=== PATIENT | female | born 2000 | race Caucasian/White ===

== ENCOUNTER 2022-05-08 22:11 | Emergency (ER) | payer BC, SELFPAY ==
[2022-05-08 22:18] VITALS: BP 104/72; PULSE 78; RESP 16; TEMP 36.5; O2SAT 98; BMI 18.6
[2022-05-08] MEDS: ONDANSETRON 2 MG/ML inj 4 MG IVP (23:00)
--- NOTE | 2022-05-08 23:03 | ED.GENADULT ---
HPI - General Adult General Date Seen: 05/08/22 Chief complaint: Nausea/Vomiting Stated complaint: Vomiting blood Time Seen by Provider: 05/08/22 22:31 Source: patient History of Present Illness HPI narrative: Patient is a 21-year-old here with Mom for evaluation of vomiting which started yesterday. She had diarrhea yesterday as well though that is improved. She has moderate crampy diffuse abdominal pain, worse in the lower abdomen. No fevers, no urinary symptoms. She says today she had some streaks of blood mixed with her vomiting several times. No coffee-ground emesis. No black or bloody stools. No upper respiratory symptoms such as sore throat or cough. She is sexually active, denies new partners or concerns about exposure to sexually transmitted illnesses. She has had irregular periods since having her Nexplanon removed recently, but says she had a normal period last month. She is not on another form of control at this time. Related Data Home Medications Medication Instructions Recorded Confirmed Cold Medicine 05/08/22 Zofran 05/08/22 ibuprofen 05/08/22 Allergies Allergy/AdvReac Type Severity Reaction Status Date / Time Penicillins Allergy hives Verified 05/08/22 22:22 Review of Systems Status of ROS: Reports: 10 or more systems reviewed and unremarkable except as noted in History and below [facility] Social History Smoking Status: Never smoker How often do you have a drink containing alcohol: never AUDIT-C Alcohol total score: 0 Non-prescribed substance use: denies use Exam Narrative: Exam Narrative: Vital signs as noted above. In general, an alert, nontoxic young woman. Head: Normocephalic, atraumatic. Eyes: Pupils are equal reactive. Extraocular movements are full. Conjunctivae are normal. ENT: Mucous membranes are moist. Throat is normal. Neck: Supple without lymphadenopathy. Heart: Regular rate and rhythm. No murmur or rub. Lungs: Clear bilaterally. No increased work of breathing, crackles or wheezes. Abdomen: Soft and nontender. No organomegaly. No CVA tenderness. Extremities: Well perfused. No edema. No calf tenderness. Pulses intact. Neurologic: Patient is alert and oriented to person and place. Speech is fluent. Face is symmetric. Moves all extremities equally. Affect: Normal. Skin: Warm and dry. Well perfused. Const: Vital Signs, click to edit/add: Vital Signs - 24 hr 05/08/22 22:18 Temperature 97.7 F Pulse Rate [Left P ulse Oximeter] 78 Respiratory Rate 16 Blood Pressure [Ri ght Upper Arm] 104/72 Pulse Oximetry 98 Oxygen Delivery Me thod Room Air Documenting provider has reviewed patient's vital signs: yes Course Course Hospital Course: At this point I would recommend IV fluids, checking some labs. Her abdominal exam is benign. My suspicion for a surgical process such as appendicitis or cholecystitis is low given lack of focal pain or tenderness. Doubt obstruction, diverticulitis, colitis, pancreatitis, pyelonephritis, but will await lab in urine results. Rule out . Blood work is reassuring, white blood cell count is normal, hemoglobin is 12.7. Blood in emesis is likely secondary to Qian-Hart tears, no significant hematemesis and no chest pain or toxicity to suggest esophageal rupture. Metabolic panel is normal, carbon dioxide level is 23, BUN and creatinine are normal. Blood sugars 132. Lactate is 1.1. CRP mildly elevated at 4. Lipase is normal at 100. LFTs are unremarkable. UA is negative aside from ketones. test is negative. She is feeling better after IV fluids. Abdominal exam remains benign. I think it is reasonable to discharge home. A prescribe Zofran as needed. Clear liquids for the next 12 hours, advance as able. Return for severe pain, fevers, bloody stools or other worsening. Follow up with primary care if not improving over the next 1-2 days. Vital Signs Vital signs: Initial Vital Signs Temperature 97.7 F 05/08/22 22:18 Temperature Source Oral 05/08/22 22:18 Pulse Rate 78 05/08/22 22:18 Respiratory Rate 16 05/08/22 22:18 Blood Pressure 104/72 05/08/22 22:18 Blood Pressure Mean 82 05/08/22 22:18 Blood Pressure Position Sitting 05/08/22 22:18 Pulse Oximetry 98 05/08/22 22:18 Oxygen Delivery Method 05/08/22 22:18 Vital Signs Temperature 97.7 F 05/08/22 22:18 Pulse Rate 78 05/08/22 22:18 Respiratory Rate 16 05/08/22 22:18 Blood Pressure 104/72 05/08/22 22:18 Pulse Oximetry 98 05/08/22 22:18 Oxygen Delivery Method 05/08/22 22:18 Temperature 97.7 F 05/08/22 22:18 Pulse Rate 78 05/08/22 22:18 Respiratory Rate 16 05/08/22 22:18 Blood Pressure 104/72 05/08/22 22:18 Pulse Oximetry 98 05/08/22 22:18 Oxygen Delivery Method 05/08/22 22:18 Medical Decision Making Lab Data Labs: Lab Results 05/08/22 05/08/22 05/08/22 Range/Units 23:00 23:00 23:00 WBC 10.26 (4.50-11.00) K/uL RBC 4.05 (4.00-5.20) m/uL Hgb 12.7 (12.0-16.0) gm/dL Hct 37.2 (33.0-51.0) % MCV 92 (80-100) fL MCH 31 (26-34) pg MCHC 34 (32-36) gm/dL RDW Coeff of Milind 11.8 (11.5-15.5) % Plt Count 266 (140-440) K/uL Neut % (Auto) 71.5 (42.0-72.0) % Lymph % (Auto) 14.9 L (20-44) % [place] % (Auto) 11.9 H (0.0-11.0) % Eos % (Auto) 1.2 (0.0-7.0) % Baso % (Auto) 0.3 (0.0-3.0) % Neut # (Auto) 7.34 H (1.7-7.0) K/uL Lymph # (Auto) 1.50 (0.90-2.90) K/uL [place] # (Auto) 1.20 H (0.00-0.90) K/UL Eos # (Auto) 0.12 (0.00-0.50) K/uL Baso # (Auto) 0.03 (0.00-0.30) K/uL Abs Immat Gran (auto) 0.02 (0.00-0.30) K/uL Sodium 135 (135-149) mmol/L Potassium 3.7 (3.6-5.1) mmol/L Chloride 103 (96-114) mmol/L Carbon Dioxide 23 (20-32) mmol/L BUN 21 (5-24) mg/dL Creatinine 0.5 (0.5-1.5) mg/dL Estimated Creat Clear 143.94 Estimated GFR 138 ml/min Glucose 132 H (60-115) mg/dL Lactate 1.1 (0.5-1.9) mmol/L Calcium 9.0 (8.4-10.6) mg/dL Total Bilirubin (0.1-1.5) mg/dL Direct Bilirubin (0.0-0.5) mg/dL AST (12-35) U/L ALT (4-35) U/L Alkaline Phosphatase (40-150) U/L C-Reactive Protein 4.0 H (0.5-1.0) mg/dL Total Protein (6.0-8.3) g/dL Albumin (3.3-5.0) g/dL Lipase 100 (23-300) U/L Urine Color (Yellow) Urine Appearance (Clear) Urine pH (5.0-8.5) Ur Specific [place] (1.000-1.030) Urine Protein (Negative) Urine Glucose (UA) (Negative) Urine Ketones (Negative) Urine Blood (Negative) Urine Nitrite (Negative) Urine Bilirubin (Negative) Urine Urobilinogen (0.2-1.0) Ur Leukocyte Esterase (Negative) Urine RBC (0-2) Urine WBC (0-5) Ur Squamous Epith Cells (None-Few) Urine Bacteria (None) Urine HCG, Qual (Negative) 05/08/22 05/08/22 Range/Units 23:00 23:55 WBC (4.50-11.00) K/uL RBC (4.00-5.20) m/uL Hgb (12.0-16.0) gm/dL Hct (33.0-51.0) % MCV (80-100) fL MCH (26-34) pg MCHC (32-36) gm/dL RDW Coeff of Milind (11.5-15.5) % Plt Count (140-440) K/uL Neut % (Auto) (42.0-72.0) % Lymph % (Auto) (20-44) % [place] % (Auto) (0.0-11.0) % Eos % (Auto) (0.0-7.0) % Baso % (Auto) (0.0-3.0) % Neut # (Auto) (1.7-7.0) K/uL Lymph # (Auto) (0.90-2.90) K/uL [place] # (Auto) (0.00-0.90) K/UL Eos # (Auto) (0.00-0.50) K/uL Baso # (Auto) (0.00-0.30) K/uL Abs Immat Gran (auto) (0.00-0.30) K/uL Sodium (135-149) mmol/L Potassium (3.6-5.1) mmol/L Chloride (96-114) mmol/L Carbon Dioxide (20-32) mmol/L BUN (5-24) mg/dL Creatinine (0.5-1.5) mg/dL Estimated Creat Clear Estimated GFR ml/min Glucose (60-115) mg/dL Lactate (0.5-1.9) mmol/L Calcium (8.4-10.6) mg/dL Total Bilirubin 0.2 (0.1-1.5) mg/dL Direct Bilirubin 0.0 (0.0-0.5) mg/dL AST 23 (12-35) U/L ALT 10 (4-35) U/L Alkaline Phosphatase 67 (40-150) U/L C-Reactive Protein (0.5-1.0) mg/dL Total Protein 7.1 (6.0-8.3) g/dL Albumin 4.2 (3.3-5.0) g/dL Lipase (23-300) U/L Urine Color Yellow (Yellow) Urine Appearance Clear (Clear) Urine pH 6.0 (5.0-8.5) Ur Specific [place] 1.025 (1.000-1.030) Urine Protein 1+ A (Negative) Urine Glucose (UA) Negative (Negative) Urine Ketones 3+ A (Negative) Urine Blood Negative (Negative) Urine Nitrite Negative (Negative) Urine Bilirubin 1+ A (Negative) Urine Urobilinogen 4.0 (0.2-1.0) Ur Leukocyte Esterase Negative (Negative) Urine RBC 0-2 (0-2) Urine WBC 2-5 (0-5) Ur Squamous Epith Cells Many A (None-Few) Urine Bacteria None (None) Urine HCG, Qual Negative (Negative) Discharge Plan Discharge Clinical Impression: Vomiting Patient Disposition: Home, Self-Care Condition: Improved Instructions: Acute Nausea and Vomiting (ED) Additional Instructions: Clear liquids for the next 12 hours. Advance diet as able. Zofran if needed. Return for severe pain, fevers, bloody stools or other worsening. Follow up with primary doctor if not improving over the next 1-2 days. Prescriptions: No Action ibuprofen Zofran Cold Medicine Stand Alone Forms: [employer]appy Info Instructions
[2022-05-08] MEDS: KETOROLAC 15 MG/ML inj IVP (23:05)
[2022-05-08] MEDS: 0.9 % SODIUM CHLORIDE 1000 ml 1,000 ML IV (23:05)
[2022-05-08 23:28] LABS: Lactate* 1.1 mmol/L (0.5-1.9)
--- OUTSIDE RECORDS SUMMARY | 2022-05-08 23:28 | XMS_ITS | Encounter Summary ---
:2000 [facility] Address [address] [place] [id number] Care Team Providers Name Role Phone Felicity Salomon MD Primary Care Provider Reason for Visit Reason Comments Nexplanon Removal Encounter Details Date Type Department Care Team Description 01/08/2022 Office Visit [facility] Margarita Mckenna Nexplanon removal (Primary Dx); Services-TRAINS SERVICE CONDUCTOR MD Mook Nexplanon in place [id number] [facility], [address] [place] [address] [address] [place] [id number] [phone] (Wo rk) Social History Tobacco Use Types Packs/Day Years Used Date Smoking Tobacco: Passive Smoke Exposure - Never Smoker Smokeless Tobacco: Never Alcohol Use Standard Drinks/Week Comments No 0 (1 standard drink = 0.6 oz pure alcoho l) Sex Assigned at Date Recorded Not on file documented as of this encounter Progress Notes Margarita Mckenna MD - 01/08/2022 3:45 PM CDT Brayan Marcano PROPERTY MANAGEMENT COORDINATOR Procedure Note Patient presents today for Nexplanon removal. She had the device placed on 12/2018 Procedure: Written consent was obtained for removal of contraceptive implant. Risks discussed included bleeding infection damage to surrounding structures, inability to remove necessitating surgical removal. Patient agrees. Implant was palpated in the right upper inner arm. Area was cleansed with betadine. Less than 3 mL of lidocaine 1% plain was infiltrated in to the subcutaneous area and 1 cm alongthe implant. A 2-3 mm puncture wound was created with an 11 blade scalpel over the distal end of theimplant. The implant was identified and grasp with hemostat. It was removed in full and noted to be intact. It was discarded. The puncture wound was covered with steri strip and wraped with compression dressing. Patient tolerated the procedure well. EBL was 10 mL. No complications. Reviewed returning to clinic for fevers, redness or pain at incision, any concerns. Reviewed need for backup contraception. Plans for contraception: condoms. Dr. 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
--- OUTSIDE RECORDS SUMMARY | 2022-05-08 23:28 | XMS_ITS | Encounter Summary ---
:2000 Author Organization [facility] Address [address], [place] [address] Care Team Providers Name Role Phone Felicity Salomon MD Primary Care Provider Reason for Visit Reason Comments WELL CHILD EXAM wants to start contraception Encounter Details Date Type Department Care Team Description 02/20/2019 Office Visit [facility] Carrie Maxwell for routine child health examination without abnormal findings (Primary Dx); Marcus Ly MD Dysmenorrhea in adolescent; [address] [address] [place] D R Encounter for screening for infections w ith a predominantly sexual mode of transmission; Drive [place], [place] Screening for HIV (human imm unodeficiency virus); [place] [address] Need for HPV vaccination [id number] [phone] Social History Tobacco Use Types Packs/Day Years Used Date Smoking Tobacco: Passive Smoke Exposure - Never Smoker Smokeless Tobacco: Never Alcohol Use Standard Drinks/Week Comments No 0 (1 standard drink = 0.6 oz pure alcoho l) Sex Assigned at Date Recorded Not on file documented as of this encounter Last Filed Vital Signs Vital Sign Reading Time Taken Comments Blood Pressure 90/70 02/20/2019 2:52 PM CDT Pulse 100 02/20/2019 2:52 PM CDT Temperature - - Respiratory Rate - - Oxygen Saturation - - Inhaled Oxygen Concentration - - Weight 47 kg (103 lb 11.2 oz) 02/20/2019 2:52 PM CDT Height 165.1 cm (5' 5) 02/20/2019 2:52 PM CDT Body Mass Index 17.26 02/20/2019 2:52 PM CDT Body Mass Index Percentile 3.82 % 02/20/2019 2:52 PM CD T Growth Chart: [facility] (Girls, 2-20 Years) documented in this encounter Patient Instructions Patient InstructionsCarrie Maxwell MD - 02/20/2019 3:00 PM CDT 1. Gardasil #2 in 1-2 months with nurse visit. [phone]. 2. Make appointment with Nathalie Schreiber. Consider therapy. 3. Nexplanon dileep insertion with Puja Candelaria. [phone]. 15 to 17 Years: Well Exam for Teens Guidelines for healthy growth and development For help after hours: ??? [facility] patients should contact their clinic and ask for pediatric urgent care or anurse ??? [facility] and [facility] patients should contact the Careline at [phone] or [phone] Agto-aze-udcvkbt medicine Aspirin: DO NOT USE Acetaminophen (Tylenol or Tempra) dose: Please see approved dosing tables or confirm dose with your clinic. Ibuprofen (Advil or Motrin) dose: Please see approved dosing tables or confirm dose with your clinic. Measurements Weight: 103 lb 11.2 oz (47 kg) (10 %, Source: [facility] (Girls, 2-20 Years)) Height: 5' 5 (1.651 m) (62 %, Source: [facility] (Girls, 2-20 Years)) Blood Pressure: 90/70 Blood pressure percentiles are <1 % systolic and 66 % diastolic based on the February 2017 AAP Clinical Practice Guideline. Body Mass Index: Estimated body mass index is 17.26 kg/m?? as calculated from the following: Height as of this encounter: 5' 5 (1.651 m). Weight as of this encounter: 103 lb 11.2 oz (47 kg). Nutrition ??? Eat 3 nutritious meals a day, including breakfast. ??? Eat healthy snacks between meals. Snacks should include at least 2 food groups. Enjoy low-fat milk, yogurt, fruits, vegetables, whole grains, lean meats and beans. ??? Join your family for meals together as often as possible. ??? Choose water instead of soda, sports drinks or coffee. ??? Limit foods high in fat or sugar, such as candy, chips and soda. Physical activity ??? Get at least 60 minutes of physical activity a day. You do not have to do the 60 minutes of activity all at once. Break activity up into several shorter times throughout the day. ??? Drink plenty of water during physical activity to help prevent cramps, exhaustion and heat stroke. ??? Limit screen time to no more than 2 hours a day, including TV, DVDs, video games, texting and computer time other than for school or work. Social and emotional health ??? Stay connected with your mom or dad. You might not always agree on everything, but your mom or dad can help you solve problems and support you during difficult situations. ??? If you feel depressed or alone, or are having difficulty solving a problem, reach out for help and support. Talking about your troubles with a trusted adult can help you feel better and find the support and appropriate resources you may need to deal with a problem. ??? Support friends who choose not to use tobacco, alcohol, drugs, steroids or diet pills. Avoid situations where drugs or alcohol are available. ??? Feeling good about yourself comes with self-respect, self-care and self- acceptance. Developing strong self-esteem comes from within, not by meeting others??? expectations about how you should look. ??? Stay involved in activities that allow you to express yourself and to learn--to be you and enjoylife. Do not let friends or classmates pressure you into giving up activities you love or into spending time and money on items that are not important to you. ??? Experiencing alternating periods of good and bad times, or feeling up and down in daily life, isnormal as you get older and take on more responsibility. Identify positive coping skills to deal with stress. ??? Find nonviolent ways to handle your anger or fear. Walk away if necessary. Fighting and carryingweapons can be dangerous. School performance ??? Get 9 hours of sleep every night. Not getting enough sleep can affect your ability to learn, listen, concentrate and solve problems, make you irritable, cause acne or lead to weight gain. Follow bedtime guidelines: ?? Go to bed and get up at the same time each day, even on weekends ?? Turn off cell phones and other electronic devices at least an hour before bed ?? Use the bedroom only for sleep and keep your room quiet and dark ??? Set a regular time and place to do homework. The room should be quiet and free from distractions, such as TV, cell phones, music or videos. ??? Take responsibility for getting to school and getting your homework done on time. Regular attendance at school is important. ??? Start sharing and discussing your future plans and goals for college and work with your family, teachers and school guidance counselor. Sexuality ??? Abstaining from vaginal, anal and oral sex is the safest way to prevent and sexually transmitted diseases (STD). ?? If sexually active, reduce the risk of infection with an STD by using a condom with vaginal, analand oral sex every time. ?? Using a condom and another type of prescription control with sexual intercourse is important to prevent . Talk to your clinician. ??? Healthy dating relationships are built on respect, concern and enjoying activities together. ??? When dating, or in any sexual situations, ???No?? means NO. Listen to and respect what another person is telling you. Saying ???No?? is OK. ??? Plan how you can avoid risky places and relationships. For example, using drugs or alcohol can raise the risk of unwanted sex or other risky behaviors. Safety ??? Make healthy decision about sex, tobacco, alcohol and other drugs. ??? Take a self-defense class to learn how to protect yourself. ??? Follow family rules and city and state laws, such as for curfews and riding in a car. Do not getin a car with someone you do not know or who has been drinking alcohol or using drugs. ??? Have a plan for how to get help if you are feeling unsafe. Call for help if a situation gets dangerous. ??? If you drink alcohol, do not drink when driving, swimming, boating, riding a bike or motorcycle or when responsible for younger children. ??? Do not text or talk on a cell phone while driving. ?? Silence your phone and put it where you cannot reach or see it to avoid using while driving. ?? If you need to use your phone, drive to a safe place and come to a complete stop first. ??? Always wear your seat belt. ??? Wear protective gear and use safety equipment when playing sports, including a mouth guard. ??? Always wear a helmet when rollerblading, skateboarding, snowboarding, skiing and riding a bike, motorcycle or ATV. ??? Wear earplugs or other ear protection when exposed to loud noises, such as music concerts, lawn equipment or other loud working conditions. ??? Put on sunscreen with SPF 30 or higher 30 minutes before you go outside. Reapply sunscreen every2 to 4 hours or after you have been in the water or sweating. Dental health ??? [place] your teeth 2 times a day and floss at least 1 time a day. ??? Visit the dentist every 6 months. Healthcare decisions ??? Now is a good time to think about and learn the skills you need to manage your own medical care for when you turn 18 years old. ?? Schedule your own appointments. ?? Talk honestly and openly with your clinician about your symptoms, medical history and lifestyle. ?? Understand your medical condition, if you have one. ?? Know what medications you need to take and how to get your prescriptions refilled. ?? Understand your healthcare insurance benefits. Websites ??? [employer]: www.Bokee ??? [employer]: www.Tinselvision ??? [facility]: www.[facility].org ??? [place] [employer]: www.healthychildren.org [facility] Participates in the [place] Vaccines for [place] Program ([place]) Children 18 years of age and younger are eligible for free vaccines through the [place]VFC program at [facility]3] if they: 1. Are enrolled in a [place] [facility] Program ([facility], [facility], or a prepaid Medical Assistance program) 2. Do not have health insurance 3. Are of or [place] heritage The [place]VFC program covers the cost of routine vaccines. There is a fee of $21.22 to cover the cost ofgiving the vaccine. If you have insurance through a [place] [facility] Program, you are not billedfor this fee. Other patients are billed for it. If you receive a bill for the cost of the vaccine orif you are unable to pay the administration fee, please contact Customer Service at: ??? Liset Marcano: [phone] ??? [facility]: [phone] ??? [facility]: [phone] Children who have health insurance but the insurance does not pay for immunizations can get low costimmunizations at [facility]. For more information, see Can My Child Get Free or Low Cost Shots? On the [facility]'s web site. documented in this encounter Progress Notes Carrie Maxwell MD - 02/20/2019 3:00 PM CDT Subjective: Mya Hood is a 18 y.o. female presenting for a Well Child Visit. Accompanied by: Mother Concerns: She sees Nathalie Schreiber in psychiatry for depression, anxiety. She is treated with prozac - she missed her last appt and has not rescheduled. She feels it is helping her. She denies that she is suicidal. She is no longer cutting. PHQ-9 is 13 and SCARLETT-7 is 14. She has not seen a therapist since middle school. She did not find it helpful. She has good support at school. She has ADHD treated with metadate CD 10mg during the school year. Nutrition: She doesn't like what her mother buys. She likes fruits and vegetables. She just doesn't always have a great appetite - maybe due to Sleep: She sleeps well most of time but she struggles to fall asleep sometimes. Activity: Appropriate physical activity, Physical activity less than 1 hour per day and Screen time more than 2 hours per day. She enjoys hiking but doesn't do it much. School/Employment: Grade and School - 12th grade at [employer]. She is doing well at [employer]. She would be interested in being a teacher. Menstruation: Regular. She gets nausea and cramping. She has had to leave school. Menarche at 14 or 15. She is not currently sexually active but has been in the past. Objective: Vitals: BP 90/70 (BP Location: Right Arm, BP Cuff Size: Regular) Pulse 100 Ht 5' 5 (1.651 m) Wt 103 lb 11.2 oz (47 kg) LMP 02/11/2019 (Exact Date) BMI 17.26 kg/m?? General: Active, alert, no distress Head: Normal Eyes: Appear normal ENT: Ears: No deformity, Normal TM's, Nose: Normal, no obstruction and Mouth: Normal, palate intact Neck: Normal, full range of motion, no mass, no thyromegaly Chest: Normal respiratory effort, lungs clear to auscultation, normal shape, normal breathing pattern Heart: Regular rate and rhythm, normal heart sounds, no murmurs Abdomen: Normal appearance, soft, non-tender, without organ enlargements, no masses Genitourinary: Patient declined Musculoskeletal: Extremities normal Skin: No rashes or lesions Neurologic: Non focal, normal gait Assessment: Mya was seen today for well child exam. Diagnoses and all orders for this visit: Encounter for routine child health examination without abnormal findings - PSC-17 or PHQ-9: Brief Emotional/Behav Assmt - Visual Acuity - Scr Test Visual Acuity Ac George - Hearing - Pure Tone Hearing Test, Air Dysmenorrhea in adolescent - reviewed treatment options. She will schedule for Nexplanon implant. Encounter for screening for infections with a predominantly sexual mode of transmission - Chlamydia and GC, Urine STD Screening for HIV (human immunodeficiency virus) - declined Need for HPV vaccination - 9Vhpv (Gardasil) - repeat in 1-2 months Reviewed Minor Consent laws in [place], confidentiality, peer pressure, school performance, abstinence/safer sex/contraception/STIs, substance use, 5-2-1-0, seatbelts, helmets, and bullying at visit today. Social and environmental risks assessed and concerns addressed. Social Emotional Screening: Abnormal, Child already seen by specialist. Recommend they make appointment. Immunizations: Discussed risks and benefits of immunizations given today Sports Physical Clearance: Not addressed at visit declined Dental: Dental hygiene discussed and verbal referral for dental visit provided. Teen Questionnaire reviewed and discussed as appropriate. Routine anticipatory guidance discussed with caregiver and concerns addressed. documented in this encounter Plan of Treatment Not on filedocumented as of this encounter Procedures Procedure Name Priority Date/Time Associated Diagnosis Comme nts CHLAMYDIA & GC, Routine 02/20/2019 4:05 PM Encounter for Resul ts for this URINE (15 YEARS CDT screening for procedure a re in AND OLDER) infections with a the result s predominantly sexual section . mode of transmission documented in this encounter Results Chlamydia and GC, Urine STD (02/20/2019 4:05 PM CDT) [facility] Method Time Signature Chlamydia Not Not 02/21/2019 [facility] Trachomatis Detected Detected 12:44 PM CENTRAL LAB STD CDT N. gonorrhoeae Not Not 02/21/2019 [facility] STD Detected Detected 12:44 PM CENTRAL LAB CDT Specimen Anatomical Collection Method Collection Time Receive d Time (Source) Location / / Volume Laterality Urine Non-blood 02/20/2019 4:05 PM 9 4:17 Collection / CDT PM CDT Unknown Narrative [facility] - 02/21/2019 12:44 PM CDT Test performed by Molecular Detection Carrie Maxwell MD LAB_1 Performing Organization Address City/State/ZIP Code Phon e Number [facility] [address] [address] documented in this encounter Visit Diagnoses Diagnosis Encounter for routine child health exami nation without abnormal findings - Primary Routine infant or child health check Dysmenorrhea in adolescent Encounter for screening for infections w ith a predominantly sexual mode of transmission Screening for HIV (human immunodeficienc y virus) Special screening examination for other specified viral diseases Need for HPV vaccination Need for prophylactic vaccination and in oculation against other viral diseases documented in this encounter Care Teams Forestry Instructor Relationship Specialty Start Date End Date Felicity Salomon MD PCP - General 10/27/10 documented as of this encounter
--- OUTSIDE RECORDS SUMMARY | 2022-05-08 23:28 | XMS_ITS | Encounter Summary ---
:2000 [facility] Address [address] [place] [address] Care Team Providers Name Role Phone Felicity Salomon MD Primary Care Provider Reason for Visit Reason Comments LAB APPOINTMENT Encounter Details Date Type Department Care Team Description 03/13/2019 Notes/Orders [facility] Puja Cand[facility] C, FRAME BENDER, CORNICE UPHOLSTERER contraceptive [address] management, unspecified [place], [place] [id number] [place] [address] type (Primary Dx) [phone] [id number] Social History Tobacco Use Types Packs/Day Years Used Date Smoking Tobacco: Passive Smoke Exposure - Never Smoker Smokeless Tobacco: Never Alcohol Use Standard Drinks/Week Comments No 0 (1 standard drink = 0.6 oz pure alcoho l) Sex Assigned at Date Recorded Not on file documented as of this encounter Plan of Treatment Not on filedocumented as of this encounter Results Test (Urine) (03/16/2019 2:17 PM CDT) athologist Signature HCG, Urine Negative Negative 03/16/2019 [place] 2:24 PM CDT LABORATORY Specimen Anatomical Collection Method Collection Time Receive d Time (Source) Location / / Volume Laterality Urine URINE SPECIMEN Non-blood 03/16/2019 2:17 PM 019 2:17 COLLECTION, CLEAN Collection / CDT PM CDT CATCH / Unknown Unknown Puja Candelaria APRN, CORNICE UPHOLSTERER LAB_1 Performing Organization Address City/State/ZIP Code Phon e Number [facility] [address] [place] [address] documented in this encounter Visit Diagnoses Diagnosis Encounter for contraceptive management, unspecified type - Primary documented in this encounter Care Teams Shackler Relationship Specialty Start Date End Date Felicity Salomon MD PCP - General 10/27/10 documented as of this encounter
--- OUTSIDE RECORDS SUMMARY | 2022-05-08 23:28 | XMS_ITS | Encounter Summary ---
:2000 Author [facility] Address [address], [place] [address] Care Team Providers Name Role Phone Felicity Salomon MD Primary Care Provider Reason for Visit Reason Comments IMMUNIZATIONS Encounter Details Date Type Department Care Team Description 04/24/2019 [facility] Need f or HPV Medicine vaccination (Primary [id number] Dx) [place] [address] Social History Tobacco Use Types Packs/Day Years Used Date Smoking Tobacco: Passive Smoke Exposure - Never Smoker Smokeless Tobacco: Never Alcohol Use Standard Drinks/Week Comments No 0 (1 standard drink = 0.6 oz pure alcoho l) Sex Assigned at Date Recorded Not on file documented as of this encounter Plan of Treatment Not on filedocumented as of this encounter Visit Diagnoses Diagnosis Need for HPV vaccination - Primary Need for prophylactic vaccination and in oculation against other viral diseases documented in this encounter Care Teams Patient Registration Supervisor Relationship Specialty Start Date End Date Felicity Salomon MD PCP - General 10/27/10 documented as of this encounter
--- OUTSIDE RECORDS SUMMARY | 2022-05-08 23:28 | XMS_ITS | Clinical Summary ---
:2001 Author [facility] Address [address] [place] [address] Care Team Providers Name Role Phone Felicity Salomon MD Primary Care Provider Source Comments You are receiving this document as you are listed as the primary care provider,follow-up provider, or the patient has been referred to you for consultation.This is in compliance with the Medicare and Medicaid EHR Incentive Program,which states Providers who transition their patient to another setting of careor provider of care or refers their patient to another provider of care shouldprovide summarycare record for each transition of care or referral. [employer] Allergies Active Allergy Reactions Severity Noted Date Comments Penicillins Rash High 03/03/2017 Medications Medication Sig Dispensed Refills Start Date End Date Status FLUoxetine (PROZAC) Take 1 Capsule by 30 Capsule 2 09/28/2018 Active 20 MG capsule mouth daily. Will call when needs filled. methylphenidate Take 1 Capsule by 30 Capsule 0 11/10/2018 Active (METADATE CD) 10 MG mouth daily. controlled release capsule etonogestrel Inject 68 mg 1 Each 0 03/16/2019 Act marck (NEXPLANON) 68 MG subcutaneously . implantIndications: Insertion of implantable subdermal contraceptive Active Problems Problem Noted Date Nexplanon in place 03/16/2019 Overview: Inserted right arm 03/16/19 right arm. Ne eds removal 03/16/2022. 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 Immunizations Name Administration Dates Next Due 9vHPV (Gardasil 9) 04/24/2019, 02/20/2019 DTaP 07/15/2006, 2001, 2001, 06/25 DTaP/Hib 08/25/2002 HepA Ped/Adol (1-18 yrs) 09/10/2014, 01/22/2014 HepB, Unspecified Formulation 02/08/2002, 2001, 2000 Hib (ActHIB) 2001, 2001, 2001 IPV (Polio) 07/15/2006, 02/08/2002, 2001, 06/25 MCV4 (Menactra) 01/22/2014 MCV4 (Menveo) 12/07/2017 MMR 07/15/2006, 06/08/2002 Pneumococcal 7, PED 05/25/2003, 2001, 2001, 06/25 TDAP (BOOSTRIX) 01/22/2014 Varicella 07/29/2012, 06/08/2002 Family History Medical History Relation Name Comments ADHD Father Anxiety Father Depression Father Anxiety Mother Depression Mother Diabetes, Type II Maternal Grandmother Depression Other MGGM Relation Name Status Comments Father Alive Mother Alive Maternal Grandmother Other MGGM Social History Tobacco Use Types Packs/Day Years Used Date Smoking Tobacco: Passive Smoke Exposure - Never Smoker Smokeless Tobacco: Never Alcohol Use Standard Drinks/Week Comments No 0 (1 standard drink = 0.6 oz pure alcoho l) Sex Assigned at Date Recorded Not on file Last Filed Vital Signs Vital Sign Reading Time Taken Comments Blood Pressure 120/74 03/16/2019 2:37 PM CDT Pulse 88 03/16/2019 2:37 PM CDT Temperature 36.8 ??C (98.2 ??F) 03/03/2017 1:17 PM CDT Respiratory Rate 20 03/03/2017 1:17 PM CDT Oxygen Saturation - - Inhaled Oxygen Concentration - - Weight 48.5 kg (107 lb) 03/16/2019 2:37 PM CDT Height 165.1 cm (5' 5) 02/20/2019 2:52 PM CDT Body Mass Index - - Plan of Treatment Health Maintenance Due Date Last Done Comments Hep C Screening (Preventive 2001 Services) COVID-19 Vaccine (#1) 2001 HIV Screening (Preventive 2017 Services) Adult Preventive Visit 2019 02/20/2019, 12/07/2017 HPV Vaccine (3 - 3-dose 08/24/2019 04/24/2019, 02/20/2019 series) Chlamydia 02/21/2020 02/20/2019 Influenza (#1) 2022 DTaP/Tdap/Td (7 - Tdap) 01/23/2024 01/22/2014, 07/15/2006, 08/25/2002, Additional history exists Zoster/Shingles (1 of 2) 2051 HepB Completed 02/08/2002, 2001, 2001 Hib Completed 08/25/2002, 2001, 2001, Additional history exists Pneumococcal Aged Out 05/25/2003, 2001, No longe r eligible 2001, Additional based on patient's age history exists to complete this topic IPV (Polio) Completed 07/15/2006, 02/08/2002, 2001, Additional history exists Varicella Completed 07/29/2012, 06/08/2002 HepA Completed 09/10/2014, 01/22/2014 MCV4 Completed 12/07/2017, 01/22/2014 Insurance Payer Benefit Plan / Subscriber ID Effective Dates Phone Addre ss Type Group BCBS BCBS OUT OF [id number] 2018-Present [id number] [place] [address] ErwinChet matta Personal/Family Father 1965 [phone] [phone] JORDEN PALACIOS (Work) [phone] Care Teams Transportation Inspector Relationship Specialty Start Date End Date Felicity Salomon MD PCP - General 10/27/10
--- OUTSIDE RECORDS SUMMARY | 2022-05-08 23:28 | XMS_ITS | Encounter Summary ---
:2000 [facility] Address [address], [place] [address] Care Team Providers Name Role Phone Felicity Salomon MD Primary Care Provider Encounter Details Date Type Department Care Team Description 03/16/2019 Lab Visit [facility] Encounter for contraceptive [address] [place] [employer] management, [place] [address] Social History Tobacco Use Types Packs/Day Years [...] Name Priority Date/Time Associated Diagnosis Comme nts TEST STAT 03/16/2019 2:17 PM Encounter for Result s for this (URINE) CDT contraceptive procedure are in management, the results unspecified type section. documented in this encounter Results Test (Urine) (03/16/2019 2:17 PM CDT) P athologist Signature HCG, Urine Negative Negative 03/16/2019 [facility] 2:24 PM CDT LABORATORY Specimen Anatomical Collection Method Collection Time Receive d Time (Source) Location / / Volume Laterality Urine URINE SPECIMEN Non-blood 03/16/2019 2:17 PM 019 2:17 COLLECTION, CLEAN Collection / CDT PM CDT CATCH / Unknown Unknown Puja Candelaria APRN, RESP THERAPIST LAB_1 Performing Organization Address City/State/ZIP Code Phon e Number [facility] [address] [place] [address] documented in this encounter Visit Diagnoses Diagnosis Encounter for contraceptive management, unspecified type documented in this encounter Care Teams Sheeter Waxer Operator Relationship Specialty Start Date End Date Felicity Salomon MD PCP - General 10/27/10 documented as of this encounter
--- OUTSIDE RECORDS SUMMARY | 2022-05-08 23:28 | XMS_ITS | Encounter Summary ---
:2001 Author Organization [facility] Address [address] [address] Care Team Providers Name Role Phone Bart Lowe MD Primary Care Provider Reason for Visit Reason Comments SKIN PROBLEM mole to left shoulder Consult/Transfer Care (Routine) - Closed Specialty Diagnoses / Procedures Referred By Contact Refer red To Contact [place] [address] [place] [address] Referral ID Status Reason Start Date Expiration Date Visits Requ ested Visits Authorized [id number] Closed 12/08/2017 03/09/2019 1 1 Encounter Details Date Type Department Care Team Description 03/07/2018 Initial Consult [place] Chaim Day ole of skin (Primary Dx); Dermatology AMD Tinea corporis [address] [place] [address] [facility] [phone] [place], [place] [phone] Social History Tobacco Use Types Packs/Day Years Used Date Smoking Tobacco: Passive Smoke Exposure - Never Smoker Smokeless Tobacco: Never Sex Assigned at Date Recorded Not on file documented as of this encounter Progress Notes Anabel Scott LPN - 03/07/2018 1:15 PM CDT Images from the original note were not included. Chaim Day MD - 03/07/2018 12:00 PM CDT NAME: QUE ZAMORA MR#: [id number] CSN: [id number] AUTHENTICATING CLINICIAN: Chaim Day MD CONFIRM #: [id number] LOC: 527 CLINIC PROGRESS NOTE DATE OF VISIT: 03/07/2018 : 2001 DERMATOLOGY CLINIC NEW PATIENT VISIT NOTE CHIEF COMPLAINT: Mole on the left shoulder. HISTORY OF PRESENT ILLNESS: Que is a 17-year-old female who is here today for evaluation of a mole on the left shoulder. She is referred by Dr. Lowe. She is accompanied by her mother. Patient thinks that the mole has alwaysbeen there. She is uncertain if it has changed. It is asymptomatic. Does have a slightly darker color centrally. She also has a problem with red, round, scaly spots. These first started about a month ago. She had a kitten who had ringworm. She treated these areas on her body with Lamisil cream, and they went awayinitially. They have since recurred. She is otherwise well without further skin complaints. OBJECTIVE: GENERAL: Pleasant and cooperative, no acute distress. SKIN: Examination of the head, neck, left shoulder, upper extremities, and abdomen reveals the following. On the left posterior shoulder, there is a 7 x 5 mm fleshy red brown papule with a darker brown component centrally, benign features on dermoscopy over the upper extremities and abdomen. She has multiple roughly 5 mm pink, scaly papules with an annular leading edge of scale. 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 Photo documentation performed today. Warning signs of melanoma reviewed. She will return to clinic in 3 months for recheck. 2.Tinea corporis: Recommend she restart the Lamisil cream twice daily until clear. She will call if she is not improving. CC: [place] [address] [place] [address] JASMINE:LADONNAQ C: CONFIRM #: [id number] documented in this encounter Plan of Treatment Scheduled Referrals Name Type Priority Associated Diagnoses Order S chedule Dermatology Referral Routine Nevus Ordered: 2017 Consult-Adult/Peds documented as of this encounter Visit Diagnoses Diagnosis Normal mole of skin - Primary Benign neoplasm of skin, site unspecifie d Tinea corporis Dermatophytosis of the body documented in this encounter Care Teams Padding Machine Operator Relationship Specialty Start Date End Date Bart Lowe MD PCP - General 10/27/10 documented as of this encounter
--- OUTSIDE RECORDS SUMMARY | 2022-05-08 23:28 | XMS_ITS | Encounter Summary ---
:2000 [facility] Address [address] [place] [address] Care Team Providers Name Role Phone Felicity Salomon MD Primary Care Provider Reason for Visit Reason Comments SKIN PROBLEM Encounter Details Date Type Department Care Team Description 06/09/2018 Office Visit Chaim Shirley, Compound nevus Dermatology MD (Primary Dx) [address] [phone] [place], [place] [phone] (Wo rk) Social History Tobacco Use Types Packs/Day Years Used Date Smoking Tobacco: Passive Smoke Exposure - Never Smoker Smokeless Tobacco: Never Alcohol Use Standard Drinks/Week Comments No 0 (1 standard drink = 0.6 oz pure alcoho l) Sex Assigned at Date Recorded Not on file documented as of this encounter Progress Notes Chaim Day MD - 06/09/2018 2:33 PM CST NAME: QUE ZAMORA MR#: [id number] CSN: [id number] AUTHENTICATING CLINICIAN: Chaim Day MD CONFIRM #: [id number] LOC: 527 CLINIC PROGRESS NOTE DATE OF VISIT: 06/09/2018 : 2001 HPI: Que is a 18-year-old female who is here today for a followup of mole on the left posterior shoulder. I last saw her 3 months ago. Photo documentation was performed at that time, she believes the mole has been stable. OBJECTIVE: SKIN: Examination of the left posterior shoulder reveals a 7 x 5 mm fleshy, red/brown papule with a darker brown macular component centrally. Benign features on dermoscopy. Stable from photo documentation. 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 Recommend she continue to monitor for change. Warning signs of melanoma reviewed. She will return to clinic as needed. JASMINE:ANTOINE C: CONFIRM #: [id number] ET CLEANER documented in this encounter Plan of Treatment Not on filedocumented as of this encounter Visit Diagnoses Diagnosis Compound nevus - Primary documented in this encounter Care Teams Shot Grinder Operator Relationship Specialty Start Date End Date Felicity Salomon MD PCP - General 10/27/10 documented as of this encounter
--- OUTSIDE RECORDS SUMMARY | 2022-05-08 23:28 | XMS_ITS | Encounter Summary ---
:2001 Author Organization [facility] Address [address] [place] [address] Care Team Providers Name Role Phone Felicity Salomon MD Primary Care Provider Reason for Visit Reason Comments Nexplanon Insertion Encounter Details Date Type Department Care Team Description 03/16/2019 Office Visit [facility] Puja Candelaria Insert [facility] C, NAKUL CIFUENTES implantable subdermal [address] [place] ([place] [address] [place], [place] Dx) [phone] Social History Tobacco Use Types Packs/Day Years [...] Pulse 88 03/16/2019 2:37 PM CDT Temperature - - Respiratory Rate - - Oxygen Saturation - - Inhaled Oxygen Concentration - - Weight 48.5 kg (107 lb) 03/16/2019 2:37 PM CDT Height - - Body Mass Index - - documented in this encounter Progress Notes Puja Candelaria APRN, CNP - 03/16/2019 2:40 PM CDT Clinic procedure note Preprocedure diagnosis: Contraception Post procedure diagnosis: Contraception Indications: Mya Hood is a 18 y.o. female who presents to the clinic today for Nexplanon insertion. Patient's last menstrual period was 02/25/2019 (approximate). . She reports abstinence for the prior 10 days. HCG today negative. Full Nexplanon consult completed on 03/13/[address] Maxwell. I reviewed Nexplanon information with patient and her mother again today. See note for pertinent history. Procedure: Nexplanon insertion Complications: None Description of procedure: After reviewing and signing the informed consent, the patient was placed in the supine position with the right arm elevated. She is left arm dominant. The area of the placement was localized. It was cleansed with Betadine after marking the insertion site. The arm was then injected with 1% lidocaine without epinephrine. Under sterile conditions, the nexplanon dileep was insertedwithout complication. The patient and I both palpated the dileep at the completion of the procedure. A Steri-Strip was placed across the insertion site. Kerlex bandage and sterile 4x4's were applied. There were no complications with the procedure. The patient tolerated the procedure well. Lot number [id number]. Warning signs for infection and irregular menstrual bleeding patterns were reviewed. She was advised to use back-up method of contraception for 14 days. She will follow-up with me as needed. AVS info on Nexplanon aftercare was given. Puja Candelaria APRN, CNP documented in this encounter Plan of Treatment Not on filedocumented as of this encounter Visit Diagnoses Diagnosis Insertion of implantable subdermal contr aceptive - Primary documented in this encounter Care Teams Sephora Operations Consultant Relationship Specialty Start Date End Date Felicity Salomon MD PCP - General 10/27/10 documented as of this encounter
--- OUTSIDE RECORDS SUMMARY | 2022-05-08 23:29 | XMS_ITS | Encounter Summary ---
:2001 Author Organization [facility] Address [address], [place] [address] Care Team Providers Name Role Phone Felicity Salomon MD Primary Care Provider Reason for Visit Reason Comments Other Encounter Details Date Type Department Care Team Description 10/04/2009 Telephone [facility], Message Other [address] [place] [address] Social History Tobacco Use Types Packs/Day Years Used Date Smoking Tobacco: Never Assessed Sex Assigned at Date Recorded Not on file documented as of this encounter Progress Notes Center, Message - 10/04/2009 1:55 PM CST Phone Note filed by Picodeon at 11/15/10137 Author: Picodeon Service: (none) Author Type: (none) Filed: 11/15/10137 Note Time: 10/04/09 1355 Status: Signed Potato Chip Cooker Machine: Picodeon (Resource) Non -Symptom Message from Front Line Caller Name/Relationship:Hernan Primary Mixed Livestock Farmer:Aime Message:Pt mom calling to check on the status of her daughter's MRI appointment that was to be scheduled. (I am unable to locate a previous note) Road Gang Supervisor:Hernan Best call back number:[phone] Is it OK to leave a confidential message on this voicemail?y *[id number] Created on 04Oct2009 1:55pm by LASHAWN WARD R On 04Oct2009 2:22pm FRANCISCO SWEET wrote: Called and talked to mom and let her know that we are waiting on the RQI number from [facility]. I will call mom back when we have this and have the test scheduled UNCHER documented in this encounter Plan of Treatment Not on filedocumented as of this encounter Visit Diagnoses Not on filedocumented in this encounter Care Teams Match Up Person Relationship Specialty Start Date End Date Felicity Salomon MD PCP - General 10/27/10 documented as of this encounter
--- OUTSIDE RECORDS SUMMARY | 2022-05-08 23:29 | XMS_ITS | Encounter Summary ---
:2001 Author Organization [facility] Address [address] [place] [address] Care Team Providers Name Role Phone Felicity Salomon MD Primary Care Provider Encounter Details Date Type Department Care Team Description 09/20/2006 PN Conversion Only [place] [address] [place] [address] Social History Tobacco Use Types Packs/Day Years Used Date Smoking Tobacco: Never Assessed Sex Assigned at Date Recorded Not on file documented as of this encounter Plan of Treatment Not on filedocumented as of this encounter Procedures Procedure Name Priority Date/Time Associated Comments Diagnosis URINALYSIS Routine 09/20/2006 4:31 PM Results f or this ROUTINE(MICRO IF POS) SUPERVISOR PASTRY proced ure are in the results section. URINALYSIS Routine 09/20/2006 4:31 PM Results f or this MICROSCOPIC SUPERVISOR PASTRY procedure are i n the results section. URINE CULTURE Routine 09/20/2006 4:31 PM Results for this SUPERVISOR PASTRY procedure are i n the results section. documented in this encounter Results Urine Culture (09/20/2006 4:31 PM SUPERVISOR PASTRY) Analysis Performed At Patho logist Time Signature Urine Culture SEE TEXT HP CONVERSION Comment: Patient: QUE ZAMORA Culture, Urine @ ?Collected: ??[id number] ??[id number] Source: Clean Ca ?Processed: ??[id number] ??1631 Final Report ------ ?[id number] ??1124 <10,000 CFU/mL gram negative dileep No further workup @ = URINE CULTURE Performed at ??[address] [place], [place] ?[address] Specimen (Source) Anatomical Collection Method Collection Time Re ceived Time Location / / Volume Laterality 09/20/2006 4:31 PM SUPERVISOR PASTRY Josephine Huggins MD LAB_1 Performing Organization Address City/State/[facility] Code Phon e Number HP CONVERSION (ABNORMAL) Urinalysis Routine(Micro If Pos) (09/20/2006 4:31 PM SUPERVISOR PASTRY) [facility] gist Method Time Signature Turbidity Clear No normal HP CONVERSION range pH Urine 7.0 4.5 - 7.5 HP CONVERSION Protein Urine Trace Neg-Trac HP CONVERSION Glucose, Negative Neg-Trac HP CONVERSION Qualitative U Ketones Negative Negative HP CONVERSION U BILI Negative Negative HP CONVERSION Blood Urine Negative Negative HP CONVERSION Nitrite Urine Negative Negative HP CONVERSION Leukocyte Trace (A) Negative HP CONVERSION Esterase Urine Urobilinogen Negative 0.2 - 1.0 HP CONVERSION Urine U Specific 1.020 1.005 - 25 HP CONVERSION [place] Specimen (Source) Anatomical Collection Method Collection Time Re ceived Time Location / / Volume Laterality 09/20/2006 4:31 PM SUPERVISOR PASTRY Josephine Huggins MD LAB_1 Performing Organization Address City/State/ZIP Code Phon e Number HP CONVERSION (ABNORMAL) Urinalysis Microscopic (09/20/2006 4:31 PM SUPERVISOR PASTRY) [facility] gist Method Time Signature White Blood 10-24/HP 0 - 3 HP CONVERSION Cells Urine (A) Red Blood Cells 3-4/HPF 0 - 2 HP CONVERSION Urine (A) Bacteria Urine Few (A) None HP CONVERSION Epithelial Few Few /HPF HP CONVERSION Cells Crystals Amorph None HP CONVERSION Specimen (Source) Anatomical Collection Method Collection Time Re ceived Time Location / / Volume Laterality 09/20/2006 4:31 PM SUPERVISOR PASTRY Josephine Huggins MD LAB_1 Performing Organization Address City/State/ZIP Code Phon e Number HP CONVERSION documented in this encounter Visit Diagnoses Not on filedocumented in this encounter Care Teams Basin Operator Relationship Specialty Start Date End Date Felicity Salomon MD PCP - General 10/27/10 documented as of this encounter
--- OUTSIDE RECORDS SUMMARY | 2022-05-08 23:29 | XMS_ITS | Encounter Summary ---
:2001 Author Organization [facility] Address [address], [place] [address] Care Team Providers Name Role Phone Bart Lowe MD Primary Care Provider Encounter Details Date Type Department Care Team Description 08/11/2006 Office Visit [facility] [place] [address] [place] [address] [place], [place] [phone] (Wo rk) Social History Tobacco Use Types Packs/Day Years Used Date Smoking Tobacco: Never Assessed Sex Assigned at Date Recorded Not on file documented as of this encounter Last Filed Vital Signs Vital Sign Reading Time Taken Comments Blood Pressure - - Pulse 120 08/11/2006 8:59 AM SENIOR EMBEDDED SOFTWARE ENGINEER Temperature 35.9 ??C (96.6 ??F) 08/11/2006 8:59 AM AXILLARY C: 35.9 C SENIOR EMBEDDED SOFTWARE ENGINEER Respiratory Rate 24 08/11/2006 8:59 AM SENIOR EMBEDDED SOFTWARE ENGINEER Oxygen Saturation - - Inhaled Oxygen - - Concentration Weight 16.8 kg (36 lb 15.9 08/11/2006 8:59 AM C: 16.8kg oz) SENIOR EMBEDDED SOFTWARE ENGINEER Height - - Body Mass Index - - documented in this encounter Progress Notes Bart Lowe MD - 08/11/2006 12:01 AM CST Progress Notes signed by Bart Lowe MD at 08/18/06 1589 Author: Bart Lowe MD Service: (none) Author Type: Physician Filed: 11/14/10 1650 Note Time: 08/11/06 0001 Status: Signed Health Care Consultant: Bart Lowe MD (Physician) NAME: QUE ZAMORA MR#: [id number] ACCT: [id number] VISIT: [id number] DICTATING CLINICIAN: BART LOWE MD JOB: [id number] LOC: 503 CLINIC PROGRESS NOTE DATE OF VISIT: 08/11/2006 SUBJECTIVE: A 6-year-old here; she complains of a sore throat today. There is strep going on at day care. She first became sick last week; however, had fever of 102, vomiting. Developed a runny nose and cough. The fever went away. She still has a cough that is lingering. Still having some runny nose and has had some nosebleeds, which have stopped on their own. Mom started humidifier in her room which seems to be helping. Currently denies ear pain. No abdominal pain. No rash. MEDICATIONS: Reviewed in LastWord today. ADR/ALLERGIES: REVIEWED IN LASTWORD TODAY. OBJECTIVE: VS: T: 96.6. P: 120. R: 24. Wt: 37 lb. PERRLA and conjunctivae are clear. TMs are normal. Nose has crusted rhinorrhea and some old, dried blood. Oropharynx is moist. No erythema, exudate, or lesions. NECK: Supple, without adenopathy or masses. LUNGS: Clear to auscultation. Rapid strep was negative. ASSESSMENT: URI with cough. PLAN: Symptomatic treatment. Await 24 hour strep. Treat if positive. SJJ:[id number] C: 08/12/06 14:51 DOCUMENT: [id number] OR EMBEDDED SOFTWARE ENGINEER documented in this encounter Plan of Treatment Not on filedocumented as of this encounter Visit Diagnoses Not on filedocumented in this encounter Care Teams Retirement Actuary Relationship Specialty Start Date End Date Bart oLwe MD PCP - General 10/27/10 documented as of this encounter
--- OUTSIDE RECORDS SUMMARY | 2022-05-08 23:29 | XMS_ITS | Encounter Summary ---
:2001 Author Organization [facility] Address [address], [place] [address] Care Team Providers Name Role Phone Bart Lowe MD Primary Care Provider Reason for Visit Reason Comments Other Encounter Details Date Type Department Care Team Description 10/09/2009 Telephone [facility] Bart Lowe MD Other [address] [place] [address] [place] [phone] (Wo rk) Social History Tobacco Use Types Packs/Day Years Used Date Smoking Tobacco: Never Assessed Sex Assigned at Date Recorded Not on file documented as of this encounter Progress Notes Dianne Méndez - 10/09/2009 4:58 PM CDT Phone Note filed by Dianne Méndez RN at 11/15/10203 Author: Dianne Méndez RN Service: (none) Author Type: Registered Nurse Filed: 11/15/10203 Note Time: 10/09/091657 Status: Signed Logistics Assistant: Joey Montero (Physician) [facility]. It has not been dictated yet, but did want provider here to know results. Exam was done by his partner. States that there is no evidence of an abnormal adnexal mass. They were able to see the right ovary, but the left ovary was hard to see. Call [phone] for questions. Created on 09Oct2009 4:58pm by DIANNE MÉNDEZ On 10Oct2009 12:32pm BART LOWE wrote: I left message on mom's phone. about basically normal pelvic MRI. just couldn't see the left ovary fully. anyway, I asked mom to call me back and we will just plan on repeating the plain films to see if spots are gone. Did parents give pepto-bismal? we'll see at the time of follow up if any further work up need to be done Acknowledged by BART LOWE on 12:32pm OW GAUGE BRAKEMAN documented in this encounter Plan of Treatment Not on filedocumented as of this encounter Visit Diagnoses Not on filedocumented in this encounter Care Teams Packing Line Worker Relationship Specialty Start Date End Date Bart Lowe MD PCP - General 10/27/10 documented as of this encounter
--- OUTSIDE RECORDS SUMMARY | 2022-05-08 23:29 | XMS_ITS | Encounter Summary ---
:2000 [facility] Address [address], [place] [address] Care Team Providers Name Role Phone Bart Lowe MD Primary Care Provider Reason for Referral Consult/Transfer Care (Routine) - Closed Specialty Diagnoses / Procedures Referred By Contact Refer red [place] [address] [place] [place] [phone] Referral ID Status Reason Start Date Expiration Date Visits Requ ested Visits Authorized [id number] Closed 12/08/2017 03/09/2019 1 1 Scheduling Instructions Your provider has recommended an appoint ment with Liset Rivera. You may call [phone] to schedule your appoi ntment. If you do not schedule an appointment within the next 1 to 3 business days, we will call you to help arrange your appointment. We suggest you call your [employer] insurance company about your coverage and benefits for this appointment. Consult/Transfer Care (Routine) - Incomplete Specialty Diagnoses / Procedures Referred By Contact Refer red To Contact Diagnoses Anxiety (HRC) [place] [address] [place] [phone] Referral ID Status Reason Start Date Expiration Date Visits V isits Requested Authorized [id number] Incomplete 12/07/2017 03/08/2019 1 1 Scheduling Instructions Your provider has recommended an appoint ment with [facility]. You may call [phone] to schedule your appointmen t. This recommended service/s may not be covered by your health plan (health insu teresa). To find out your specific benefit coverage, please call the number on your insurance card.?? Please note that in order to maintain access for all patients, [facility] does have a late cancellation policy. In order to avoid being restrict ed from scheduling future appointments in Behavioral Health you will need to cance l at least 24 hours in advance. We request you that you arrive 30 minutes before yo ur first appointment to complete paperwork. ental (Routine) - Incomplete Specialty Diagnoses / Procedures Referred By Contact Refer red To Contact Diagnoses [place] [address] [place] [place] [phone] Referral ID Status Reason Start Date Expiration Date Visits V isits Requested Authorized [id number] Incomplete 12/07/2017 06/05/2018 1 1 Scheduling Instructions If scheduling assistance is needed, eufemia helton inquire with the medical office staff upon exiting your appointment or contact the ordering clinic for recommended locations. This recommended service/s may not be co db by your insurance coverage. To find out your specific benefit coverage, please c all the number on your insurance card. Reason for Visit Reason Comments WELL CHILD EXAM 17yr exam Encounter Details Date Type Department Care Team Description 12/07/2017 Office Visit Bart aMi, Encounter for routine child health examination without abnormal findings (Primary Dx); Pediatrics Screening for iron deficiency anemia; [address] Screening for lipoid disorders; [address] Screening for mental disorde r and developmental handicaps; [phone] Examination of eyes and vision; [phone] Examination of ears and hearing; (Work) Visit for dental examination; Fatigue, unspecified type; Anxiety; Depressed mood (HRC); Nevus Social History Tobacco Use Types Packs/Day Years Used Date Smoking Tobacco: Passive Smoke Exposure - Never Smoker Smokeless Tobacco: Never Sex Assigned at Date Recorded Not on file documented as of this encounter Last Filed Vital Signs Vital Sign Reading Time Taken Comments Blood Pressure 98/56 12/07/2017 8:39 AM CDT Pulse 68 12/07/2017 8:39 AM CDT Temperature - - Respiratory Rate - - Oxygen Saturation - - Inhaled Oxygen Concentration - - Weight 50.3 kg (111 lb) 12/07/2017 8:39 AM CDT Height 165.7 cm (5' 5.25) 12/07/2017 8:39 AM CDT Body Mass Index 18.33 12/07/2017 8:39 AM CDT Body Mass Index Percentile 17.46 % 12/07/2017 8:39 AM CD T Growth Chart: CDC (Girls, 2-20 Years) documented in this encounter Patient Instructions Patient InstructionsNubia Roman LPN - 12/07/2017 8:45 AM CDT 15 to 17 Years: Well Exam for Teens Guidelines for healthy growth and development For help after clinic hours, call your clinic and ask for pediatric urgent care or a nurse. Vaam-iph-oajysqn medicine Aspirin: DO NOT USE Acetaminophen (Tylenol or Tempra) dose: Please see approved dosing tables or confirm dose with your clinic. Ibuprofen (Advil or Motrin) dose: Please see approved dosing tables or confirm dose with your clinic. Measurements Weight: 111 lb (28205 g) (30 %, Source: CDC 2-20 Years) Height: 5' 5.25 (165.7 cm) (68 %, Source: CDC 2-20 Years) Blood Pressure: 98/56 Blood pressure percentiles are 8.1 % systolic and 16.1 % diastolic based on NHBPEP's 4th Report. Body Mass Index: Estimated body mass index is 18.33 kg/(m^2) as calculated from the following: Height as of this encounter: 5' 5.25 (165.7 cm). Weight as of this encounter: 111 lb (14480 g). Nutrition ??? Eat 3 nutritious meals a [...] the water or sweating. Dental health ??? [place] your teeth 2 times a day and [...] Understand your healthcare insurance benefits. Websites ??? [facility]: www.SocialGlimpz/pediatrics ??? [place] [employer]: www.healthychildren.org [facility] Participate in the [place] Vaccines for [place] Program ([place]) Children 18 years of age and younger are eligible for free vaccines through the [place] program at [facility] if they: 1. Are enrolled in a [place] Healthcare Program ([employer] Medical Assistance, [employer]ariant [facility], or a prepaid Medical Assistance program) 2. Do not have health insurance 3. Are of or [place] heritage The [place]VFC program covers the cost of routine vaccines. There is a fee of $21.22 to cover the cost ofgiving the vaccine. If you have insurance through a [place] Healthcare Program, you are not billedfor this fee. Other patients are billed for it. If you receive a bill for the cost of the vaccine orif you are unable to pay the administration fee, please contact Customer Service at [phone]. Children who have health insurance but the insurance does not pay for immunizations can get low costimmunizations at [facility]. For more information, see Can My Child Get Free or Low Cost Shots? On the [facility] of [facility]'s web site. documented in this encounter Progress Notes Bart Lowe MD - 12/08/2017 9:58 AM CDT Addended by: BART LOWE on: 12/08/2017 09:58 AM Modules accepted: Orders Bart Lowe MD - 12/07/2017 8:45 AM CDT Subjective: Mya Hood is a 17 y.o. female presenting for a Well Child Visit. Accompanied By: mother, and then alone Concerns: Current concerns include: anxiety and depression. linotype worker advised her to be seen given spells that she is having. Also scored positive for anxiety and depression screening with her. See noted in scanned documents. To summarize has had 3-4 spells where she seems out of it. Never happened with parents so they haven't witnessed on. Will last for hours where she feels slow, out of it, doesn't remembers what she was during that time, friends says she will ask the same questions repeatedly. Sometimes eye look funny. No Seizure- like activity that anyone has mentioned. Its is hard for her to describe. Denies drug or alcohol use. Has tried vaping a couple times. Feels worried all the time about everything. Tried counseling in middle school but didn't like it.Wouldn't talk to therapist. Stopped going Family hx of anxiety and depression in dad. Depression in mom. Doesn't get along with parents. Fights all of the time Had to switch schools this year. 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 Doing a little better. Nutrition: Intake/Concerns: dairy inadequate, few vegetables, will drink almond milk sometimes Sleep: Pattern/Concerns: difficulty falling asleep, waking at night Social: School: tenth grade Activities: dirt bike racing Social: only has quique friends. Has difficulty making and maintaining friendships with girls Has a boyfriend. Sexually active (mom does NOT know). Using condoms. Teen screen distributed & reviewed with patient. Menstrual: Concerns: regular Dental: Dental care: no concerns, brushing daily, dental visit within 12 months Developmental and Psychosocial Surveillance: PSC-17 (Score): 8 (3-4-1) Y PSC-17 (Score): 15 (6-8-1) Concerns include: social-emotional. Question inattention or if depression/anxiety just manifesting as inattention Also gave her SCARED screen and was positive. See in scanned documents PHQ-9 also positive for depression. Denies suicidal thoughts Allergies Allergen Reactions ??? Penicillins Rash No outpatient prescriptions prior to visit. No facility-administered medications prior to visit. There is no problem list on file for this patient. No past medical history on file. No past surgical history on file. No family history on file. Social History Social History ??? Marital status: Single Spouse name: N/A ??? Number of children: N/A ??? Years of education: N/A Occupational History ??? Not on file. Social History Main Topics ??? Smoking status: Passive Smoke Exposure - Never Smoker ??? Smokeless tobacco: Never Used ??? Alcohol use Not on file ??? Drug use: Not on file ??? Sexual activity: Not on file Other Topics Concern ??? Bike Helmet Yes ??? [place] Yes well ??? Exercise No ??? Guns In Home No ??? Seat Belt No Social History Narrative Objective: BP 98/56 (BP Location: Right Arm, BP Cuff Size: Adult Regular) Pulse 68 Ht 5' 5.25 (165.7 cm) Wt 111 lb (60812 g) BMI 18.33 kg/m2 General: active, alert, no distress Head: normal Eyes: appear normal, sclerae white, pupils equal and reactive ENT: Ears: no deformity, normal TM's, Nose: normal, no obstruction, Mouth: normal, palate intact Neck: normal, full range of motion, no mass, no thyromegaly Chest: normal respiratory effort, lungs clear to auscultation, normal shape, normal breathing pattern Heart: regular rate and rhythm, normal heart sounds, no murmurs, femoral pulse normal Abdomen: normal appearance, soft, non-tender, without organ enlargements, no masses Genitourinary: deferred Musculoskeletal: normal, gait normal and spine normal without scoliosis Skin: no rash or lesions, multicolored nevi upper back Neurologic: non focal, normal strength, normal reflexes, normal gait Assessment: 17 y.o. 6 m.o. Well Child Visit. Anxiety and depressed mood. R/o inattention. Wants to try medications. Referred to psychiatry. Did order hgb, vit D, TSH given fatigue but likely just do to depressed mood. spells of forgetting, trouble remembering, off in space. Did tell Mya and her mom that this is also likely related to mood but would want neurology eval to be thorough. So referred her to [facility]. They will set up appointment Plan: ICD-10-CM 1. Encounter for routine child health examination without abnormal findings Z00.129 2. Screening for iron deficiency anemia Z13.0 HEMOGLOBIN, BLOOD 3. Screening for lipoid disorders Z13.220 CHOLESTEROL (TOTAL) 4. Screening for mental disorder and developmental handicaps Z13.89 BRIEF EMOTIONAL/BEHAV ASSMT (PSC-17 or PHQ-9) 5. Examination of eyes and vision Z01.00 SCR TEST VISUAL ACUITY JESSICA YIMI 6. Examination of ears and hearing Z01.10 Pure Tone Hearing Test, Air 7. Visit for dental examination Z01.20 DENTAL CONSULTADULT-PEDS 8. Fatigue, unspecified type R53.83 Vitamin D (In house) TSH with Free T4 (if TSH Abnormal) CMP - Comprehensive Metabolic Panel 9. Anxiety (HRC) F41.9 Behavioral Health Adult/Peds 10. Depressed mood (HRC) F32.9 Behavioral Health Adult/Peds Discussed healthy lifestyle choices. Discussed options for obtaining control if she doesn't want to tell parents but did encourage her to talk with her mom. Questions and concerns discussed, anticipatory guidance reviewed. Follow up at next well visit or sooner as needed. Sports Clearance: ok if neurology eval is normal Immunization counseling: completed for all immunization components received by the patient today, info given on HPV. They are still undecided Developmental screening: referral made Dental counseling: discussed dental care Ref to derm to check nevus documented in this encounter Plan of Treatment Scheduled Referrals Name Type Priority Associated Diagnoses Order S chedule DENTAL CONSULTADULT-PEDS Referral Routine Visit for dental Ordered: 12/07/2017 examination Behavioral Health Referral Routine Anxiety Ordered: 12/07/2017 Adult/Peds Depressed mood (HRC) Dermatology Referral Routine Nevus Ordered: 2017 Consult-Adult/Peds documented as of this encounter Results CMP - Comprehensive Metabolic Panel (12/07/2017 10:05 AM CDT) [facility] Method Time Signature Aspartate 17 10 - 40 PN SOFT Aminotransferase U/L Lab Glucose 85 70 - 100 PN SOFT mg/dL Comment: The stated glucose range is for the fast ing state. Non-fasting glucose range is 70-180 mg/d L Bilirubin Total 0.5 0.2 - 1.2 mg/dL PN SOFT Calcium 9.7 8.4 - 10.4 mg/dL PN SOFT Sodium 141 136 - 145 mmol/L PN SOFT Potassium 4.4 3.5 - 5.2 mmol/L PN SOFT Blood Urea Nitrogen 12 9 - 26 mg/dL PN SOFT Albumin 4.2 3.4 - 5.0 g/dL PN SOFT Chloride 107 98 - 109 mmol/L PN SOFT Alk Phos 77 40 - 150 U/L PN SOFT Protein Total, Serum 7.4 6.4 - 8.3 g/dL PN S OFT Creatinine Serum 0.60 0.55 - 1.02 mg/dL PN SO FT Est GFR Am see below >60 mL/min/1.73m2 PN SOFT Comment: The CKD-EPI GFR formula is richard d only for adults over 18. Est GFR Non-Afr Am see below >60 mL/min/1.73m2 PN SOFT Comment: The CKD-EPI GFR formula is valid only fo r adults over 18. Normal>60, moderate decrease 30 - 59, se kolby decrease 15 - 29, renal failure <15 mL/min/1.73 m2 NOTE: ??Choose the eGFR result above ashly ropriate for the race of the patient. Alanine Aminotransferase <10 9 - 55 U/L PN S OFT CO2 24 22 - 31 mmol/L PN SOFT Specimen Anatomical Collection Method Collection Time Receive d Time (Source) Location / / Volume Laterality 12/07/2017 10:05 12/07/2017 AM CDT 10:05 AM CDT Narrative PN SOFT - 12/07/2017 11:09 AM CDT Performed at [facility], [address] [place] [address] CLIA number [id number] Bart Lowe MD LAB_1 Performing Organization Address [facility] Phon e Number PN SOFT [address] [place] [address] TSH with Free T4 (if TSH Abnormal) (12/07/2017 10:05 AM CDT) athologist Signature Thyroid 1.09 0.30 - PN SOFT Stimulating 4.50 Hormone uIU/mL Specimen Anatomical Collection Method Collection Time Receive d Time (Source) Location / / Volume Laterality 12/07/2017 10:05 12/07/2017 AM CDT 12:48 PM CDT Narrative PN SOFT - 12/07/2017 2:02 PM CDT Performed at [address] [address] CLIA number [id number] Bart Lowe MD LAB_1 Performing Organization Address [facility] Phon e Number PN SOFT [address] [place] [address] Vitamin D (In house) (12/07/2017 10:05 AM CDT) athologist Signature Vitamin D 25 Oh 22 20 - 80 PN SOFT ng/mL Comment: Deficiency = <20 Adequate ??= 20-29 Preferred = 30-50 Uncertain safety = 51-80 High = >80 Specimen Anatomical Collection Method Collection Time Receive d Time (Source) Location / / Volume Laterality 12/07/2017 10:05 12/07/2017 AM CDT 12:44 PM CDT Narrative PN SOFT - 12/07/2017 2:29 PM CDT Performed at [place] [address] [place] [address] CLIA number [id number] Bart Lowe MD LAB_1 Performing Organization Address [facility] Phon e Number PN SOFT [address] [place] [address] CHOLESTEROL (TOTAL) (12/07/2017 10:05 AM CDT) athologist Signature Cholesterol 141 0 - 199 PN SOFT mg/dL Specimen Anatomical Collection Method Collection Time Receive d Time (Source) Location / / Volume Laterality 12/07/2017 10:05 12/07/2017 AM CDT 10:05 AM CDT Narrative PN SOFT - 12/07/2017 11:09 AM CDT Performed at [facility], [address] [place] [address] CLIA number [id number] Bart Lowe MD LAB_1 Performing Organization Address [facility] Phon e Number PN SOFT [address] [place] [address] HEMOGLOBIN, BLOOD (12/07/2017 10:05 AM CDT) athologist Signature Hemoglobin 13.7 12.0 - 16.0 PN SOFT g/dL Specimen Anatomical Collection Method Collection Time Receive d Time (Source) Location / / Volume Laterality 12/07/2017 10:05 12/07/2017 AM CDT 10:05 AM CDT Narrative PN SOFT - 12/07/2017 10:13 AM CDT Performed at [facility], [facility] [address] [place] [address] CLIA number [id number] Bart Lowe MD LAB_1 Performing Organization Address [facility] Phon e Number PN SOFT [address] [place] [address] documented in this encounter Visit Diagnoses Diagnosis Encounter for routine child health exami nation without abnormal findings - Primary Routine or child health check Screening for iron deficiency anemia Screening for lipoid disorders Screening for mental disorder and develo pmental handicaps Screening for unspecified mental disorde r and developmental handicap Examination of eyes and vision Examination of ears and hearing Other examination of ears and hearing Visit for dental examination Dental examination Fatigue, unspecified type Anxiety (HRC) Anxiety state, unspecified Depressed mood Nevus Benign neoplasm of skin, site unspecifie d Screening for iron deficiency anemia Screening for lipoid disorders Fatigue, unspecified type documented in this encounter Care Teams Driver'S License Examiner Relationship Specialty Start Date End Date Bart Lowe MD PCP - General 10/27/10 documented as of this encounter
--- OUTSIDE RECORDS SUMMARY | 2022-05-08 23:29 | XMS_ITS | Encounter Summary ---
:2000 [facility] Address [address] [place] [address] Care Team Providers Name Role Phone Felicity Salomon MD Primary Care Provider Reason for Visit Reason Comments Information Encounter Details Date Type Department Care Team Description 07/29/2012 Telephone [facility] Felicity Salomon MD Information [address] [address] [place] [phone] (Wo rk) Social History Tobacco Use Types Packs/Day Years Used Date Smoking Tobacco: Never Assessed Sex Assigned at Date Recorded Not on file documented as of this encounter Nursing Notes Christina Yee - 07/29/2012 3:35 PM CST Immunization record faxed. GER PROTEIN Judy Hernandez - 07/29/2012 2:24 PM CST Non -Symptom Message from Front Line Primary Care Provider: Felicity Salomon MD Message: Mom calling to give fax number of [phone] Attn nurse for immunizations - for dr salomon nurse. GER PROTEIN documented in this encounter Plan of Treatment Not on filedocumented as of this encounter Visit Diagnoses Not on filedocumented in this encounter Care Teams Bus Person Relationship Specialty Start Date End Date Felicity Salomon MD PCP - General 10/27/10 documented as of this encounter
--- OUTSIDE RECORDS SUMMARY | 2022-05-08 23:29 | XMS_ITS | Encounter Summary ---
:2000 Author [facility] Address [address] [place] [address] Care Team Providers Name Role Phone Felicity Salomon MD Primary Care Provider Reason for Visit Reason Comments Abdominal Pain Encounter Details Date Type Department Care Team Description 11/29/2014 Office Visit [facility] Felicity Salomon, Abdominal pain, [address] [facility] epigastric ([place] [address] [address]) [phone] [place] [phone] (Wo rk) Social History Tobacco Use Types Packs/Day Years Used Date Smoking Tobacco: Never Assessed Sex Assigned at Date Recorded Not on file documented as of this encounter Last Filed Vital Signs Vital Sign Reading Time Taken Comments Blood Pressure - - Pulse - - Temperature - - Respiratory Rate - - Oxygen Saturation - - Inhaled Oxygen Concentration - - Weight 41.8 kg (92 lb 3.2 oz) 11/29/2014 8:40 AM CDT Height - - Body Mass Index - - documented in this encounter Progress Notes Felicity Salomon MD - 11/29/2014 9:51 AM CDT Progress Notes signed by Felicity Salomon MD at 12/14/14916 Author: Felicity Salomon MD Service: (none) Author Type: Physician Filed: 12/14/14916 Note Time: 11/29/14 9309 Status: Signed Qa Internship: Felicity Salomon MD (Physician) NAME: QUE ZAMORA MR#: [id number] CSN: [id number] AUTHENTICATING CLINICIAN: Felicity Salomon MD CONFIRM #: [id number] LOC: 503 CLINIC PROGRESS NOTE DATE OF VISIT: 11/29/2014 : 2000 14-year-old here for stomachaches on and off for the past 2 months. They 1st thought maybe it was a stomach bug, but now when it kept happening then they got more concerned. It is usually in the morning when she wakes up will feel nauseous, sometimes she will vomit, sometimes she will not. She describes it kind of as a discomfort in the upper quadrant of her stomach. She feels so nauseous that she does not want to eat food in the morning, so unsure if food really helps, but sometimes when she has eaten breakfast then she will vomit. Then as the day goes on she starts to feel normal and there are noproblems in the afternoon or evening. There has been no fever, no weight loss, no joint pain, rashes. She is currently on amoxicillin, that was started November 16 for a left otitis, but that feels better. She has no pain with urination, no urinary frequency. She has not yet started menstruating. Therewere some possible problems at school, met with a counselor on Wednesday. Dad thought maybe things wereresolved, but Que says they are not totally resolved yet. I guess she was having some problems with a teacher. Denies any bullying. She is worrier. There is no family history of inflammatory boweldisease, ulcers. MEDICATIONS: Include amoxicillin. ALLERGIES: Reviewed in EMR. EXAM: Weight 92.2 pounds. Again, there has been no weight loss. She has actually gained weight since her last visit in clinic. Conjunctivae are clear. TMs are normal. Nose without discharge. Oropharynx is moist, no erythema, exudate or lesion. NECK: Supple without adenopathy or masses. LUNGS: Clear to auscultation. HEART: Regular rate and rhythm without murmur. ABDOMEN: Soft, nondistended with normoactive bowel sounds, no organomegaly or masses. There is tenderness to palpation in the epigastric area. IMPRESSION: Morning stomach discomfort, nausea coupled with epigastric tenderness makes gastritis the most likely etiology or gastroesophageal reflux disease. This could be exacerbated by stress. PLAN: Will do a trial of either Prilosec 20 mg or Prevacid 30 mg at night depending on what Dad can find in the pharmacy, should show some improvement in the next 10 days. If there is no improvement or worsening, she will come back. If there is improvement, I suggest that she keep on it for 1 month and thentry off. Also, keep working on school issues and worries as this may be exacerbating, and specifically she should not stay home from school unless there is a fever. SJJ:MEDQ C: CONFIRM #: [id number] documented in this encounter Plan of Treatment Not on filedocumented as of this encounter Visit Diagnoses Diagnosis Abdominal pain, epigastric - Primary documented in this encounter Care Teams Face And Fill Packer Relationship Specialty Start Date End Date Felicity Salomon MD PCP - General 10/27/10 documented as of this encounter
--- OUTSIDE RECORDS SUMMARY | 2022-05-08 23:29 | XMS_ITS | Encounter Summary ---
:2000 Author Organization [facility] Address [address] [address] Care Team Providers Name Role Phone Felicity Salomon MD Primary Care Provider Reason for Visit Reason Comments Abdominal Pain Encounter Details Date Type Department Care Team Description 12/05/2014 Nurse Triage [facility] Felicity Salomon MD Abdominal Pain [address] [address] [place] [address] [address] [place], [place] [phone] (Wo rk) Social History Tobacco Use Types Packs/Day Years Used Date Smoking Tobacco: Never Assessed Sex Assigned at Date Recorded Not on file documented as of this encounter Nursing Notes Aamir Gibbs RN - 12/05/2014 8:26 AM CDT Protocol: ABDOMINAL PAIN (FEMALE)-PEDIATRIC-OH Affirmative: Lying down and unable to walk Disposition of Go To ED Now (Or To Office With PCP Approval) suggested. Spoke with mom. Pt has had severe stomach pain this morning about 1 hour. Had vomiting x1. Pain locates all over the stomach. Pt is unable to move due to pain. Denies fever or other sickness. Pt recently completed antibiotics then started a new medication of Lansoprazole for gastritis last week. Has not has this severe pain in the past. Advised to go to ER due to severe pain. Mom agreed. documented in this encounter Plan of Treatment Not on filedocumented as of this encounter Visit Diagnoses Not on filedocumented in this encounter Care Teams Commutator Repairer Relationship Specialty Start Date End Date Fleicity Salomon MD PCP - General 10/27/10 documented as of this encounter
--- OUTSIDE RECORDS SUMMARY | 2022-05-08 23:29 | XMS_ITS | Encounter Summary ---
:2000 Author Organization [email or web address] Address [address] [place] [address] Care Team Providers Name Role Phone Felicity Salomon MD Primary Care Provider Reason for Visit Reason Comments Recheck Encounter Details Date Type Department Care Team Description 05/27/2013 Office Visit [facility] Felicity Salomon, Scoliosis (and [address] [facility] kyphoscoliosis), [place] [address] [place] idiopathic (Primary [phone] [place], [place] Dx) [phone] (Wo rk) Social History Tobacco Use Types Packs/Day Years Used Date Smoking Tobacco: Never Assessed Sex Assigned at Date Recorded Not on file documented as of this encounter Last Filed Vital Signs Vital Sign Reading Time Taken Comments Blood Pressure - - Pulse - - Temperature - - Respiratory Rate - - Oxygen Saturation - - Inhaled Oxygen Concentration - - Weight 33.1 kg (73 lb) 05/27/2013 11:30 AM CDT Height 142.9 cm (4' 8.25) 05/27/2013 11:30 AM CDT Body Mass Index 16.22 05/27/2013 11:30 AM CDT Body Mass Index Percentile 20.57 % 05/27/2013 11:30 AM C DT Growth Chart: [facility][NOTE 3] (Girls, 2-20 Years) documented in this encounter Progress Notes Felicity Salomon MD - 05/27/2013 12:42 PM CDT Progress Notes signed by Felicity Salomon MD at 05/31/13 0939 Author: Felicity Salomon MD Service: (none) Author Type: Physician Filed: 05/31/13 0939 Note Time: 05/27/13 154 Status: Signed [facility] Winder: Felicity Salomon MD (Physician) NAME: QUE ZAMORA MR#: [id number] CSN: [id number] AUTHENTICATING CLINICIAN: Felicity Salomon MD CONFIRM #: [id number] LOC: 503 CLINIC PROGRESS NOTE DATE OF VISIT: 05/27/2013 : 2000 A 13-year-old here for followup of scoliosis. It was noted initially October 19 with scoliosis film revealing a 10.35 degree curve. See note for detail. I did note that she was Nasim 1, and had not started her pubertal growth spurt, so I asked them to come back in 9 months. She has gotten an inch taller since I saw her. Mom thinks there may be breast budding, but Que would not let me examine her today. So on exam, height 56-1/4 inches, weight 73 pounds. She is well-appearing. She does still have prominence of her right rib cage with forward bend, but still seems relatively mild. Normal shoulder height, scapular height and hips. IMPRESSION: Mild scoliosis, but just now entering puberty and pubertal growth spurt. PLAN: Will obtain scoliosis film today to see how rapid the scoliosis is progressing. If the scoliosis remains unchanged, will likely just repeat film in 1 year. SJJ:MEDQ C: CONFIRM #: [id number] SHABLE FRUIT INSPECTOR documented in this encounter Plan of Treatment Not on filedocumented as of this encounter Visit Diagnoses Diagnosis Scoliosis (and kyphoscoliosis), idiopath ic - Primary documented in this encounter Care Teams Steel Post Installer Relationship Specialty Start Date End Date Felicity Salomon MD PCP - General 10/27/10 documented as of this encounter
--- OUTSIDE RECORDS SUMMARY | 2022-05-08 23:29 | XMS_ITS | Encounter Summary ---
:2000 Author Organization [facility] Address [address] [place] [address] Care Team Providers Name Role Phone Felicity Salomon MD Primary Care Provider Encounter Details Date Type Department Care Team Description 09/24/2009 Office Visit [facility] [place] [address] [address] [place], [place] [phone] (Wo rk) Social History Tobacco Use Types Packs/Day Years Used Date Smoking Tobacco: Never Assessed Sex Assigned at Date Recorded Not on file documented as of this encounter Last Filed Vital Signs Vital Sign Reading Time Taken Comments Blood Pressure - - Pulse 80 09/24/2009 7:04 PM CONSTRUCTION JOB COST ESTIMATOR Temperature 36.7 ??C (98.1 ??F) 09/24/2009 7:04 PM ORAL C: 3 6.7 C CONSTRUCTION JOB COST ESTIMATOR Respiratory Rate 20 09/24/2009 7:04 PM CONSTRUCTION JOB COST ESTIMATOR Oxygen Saturation - - Inhaled Oxygen Concentration - - Weight 25 kg (55 lb 2.9 oz) 09/24/2009 7:04 PM C: 25.0k g CONSTRUCTION JOB COST ESTIMATOR Height - - Body Mass Index - - documented in this encounter Progress Notes Jacqueline Espinal MD - 09/24/2009 12:01 AM CST Progress Notes signed by Jacqueline Espinal MD at 10/03/09 2483 Author: Jacqueline Espinal MD Service: (none) Author Type: Physician Filed: 11/15/102028 Note Time: 09/24/09 0001 Status: Signed Animal Sticker: Jacqueline Espinal MD (Physician) NAME: QUE ZAMORA MR#: [id number] ACCT: [id number] VISIT: [id number] DICTATING CLINICIAN: JACQUELINE ESPINAL MD CONFIRM #: [id number] LOC: 520 CLINIC PROGRESS NOTE DATE OF VISIT: 09/24/2009 SUBJECTIVE: CHIEF COMPLAINT: Abdominal pain, constipation. HPI: This pleasant 9-year-old comes in with her parents complaining of abdominal pain that has been going on for the past week. She has also had some lower back pain. Denies burning upon urination, frequency of urination. Denies any fever. Denies any vomiting or nauseousness. Seems to be after she eats that she will get some abdominal cramping. She has not had any fevers or chills. Mom says she does have bowel movements, but she wait until after school and she does not always have a lot of bowel movements. She has had a history of constipation. PAST MEDICAL HISTORY: None. PAST SURGICAL HISTORY: None. MEDICATIONS: None. ADR/ALLERGIES: NO KNOWN DRUG ALLERGIES. SOCIAL HISTORY: There is tobacco exposure in the house. OBJECTIVE: VS: T: 98.1. P: 80. R: 20. GENERAL: Alert and oriented. LUNGS: Clear to auscultation bilaterally. HEART: Regular without murmurs, rubs, or gallops. ABDOMEN: I can feel quite a bit of stool, mildly tender, no guarding or rebound. No hepatosplenomegaly. Positive bowel sounds. DIAGNOSTIC STUDIES: We did want to leave a urine, but the patient was unable to. White blood cell count 9.4, hemoglobin 13.7, hematocrit 40.1, platelets 282. Abdominal film does show significant amount of stool. ASSESSMENT: Constipation. PLAN: Did discuss using MiraLAX for the next 2 weeks. Mineral oil for the next 2 days until the MiraLAX kicks in. Did recommend changes in diet and pear juice and prune juice to help with bowel movements. They are to follow up with their primary care doctor for long-term treatment plan and follow up here if symptoms persist or worsen. JOSIAS:[id number] C: 09/25/09 08:00 CONFIRM #: [id number] TRUCTION JOB COST ESTIMATOR documented in this encounter Plan of Treatment Not on filedocumented as of this encounter Procedures Procedure Name Priority Date/Time Associated Diagnosis Comme nts XR ABD FLAT Routine 09/24/2009 8:12 PM Results f or this (STANDARD) CONSTRUCTION JOB COST ESTIMATOR procedure are i n the results section. documented in this encounter Results XR Abd Flat (Standard) (09/24/2009 8:12 PM CONSTRUCTION JOB COST ESTIMATOR) Anatomical Region Laterality Modality Abdomen Other Specimen (Source) Anatomical Location Collection Method / Collectio n Time Received Time / Laterality Volume Narrative 09/24/2009 8:12 PM CONSTRUCTION JOB COST ESTIMATOR Moderately large amount of stool is scattered throughout the colon down to the rectum without any changes o f bowel obstruction. ??There are probably 3 small opaque densities in the lateral left pelvis, possibly calcifications. ??Otherwise it may represent some artifact but I would recommend a repeat AP pelvis to determine if these are indeed soft tissue calcifications as cou ld be seen in the ovary versus artifact. ??Urgent care notified of these findings on 09/25/2009 at approximately 0800 hours. Dictating ROMMEL LAZAR RADIOLOGIST Procedure Note Rommle Asencio - 01/09/2016Formatting o f this note might be different from the original. Moderately large amount of stool is scat tered throughout the colon down to the rectum without any changes o f bowel obstruction. There are probably 3 small opaque densities in the lateral left pelvis, possibly calcifications. Otherwise it ma y represent some artifact but I would recommend a repeat AP pelvis to determine if these are indeed soft tissue calcifications as cou ld be seen in the ovary versus artifact. Urgent care notified of these findings on 09/25/2009 at approximately 0800 hours. Dictating ROMMEL LAZAR RADIOLOGIST Jacqueline Espinal MD RAD GD documented in this encounter Visit Diagnoses Not on filedocumented in this encounter Care Teams Cost And Risk Analysis Manager Relationship Specialty Start Date End Date Felicity Salomon MD PCP - General 10/27/10 documented as of this encounter
--- OUTSIDE RECORDS SUMMARY | 2022-05-08 23:29 | XMS_ITS | Encounter Summary ---
:2000 Author Organization [facility] Address [address] [place] [address] Care Team Providers Name Role Phone Felicity Salomon MD Primary Care Provider Reason for Visit Reason Comments FACIAL PAIN Encounter Details Date Type Department Care Team Description 03/03/2017 [facility] Urgent Ivan Jamil Acute re current sinusitis, unspecified location (Primary Dx); Encounter Care YSABEL [facility] [address] [address] [address] [facility] [place] [address] [phone] Social History Tobacco Use Types Packs/Day Years Used Date Smoking Tobacco: Passive Smoke Exposure - Never Smoker Sex Assigned at Date Recorded Not on file documented as of this encounter Last Filed Vital Signs Vital Sign Reading Time Taken Comments Blood Pressure 114/84 03/03/2017 1:17 PM CDT Pulse 95 03/03/2017 1:17 PM CDT Temperature 36.8 ??C (98.2 ??F) 03/03/2017 1:17 PM CDT Respiratory Rate 20 03/03/2017 1:17 PM CDT Oxygen Saturation - - Inhaled Oxygen Concentration - - Weight - - Height - - Body Mass Index - - documented in this encounter Discharge Instructions Discharge InstructionsIvan Jamil PA-C - 03/03/2017 3:45 PM CDT Images from the original note were not included. Sinusitis in Teens: Care Instructions Your Care Instructions Sinusitis is an infection of the lining of the sinus cavities in your head. Sinusitis often follows a cold. It causes pain and pressure in your head and face. In most cases, sinusitis gets better on its own in 1 to 2 weeks. But some mild symptoms may last forseveral weeks. Sometimes antibiotics are needed. Follow-up care is a bender part of your treatment and safety. Be sure to make and go to all appointments, and call your doctor if you are having problems. It's also a good idea to know your test results and keep a list of the medicines you take. How can you care for yourself at home? ?? Take an jqwp-jbl-vtasusr pain medicine, such as acetaminophen (Tylenol), ibuprofen (Advil, Motrin), or naproxen (Aleve). Be safe with medicines. Read and follow all instructions on the label. No oneyounger than 20 should take aspirin. It has been linked to Yuri syndrome, a serious illness. ?? If the doctor prescribed antibiotics, take them as directed. Do not stop taking them just becauseyou feel better. You need to take the full course of antibiotics. ?? Be careful when taking pysn-oea-tsbzxru cold or flu medicines and Tylenol at the same time. Many of these medicines have acetaminophen, which is Tylenol. Read the labels to make sure that you are not taking more than the recommended dose. Too much acetaminophen (Tylenol) can be harmful. ?? Use a nasal spray medicine that relieves a stuffy nose. Do not use the medicine longer than the label says. ?? Breathe warm, moist air from a steamy shower, a hot bath, or a sink filled with hot water. Avoid cold, dry air. Using a humidifier in your home may help. Follow the directions for cleaning the machine. ?? Use saline (saltwater) nasal washes to help keep your nasal passages open and wash out mucus and bacteria. You can buy saline nose drops at a grocery store or drugstore. Or you can make your own at home by adding 1 teaspoon of salt and 1 teaspoon of baking soda to 2 cups of distilled water. If you make your own, fill a bulb syringe with the solution, insert the tip into your nostril, and squeeze gently. Blow your nose. ?? Put a hot, wet towel or a warm gel pack on your face 3 or 4 times a day for 5 to 10 minutes each time. When should you call for help? Call your doctor now or seek immediate medical care if: ?? You have new or worse symptoms of infection, such as: ?? Increased pain, swelling, warmth, or redness. ?? Red streaks leading from the area. ?? Pus draining from the area. ?? A fever. Watch closely for changes in your health, and be sure to contact your doctor if: ?? You are not getting better as expected. Where can you learn more? 1. Go to [employer]/Baiyaxuan or Anybots/[employer]. 2. Enter M284 in the search box. Current as of: February 21, 2016 Content Version: 11.3 ?? [id number] [employer]. documented in this encounter Medications at Time of Discharge Medication Sig Dispensed Refills Start Date End Date cefdinir (OMNICEF) 300 MG Take 1 Cap by mouth 20 Cap 0 0 03/03/2017 03/13/2017 capsule two times a day for 10 days. predniSONE (DELTASONE) 20 Take 2 Tabs by mouth 10 Tab 0 03/03/2017 03/08/2017 MG tablet daily for 5 days. documented as of this encounter ED Notes Ivan Jamil PA-C - 03/03/2017 2:58 PM CDT SUBJECTIVE: Mya Hood is a 16 y.o.female who presents to the clinic with persistent facial pain with recent onset of sore throat, left ear pain, fatigue, mild cough, and nighttime dyspnea. Facial pain started approx 1 month ago while on vacation in [place]. [place], diagnosed with sinusitis, and prescribed 10 day course of antibiotics (unknown, though they believe amoxicillin), Zyrtec, and Flonase. Patient completed abx 10 days ago and is still taking Flonase with mild symptomatic relief. Facial pain is located primarily near front, ethmoid, and maxillary sinuses. Persistent throat pain and lympthadenopathy, exacerbated while swallowing. Denies dental pain. Denies current dyspnea in clinic. Denies recorded fever, took ibuprofen at 9:00am today. No history of seasonal allergies or new known allergen exposure. Social history: Social History Substance Use Topics ??? Smoking status: Passive Smoke Exposure - Never Smoker ??? Smokeless tobacco: None ??? Alcohol use None Past Medical History: History reviewed. No pertinent past medical history. Adverse Drug Reactions: Penicillins Medications: cefdinir and predniSONE OBJECTIVE: Vital Signs: BP (!) 114/84 Pulse 95 Temp 36.8 ??C (98.2 ??F) (Oral) Resp 20 General: Appears well and in NAD. Skin: MMM Eyes: Sclera white, conjunctiva pink, cornea and lenses are clear. PERRL, EOMI bilaterally fundi arebenign bilaterally. Nose: Mild congestion. No significant nasal discharge in clinic. Sinuses: Frontal, ethmoid, and maxillary sinuses are tender to percussion. No obvious swelling. Ears: Canals normal without lesions. Significant cerumen. TMs: non-bulging. No erythema. Pharynx: Bright erythema in posterior pharynx with evidence of postnasal drip. Moist mucous membranes. Tonsils without exudate.e. Neck: Bilateral submandibular and anterior cervical lymphadenopathy. Respiratory: Normal respiratory effort. Lungs are clear with good breath sounds. No wheezing. Heart: RRR without murmurs, rubs, or gallops. Labs: Labs Reviewed MONO TEST Narrative: Performed at [facility], [address] [place] [address] CLIA number [id number] RAPID STREP GROUP A WAIVED Orders Placed This Encounter ??? Mononucleosis Screen (MONOS) ??? Rapid Strep Group A Waived (RSAW) ??? cefdinir (OMNICEF) 300 MG capsule ??? predniSONE (DELTASONE) 20 MG tablet ASSESSMENT: 1. Acute recurrent sinusitis, unspecified location 2. Lymphadenopathy PLAN: Medications - No data to display Medications Prescribed this Visit Disp Refills Start End cefdinir (OMNICEF) 300 MG capsule 20 Cap 0 03/03/2017 03/13/2017 Take 1 Cap by mouth two times a day for 10 days. Oral predniSONE (DELTASONE) 20 MG tablet 10 Tab 0 03/03/2017 03/08/2017 Take 2 Tabs by mouth daily for 5 days. Oral Discharge Instructions Sinusitis in Teens: Care Instructions Your Care Instructions Sinusitis is an infection of the lining of the sinus cavities in your head. Sinusitis often follows a cold. It causes pain and pressure in your head and face. In most cases, sinusitis gets better on its own in 1 to 2 weeks. But some mild symptoms may last for several weeks. Sometimes antibiotics are needed. Follow-up care is a bender part of your treatment and safety. Be sure to make and go to all appointments, and call your doctor if you are having problems. It's also a good idea to know your test results and keep a list of the medicines you take. How can you care for yourself at home? ?? Take an ngbv-val-gnyuerv pain medicine, such as acetaminophen (Tylenol), ibuprofen (Advil, Motrin), or naproxen (Aleve). Be safe with medicines. Read and follow all instructions on the label. No one younger than 20 should take aspirin. It has been linked to Yuri syndrome, a serious illness. ?? If the doctor prescribed antibiotics, take them as directed. Do not stop taking them just because you feel better. You need to take the full course of antibiotics. ?? Be careful when taking mihd-kca-vpvoydd cold or flu medicines and Tylenol at the same time. Many of these medicines have acetaminophen, which is Tylenol. Read the labels to make sure that you are not taking more than the recommended dose. Too much acetaminophen (Tylenol) can be harmful. ?? Use a nasal spray medicine that relieves a stuffy nose. Do not use the medicine longer than the label says. ?? Breathe warm, moist air from a steamy shower, a hot bath, or a sink filled with hot water. Avoid cold, dry air. Using a humidifier in your home may help. Follow the directions for cleaning the machine. ?? Use saline (saltwater) nasal washes to help keep your nasal passages open and wash out mucus and bacteria. You can buy saline nose drops at a grocery store or drugstore. Or you can make your own at home by adding 1 teaspoon of salt and 1 teaspoon of baking soda to 2 cups of distilled water. If you make your own, fill a bulb syringe with the solution, insert the tip into your nostril, and squeeze gently. Blow your nose. ?? Put a hot, wet towel or a warm gel pack on your face 3 or 4 times a day for 5 to 10 minutes each time. When should you call for help? Call your doctor now or seek immediate medical care if: ?? You have new or worse symptoms of infection, such as: ?? Increased pain, swelling, warmth, or redness. ?? Red streaks leading from the area. ?? Pus draining from the area. ?? A fever. Watch closely for changes in your health, and be sure to contact your doctor if: ?? You are not getting better as expected. Where can you learn more? 1. Go to Vitriflex/Baiyaxuan or Anybots/Runrun.it. 2. Enter M284 in the search box. Current as of: February 21, 2016 Content Version: 11.3 ?? [id number] [employer], [employer]. Sinus irrigation was discussed. Use OTC analgesics, oral decongestants, and decongestant nasal spray(maximum 4 days, side effects discussed). Decrease dairy products while congested. Hot shower prior to bed time. RTC PRN if not gradually improving. The patient was discharged ambulatory and in stable condition. I examined the patient independently, reviewed the note with the student, and discussed all aspects of the visit with the student prior to signing the note. Ivan Jamil PA-C documented in this encounter Plan of Treatment Not on filedocumented as of this encounter Procedures Procedure Name Priority Date/Time Associated Diagnosis Comme nts BETA STREP FOLLOWUP Routine 03/03/2017 6:35 PM Re sults for this CDT procedure are i n the results section. MONO TEST STAT 03/03/2017 2:59 PM Lymphadenopathy Result s for this CDT procedure are i n the results section. GROUP A STREP STAT 03/03/2017 2:49 PM Lymphadenopathy Resul ts for this ANTIGEN SCREEN CDT procedure are in the results section. documented in this encounter Results Beta Strep Followup (03/03/2017 6:35 PM CDT) [facility] Method Time Signature Source Throat PN SOFT Site PN SOFT Strep Screen No Group A 03/05/2017 PN SOFT Streptococcus 6:53 AM CDT Isolated Specimen (Source) Anatomical Collection Method Collection Time Re ceived Time Location / / Volume Laterality Throat: 03/03/2017 6:35 PM CDT Narrative PN SOFT - 03/05/2017 6:53 AM CDT Performed at [facility] [address], [address] [place] [address], [place] [address], CLIA Number [id number] Ivan Jamil PA-C LAB_1 Performing Organization Address [facility] Code Phon e Number PN SOFT [address] [place] [address] Mononucleosis Screen (MONOS) (03/03/2017 2:59 PM CDT) [facility] gist Method Time Signature Mononucleosis Negative Negative PN SOFT Screen Specimen Anatomical Collection Method Collection Time Receive d Time (Source) Location / / Volume Laterality 03/03/2017 2:59 PM 7 2:59 CDT PM CDT Narrative PN SOFT - 03/03/2017 3:17 PM CDT Performed at [facility], [facility] [address] [place] [address] CLIA number [id number] Ivan Jamil PA-C LAB_1 Performing Organization Address [facility] Phon e Number PN SOFT [address] [place] [address] Rapid Strep Group A Waived (RSAW) (03/03/2017 2:49 PM CDT) P athologist Signature Strep A Negative Negative PN SOFT Antigen Strep A Source THROA: PN SOFT Specimen Anatomical Collection Method Collection Time Receive d Time (Source) Location / / Volume Laterality 03/03/2017 2:49 PM 7 6:32 CDT PM CDT Narrative PN SOFT - 03/03/2017 6:32 PM CDT Performed at [facility], [address] [place] [address] CLIA number [id number] Ivan Jamil PA-C LAB_1 Performing Organization Address [facility] Code Phon e Number PN SOFT [address] [place] [address] documented in this encounter Visit Diagnoses Diagnosis Acute recurrent sinusitis, unspecified l ocation - Primary Lymphadenopathy Enlargement of lymph nodes Triage Assessment Note - Gevoanna Teran RN - 03/03/2017 1:14 PM CDT Finished abx for sinus inf and pink eye about 10d ago, Still having symptoms. documented in this encounter Care Teams Property Coordinator Relationship Specialty Start Date End Date Felicity Salomon MD PCP - General 10/27/10 documented as of this encounter
--- OUTSIDE RECORDS SUMMARY | 2022-05-08 23:29 | XMS_ITS | Encounter Summary ---
:2000 Author Organization [employer] Address [address] [address] Care Team Providers Name Role Phone Felicity Salomon MD Primary Care Provider Reason for Visit Reason Comments BREATHING PROBLEM Encounter Details Date Type Department Care Team Description 07/04/2014 Nurse Triage [facility] s Felicity Salomon, BREATHING PROBLEM [address] [facility] [place] [address] [place] [phone] [place] [address] (Wo rk) Social History Tobacco Use Types Packs/Day Years Used Date Smoking Tobacco: Never Assessed Sex Assigned at Date Recorded Not on file documented as of this encounter Nursing Notes Aamir Gibbs RN - 07/04/2014 8:35 AM CST Protocol: BREATHING DIFFICULTY [id number] Affirmative: All other patients with difficulty breathing Disposition of Schedule appt within 2 hrs, Triage to contact Primary office stat, or Go to suggested. Spoke with mom. Pt has had sore throat for 3 days then complains congestion and SOB. Denies fever orchest pain. Coughing is mild. No hx of wheezing or asthma. Dad has bronchitis and mom wonders if pt's getting bronchitis. Pt is talking and walking ok but very tired. Appt scheduled for today. Advised mom to call back if symptoms getting worse. MO agreed. ETING COMMUNICATIONS SPECIALIST documented in this encounter Plan of Treatment Not on filedocumented as of this encounter Visit Diagnoses Not on filedocumented in this encounter Care Teams Flume Ride Operator Relationship Specialty Start Date End Date Felicity Salomon MD PCP - General 10/27/10 documented as of this encounter
--- OUTSIDE RECORDS SUMMARY | 2022-05-08 23:29 | XMS_ITS | Encounter Summary ---
:2001 Author Organization [facility] Address [address] [address] Care Team Providers Name Role Phone Bart Lowe MD Primary Care Provider Reason for Visit Reason Comments Other Encounter Details Date Type Department Care Team Description 08/11/[address] [facility] Rahul Yee Other [address] [place] [address] Social History Tobacco Use Types Packs/Day Years Used Date Smoking Tobacco: Never Assessed Sex Assigned at Date Recorded Not on file documented as of this encounter Progress Notes Mahnaz Sommers RN - 08/11/2006 7:57 AM CST Phone Note filed by Mahnaz Sommers RN at 11/11/10 6852 Author: Mahnaz Sommers RN Service: (none) Author Type: Registered Nurse Filed: 11/11/10 7416 Note Time: 08/11/06 4022 Status: Signed Rn Outpatient Surgery: Mahnaz Sommers RN (Registered Nurse) Care Without Wait Appt. Request: Primary Sample Hand:Dr Lowe Caller name/relationship:Mom-Celia Appt. reason/specific request:Mom calling to request appt to do strep test. Pt is 5 yr exposed to strep at [facility]. Has sore throat, cold and cough with bloody noses. Had low grade fever yesterday and today has tummy ache. How long have you had these Symptoms?:sore throat today rest of sx since How would you rate your Symptoms? Mild / Mod / Severe:mod Phone # pt./caller over next hr.:[phone] h OK to leave detailed messsage on voicemail? yes Use e-code (/pncwowr) to respond to this request. Created on 11Aug2006 7:57am by MAHNAZ SOMMERS On 11Aug2006 8:09am BART LOWE wrote: they could come over now and I will work them in. Acknowledged by BART LOWE on 8:09am On 11Aug2006 8:15am RAHUL YEE wrote: Spoke to mom and appt. booked. Lives in [place]. Will be here approx. 40 minutes. Acknowledged by RAHUL YEE on 8:15am ROOM SUPERVISOR documented in this encounter Plan of Treatment Not on filedocumented as of this encounter Visit Diagnoses Not on filedocumented in this encounter Care Teams Cement Contractor Relationship Specialty Start Date End Date Bart Lowe MD PCP - General 10/27/10 documented as of this encounter
--- OUTSIDE RECORDS SUMMARY | 2022-05-08 23:29 | XMS_ITS | Encounter Summary ---
:2001 Author [facility] Address [address] [address] Care Team Providers Name Role Phone Felicity Salomon MD Primary Care Provider Reason for Visit Reason Comments Abdominal Pain Vomiting Encounter Details Date Type Department Care Team Description 11/01/2014 Nurse Triage [facility] s Felicity Salomon, Abdominal Pain; [address] [facility] [place] [address] [place] [phone] [place] [address] (Wo rk) Social History Tobacco Use Types Packs/Day Years Used Date Smoking Tobacco: Never Assessed Sex Assigned at Date Recorded Not on file documented as of this encounter Nursing Notes Ana Rodriguez RN - 11/01/2014 2:22 PM CDT Protocol: ABDOMINAL PAIN (FEMALE)-PEDIATRIC-OH Affirmative: Mild abdominal pain present for < 24 hours Disposition of Home Care suggested. Patient's father calling with concerns of patient's abdominal pain which started around 3am today. Woke with stomach pain and 1 episode of vomiting. Intermittent moderate abdominal pain ongoing since vomiting episode. No vomiting since 3 am. Patient reports pain in generalized over entire abdomin and comes and goes. Father unsure of fever, can't find thermometer to check temperature, states patient feels warm to touch. Patient states eating makes stomach pain worse, has had minimal intake but has used the restroom a few times and is hydrated at this time. Stressed importance of staying hydrated. Discussed home care advice per protocol. Patient's father verbalized understanding and agreement with plan. Patient's father was instructed to call the clinic with any questions, concerns, or worsening symptoms. documented in this encounter Plan of Treatment Not on filedocumented as of this encounter Visit Diagnoses Not on filedocumented in this encounter Care Teams Console Assembler Relationship Specialty Start Date End Date Felicity Salomon MD PCP - General 10/27/10 documented as of this encounter
--- OUTSIDE RECORDS SUMMARY | 2022-05-08 23:29 | XMS_ITS | Encounter Summary ---
:2001 Author Organization [facility] Address [address], [place] [address] Care Team Providers Name Role Phone Felicity Salomon MD Primary Care Provider Reason for Visit Reason Comments Other Encounter Details Date Type Department Care Team Description 07/07/2010 Telephone [facility], Message Other [address] [place] [address] Social History Tobacco Use Types Packs/Day Years Used Date Smoking Tobacco: Never Assessed Sex Assigned at Date Recorded Not on file documented as of this encounter Progress Notes Center, Message - 07/07/2010 12:45 PM CST Phone Note filed by Conferensum at 11/16/1032 Author: Conferensum Service: (none) Author Type: (none) Filed: 11/16/1032 Note Time: 07/07/105 Status: Signed Medical Office Secretary: Conferensum (Resource) Front Line Sx Call Caller Name/Relationship:MomJassi Primary State Patrol Officer:Aime Symptom or request?Growing pain-sleep issues Is appointment scheduled & when?n Director Social Service:Celia Bergeron call back number:[phone] Pharmacy Name:[facility] Is it OK to leave a confidential message on this voicemail?y *ECODE~PNSX2 Created on [id number] 12:45pm by ZACK BLACKBURN R On [id number] 1:10pm KENNA GRIMES wrote: CLINICIAN FOLLOW-UP: none IMPRESSION: Leg Pain. SYMPTOMS: mom calling for last week patient developed growing pains in upper thighs. These pain wake pt up at night and patient is given pain reliever and then able to go back to sleep. Mom is wondering if pt needs to be seen. Denies emergent symptoms Problem List: reviewed in electronic medical record. Allergies: Reviewed/updated in electronic medical record. Medications: Reviewed/updated in electronic medical record. care advise: Lifestyle and home remedies By [facility] staff You can help ease your child's discomfort with these home remedies: Rub your child's legs. Some children respond to gentle massage. Others feel better when they're held or cuddled. Use a heating pad. Heat can help soothe sore muscles. Use a heating pad on a low setting before bedtime or when your child complains of leg pain. Remove the heating pad once your child falls asleep. A warm bath before bedtime may help, too. Try a pain reliever. Offer your child ibuprofen (Advil, Motrin, others) or acetaminophen (Tylenol, others). Avoid aspirin, due to the risk of Yuri's syndrome a rare but serious condition linked to giving aspirin to children. Advised to call back if any of the following occur: symptoms worsen or persist, any other questions or concerns. PLAN: HOME CARE Patient/Caller agrees with plan and denies additional questions. References Used: Pediatric Telephone Protocols--Leg Pain. Call Complete. *AMOS~BS~LEGMERLEIN ~ ANTLER documented in this encounter Plan of Treatment Not on filedocumented as of this encounter Visit Diagnoses Not on filedocumented in this encounter Care Teams Dinkey Operator Slag Relationship Specialty Start Date End Date Felicity Salomon MD PCP - General 10/27/10 documented as of this encounter
--- OUTSIDE RECORDS SUMMARY | 2022-05-08 23:29 | XMS_ITS | Encounter Summary ---
:2001 Author Organization [facility] Address [address], [place] [address] Care Team Providers Name Role Phone Felicity Salomon MD Primary Care Provider Reason for Visit Reason Comments Questions Encounter Details Date Type Department Care Team Description 10/19/2012 Office Visit [facility] Felicity Salomon, Scoliosis (and [address] [facility] kyphoscoliosis), [place] [address] idiopathic (Primary [phone] [place], [place] Dx) [address] (Wo rk) Social History [...] - Inhaled Oxygen Concentration - - Weight 32.7 kg (72 lb) 10/19/2012 8:55 AM CDT Height 140.3 cm (4' 7.25) 10/19/2012 8:55 AM CDT Body Mass Index 16.58 10/19/2012 8:55 AM CDT Body Mass Index Percentile 31.47 % 10/19/2012 8:55 AM CD T Growth Chart: [facility] (Girls, 2-20 Years) documented in this encounter Progress Notes Felicity Salomon MD - 10/19/2012 1:11 PM CDT Progress Notes signed by Felicity Salomon MD at 11/02/121317 Author: Felicity Salomon MD Service: (none) Author Type: Physician Filed: 11/02/121317 Note Time: 10/19/121310 Status: Signed Furnace Setter: Felicity Salomon MD (Physician) NAME: QUE ZAMORA MR#: [id number] CSN: [id number] AUTHENTICATING CLINICIAN: Felicity Salomon MD CONFIRM #: [id number] LOC: 503 CLINIC PROGRESS NOTE DATE OF VISIT: 10/19/2012 : 2000 Rrixwa-zgnw-bsu here for concerns about scoliosis. Screened at her school in [place], and they thought there was an abnormality of her spine or hips, and they sent her for evaluation here. Parents have not noticed any curve. There is a family history of scoliosis in a maternal aunt who required a brace during her teenage years. The only other thing that parents want to talk about today is that school has noticed some inattention. Apparently a teacher has recommended guarana supplements to help. I did look it up, and it seems as if it is an herb that is equivalent to caffeine. I told parents that it is not a regulated FDA drug, and so I could not give any formal recommendations about it, but if they choose to try it, should monitor for side effects of caffeine. Also, if it does not work to help with her attention issues, she should have a formal ADHD evaluation and discuss other medication options should parents choose. EXAM: Height 55-1/4 inches, weight 72 pounds. She is well appearing, in no acute distress. Examination of her back shows symmetric shoulders and hips. On forward bend she does have a mild prominence of her right thoracic rib cage. I do lie her on the table, and she has symmetric leg lengths and normal hip range of motion. She is currently Nasim I and has not started puberty yet. Scoliosis films were obtained which showed a 10.35 degree curve. IMPRESSION: Mild scoliosis but has not yet started her pubertal growth spurt so has the potential of worsening. PLAN: Will recheck in 6-9 months, sooner if problems arise or parents noticed a more pronounced curve. Also see above for recommendations regarding evaluation for inattention. JOHN:ANTOINE C: CONFIRM #: [id number] Felicity Salomon MD - 10/19/2012 12:43 PM CDT Quick Note: scoliosis curve is 10.35 degrees on xray (there is a typo in the prelim report). mom informed and will do follow up exam in 6-9 months documented in this encounter Miscellaneous Notes Miscellaneous - 09/04/2016 8:52 AM CSTNotes Recorded by Felicity Salomon MD on 10/19/2012 at 12:43 PMscoliosis curve is 10.35 degrees on xray (there is a typo in the prelim report). mom informed and will do follow up exam in 6-9 months RAFT INSPECTION RECORD CLERK documented in this encounter Plan of Treatment Not on filedocumented as of this encounter Procedures Procedure Name Priority Date/Time Associated Diagnosis Comme nts XR SPINE AP OR PA Routine 10/19/2012 9:39 AM Scoliosis (and Re sults for this SCOLIOSIS CDT kyphoscoliosis), procedure a re in idiopathic the results section. documented in this encounter Results XR Spine AP Or PA Scoliosis (10/19/2012 9:39 AM CDT) Anatomical Region Laterality Modality Spine Other Specimen (Source) Anatomical Location Collection Method / Collectio n Time Received Time / Laterality Volume Narrative 10/19/2012 10:18 AM CDT No comparison. 12 thoracic and 5 lumbar vertebrae. ??No definite anomalies seen. ?? There is a levoscoliosis of 105 length m easured between T7-L3. ?? Garcia image created. Procedure Note Rommel Asencio MD - 01/10/2016Formatti ng of this note might be different from the original. No comparison. 12 thoracic and 5 lumbar vertebrae. No d efinite anomalies seen. There is a levoscoliosis of 105 length m easured between T7-L3. Garcia image created. Transcriptions Rommel Asencio MD - 09/04/2016 8:52 AM CSTNotes Recorded by Felicity Salomon MD on 10/19/2012 at 12:43 PMscoliosis curve is 10.35 degrees on xray (there is a typo in the prelim report). mom informed and will do follow up exam in 6-9 months Felicity Salomon MD RAD GD documented in this encounter Visit Diagnoses Diagnosis Scoliosis (and kyphoscoliosis), idiopath ic - Primary documented in this encounter Care Teams Nub Card Tender Relationship Specialty Start Date End Date Felicity Salomon MD PCP - General 10/27/10 documented as of this encounter
--- OUTSIDE RECORDS SUMMARY | 2022-05-08 23:29 | XMS_ITS | Encounter Summary ---
:2001 [facility] Address [address] [place] [address] Care Team Providers Name Role Phone Felicity Salomon MD Primary Care Provider Encounter Details Date Type Department Care Team Description 09/24/2009 PN Conversion Only [place] [address] [address] [place], [place] [address] (Wo rk) Social History Tobacco Use Types Packs/Day Years Used Date Smoking Tobacco: Never Assessed Sex Assigned at Date Recorded Not on file documented as of this encounter Plan of Treatment Not on filedocumented as of this encounter Procedures Procedure Name Priority Date/Time Associated Diagnosis Comme nts COMPLETE BLOOD Routine 09/24/2009 7:37 PM Results for this COUNT-W/DIFF PROFESSOR OF EXERCISE SCIENCE procedure are i n the results section. documented in this encounter Results Hemogram/Plts/Diff (09/24/2009 7:37 PM PROFESSOR OF EXERCISE SCIENCE) P athologist Signature White Blood Cell 9.4 5.0 - 14.5 [facility] N Count k/cmm Red Blood Cell 4.52 3.80 - HP CONVERSION Count 5.20 m/cmm Hemoglobin 13.7 11.5 - HP CONVERSION 15.0 g/dL Hematocrit 40.1 33.0 - HP CONVERSION 43.0 % Mean Corpuscular 88.7 77.0 - HP CONVERSION Volume 95.0 fL RDW 11.5 11.0 - HP CONVERSION 15.0 % Platelet Count 282 150 - 450 [facility] CONVERSION k/cmm Absolute 4.6 1.5 - 8.5 HP CONVERSION Neutrophils k/cmm Absolute 3.7 1.0 - 4.0 HP CONVERSION Lymphocytes k/cmm Absolute 0.9 0.2 - 1.0 HP CONVERSION Monocytes k/cmm Absolute 0.1 0.0 - 0.5 HP CONVERSION Eosinophils k/cmm Absolute 0.1 0.0 - 0.2 HP CONVERSION Basophils k/cmm Specimen (Source) Anatomical Collection Method Collection Time Re ceived Time Location / / Volume Laterality 09/24/2009 7:37 PM PROFESSOR OF EXERCISE SCIENCE Pippa Jameson MD LAB_1 Performing Organization Address City/State/ZIP Code Phon e Number [facility] CONVERSION documented in this encounter Visit Diagnoses Not on filedocumented in this encounter Care Teams Seed Analyst Relationship Specialty Start Date End Date Felicity Salomon MD PCP - General 10/27/10 documented as of this encounter
--- OUTSIDE RECORDS SUMMARY | 2022-05-08 23:29 | XMS_ITS | Encounter Summary ---
:2001 Author Organization [facility] Address [address] [address] Care Team Providers Name Role Phone Felicity Salomon MD Primary Care Provider Encounter Details Date Type Department Care Team Description 05/27/2013 Imaging [facility] Scoliosis (and [address] [employer] kyphoscoliosis), [place] [address] Social History Tobacco Use Types Packs/Day Years Used Date Smoking Tobacco: Never Assessed Sex Assigned at Date Recorded Not on file documented as of this encounter Progress Notes Felicity Salomon MD - 05/29/2013 8:59 AM HOSPITAL ADMISSIONS CLERK Quick Note: gave results of scoliosis film to mom. no rapid progression. actually looks better. will follow up in 1 year when she is here for her [facility] documented in this encounter Miscellaneous Notes Miscellaneous - 09/04/2016 1:58 AM CSTNotes Recorded by Felicity Salomon MD on 05/29/2013 at 8:59 AMgave results of scoliosis film to mom. no rapid progression. actually looks better. will follow up in 1 year when she is here for her [facility] ITAL ADMISSIONS CLERK documented in this encounter Plan of Treatment Not on filedocumented as of this encounter Procedures Procedure Name Priority Date/Time Associated Diagnosis Comme nts XR SPINE AP OR PA Routine 05/27/2013 12:08 PM Scoliosis (and R esults for this SCOLIOSIS CDT kyphoscoliosis), procedure a re in idiopathic the results section. documented in this encounter Results XR Spine AP Or PA Scoliosis (05/27/2013 12:08 PM CDT) Anatomical Region Laterality Modality Spine Other Specimen (Source) Anatomical Location Collection Method / Collectio n Time Received Time / Laterality Volume Narrative 05/28/2013 12:18 PM HOSPITAL ADMISSIONS CLERK Comparison study 10/19/2012 at which time there was a single levocurvature 10-11 degrees between T7-L3. ?? 12 thoracic and 5 lumbar type vertebra. No anomalies noted. Curvatures have changed compared with pr ior study in which there are 2 mild curvatures detected at a as follows Levoscoliosis of 6-7 degrees between T1- 12. Secondary short segment dextroscoliosis 5-6 degrees between T12-L3. ?? Garcia image created. ?? Procedure Note Rommel Asencio MD - 01/10/2016Formatti ng of this note might be different from the original. Comparison study 10/19/2012 at which zhao e there was a single levocurvature 10-11 degrees between T7-L3. 12 thoracic and 5 lumbar type vertebra. No anomalies noted. Curvatures have changed compared with pr ior study in which there are 2 mild curvatures detected at a as follows Levoscoliosis of 6-7 degrees between T1- 12. Secondary short segment dextroscoliosis 5-6 degrees between T12-L3. Garcia image created. Transcriptions Rommel Asencio MD - 09/04/2016 1:58 AM CSTNotes Recorded by Felicity Salomon MD on 05/29/2013 at 8:59 AMgave results of scoliosis film to mom. no rapid progression. actually looks better. will follow up in 1 year when she is here for her [facility] Felicity Salomon MD RAD GD documented in this encounter Visit Diagnoses Diagnosis Scoliosis (and kyphoscoliosis), idiopath ic documented in this encounter Care Teams Plywood Matcher Relationship Specialty Start Date End Date Felicity Salomon MD PCP - General 10/27/10 documented as of this encounter
--- OUTSIDE RECORDS SUMMARY | 2022-05-08 23:29 | XMS_ITS | Encounter Summary ---
:2000 Author [facility] Address [address] [address] Care Team Providers Name Role Phone Felicity Salomon MD Primary Care Provider Encounter Details Date Type Department Care Team Description 09/24/2009 PN Conversion Only [facility] [address] [address] [place] [address] Social History Tobacco Use Types Packs/Day Years Used Date Smoking Tobacco: Never Assessed Sex Assigned at Date Recorded Not on file documented as of this encounter Plan of Treatment Not on filedocumented as of this encounter Visit Diagnoses Not on filedocumented in this encounter Care Teams Outplacement Consultant Relationship Specialty Start Date End Date Felicity Salomon MD PCP - General 10/27/10 documented as of this encounter
--- OUTSIDE RECORDS SUMMARY | 2022-05-08 23:29 | XMS_ITS | Encounter Summary ---
:2000 Author Organization [facility] Address [address] [address] Care Team Providers Name Role Phone Bart Lowe MD Primary Care Provider Reason for Visit Reason Comments Other Encounter Details Date Type Department Care Team Description 02/11/2007 Telephone [facility] Bart Lowe MD Other [address] [address] [place] [address] [place] [phone] (Wo rk) Social History Tobacco Use Types Packs/Day Years Used Date Smoking Tobacco: Never Assessed Sex Assigned at Date Recorded Not on file documented as of this encounter Progress Notes Center, Message - 02/11/2007 1:19 PM CDT Phone Note filed by [employer] at 11/12/10 002 Author: [employer] Service: (none) Author Type: (none) Filed: 11/12/1023 Note Time: 02/11/07 1319 Status: Signed Machinery Erector: [employer] Non -Symptom Message from Front Line Caller Name/Relationship:Celia-mom Primary Medical Research Tech: Message:called to make appt at the [facility] and they are booked.wondering there is something else they can do Tank Refinisher:Celia Best call back number:[phone] Best time to call back:anytime Is it OK to leave a confidential message on this voicemail?y *ECODE~PNMSG2 Created on 11Feb2007 1:19pm by RUSTY MEDRANO On 11Feb2007 1:23pm RAHUL CHANCE wrote: Left message for mom that Dr. Lowe is gone this afternoon and will get the message on Wed. and to call the clinic back if she has any immediate concerns. On 14Feb2007 9:36am BART LOWE wrote: left message on machine again. [place] make appt with mental health, child psychiatry and or child psychologist ( I spoke with [facility] and they thought that mental health would be a better fit for her problems). told mom to call [phone] and talk with the mental health intake and get set up with an appt. Acknowledged by BART LOWE on 9:36am MOTIVE EXHAUST EMISSIONS TECHNICIAN documented in this encounter Plan of Treatment Not on filedocumented as of this encounter Visit Diagnoses Not on filedocumented in this encounter Care Teams Engine Tester Relationship Specialty Start Date End Date Bart Lowe MD PCP - General 10/27/10 documented as of this encounter
--- OUTSIDE RECORDS SUMMARY | 2022-05-08 23:29 | XMS_ITS | Encounter Summary ---
:2000 Author Organization [facility] Address [address] [address] Care Team Providers Name Role Phone Felicity Salomon MD Primary Care Provider Reason for Visit Reason Comments Other Encounter Details Date Type Department Care Team Description 10/08/2009 Telephone [facility], Message Other [address] [place] [address] Social History Tobacco Use Types Packs/Day Years Used Date Smoking Tobacco: Never Assessed Sex Assigned at Date Recorded Not on file documented as of this encounter Progress Notes Sarah Jacobson RN - 10/08/2009 3:12 PM CDT Phone Note filed by Sarah Jacobson RN at 11/15/10155 Author: Sarah Jacobson RN Service: (none) Author Type: Registered Nurse Filed: 11/15/10155 Note Time: 10/08/091511 Status: Signed Nurse Substance Abuse: Sarah Jacobson RN (Registered Nurse) [facility] called to request US report faxed from 10/03/09 and XR from 09/30/09. Please fax to [phone]. Created on 08Oct2009 3:12pm by SARAH JACOBSON On 08Oct2009 3:18pm RAHUL CHANCE wrote: x-ray reports faxed. Mom was to parts picker a copy of the CD with the images to bring [facility]. ILITY CLAIMS ADJUSTER documented in this encounter Plan of Treatment Not on filedocumented as of this encounter Visit Diagnoses Not on filedocumented in this encounter Care Teams Communications Coordinator Relationship Specialty Start Date End Date Felicity Salomon MD PCP - General 10/27/10 documented as of this encounter
--- OUTSIDE RECORDS SUMMARY | 2022-05-08 23:29 | XMS_ITS | Encounter Summary ---
:2000 Author Organization [facility] Address [address] [address] Care Team Providers Name Role Phone Felicity Salomon MD Primary Care Provider Reason for Visit Reason Comments Rash Encounter Details Date Type Department Care Team Description 04/11/2012 Nurse Triage [facility] Felicity Salomon MD [place] [address] [address] [place] [address] [place], [place] [phone] (Wo rk) Social History Tobacco Use Types Packs/Day Years Used Date Smoking Tobacco: Never Assessed Sex Assigned at Date Recorded Not on file documented as of this encounter Nursing Notes Svetlana Beasley RN - 04/11/2012 11:41 AM CDT Protocol: RASH - WIDESPREAD AND CAUSE [id number] Affirmative: Child attends child care team lead or school and cause of rash unknown Disposition of See Within 12 - 24 Hours (Office or Urgent Care) suggested. Pt went swimming in a [place] yesterday and developed a fine, red rash on her face almost immediately. School nurse called mom today and it has spread to her trunk, arms, and legs. It is very itchy and they are using topical Benadryl. No one else who swam in the [place] developed sx. No new sunscreen, lotions, etc. Mom declined appt, said pt has had this before and wants to see if it will go away in the next day or so. She may bring her in to [facility] if worse or bothered by her sx. Moira Javier - 04/11/2012 11:23 AM CDT Pt has a rash and mother needs to discuss documented in this encounter Plan of Treatment Not on filedocumented as of this encounter Visit Diagnoses Not on filedocumented in this encounter Care Teams Culinary Manager Relationship Specialty Start Date End Date Felicity Salomon MD PCP - General 10/27/10 documented as of this encounter
--- OUTSIDE RECORDS SUMMARY | 2022-05-08 23:29 | XMS_ITS | Encounter Summary ---
:2000 Author Organization [facility] Address [address] [address] Care Team Providers Name Role Phone Felicity Salomon MD Primary Care Provider Reason for Visit Reason Comments IMMUNIZATIONS Encounter Details Date Type Department Care Team Description 09/10/2014 Nursing Visit [facility] Need for hepatitis A Medicine Fp immunization (Primary [address] [place]x) [place] [address] Social History Tobacco Use Types Packs/Day Years Used Date Smoking Tobacco: Never Assessed Sex Assigned at Date Recorded Not on file documented as of this encounter Plan of Treatment Not on filedocumented as of this encounter Visit Diagnoses Diagnosis Need for hepatitis A immunization - Prim elisabet Need for prophylactic vaccination and in oculation against viral hepatitis documented in this encounter Care Teams Business Continuity Planning Director Relationship Specialty Start Date End Date Felicity Salomon MD PCP - General 10/27/10 documented as of this encounter
--- OUTSIDE RECORDS SUMMARY | 2022-05-08 23:29 | XMS_ITS | Encounter Summary ---
:2000 Author Organization [facility] Address [address] [address] Care Team Providers Name Role Phone Felicity Salomon MD Primary Care Provider Reason for Visit Reason Comments Rash Encounter Details Date Type Department Care Team Description 07/29/2012 Telephone [facility] Felicity Salomon [place] [address] [facility] [address] [place] [address] [place] [phone] (Wo rk) Social History Tobacco Use Types Packs/Day Years Used Date Smoking Tobacco: Never Assessed Sex Assigned at Date Recorded Not on file documented as of this encounter Nursing Notes Ellen Coto RN - 07/29/2012 11:42 AM CST Mom calling notes that pt has been exposed to Shingles in her classroom in the last couple of days. Wanting to know if pt is UTD with Varicella vaccine. Reviewed vaccine with mom, noting that pt is missing 2nd dose Varicella. Per Dr Hurtado--if pt was recently exposed may benefit from vaccine if received soon due to length of incubation period. Relayed this to Mom. Inject appt scheduled today. No further questions at this time. UREMENT INSPECTOR Elham Soto - 07/29/2012 11:28 AM CST Front Line Sx Call Primary Heat And Vent Aircraft Mechanic: Felicity Salomon MD Reason for call/symptom: Mom states school called and pt has a rash. She adds the school told her there was another child in the class that was diagnosed with shingles. Mom says the school told her that only one chickenpox immunization is on the school record. UREMENT INSPECTOR documented in this encounter Plan of Treatment Not on filedocumented as of this encounter Visit Diagnoses Not on filedocumented in this encounter Care Teams Willow Analyst Relationship Specialty Start Date End Date Felicity Salomon MD PCP - General 10/27/10 documented as of this encounter
--- OUTSIDE RECORDS SUMMARY | 2022-05-08 23:29 | XMS_ITS | Encounter Summary ---
:2000 Author Organization [facility] Address [address] [address] Care Team Providers Name Role Phone Felicity Salomon MD Primary Care Provider Encounter Details Date Type Department Care Team Description 11/24/2010 PN Conversion Only [facility] Felicity Salomon, [address] [facility] [place] [address] [phone] [place] [phone] (Wo rk) Social History Tobacco Use Types Packs/Day Years Used Date Smoking Tobacco: Never Assessed Sex Assigned at Date Recorded Not on file documented as of this encounter Plan of Treatment Not on filedocumented as of this encounter Visit Diagnoses Not on filedocumented in this encounter Care Teams Clean Up Person Relationship Specialty Start Date End Date Felicity Salomon MD PCP - General 10/27/10 documented as of this encounter
--- OUTSIDE RECORDS SUMMARY | 2022-05-08 23:29 | XMS_ITS | Encounter Summary ---
:2000 Author Organization [facility] Address [address] [address] Care Team Providers Name Role Phone Felicity Salomon MD Primary Care Provider Reason for Visit Reason Comments Other Encounter Details Date Type Department Care Team Description 10/24/2008 Telephone [facility], Message Other [address] [place] [address] Social History Tobacco Use Types Packs/Day Years Used Date Smoking Tobacco: Never Assessed Sex Assigned at Date Recorded Not on file documented as of this encounter [facility], Message - 10/24/2008 2:50 PM CDT Phone Note filed by Savor at 11/13/102221 Author: Savor Service: (none) Author Type: (none) Filed: 11/13/102221 Note Time: 10/24/08 1450 Status: Signed Market Intelligence Consultant: Savor (Resource) Front Line Sx Call Caller Name/Relationship:Celia Primary Farm Laborer:Dr Salomon Symptom or request?Mother states that pt may have lice. Is appointment scheduled & when?No Special Delivery Carrier:Celia Bergeron call back number:[phone] Is it OK to leave a confidential message on this voicemail?Yes *ECODE~PNSX2 Created on [id number] 2:50pm by RIC WHYTE On [id number] 3:02pm CHRYSTAL LOPEZ wrote: CLINICIAN FOLLOW-UP: none IMPRESSION: Lice (Pediculosis). SYMPTOMS: Patient's mom calling. Mom was informed this morning that friend of patient's who was at their house yesterday has lice. Mom is wondering what she should do. Patient does not appear to have any symptoms at this point. Denies emergent symptoms Problem List: reviewed in electronic medical record. CARE ADVICE: Do not treat patient unless actual lice or nits are seen. Lice that are off the body rarely cause reinfection, only live for 24 hours off the human body. Vacuum all carpet. Soak any shared nagel or brushes for 1 hour in anti lice shampoo solution. Wash sheets, blankets, pillows in hot water. If items can't be washed seal in plastic bags for 2 weeks. Advised to call back if any of the following occur: symptoms worsen or persist, any other questions or concerns. PLAN: HOME CARE Patient/Caller agrees with plan and denies additional questions. References Used: Pediatric Telephone Protocols--Lice (Pediculosis). Call Complete. *SH~BS~LICE ~ RVISOR INSTRUMENT MAINTENANCE documented in this encounter Plan of Treatment Not on filedocumented as of this encounter Visit Diagnoses Not on filedocumented in this encounter Care Teams Motion Picture Set Up Worker Relationship Specialty Start Date End Date Felicity Salomon MD PCP - General 10/27/10 documented as of this encounter
--- OUTSIDE RECORDS SUMMARY | 2022-05-08 23:29 | XMS_ITS | Encounter Summary ---
:2000 Author Organization [facility] Address [address] [address] Care Team Providers Name Role Phone Bart Lowe MD Primary Care Provider Encounter Details Date Type Department Care Team Description 09/30/2009 Office Visit [facility] [place] [address] [address] [place] [address] [place], [place] [phone] (Wo rk) Social History Tobacco Use Types Packs/Day Years Used Date Smoking Tobacco: Never Assessed Sex Assigned at Date Recorded Not on file documented as of this encounter Last Filed Vital Signs Vital Sign Reading Time Taken Comments Blood Pressure - - Pulse - - Temperature - - Respiratory Rate - - Oxygen Saturation - - Inhaled Oxygen Concentration - - Weight 24.5 kg (53 lb 15.9 oz) 09/30/2009 11:00 AM C: 2 4.5kg YARDING AND FOLDING MACHINE OPERATOR Height - - Body Mass Index - - documented in this encounter Progress Notes Bart Lowe MD - 09/30/2009 12:01 AM CST Progress Notes signed by Bart Lowe MD at 11/12/09 1131 Author: Bart Lowe MD Service: (none) Author Type: Physician Filed: 11/15/108 Note Time: 09/30/09 0001 Status: Signed Nuclear Weapons Specialist: Bart Lowe MD (Physician) NAME: QUE ZAMORA MR#: [id number] ACCT: [id number] VISIT: [id number] DICTATING CLINICIAN: BART LOWE MD CONFIRM #: [id number] LOC: 503 CLINIC PROGRESS NOTE DATE OF VISIT: 09/30/2009 SUBJECTIVE: 9-year-old here for followup of constipation. Also, an abnormality seen on the abdominal flat plate. She was seen in urgent care 09/24. This note was reviewed. Mom and Dad started her on MiraLAX and also had to use a suppository to finally get the stools to come out. Over last 3 days she has had 2 to 3 soft, loose stools out of each day. She has no further complaints of abdominal pain. MEDICATIONS: Parents have differed in the amount of MiraLAX they have given her, so she has had anywhere from a half a cup to a full capful of MiraLAX each day. On the original abdominal flat plate obtained in urgent care, Dr. Deep Asencio, the radiologist, saw 3 opaque soft tissue calcifications and was concerned that they may be seen in the ovary; so he recommended an AP pelvis to be done, which was reevaluated again today; and again, he did see calcifications in the left and right pelvis area; and he is concerned that these may represent calcifications in the ovary that could be seen with a teratoma or dermoid-type lesion; and he recommends a followup pelvic ultrasound. The rest of the pelvic film showed evacuation of the stool from the rectum. OBJECTIVE: I did do a brief exam today. ABDOMEN: Soft, nontender, nondistended, with normoactive bowel sounds. No organomegaly or masses appreciated. ASSESSMENT: 1. Constipation improving on MiraLAX. 2. Small bilateral pelvic calcifications that need further clarification. PLAN: 1. Continue MiraLAX daily for at least 2 weeks. Then will do followup abdominal flat plate at that time to ensure continued improvement with constipation, and they can try off MiraLAX at that time. 2. Pelvic ultrasound to further evaluate these calcifications. [id number]:[id number] C: 09/30/09 23:31 CONFIRM #: [id number] documented in this encounter Plan of Treatment Not on filedocumented as of this encounter Procedures Procedure Name Priority Date/Time Associated Diagnosis Comme nts XR PELVIS 1-2 VIEWS Routine 09/30/2009 10:51 AM R esults for this YARDING AND FOLDING MACHINE OPERATOR procedure are i n the results section. documented in this encounter Results XR Pelvis 1-2 Views (09/30/2009 10:51 AM YARDING AND FOLDING MACHINE OPERATOR) Anatomical Region Laterality Modality Pelvis Other Specimen (Source) Anatomical Location Collection Method / Collectio n Time Received Time / Laterality Volume Impressions 09/30/2009 10:51 AM YARDING AND FOLDING MACHINE OPERATOR : Small bilateral pelvic calcifications. ??Ovarian etiology is consideration and pelvic ultrasound i s recommended. Dictating ROMMEL LAZAR RADIOLOGIST Narrative 09/30/2009 10:51 AM YARDING AND FOLDING MACHINE OPERATOR Is a question calcifications in the left hemipelvis are real and present and there is also some calcifica tions appearing in the central upper right pelvis which were no t appreciated on the prior study. ??I would suggest a pelvic ultras ound in further evaluation to evaluate for possible ovarian etiology o f these calcifications as could be seen with teratoma or dermoid t ype lesion. Procedure Note Rommel Asencio - 01/09/2016Formatting o f this note might be different from the original. Is a question calcifications in the left hemipelvis are real and present and there is also some calcifica tions appearing in the central upper right pelvis which were no t appreciated on the prior study. I would suggest a pelvic ultrasou nd in further evaluation to evaluate for possible ovarian etiology o f these calcifications as could be seen with teratoma or dermoid t ype lesion. IMPRESSION : Small bilateral pelvic calcifications. Ovarian etiology is consideration and pelvic ultrasound i s recommended. Dictating ROMMEL LAZAR RADIOLOGIST Bart Lowe MD RAD GD documented in this encounter Visit Diagnoses Not on filedocumented in this encounter Care Teams Energy Systems Engineer Relationship Specialty Start Date End Date Bart Lowe MD PCP - General 10/27/10 documented as of this encounter
--- OUTSIDE RECORDS SUMMARY | 2022-05-08 23:29 | XMS_ITS | Encounter Summary ---
:2001 [facility] Address [address] [place] [address] Care Team Providers Name Role Phone Felicity Salomon MD Primary Care Provider Encounter Details Date Type Department Care Team Description 09/20/2006 Office Visit [facility] [place] [address] [place], [place] [phone] Social History Tobacco Use Types Packs/Day Years Used Date Smoking Tobacco: Never Assessed Sex Assigned at Date Recorded Not on file documented as of this encounter Last Filed Vital Signs Vital Sign Reading Time Taken Comments Blood Pressure - - Pulse 108 09/20/2006 4:12 PM DOORKEEPER Temperature 35.9 ??C (96.6 ??F) 09/20/2006 4:12 PM AXILLARY C: 35.9 C DOORKEEPER Respiratory Rate 18 09/20/2006 4:12 PM DOORKEEPER Oxygen Saturation - - Inhaled Oxygen - - Concentration Weight 2.04 kg (4 lb 8 oz) 09/20/2006 4:12 PM C: 2.0kg DOORKEEPER Height - - Body Mass Index - - documented in this encounter Progress Notes Julio C Hwang MD - 09/20/2006 12:01 AM CST Progress Notes signed by Julio C Hwang MD at 10/24/06 1202 Author: Julio C Hwang MD Service: (none) Author Type: Physician Filed: 11/14/10 3573 Note Time: 09/20/06 0001 Status: Signed Vegetable Farmworker: Julio C Hwang MD (Physician) NAME: QUE ZAMORA MR#: [id number] ACCT: [id number] VISIT: [id number] DICTATING CLINICIAN: JULIO C HWANG MD JOB: [id number] LOC: 520 CLINIC PROGRESS NOTE DATE OF VISIT: 09/20/2006 SUBJECTIVE: : 2000. Patient is brought in by mom with complaint of urinary frequency and a couple episodes of incontinence. This started yesterday. She has had UTIs in the past. Was hospitalized at age 2 for urinary tract infection. Is now complaining of discomfort. Has not been running a fever. ADR/ALLERGIES: NONE. MEDICATIONS: Fluoride drop. OBJECTIVE: VS: T: 96.7 axillary. P: 108. R: 18. Wt: 40-1/2 lb. Urinalysis is consistent with a UTI. ASSESSMENT: UTI. PLAN: Augmentin ES 1-1/2 teaspoons b.i.d. times 10 days. Urine culture is ordered and pending. We will call only if we need to change antibiotics. Continue with plenty of fluids and recheck as needed. [id number] C: 09/21/06 15:19 DOCUMENT: [id number] documented in this encounter Plan of Treatment Not on filedocumented as of this encounter Visit Diagnoses Not on filedocumented in this encounter Care Teams Linotype Worker Relationship Specialty Start Date End Date Felicity Salomon MD PCP - General 10/27/10 documented as of this encounter
--- OUTSIDE RECORDS SUMMARY | 2022-05-08 23:29 | XMS_ITS | Encounter Summary ---
:2000 Author Organization [facility] Address [address], [place] [address] Care Team Providers Name Role Phone Felicity Salomon MD Primary Care Provider Reason for Visit Reason Comments Pharyngitis CONGESTION, NASAL Headache Encounter Details Date Type Department Care Team Description 07/04/2014 Office Visit [facility] Arminda Rodriguez, Acute pharyngitis (Primary D x); [address] Edwin Stein MD Nasal congestion; [place] [address] [facility] Headache([phone] [place], [place] [phone] [id number] Social History Tobacco Use Types Packs/Day Years Used Date Smoking Tobacco: Never Assessed Sex Assigned at Date Recorded Not on file documented as of this encounter Last Filed Vital Signs Vital Sign Reading Time Taken Comments Blood Pressure - - Pulse - - Temperature 36.4 ??C (97.5 ??F) 07/04/2014 10:56 AM LIGHTING DESIGNER Respiratory Rate - - Oxygen Saturation - - Inhaled Oxygen Concentration - - Weight 37.3 kg (82 lb 5 oz) 07/04/2014 10:56 AM LIGHTING DESIGNER Height - - Body Mass Index - - documented in this encounter Progress Notes Arminda Rodriguez MD - 07/04/2014 3:05 PM CST Chief Complaint Patient presents with ??? Pharyngitis (SORE THROAT) x 2 days ??? Nasal Congestion x 2 days ??? Headache x 2 days SUBJECTIVE: Mya Hood is a 14 y.o. female who presents with headache, nasal congestion, headache and pharyngitis. Symptoms started yesterday morning. Mother reports she has been coughing on and off throughout the day but cough is worse at night. No audible wheezing or stridor. [place] short of breath on several occasions but mother states that this usually only occurs when she is very congested and she cannot breathe through her nose. Without nasal congestion she does not complain of shortness of breath. Nodizziness. Had a headache yesterday which has since resolved. Afebrile. No abdominal pain, nausea, vomiting or diarrhea. No otalgia. Mild pharyngitis. Concerned that she might have strep. No rash. Decreased appetite but drinking well. Normal voids and stools. No fatigue. Review of Systems: Pertinent items are noted in HPI. OBJECTIVE: Temp(Src) 97.6 ??F (36.4 ??C) (Oral) Wt 82 lb 5 oz (37.337 kg) General appearance: alert, cooperative, no distress, appears stated age Head: Normocephalic, without obvious abnormality, atraumatic Eyes: conjunctivae/corneas clear. PERRL, EOM's intact. Ears: normal TM's and external ear canals AU Nose: Nares normal. Septum midline. Mucosa normal. No drainage. Throat: 1+ tonsils. No petechia or exudate. Uvula midline. lips, mucosa, and tongue normal Neck: supple, symmetrical, trachea midline and no adenopathy Lungs: clear to auscultation bilaterally Heart: regular rate and rhythm, S1, S2 normal, no murmur, click, rub or gallop Abdomen: soft, non-tender; bowel sounds normal; no masses, no organomegaly Skin: Skin color, texture, turgor normal. No rashes or lesions ASSESSMENT: Sore throat, congestion and headache. PLAN: If throat culture is positive will treat per protocol. If negative discussed that her symptoms are most likely secondary to a viral infection or postnasal drip. If sore throat persists for more than 5 days despite a negative strep culture discussed that she should be re\re seen in the office to be tested for mono. Symptomatic care discussed for nasal congestion and headache. Discussed that if headache worsens, she has vision changes or ataxia they should notify our office. Signs of respiratory distress reviewed. Mother agrees with plan. This note has been partially dictated or transcribed and may have minor errors in wording and typographical errors. TING DESIGNER documented in this encounter Plan of Treatment Not on filedocumented as of this encounter Procedures Procedure Name Priority Date/Time Associated Diagnosis Comme nts GROUP A STREP Routine 07/04/2014 11:11 AM Acute pharyngitis Re sults for this ANTIGEN SCREEN LIGHTING DESIGNER procedure are in the results section. BETA STREP FOLLOWUP Routine 07/04/2014 10:50 AM R esults for this LIGHTING DESIGNER procedure are i n the results section. documented in this encounter Results RAPID STREP GROUP A WAIVED (07/04/2014 11:11 AM LIGHTING DESIGNER) Analysis Performed At Patho logist Time Signature Strep A Negative Negative HP CONVERSION Antigen Strep A Source Throat: HP CONVERSION Specimen Anatomical Collection Method Collection Time Receive d Time (Source) Location / / Volume Laterality 07/04/2014 11:11 07/04/2014 AM LIGHTING DESIGNER 11:16 AM LIGHTING DESIGNER Narrative HP CONVERSION - 07/04/2014 11:18 AM LIGHTING DESIGNER Performed at [facility], [address] [place] [address] Arminda Rodriguez MD LAB_1 Performing Organization Address City/State/ZIP Code Phon e Number HP CONVERSION BETA STREP FOLLOWUP (07/04/2014 10:50 AM LIGHTING DESIGNER) [facility] gist Method Time Signature Source Throat HP CONVERSION Site HP CONVERSION Strep Screen No beta HP CONVERSION hemolytic Strep Group A isolated. Specimen (Source) Anatomical Collection Method Collection Time Re ceived Time Location / / Volume Laterality Throat: 07/04/2014 10:50 AM LIGHTING DESIGNER Arminda Rodriguez MD LAB_1 Performing Organization Address City/State/ZIP Code Phon e Number HP CONVERSION documented in this encounter Visit Diagnoses Diagnosis Acute pharyngitis - Primary Nasal congestion Other diseases of nasal cavity and sinus es Headache(784.0) Headache documented in this encounter Care Teams Ballast Inspector Relationship Specialty Start Date End Date Felicity Salomon MD PCP - General 10/27/10 documented as of this encounter
--- OUTSIDE RECORDS SUMMARY | 2022-05-08 23:29 | XMS_ITS | Encounter Summary ---
:2001 [facility] Address [address], [place] [address] Care Team Providers Name Role Phone Felicity Salomon MD Primary Care Provider Encounter Details Date Type Department Care Team Description 12/07/2017 Lab Visit [facility] Screening for iron deficienc y anemia; [address] [address] Screening for lipoid disorde rs; [place] [address] Fatigue, unspecified type [phone] Social History Tobacco Use Types Packs/Day Years Used Date Smoking Tobacco: Passive Smoke Exposure - Never Smoker Smokeless Tobacco: Never Sex Assigned at Date Recorded Not on file documented as of this encounter Progress Notes Nubia Roman LPN - 12/08/2017 11:21 AM CDT Left message for mom stating normal labs and to schedule the appts discussed. Nubia Roman LPN 11:21 AM 12/08/2017 Felicity Salomon MD - 12/08/2017 10:03 AM CDT Please let mom know that all labs normal. [facility] like we discussed in clinic documented in this encounter Plan of Treatment Not on filedocumented as of this encounter Procedures Procedure Name Priority Date/Time Associated Diagnosis Comme nts VITAMIN D Routine 12/07/2017 10:05 Fatigue, unspecified Res ults for this 25-HYDROXY, TOTAL AM CDT type procedure are in the results section. COMP METABOLIC PANEL Routine 12/07/2017 10:05 Fatigue, unspeci fied Results for this AM CDT type procedure are i n the results section. HEMOGLOBIN, BLOOD Routine 12/07/2017 10:05 Screening for iron Results for this AM CDT deficiency anemia procedure are in the results section. TSH, SENSITIVE (WITH Routine 12/07/2017 10:05 Fatigue, unspeci fied Results for this REFLEX) AM CDT type procedure are i n the results section. CHOLESTEROL (TOTAL) Routine 12/07/2017 10:05 Screening for lip oid Results for this AM CDT disorders procedure are i n the results section. documented in this encounter Results CMP - Comprehensive Metabolic Panel (12/07/2017 10:05 AM CDT) [facility] gist Method Time Signature Aspartate 17 10 - [...] - 12/07/2017 11:09 AM CDT Performed at [facility], [address] [place] [address] CLIA number [id number] Felicity Salomon MD LAB_1 Performing Organization Address City/[facility] Phon e Number PN SOFT [address] [place] [address] TSH with Free T4 (if TSH Abnormal) (12/07/2017 10:05 AM CDT) athologist Signature Thyroid 1.09 0.30 - PN SOFT Stimulating 4.50 Hormone uIU/mL Specimen Anatomical Collection Method Collection Time Receive d Time (Source) Location / / Volume Laterality 12/07/2017 10:05 12/07/2017 AM CDT 12:48 PM CDT Narrative PN SOFT - 12/07/2017 2:02 PM CDT Performed at [facility] [address] [place] [address] CLIA number [id number] Felicity Salomon MD LAB_1 Performing Organization Address City/[facility] Phon e Number PN SOFT [address] [place] [address] Vitamin D (In house) (12/07/2017 10:05 AM CDT) P athologist Signature Vitamin D 25 Oh 22 20 - 80 PN SOFT ng/mL Comment: Deficiency = <20 Adequate ??= 20-29 Preferred = 30-50 Uncertain safety = 51-80 High = >80 Specimen Anatomical Collection Method Collection Time Receive d Time (Source) Location / / Volume Laterality 12/07/2017 10:05 12/07/2017 AM CDT 12:44 PM CDT Narrative PN SOFT - 12/07/2017 2:29 PM CDT Performed at [place] [address] [place] [address] CLIA number [id number] Felicity Salomon MD LAB_1 Performing Organization Address [facility]/ZIP Code Phon e Number PN SOFT [address] [place] [address] CHOLESTEROL (TOTAL) (12/07/2017 10:05 AM CDT) athologist Signature Cholesterol 141 0 - 199 PN SOFT mg/dL Specimen Anatomical Collection Method Collection Time Receive d Time (Source) Location / / Volume Laterality 12/07/2017 10:05 12/07/2017 AM CDT 10:05 AM CDT Narrative PN SOFT - 12/07/2017 11:09 AM CDT Performed at [facility], [facility] [address] [place] [address] CLIA number [id number] Felicity Salomon MD LAB_1 Performing Organization Address [facility] Phon e Number PN SOFT [address] [place] [address] HEMOGLOBIN, BLOOD (12/07/2017 10:05 AM CDT) athologist Signature Hemoglobin 13.7 12.0 - 16.0 PN SOFT g/dL Specimen Anatomical Collection Method Collection Time Receive d Time (Source) Location / / Volume Laterality 12/07/2017 10:05 12/07/2017 AM CDT 10:05 AM CDT Narrative PN SOFT - 12/07/2017 10:13 AM CDT Performed at [facility], [address] [place] [address] CLIA number [id number] Felicity Salomon MD LAB_1 Performing Organization Address [facility] Code Phon e Number PN SOFT [address] [place] [address] documented in this encounter Visit Diagnoses Diagnosis Screening for iron deficiency anemia Screening for lipoid disorders Fatigue, unspecified type documented in this encounter Care Teams Canceling Machine Operator Relationship Specialty Start Date End Date Felicity Salomon MD PCP - General 10/27/10 documented as of this encounter
--- OUTSIDE RECORDS SUMMARY | 2022-05-08 23:29 | XMS_ITS | Encounter Summary ---
:2001 Author Organization [facility] Address [address], [place] [address] Care Team Providers Name Role Phone Bart Lowe MD Primary Care Provider Reason for Visit Reason Comments Other Encounter Details Date Type Department Care Team Description 02/07/2007 Telephone [facility] Bart Lowe MD Other [address] [place] [address] [place] [address] (Wo rk) Social History Tobacco Use Types Packs/Day Years Used Date Smoking Tobacco: Never Assessed Sex Assigned at Date Recorded Not on file documented as of this encounter [facility], Message - 02/07/2007 11:17 AM CDT Phone Note filed by Quolaw at 11/12/10 0003 Author: [place] Service: (none) Author Type: (none) Filed: 11/12/10 0003 Note Time: 02/07/07 1117 Status: Signed Air Conditioning Manager: [place] Front Line Sx Call Caller Name/Relationship: Mom Primary Exterior Work Helper:Aime Symptom or request? behavior concerns.. mom want's to discuss this with Nurse Is appointment scheduled & when? Gardening Manager: Celia Bergeron call back number: [phone] Best time to call back: anytime 7-3:30 Is it OK to leave a confidential message on this voicemail? yes *ECODE~PNSX2 Created on 07Feb2007 11:17am by ARASH MCCURDY On 07Feb2007 11:37am CHAPARRITA ASHTON wrote: Spoke with mother this morning and she describes pt as having uncontrollable temper tantrums which seem to be escalating.Parents and DayCare Providers have worked at modifying the outbursts, and not succeeding.Mom asks pt why she doesn't stop the tantrums, and pt repliesit won't let me.Parents have questions on types of evaluationavailable if necessary.Appt scheduled. Acknowledged by BART LOWE on 12:28pm OGY SURGEON documented in this encounter Plan of Treatment Not on filedocumented as of this encounter Visit Diagnoses Not on filedocumented in this encounter Care Teams Vice President Regulatory Relationship Specialty Start Date End Date Bart Lowe MD PCP - General 10/27/10 documented as of this encounter
--- OUTSIDE RECORDS SUMMARY | 2022-05-08 23:29 | XMS_ITS | Encounter Summary ---
:2000 [facility] Address [address], [place] [address] Care Team Providers Name Role Phone Felicity Salomon MD Primary Care Provider Reason for Visit Reason Comments Symptoms Encounter Details Date Type Department Care Team Description 07/22/2012 Nurse Triage [facility] Felicity Salomon MD Symptoms [address] [place] [address] [place], [place] [phone] (Wo rk) Social History Tobacco Use Types Packs/Day Years Used Date Smoking Tobacco: Never Assessed Sex Assigned at Date Recorded Not on file documented as of this encounter Nursing Notes Humaira Ross RN - 07/22/2012 12:55 PM CST Protocol: [id number] Affirmative: Cold (upper respiratory infection) with no complications Disposition of Home Care suggested. Spoke with mom. Since yesterday mireille pt. has had cough and nasal congestion. Mom states pt. said she was cold, but was not able to take temperature. Pt. had nausea today, vomited once and stated she felt better. Denies difficulty breathing, sinus pain. Advised home care per protocol, mom will call backif symptoms continue for 10 days or worsen, or pt. is febrile when mom gets access to thermometer. ERING MACHINE FEEDER Pierce, Svetlana L - 07/22/2012 12:37 PM CST Mom calling in [phone] states pt is having a bad cough and congestion concerns. Transferred to triage. ERING MACHINE FEEDER documented in this encounter Plan of Treatment Not on filedocumented as of this encounter Visit Diagnoses Not on filedocumented in this encounter Care Teams Portrait Painter Relationship Specialty Start Date End Date Felicity Salomon MD PCP - General 10/27/10 documented as of this encounter
--- OUTSIDE RECORDS SUMMARY | 2022-05-08 23:29 | XMS_ITS | Encounter Summary ---
:2001 Author Organization [facility] Address [address] [place] [address] Care Team Providers Name Role Phone Felicity Salomon MD Primary Care Provider Encounter Details Date Type Department Care Team Description 08/11/2006 PN Conversion Only [place] [facility] Felicity Salomon, [address] [facility] [place] [address] [address] [facility] [phone] (Wo rk) Social History Tobacco Use Types Packs/Day Years Used Date Smoking Tobacco: Never Assessed Sex Assigned at Date Recorded Not on file documented as of this encounter Plan of Treatment Not on filedocumented as of this encounter Procedures Procedure Name Priority Date/Time Associated Diagnosis Comme nts STREP GROUP A Routine 08/11/2006 10:11 AM Results for this ANTIGEN TEST SENIOR MECHANICAL DEVELOPMENT ENGINEER procedure are i n the results section. BETA STREP FOLLOWUP Routine 08/11/2006 10:11 AM R esults for this SENIOR MECHANICAL DEVELOPMENT ENGINEER procedure are i n the results section. documented in this encounter Results Strep Group A Antigen Test (08/11/2006 10:11 AM SENIOR MECHANICAL DEVELOPMENT ENGINEER) [facility] Signature Strep Group A Negative Negative HP CONVERSION Antigen Test Comment: Culture to follow. Specimen (Source) Anatomical Collection Method Collection Time Re ceived Time Location / / Volume Laterality 08/11/2006 10:11 AM SENIOR MECHANICAL DEVELOPMENT ENGINEER Felicity Salomon MD LAB_1 Performing Organization Address City/State/ZIP Code Phon e Number HP CONVERSION Beta Strep Followup (08/11/2006 10:11 AM SENIOR MECHANICAL DEVELOPMENT ENGINEER) P athologist Signature Strep Screen SEE TEXT HP CONVERSION Comment: Patient: QUE ZAMORA Rapid Strep Follow up Culture @ ? Collected: ??[id number] ??[id number] Source: Throat ?Processed: ??[id number] ??[id number] ? 1V Final Report ------ ?[id number] ??[id number] No beta hemolytic Strep group A isolated . @ = Rapid F/U Cult Performed at ??[address] [place], [place] ?[address] Specimen (Source) Anatomical Collection Method Collection Time Re ceived Time Location / / Volume Laterality 08/11/2006 10:11 AM SENIOR MECHANICAL DEVELOPMENT ENGINEER Felicity Salomon MD LAB_1 Performing Organization Address City/State/ZIP Code Phon e Number HP CONVERSION documented in this encounter Visit Diagnoses Not on filedocumented in this encounter Care Teams Diathermy Equipment Repairer Relationship Specialty Start Date End Date Felicity Salomon MD PCP - General 10/27/10 documented as of this encounter
--- OUTSIDE RECORDS SUMMARY | 2022-05-08 23:29 | XMS_ITS | Encounter Summary ---
:2001 Author Organization [facility] Address [address], [place] [address] Care Team Providers Name Role Phone Bart Lowe MD Primary Care Provider Reason for Visit Reason Comments Other Encounter Details Date Type Department Care Team Description 09/25/2009 Telephone [facility], Message Other [address] [place] [address] Social History Tobacco Use Types Packs/Day Years Used Date Smoking Tobacco: Never Assessed Sex Assigned at Date Recorded Not on file documented as of this encounter [facility], Message - 09/25/2009 4:46 PM CST Phone Note filed by Picreel at 11/15/1052 Author: Picreel Service: (none) Author Type: (none) Filed: 11/15/1052 Note Time: 09/25/096 Status: Signed Online Project Manager: Picreel (Resource) Front Line Sx Call Caller Name/Relationship:Mom-Celia Primary Project Scientist:Aime Symptom or request?Mom requesting workin appt for 3-5. [facility] on 3-2-stomach pain-found constipated and told mom to have her fu with pt for xrays. Is appointment scheduled & when?n Form Layer:Celia Bergeron call back number:[phone] Is it OK to leave a confidential message on this voicemail?y *ECODE~PNSX2 Created on 25Sep2009 4:46pm by ZACK BLACKBURN R On 25Sep2009 4:55pm SRINI MÉNDEZ wrote: Care Without Wait Appt. Request: Primary Project Scientist:Aime Caller name/relationship:Celia/mother Appt. reason/specific request:Patient was seen in [facility] on 09/24 for stomach pain. Determined to be constipated. Advised to followup with primary MD for xrays. Would like to be worked in 09/30. How long have you had these Symptoms?:3 days How would you rate your Symptoms? Mod Phone # pt./caller over next hr.:[phone] OK to leave confidential messsage on this voicemail?y Use e-code (/pncwowr) to respond to this request. On 25Sep2009 5:11pm BART LOWE wrote: ok to use my acute time Acknowledged by BART LOWE on 5:11pm On 26Sep2009 8:12am RAHUL CHANCE wrote: Spoke to mom and appt. booked for Mon. Acknowledged by RAHUL CHANCE on 8:12am On 01Oct2009 8:38am VICTOR HUGO CORONADO wrote: Mom c/b xferred to mi On 01Oct2009 8:44am ANU CEE wrote: Mom calling. Needs help scheduling an US, was seen yesterday by Dr. Lowe. Would prefer early in the day so she can get back to school, if possible. Please call back on her cell#[phone]. On 01Oct2009 9:20am RAHUL CHANCE wrote: Pelvic U/S scheduled for 10/03/09 at 10AM in [facility]. Spoke to mom and gave her the appt. information. J2EE ENGINEER documented in this encounter Plan of Treatment Not on filedocumented as of this encounter Visit Diagnoses Not on filedocumented in this encounter Care Teams Produce Associate Relationship Specialty Start Date End Date Bart Lowe MD PCP - General 10/27/10 documented as of this encounter
--- OUTSIDE RECORDS SUMMARY | 2022-05-08 23:29 | XMS_ITS | Encounter Summary ---
:2001 Author Organization [facility] Address [address] [address] Care Team Providers Name Role Phone Felicity Salomon MD Primary Care Provider Encounter Details Date Type Department Care Team Description 07/15/2006 PN Conversion Only [place] Felicity Salomon, [address] [place] [address] [facility] [address] [place] [phone] (Wo rk) Social History Tobacco Use Types Packs/Day Years Used Date Smoking Tobacco: Never Assessed Sex Assigned at Date Recorded Not on file documented as of this encounter Plan of Treatment Not on filedocumented as of this encounter Visit Diagnoses Not on filedocumented in this encounter Care Teams Guest Specialist Relationship Specialty Start Date End Date Felicity Salomon MD PCP - General 10/27/10 documented as of this encounter
--- OUTSIDE RECORDS SUMMARY | 2022-05-08 23:29 | XMS_ITS | Encounter Summary ---
:2001 Author Organization [facility] Address [address] [address] Care Team Providers Name Role Phone Felicity Salomon MD Primary Care Provider Reason for Visit Reason Comments Other Encounter Details Date Type Department Care Team Description 11/07/2007 Telephone [facility], Message Other [address] [place], [place] [address] Social History Tobacco Use Types Packs/Day Years Used Date Smoking Tobacco: Never Assessed Sex Assigned at Date Recorded Not on file documented as of this encounter Progress Notes Domi De La Fuente - 11/07/2007 9:10 AM CDT Phone Note filed by Domi De La Fuente at 11/12/101813 Author: Domi De La Fuente Service: (none) Author Type: (none) Filed: 11/12/101813 Note Time: 11/07/07909 Status: Signed Senior Software Analyst: Joey Montero Front Line Sx Call Caller Name/Relationship:Chet curry Primary Bar Helper:Aime Symptom or request? vomiting, diarrhea Is appointment scheduled & when? Process Safety Management Engineer:Chet Best call back number:[phone] Is it OK to leave a confidential message on this voicemail? yes *ECODE~PNSX2 Created on 07Nov2007 9:10am by DOMI DE LA FUENTE On 07Nov2007 9:19am BRYAN VIRAMONTES wrote: CLINICIAN FOLLOW-UP: None IMPRESSION: Diarrhea. Vomiting. SYMPTOMS: Spoke with Dad. Pt.started vomiting last night, having diarrhea this morning. Temp is 100. Slept OK last night but vomited water this morning. Denies emergent symptoms PATIENT INFORMATION: Problem List: reviewed in LastWord CARE ADVICE: HOME CARE ADVICE FOR VOMITING (e.g., from viral gastritis or staph food poisoning): REASSURE the CALLER: It sounds like vomiting from a stomach virus.It usually stops in 12 to 24 hours. Help your child go to sleep for a few hours (Reason: sleep often empties the stomach and relieves the need to vomit.) FOR OLDER CHILDREN (>1 YEAR OLD) SMALL AMOUNTS of CLEAR FLUIDS FOR 8 HOURS: Water or ice chips are best for vomiting without diarrhea.(Reason: water is directly absorbed across the stomach wall). (Exception: vomiting with watery diarrhea needs ORS. If refuses ORS, use Gatorade.) Give small amounts (1 Tbsp, 15 ml) q 5 minutes. Other options: 1/2 strength flat lemon-ute mountain soda, Popsicles or ORS frozen pops. After 4 hours without vomiting, double the amount. After 8 hours without vomiting, add solids: Limit solids to bland foods (any complex carbohydrates) for 24 hours.Start with saltine crackers,white bread, rice, dried cereals, etc. Normal diet OK in 24-48 hours. AVOID MEDICINE: Discontinue all nonessential medicines for 8 hours.(Reason: usually make vomiting worse. Avoid NSAIDs.) Consider acetaminophen suppositories if the fever really needs Rx (> 104F, 40.0C). FOR SEVERE or CONTINUOUS VOMITING, but WELL-HYDRATED: Sometimes children vomit almost everything for 3 or 4 hours even if given small amounts. However, some fluid is being absorbed and this will helpprevent dehydration. From what you've told me, your child is well hydrated at this time. So continue offering clear fluids (Avoid: NPO). Sleeping for a few hours may also help your child stop vomiting, but awaken if more than 3 hours pass without fluids. EXPECTED COURSE: Vomiting from viral gastritis usually stops in 12 to 24 hours. If diarrhea is present, it usually continues for several days. CALL BACK IF: Vomiting everything > 8 hours (> 12 hours for > 6 yo); isolated vomiting persists > 24 hours (> 48 hours if age > 2 years); mild vomiting associated with diarrhea persists > 1 week; signs of dehydration; your child becomes worse. Advised to call back if any of the following occur: symptoms worsen or persist, any other questions or concerns. PLAN: HOME CARE Patient/Caller agrees with plan and denies additional questions. Reference(s) Used: Pediatric Telephone Protocols-- Diarrhea. Vomiting. Call Complete. *SH~PNNL~PEDSCHOLAR~ ERY CHECKER documented in this encounter Plan of Treatment Not on filedocumented as of this encounter Visit Diagnoses Not on filedocumented in this encounter Care Teams Customer Service Security Officer Relationship Specialty Start Date End Date Felicity Salomon MD PCP - General 10/27/10 documented as of this encounter
--- OUTSIDE RECORDS SUMMARY | 2022-05-08 23:29 | XMS_ITS | Encounter Summary ---
:2001 [facility] Address [address], [place] [address] Care Team Providers Name Role Phone Bart Lowe MD Primary Care Provider Encounter Details Date Type Department Care Team Description 02/10/2007 Office Visit [facility] [place] [address] [address] [place] [address] [place], [place] [phone] (Wo rk) Social History Tobacco Use Types Packs/Day Years Used Date Smoking Tobacco: Never Assessed Sex Assigned at Date Recorded Not on file documented as of this encounter Last Filed Vital Signs Vital Sign Reading Time Taken Comments Blood Pressure - - Pulse - - Temperature - - Respiratory Rate - - Oxygen Saturation - - Inhaled Oxygen Concentration - - Weight 18.6 kg (40 lb 15.7 oz) 02/10/2007 9:23 AM CDT C : 18.6kg Height - - Body Mass Index - - documented in this encounter Progress Notes Bart Lowe MD - 02/10/2007 12:01 AM CDT Progress Notes signed by Bart Lowe MD at 02/28/07 0916 Author: Bart Lowe MD Service: (none) Author Type: Physician Filed: 11/14/10 2030 Note Time: 02/10/07 0001 Status: Signed Pulp Mill Supervisor: Bart Lowe MD (Physician) NAME: QUE ZAMORA MR#: [id number] ACCT: [id number] VISIT: [id number] DICTATING CLINICIAN: BART LOWE MD JOB: [id number] LOC: 503 CLINIC PROGRESS NOTE DATE OF VISIT: 02/10/2007 SUBJECTIVE: A 6-year-old here for worsening behaviors which parents and day care providers are having difficult controlling. She has always had some shyness and separation issues and it continues to escalate. Dropping her off at day care ever day is a huge ordeal. She also is having more tantrums. She has been having them for years, but they have been getting more and more severe. They will last for an hour if not more. She will do more hitting and scratching and starting to attack her day care providers. Parents admit that they have had difficulty limit setting in the past. Dad is more strict. Mom often gives in because she does not want to deal with the tantrums. So far her behavior has not isolated her from peers. Still gets along with her friends and plays once she is settled into a day care routine. Bedtime has always been an issue. Does not want to go to sleep. Does not want to separate from her parents at bedtime. Often wakes up in the middle of the night saying she has nightmares and will not go back to sleep and stays up with her mom. When asked about other issues parents say that she is very rigid. Her tooth brushes all have to be in the same alignment. Her toys always have to be in a row. If she is doing an art project or some activity and it does not go quite right that will send her into a tantrum. She is planning on starting kindergarten in the fall and also she is at risk for being removed from the day care setting because they just cannot control these behaviors despite attempts at positive reinforcement, sticker charts, etc. Que herself says it will not let me stop when she talks about the tantrum. The things that seem to incite it is when she does not get her way or when there needs to be an acute separation from her parents. OBJECTIVE: VS: Wt: 41 lb. No other exam was done today. She is here today with both her mother and father. ASSESSMENT: Behavioral issues including escalating tantrums, separation anxiety and other anxiety issues. PLAN: Will consult child psychiatry. May also need to enlist help with a child psychologist as well to help further manage behaviors. Total visit 15 minutes, counseling time 15 minutes. SJJ:[id number] C: 02/10/07 13:11 DOCUMENT: [id number] documented in this encounter Plan of Treatment Not on filedocumented as of this encounter Visit Diagnoses Not on filedocumented in this encounter Care Teams Certified Fraud Examiner Relationship Specialty Start Date End Date Bart Lowe MD PCP - General 10/27/10 documented as of this encounter
--- OUTSIDE RECORDS SUMMARY | 2022-05-08 23:29 | XMS_ITS | Encounter Summary ---
:2000 Author Organization [employer] Address [address] [place] [address] Care Team Providers Name Role Phone Felicity Salomon MD Primary Care Provider Reason for Visit Reason Comments WELL CHILD EXAM Encounter Details Date Type Department Care Team Description 01/22/2014 Office Visit Felicity Mai, Gregorio [facility] exam (Primary Dx); Pediatrics Need for meningococcus vaccine; [address] [address] [facility] Need for Tdap vaccination; [place] [address] [place] Need for vaccination for vir al hepatitis; [phone] Screening for developmental handicaps in herbicide service sales representative; [phone] Examination of eyes and vision; (Work) Other examination of ears and hearing Social History Tobacco Use Types Packs/Day Years Used Date Smoking Tobacco: Never Assessed Sex Assigned at Date Recorded Not on file documented as of this encounter Last Filed Vital Signs Vital Sign Reading Time Taken Comments Blood Pressure 104/54 01/22/2014 11:24 AM CDT Pulse - - Temperature - - Respiratory Rate - - Oxygen Saturation - - Inhaled Oxygen Concentration - - Weight 36.3 kg (80 lb) 01/22/2014 11:24 AM CDT Height 146.7 cm (4' 9.75) 01/22/2014 11:24 AM CDT Body Mass Index 16.87 01/22/2014 11:24 AM CDT Body Mass Index Percentile 24.91 % 01/22/2014 11:24 AM C DT Growth Chart: CDC (Girls, 2-20 Years) documented in this encounter Patient Instructions Patient InstructionsFany Mahajan - 01/22/2014 11:30 AM CDT 11 to 14 Years: Well-Child Exam Guidelines for healthy growth and development For help after clinic hours, call your clinic and ask for pediatric urgent care or a nurse. Giyb-ldp-chmgrov medicine Aspirin: DO NOT USE Acetaminophen (Tylenol or Tempra) dose: Please see approved dosing tables or confirm dose with your clinic. Ibuprofen (Advil or Motrin) dose: Please see approved dosing tables or confirm dose with your clinic. Measurements Weight: 80 lb (51387 g) (13.04 %) Height: 4' 9.75 (146.7 cm) (10.75 %) Blood Pressure: 104/54 47.6% systolic and 22.9% diastolic of BP percentile by age, sex, and height. Body Mass Index: Body mass index is 16.86 kg/(m^2). Nutrition ??? Join your family for meals together as often as possible. ??? Eat healthy snacks between meals. Snacks should include at least 2 food groups. Enjoy low-fat milk, yogurt, fruits, vegetables, whole grains, lean meats and beans. ??? Limit foods high in fat or sugar, such as candy, chips and soda. ??? Eat breakfast every day. Physical activity ??? Get at least 60 [...] to no more than 2 hours a day. Screen time includes watching TV or DVDs, playing video games, talking on the phone, texting and using the computer for activities other than homework. Social and emotional health ??? Be proud of yourself when you do something well. ??? Stay connected with your mom or dad. You might not always agree on everything, but your mom or dad can help you solve problems and support you during difficult situations. ??? If you feel depressed or alone, or are having difficulty solving a problem, reach out for help and support. Ideally, turn to a parent or an adult you trust. Talking about your troubles with a trusted adult can help you feel better and find the support and appropriate resources you may need to dealwith a problem. ??? Support friends who choose not to use tobacco, alcohol, drugs, steroids or diet pills. Avoid situations where drugs or alcohol are available. ??? Explore different activities that interest you, such as art, drama, volunteering, gardening and individual and team sports. ??? Consider learning skills to help friends, family and community, such as first aid, lifesaving, CPR (cardiopulmonary resuscitation) or peer mentoring. ??? Be sensitive to others. Do not accept behavior that is hurtful or harmful to others. Trustworthyfriends will respect you and your choices. ??? If you are being bullied, harassed or teased in a hurtful way--or know someone who is--tell a trusted adult. Reporting a bully can be scary or feel embarrassing. But bullying is not acceptable. ??? Feeling good about yourself comes with self-respect, self-care and self- acceptance. Developing strong self-esteem comes from within, not by meeting others??? expectations about how you should look. ??? Identify positive coping skills to deal with stress. For example, if you need help on something,ask a trusted adult. ?? Get a good night???s sleep. ?? Learn to relax. ?? Be positive. ?? Be realistic. Start with small goals and then go from there. ??? Find nonviolent ways to handle your [...] the same time each day, even on weekends. ?? Turn off cell phones and other electronic devices at least an hour before bed. ?? Use the bedroom only for sleep. Keep your room quiet and dark. ??? Set a regular time and place to do homework. The room should be quiet and free from distractions, such as TV, music, videos or cell phones. ??? Take responsibility for getting to school and getting your homework done on time. Regular attendance at school is important. Sexuality ??? Changes in how your body looks and works are a normal part of growing up. Everyone develops differently and at different times. Stop comparing. Comparing yourself can create competition, not connection, with others, especially friends. ??? You may feel embarrassed, uncomfortable or anxious when talking about sex, menstruation, wet dreams and sexual feelings and responses. However, having all the right information is important. Talk to your mom, dad or another trusted adult and get all your questions answered. ??? Abstaining from vaginal, anal and oral [...] is telling you. Saying ???No?? is OK. Safety ??? Follow family rules and city and state laws, such as for curfews and riding in a car. Do not getin a car with someone you do not know or who has been drinking alcohol or using drugs. ??? Give your mom or dad a chance to meet your friends and their families. ??? Have a plan for how to get help if you are feeling unsafe. Call for help if a situation gets dangerous. ??? Wear protective gear and use safety equipment when playing sports, including a mouth guard. ??? Always wear a helmet when riding a bike, rollerblading, skateboarding, snowboarding, skiing and riding a scooter. ??? Always wear your seatbelt. If you are 4 feet 9 inches tall, you can use the vehicle seat belt alone. All children under 5 feet and 100 pounds should sit in the rear seats of vehicles. ??? Avoid playing outdoors during dusk. If you do go outside at dusk, wear light-colored clothing toprevent mosquito bites. Use insect repellents with 30 percent or less DEET. Avoid using on your faceand hands. ??? Put sunscreen with SPF 30 or higher on 30 minutes before you go outside. Reapply sunscreen every2 to 4 hours or after you have been in the water or sweating. Dental health ??? [place] your teeth 2 times a day and floss at least 1 time a day. ??? Visit the dentist every 6 months. Websites ??? [facility]: [email or web address] ??? [employer] [employer]: [email or web address].org documented in this encounter Progress Notes Felicity Salomon MD - 01/22/2014 1:50 PM CDT Subjective: Mya Hood is a 13 y.o. female presenting for a Well Child Visit. Accompanied By: mother Concerns: Current concerns include: wart on toe. few itchy bumps on back of head for a couple weeks had been following scoliosis. last xray improved in May 2013. Nutrition: Intake/Concerns: diet normal for age, eating varied diet Sleep: Pattern/Concerns: no concerns Social: School: no concerns, sixth grade, gets Bs, gets Cs Activities: active Social: no concerns about social interactions, emotionally stable, good peer interactions Menstrual: Concerns: not yet menarchal Dental: Dental care: no concerns, brushing daily, dental visit within 12 months Developmental and Psychosocial Surveillance: PSC-17: 01/22/14 Y PSC-17: 01/22/14 Concerns include: none No Known Allergies No outpatient prescriptions prior to visit. No facility-administered medications prior to visit. There is no problem list on file for this patient. No past medical history on file. No past surgical history on file. No family history on file. History Social History ??? Marital Status: Single Spouse Name: N/A Number of Children: N/A ??? Years of Education: N/A Occupational History ??? Not on file. Social History Main Topics ??? Smoking status: Passive Smoke Exposure - Never Smoker ??? Smokeless tobacco: Not on file ??? Alcohol Use: Not on file ??? Drug Use: Not on file ??? Sexually Active: Not on file Other Topics Concern ??? Bike Helmet Yes ??? [place] Yes ??? Exercise No ??? Guns In Home No ??? Seat Belt No Social History Narrative Objective: BP 104/54 Ht 4' 9.75 (146.7 cm) Wt 80 lb (13398 g) BMI 16.86 kg/m2 General: active, alert, no distress Head: [...] rhythm, normal heart sounds, no murmurs Abdomen: normal appearance, soft, non-tender, without organ enlargements, no masses Genitourinary: would not let me examine Musculoskeletal: normal, gait normal and spine normal without scoliosis Skin: wart on left big toe. few small excoriated papules on back head at hairline. no others found Neurologic: non focal, normal strength, normal reflexes, normal gait Assessment: 13 y.o. 8 m.o. Well Child Visit. Plan: Diagnosis (ICD9) and Associated Orders ICD-9-CM 1. Routine child health exam V20.2 AR DEVELOPMENTAL TEST, SIMPSON 2. Need for meningococcus vaccine V03.89 IMMUNIZATION COUNSELING PERFORMED BY CLINICIAN MCV4 (Menactra) 3. Need for Tdap vaccination V06.1 IMMUNIZATION COUNSELING PERFORMED BY CLINICIAN Tdap (BOOSTRIX) 4. Need for vaccination for viral hepatitis V05.3 IMMUNIZATION COUNSELING PERFORMED BY CLINICIAN Hep A Ped/Adol (1-18 YRS) 5. Screening for developmental handicaps in herbicide service sales representative V79.3 AR DEVELOPMENTAL TEST, SIMPSON 6. Examination of eyes and vision V72.0 AR VISUAL SCREENING TEST, BILAT 7. Other examination of ears and hearing V72.19 AR PURE TONE HEARING TEST, AIR OTC treatment for wart on toe hydrocortisone cream to papules on back of head? irritated hair follicles vs bites vs dermatitis. follow up if no improvement Questions and concerns discussed, anticipatory guidance reviewed. Follow up at next well visit or sooner as needed. Sports Clearance: cleared for all activities Immunization counseling: completed for all immunization components received by the patient today, info given on HPV Developmental screening: normal results Dental counseling: discussed dental care no evidence of scoliosis on exam today. will monitor yearly during pubertal growth spurt documented in this encounter Plan of Treatment Not on filedocumented as of this encounter Visit Diagnoses Diagnosis Screening for developmental handicaps in herbicide service sales representative Need for meningococcus vaccine Need for other specified prophylactic va ccination against single bacterial disease Need for Tdap vaccination Need for prophylactic vaccination with c ombined jdothsnwes-hchzuvq-thohognry (DTP) vaccine Need for vaccination for viral hepatitis Need for prophylactic vaccination and in oculation against viral hepatitis Examination of eyes and vision Other examination of ears and hearing documented in this encounter Care Teams Commodities Clerk Relationship Specialty Start Date End Date Felicity Salomon MD PCP - General 10/27/10 documented as of this encounter
--- OUTSIDE RECORDS SUMMARY | 2022-05-08 23:29 | XMS_ITS | Encounter Summary ---
:2000 Author Organization [employer] Address [address] [place] [address] Care Team Providers Name Role Phone Felictiy Salomon MD Primary Care Provider Encounter Details Date Type Department Care Team Description 10/03/2009 PN Conversion Only Maricarmen Roche [facility] [address] [place], [place] [address] Social History Tobacco Use Types Packs/Day Years Used Date Smoking Tobacco: Never Assessed Sex Assigned at Date Recorded Not on file documented as of this encounter Plan of Treatment Not on filedocumented as of this encounter Procedures Procedure Name Priority Date/Time Associated Diagnosis Comme [facility] PELVIC PEDIATRIC Routine 10/03/2009 10:05 AM R esults for this (NO EV) FORESTRY EXTENSION SPECIALIST procedure are i n the results section. documented in this encounter Results US Pelvic Pediatric (No EV) (10/03/2009 10:05 AM FORESTRY EXTENSION SPECIALIST) Anatomical Region Laterality Modality Pelvis Other Specimen (Source) Anatomical Location Collection Method / Collectio n Time Received Time / Laterality Volume Narrative 10/03/2009 10:05 AM FORESTRY EXTENSION SPECIALIST Transabdominal scans were obtained. ??The uterus appears to be within normal limits in size for patient's age. ??The ovaries could not be visualized due to bowel gas obscuring de tail. ??There is no free fluid noted within the pelvis. ??No other abno rmality is seen. CONCLUSION: Nonvisualization of the ovar ies. ??Pelvic MRI could be of further use in evaluating for abnormal c alcification of the ovaries. Dictating ANN MARIE ROMAN RADIOLOGIST Procedure Note OttoRavi terry - 01/09/2016 Transabdominal scans were obtained. The uterus appears to be within normal limits in size for patient's age. The ovaries could not be visualized due to bowel gas obscuring de tail. There is no free fluid noted within the pelvis. No other abnorm ality is seen. CONCLUSION: Nonvisualization of the ovar ies. Pelvic MRI could be of further use in evaluating for abnormal c alcification of the ovaries. Dictating ANN MARIE ROMAN RADIOLOGIST Felicity Salomon MD [facility] documented in this encounter Visit Diagnoses Not on filedocumented in this encounter Care Teams Signals Intelligence Analyst Relationship Specialty Start Date End Date Felicity Salomon MD PCP - General 10/27/10 documented as of this encounter
--- OUTSIDE RECORDS SUMMARY | 2022-05-08 23:29 | XMS_ITS | Encounter Summary ---
:2000 Author Organization [facility] Address [address], [place] [address] Care Team Providers Name Role Phone Felicity Salomon MD Primary Care Provider Reason for Visit Reason Comments Foot Pain or Injury Encounter Details Date Type Department Care Team Description 09/08/2011 Office Visit [facility] Felicity Salomon, Plantar wart (Primary [address] [facility] Dx) [place] [address] [place] [phone] [place] [phone] (Wo rk) Social History Tobacco Use Types Packs/Day Years Used Date Smoking Tobacco: Never Assessed Sex Assigned at Date Recorded Not on file documented as of this encounter Last Filed Vital Signs Vital Sign Reading Time Taken Comments Blood Pressure - - Pulse - - Temperature - - Respiratory Rate - - Oxygen Saturation - - Inhaled Oxygen Concentration - - Weight 29.9 kg (66 lb) 09/08/2011 10:17 AM CUSTOMER CONSULTANT Height - - Body Mass Index - - documented in this encounter Progress Notes Felicity Salomon MD - 09/08/2011 10:36 AM CST Progress Notes signed by Felicity Salomon MD at 09/22/11 0903 Author: Felicity Salomon MD Service: (none) Author Type: Physician Filed: 09/22/11902 Note Time: 09/08/11 1036 Status: Signed Scada Technician: Felicity Salomon MD (Physician) NAME: QUE ZAMORA MR#: [id number] CSN: [id number] AUTHENTICATING CLINICIAN: Felicity Salomon MD CONFIRM #: [id number] LOC: 503 CLINIC PROGRESS NOTE DATE OF VISIT: 09/08/2011 : 2000 A 11-year-old here for a bump and some redness and soreness on the bottom of her right foot anterior part of the heel. Noticed it a couple weeks ago. She also remembers stepping on like a toothpick back in July. She says the toothpick did not stay embedded and that area healed up fine and within a day or 2 was feeling normal, but then she noticed this bump appear. She does have a history of plantar warts that they have treated prior with kemm-yll-hvbmxdy remedies. There have been no fevers. It is an area where it gets stepped on and she says it does hurt when she walks and runs on it. MEDICATIONS: Reviewed in EMR. ALLERGIES: Reviewed in EMR. EXAM: Weight 66 pounds. Well-appearing. There is a distinct plantar's wart about 4 mm in diameter on the bottom of her right heel. There is a little surrounding erythema, but it is nontender, not warm. I did clean the presumed wart with alcohol and pared it down with a scalpel blade and definitely is a wart with a discrete root at the bottom. There is no evidence of foreign body. IMPRESSION: Plantar's wart. PLAN: Will use the izho-slf-josgtqc remedies that they have used in the past, should had actually even work better now that it has been cared down and follow up if said they need or desire any clinic treatment of warts. Did tell parents to check with insurance prior to coming to that visit. SJJ:MEDQ C: CONFIRM #: [id number] OMER CONSULTANT documented in this encounter Plan of Treatment Not on filedocumented as of this encounter Visit Diagnoses Diagnosis Plantar wart - Primary documented in this encounter Care Teams Lime Burner Relationship Specialty Start Date End Date Felicity Salomon MD PCP - General 10/27/10 documented as of this encounter
--- OUTSIDE RECORDS SUMMARY | 2022-05-08 23:29 | XMS_ITS | Encounter Summary ---
:2000 Author Organization [facility] Address [address], [place] [address] Care Team Providers Name Role Phone Felicity Salomon MD Primary Care Provider Reason for Referral Consult/Transfer Care (Routine) - Closed Specialty Diagnoses / Procedures Referred By Contact Refer red To Contact Diagnoses Closed fracture of distal end of right fibula with delayed healing, unspecified fracture morphology, subsequent encounter Camilla Coto PA-C [address] [place] [address] Referral ID Status Reason Start Date Expiration Date Visits Requ ested Visits Authorized [id number] Closed 06/02/2017 09/01/2018 1 1 Scheduling Instructions Your provider has recommended an appoint ment with [facility]. You may call [phone] to schedule your appoi ntment. If you do not schedule an appointment within the next 1 to 3 business days, we will call you to help arrange your appointment. We suggest you call your [employer] company about your coverage and benefits for this appointment. TY SPECIALIST Procedure/Equipment (Routine) - Incomplete Specialty Diagnoses / Procedures Referred By Contact Refer red To Contact Diagnoses Right foot pain Camilla Coto PA-C Procedures XR Ankle Rt 2 [address] [place] [address] Referral ID Status Reason Start Date Expiration Date Visits V isits Requested Authorized [id number] Incomplete 05/31/2017 08/30/2018 1 1 TY SPECIALIST Reason for Visit Reason Comments Follow-up UC Encounter Details Date Type Department Care Team Description 05/31/2017 Office Visit [facility] Camilla Emerson, Right foot pain (Primary Dx) ; [address] Wolf PA-C Closed fracture of distal end of right f ibula with delayed healing, unspecified fracture morphology, subsequent encounter JORDEN [place] [id number] [address] [phone] [place] [address] (Wo rk) Social History Tobacco Use Types Packs/Day Years Used Date Smoking Tobacco: Passive Smoke Exposure - Never Smoker Smokeless Tobacco: Never Sex Assigned at Date Recorded Not on file documented as of this encounter Last Filed Vital Signs Vital Sign Reading Time Taken Comments Blood Pressure 104/70 05/31/2017 1:02 PM SAFETY SPECIALIST Pulse 76 05/31/2017 1:02 PM SAFETY SPECIALIST Temperature - - Respiratory Rate - - Oxygen Saturation - - Inhaled Oxygen Concentration - - Weight 51.3 kg (113 lb) 05/31/2017 1:02 PM SAFETY SPECIALIST Height - - Body Mass Index - - documented in this encounter Progress Notes Camilla Garcia PA-C - 05/31/2017 1:00 PM CST This note has been dictated TY SPECIALIST Camilla Garcia PA-C - 05/31/2017 12:00 PM CST NAME: QUE ZAMORA MR#: [id number] CSN: [id number] AUTHENTICATING CLINICIAN: MERLE Mendieta CONFIRM #: [id number] LOC: 1706 CLINIC PROGRESS NOTE DATE OF VISIT: 05/31/2017 : 2000 This is a pleasant 17-year-old female who presents today for followup for a right ankle fracture. She was seen at [facility] on April 27 with a right fibular fracture. She was supposed to have followup 3 weeks after with an fire protection specialist; however, she states she actually got followup scheduled with the continuing education director. However, the day of, the continuing education director called to cancel and she never got followup scheduled. She has now been out of her boot for 2 weeks and is having pain daily with every step. She states she does not think it has healed correctly and made an appointment to come in today. She is with her dad. She is not in any outside treatment, but will sometimes do ice or ibupro fen, but has not done this consistently. She states the injury was while playing football initially at gym. She has never had any ankle injuries before. MEDICATIONS: Reviewed in Epic. ALLERGIES: Reviewed in Epic. PHYSICAL EXAMINATION: VITALS: Reviewed in Epic. GENERAL IMPRESSION: This is a pleasant female, resting quietly in no acute distress. She is wearing high-top lace-up shoes today. ANKLE: Shows very minimal swelling. She is point tender over the actual mid top of her foot and mildly tender over the lateral fibula. There is no bruising or redness or swelling over the lateral ankle. She has mild pain with flexion, extension as well as inversion and eversion. She walks normally without a limp. ASSESSMENT: Right fibular fracture, not healing. PLAN: We did an x-ray today in clinic. I think I can see where the fracture was that is mainly healed. We are awaiting the final read by Radiology. I would like her to follow up with Orthopedics. Referral isplaced for [place]. She was given the phone number to call and schedule. I would like her to go back in her boot. She does not have it here today in clinic, but has it at home. Encouraged her to notdo any extra activity or exercise until seen in Orthopedics. She will likely need to be in this a couple of weeks longer. She can take ibuprofen as needed and take her boot off and elevate a couple times a day and ice. This was both explained to her and her dad. Her questions have been answered. She will follow up with Orthopedics. GENET:ANTOINE C: CONFIRM #: [id number] TY SPECIALIST documented in this encounter Plan of Treatment Scheduled Referrals Name Type Priority Associated Diagnoses Order S chedule Orthopaedic Consult Referral Routine Closed fracture of Or dered: 06/02/2017 Adult/Peds distal end of right fibula with delayed healing, unspecified fracture morphology, subsequent encounter documented as of this encounter Results XR Ankle Rt 2 Views (05/31/2017 1:26 PM SAFETY SPECIALIST) Anatomical Region Laterality Modality Lower Extremity, Ankle, Foot & Ankle Com puted Radiography Specimen (Source) Anatomical Collection Method Collection Time Re ceived Time Location / / Volume Laterality 05/31/2017 1:21 PM SAFETY SPECIALIST Narrative 05/31/2017 1:42 PM SAFETY SPECIALIST COMPARISON: ??None. FINDINGS: ??Two views were obtained. ??N o definite fracture or dislocation is identified. ??Ankle mortise and talar dome appear intact. Procedure Note Rommel Asencio MD - 05/31/2017Format ting of this note might be different from the original. COMPARISON: None. FINDINGS: Two views were obtained. No de finite fracture or dislocation is identified. Ankle mortise and talar dome appear intact. Camilla GARDINER GD documented in this encounter Visit Diagnoses Diagnosis Right foot pain - Primary Pain in limb Closed fracture of distal end of right f ibula with delayed healing, unspecified fracture morphology, subsequent encounte r Right foot pain Pain in limb documented in this encounter Care Teams Pattern Perforating Machine Operator Relationship Specialty Start Date End Date Felicity Salomon MD PCP - General 10/27/10 documented as of this encounter
--- OUTSIDE RECORDS SUMMARY | 2022-05-08 23:29 | XMS_ITS | Encounter Summary ---
:2001 Author Organization [facility] Address [address], [place] [address] Care Team Providers Name Role Phone Felicity Salomon MD Primary Care Provider Reason for Visit Procedure/Equipment (Routine) - Incomplete Specialty Diagnoses / Procedures Referred By Contact Refer red To Contact Diagnoses Right foot pain Camilla Coto PA-C Procedures XR Ankle Rt 2 Views [address] [place] [address] Referral ID Status Reason Start Date Expiration Date Visits V isits Requested Authorized [id number] Incomplete 05/31/2017 08/30/2018 1 1 Encounter Details Date Type Department Care Team Description 05/31/2017 Imaging [facility] Camilla Coto PA-C Right foot pain [address] [place] [address] [place] [address] [phone] (Wo rk) Social History Tobacco Use Types Packs/Day Years Used Date Smoking Tobacco: Passive Smoke Exposure - Never Smoker Smokeless Tobacco: Never Sex Assigned at Date Recorded Not on file documented as of this encounter Progress Notes Mirian Mosquera LPN - 06/02/2017 4:57 PM CST I called and spoke with Mya's mother. I informed her of results per Camilla Garcia. She stated shedoes have an appt. With Ortho. TING SUPERVISOR Camilla Garcia PA-C - 06/02/2017 3:24 PM CST Please call pt and let her know that her x-ray was read as normal by the radiologist but since she is still having pain, I would like her to still see orthopedics. (I believe she has an appt already). Thank you, Camilla TING SUPERVISOR documented in this encounter Plan of Treatment Not on filedocumented as of this encounter Procedures Procedure Name Priority Date/Time Associated Diagnosis Comme nts XR ANKLE RT 2 VIEWS Routine 05/31/2017 1:26 PM Right foot pain Results for this DRAFTING SUPERVISOR procedure are i n the results section. documented in this encounter Results XR Ankle Rt 2 Views (05/31/2017 1:26 PM DRAFTING SUPERVISOR) Anatomical Region Laterality Modality Lower Extremity, Ankle, Foot & Ankle Com puted Radiography Specimen (Source) Anatomical Collection Method Collection Time Re ceived Time Location / / Volume Laterality 05/31/2017 1:21 PM DRAFTING SUPERVISOR Narrative 05/31/2017 1:42 PM DRAFTING SUPERVISOR COMPARISON: ??None. FINDINGS: ??Two views were obtained. ??N o definite fracture or dislocation is identified. ??Ankle mortise and talar dome appear intact. Procedure Note Rommel Asencio MD - 05/31/2017Format ting of this note might be different from the original. COMPARISON: None. FINDINGS: Two views were obtained. No de finite fracture or dislocation is identified. Ankle mortise and talar dome appear intact. Camilla Coto PA-C RAD [facility] documented in this encounter Visit Diagnoses Diagnosis Right foot pain Pain in limb documented in this encounter Care Teams Tube Bending Machine Operator Relationship Specialty Start Date End Date Felicity Salomon MD PCP - General 10/27/10 documented as of this encounter
--- OUTSIDE RECORDS SUMMARY | 2022-05-08 23:29 | XMS_ITS | Encounter Summary ---
:2001 [facility] Address [address] [address] Care Team Providers Name Role Phone Felicity Salomon MD Primary Care Provider Encounter Details Date Type Department Care Team Description 09/25/2009 Power Operator Only CONVERSION CONVERSION Yareli Roland PA-C [address] [place] [address] (Wo rk) Social History Tobacco Use Types Packs/Day Years Used Date Smoking Tobacco: Never Assessed Sex Assigned at Date Recorded Not on file documented as of this encounter Progress Notes Yareli Roland PA-C - 09/25/2009 12:01 AM CST Progress Notes signed by Yareli Roland PA-C at 09/25/09 1603 Author: Yareli Roland PA-C Service: (none) Author Type: Physician Machine Tracer Filed: 11/15/102030 Note Time: 09/25/09 0001 Status: Signed Supervisor Quilting: Yareli Roland PA-C (Resource) Mom returned my call in regards to XR findings. Mom alerted of 3 opaque densities in pelvis, calcifications vs artifact. Radiology recommends repeating AP pelvis for more clarification. Mom wishes to allow Miralax to kick in and have her less constipated and then will f/u with her PCP, Dr. Salomon for repeat XR. Mom is agreeable. Discussed importance of f/u given radiology recommendations. RVISOR ASPHALT PAVING documented in this encounter Plan of Treatment Not on filedocumented as of this encounter Visit Diagnoses Not on filedocumented in this encounter Care Teams Company Marker Relationship Specialty Start Date End Date Felicity Salomon MD PCP - General 10/27/10 documented as of this encounter
--- OUTSIDE RECORDS SUMMARY | 2022-05-08 23:29 | XMS_ITS | Encounter Summary ---
:2001 Author Organization [facility] Address [address], [place] [address] Care Team Providers Name Role Phone Felicity Salomon MD Primary Care Provider Reason for Visit Reason Comments IMMUNIZATIONS Encounter Details Date Type Department Care Team Description 07/29/2012 Nursing Visit [facility] NurseTucker Need for varicella [address] [facility] vaccine (Primary Dx) [place] [address] Social History Tobacco Use Types Packs/Day Years Used Date Smoking Tobacco: Never Assessed Sex Assigned at Date Recorded Not on file documented as of this encounter Plan of Treatment Not on filedocumented as of this encounter Visit Diagnoses Diagnosis Need for varicella vaccine - Primary Need for prophylactic vaccination and in oculation against varicella documented in this encounter Care Teams Fell Cutter Relationship Specialty Start Date End Date Felicity Salomon MD PCP - General 10/27/10 documented as of this encounter
[2022-05-08 23:30] LABS: Basophils Absolute Auto 0.03 K/uL (0.00-0.30); Basophils Percent Auto 0.3 % (0.0-3.0); Eosinophils Absolute Auto 0.12 K/uL (0.00-0.50); Eosinophils Percent Auto 1.2 % (0.0-7.0); Hematocrit 37.2 % (33.0-51.0); Hemoglobin* 12.7 gm/dL (12.0-16.0); Immature Granulocytes Abs Auto 0.02 K/uL (0.00-0.30); Lymphocytes Percent Auto 14.9 % (20-44); Mean Corpuscular HGB Conc 34 gm/dL (32-36); Mean Corpuscular Hemoglobin 31 pg (26-34); Mean Corpuscular Volume 92 fL (80-100); Monocytes Percent Auto 11.9 % (0.0-11.0); Neutrophils Absolute Auto 7.34 K/uL (1.7-7.0); Neutrophils Percent Auto 71.5 % (42.0-72.0); Platelet Count* 266 K/uL (140-440); RDW Coefficient of Variation % 11.8 % (11.5-15.5); Red Blood Count 4.05 m/uL (4.00-5.20); White Blood Count* 10.26 K/uL (4.50-11.00)
--- OUTSIDE RECORDS SUMMARY | 2022-05-08 23:30 | XMS_ITS | Encounter Summary ---
:2001 [facility] Address [address] [place] [address] Care Team Providers Name Role Phone Felicity Salomon MD Primary Care Provider Encounter Details Date Type Department Care Team Description 07/02/2006 PN Conversion Only [facility] Felicity Salomon, [address] [place] [address] [address] [facility] [place] [address] (Wo rk) Social History Tobacco Use Types Packs/Day Years Used Date Smoking Tobacco: Never Assessed Sex Assigned at Date Recorded Not on file documented as of this encounter Plan of Treatment Not on filedocumented as of this encounter Procedures Procedure Name Priority Date/Time Associated Comments Diagnosis URINALYSIS Routine 07/02/2006 8:22 AM Results f or this ROUTINE(MICRO IF POS) PIPE JEEPER proced ure are in the results section. URINALYSIS Routine 07/02/2006 8:22 AM Results f or this MICROSCOPIC PIPE JEEPER procedure are i n the results section. URINE CULTURE Routine 07/02/2006 8:22 AM Results for this PIPE JEEPER procedure are i n the results section. documented in this encounter Results (ABNORMAL) Urine Culture (07/02/2006 8:22 AM PIPE JEEPER) [facility] Method Time Signature Urine Culture SEE TEXT HP CONVERSION (A) Comment: Patient: QUE ZAMORA Culture, Urine @ ?Collected: ??[id number] ??[id number] Source: Clean Ca ?Processed: ??[id number] ??[id number] ? SENS, 1V Final Report ------ ?[id number] ??[id number] 10-50,000 CFU/mL Proteus mirabilis Susceptibility Testing P AVIVA ??ARTIE INTERP: ?S ??AMPICILLIN , AMOX/CLAV ACID, CEFACLOR, AMP/SULBACTAM, ?LEVO FLOXACIN, CIPROFLOXACIN, CEFTRIAXONE, CEFTAZIDIME, ?CEPH ALOTHIN, GENTAMICIN, TRIMETH-SULFA, TICAR/CLAVULAN ?TOBR AMYCIN ? R ??NITRO FURANTOIN @ = URINE CULTURE Performed at ??[address] [place], [place] ?[address] Specimen (Source) Anatomical Collection Method Collection Time Re ceived Time Location / / Volume Laterality 07/02/2006 8:22 AM PIPE JEEPER Felicity Salomon MD LAB_1 Performing Organization Address [facility] Phon e Number HP CONVERSION (ABNORMAL) Urinalysis Routine(Micro If Pos) (07/02/2006 8:22 AM PIPE JEEPER) Patholo gist Method Time Signature Turbidity Clear No normal HP CONVERSION range pH Urine 5.0 4.5 - 7.5 HP CONVERSION Protein Urine Negative Neg-Trac HP CONVERSION Glucose, Negative Neg-Trac HP CONVERSION Qualitative U Ketones Negative Negative HP CONVERSION U BILI Negative Negative HP CONVERSION Blood Urine Moderate Negative HP CONVERSION (A) Nitrite Urine Negative Negative HP CONVERSION Leukocyte Trace (A) Negative HP CONVERSION Esterase Urine Urobilinogen Negative 0.2 - 1.0 HP CONVERSION Urine U Specific 1.025 1.005 - 25 HP CONVERSION Thrall Specimen (Source) Anatomical Collection Method Collection Time Re ceived Time Location / / Volume Laterality 07/02/2006 8:22 AM PIPE JEEPER Felicity Salomon MD LAB_1 Performing Organization Address [facility] Phon e Number HP CONVERSION (ABNORMAL) Urinalysis Microscopic (07/02/2006 8:22 AM PIPE JEEPER) P athologist Signature White Blood 0-2/HPF 0 - 3 HP CONVERSION Cells Urine Comment: Urine microscopic performed on unspun sp ecimen due to low volume. Results may not be accurate. Red Blood Cells Urine 3-4/HPF (A) 0 - 2 HP CON VERSION Comment: Urine microscopic performed on unspun sp ecimen due to low volume. Results may not be accurate. Specimen (Source) Anatomical Collection Method Collection Time Re ceived Time Location / / Volume Laterality 07/02/2006 8:22 AM PIPE JEEPER Felicity Salomon MD LAB_1 Performing Organization Address [facility] Phon e Number HP CONVERSION documented in this encounter Visit Diagnoses Not on filedocumented in this encounter Care Teams Credit Advisor Relationship Specialty Start Date End Date Felicity Salomon MD PCP - General 10/27/10 documented as of this encounter
--- OUTSIDE RECORDS SUMMARY | 2022-05-08 23:30 | XMS_ITS | Encounter Summary ---
:2001 Author Organization [facility] Address [address], [place] [address] Care Team Providers Name Role Phone Felicity Salomon MD Primary Care Provider Reason for Visit Reason Comments Other Encounter Details Date Type Department Care Team Description 12/25/2005 Telephone [facility] s [place], Other [address] [place], [place] [address] Social History Tobacco Use Types Packs/Day Years Used Date Smoking Tobacco: Never Assessed Sex Assigned at Date Recorded Not on file documented as of this encounter Progress Notes Conversion, [facility] - 12/25/2005 3:04 PM CDT Phone Note filed by [facility] Conversion at 11/11/10 7798 Author: [facility] Conversion Service: (none) Author Type: (none) Filed: 11/11/10 3679 Note Time: 12/25/05 1504 Status: Signed Manager Social: [facility] Conversion Care Without Wait Appt. Request: Primary Juice Tester: Caller name/relationship:ALICIA/ MOTHER Appt. reason/specific request:QUE HAS HAD UTI'S IN PAST AND SINCE YESTERDAY SHE HAS BEEN URINATING FREQUENTLY AND HAS BEEN WETTING HER SELF LAST NIGHT AND AGAIN TODAY. MOTHER WOULD LIKE TO HAVE HER SEEN TODAY, IF POSSIBLE. PLEASE ADVISE. How long have you had these Symptoms?:2 DAYS How would you rate your Symptoms? Mild / Mod / Severe:MOD Phone # pt./caller over next hr.:CELL [phone] OK to leave detailed messsage on voicemail? YES, PLEASE. Use e-code (/pncwowr) to respond to this request. Created on 25Dec2005 3:04pm by OSVALDO ERIC On 25Dec2005 3:25pm JOE HENDERSON wrote: Will see her if she gets here before 4 pm. Acknowledged by JOE HENDERSON on 3:25pm On 25Dec2005 3:36pm RAHUL CHANCE wrote: Spoke to mom and she would not be able to make it by 4PM. She is in [place]. Child is in [place]. Recommend [facility] or peds tomorrow. Mom will bring her to [facility]. Acknowledged by RAHUL CHANCE on 3:36pm Acknowledged by JOE HENDERSON on 4:50pm TURNER documented in this encounter Plan of Treatment Not on filedocumented as of this encounter Visit Diagnoses Not on filedocumented in this encounter Care Teams First Officer And Flight Instructor Relationship Specialty Start Date End Date Felicity Salomon MD PCP - General 10/27/10 documented as of this encounter
--- OUTSIDE RECORDS SUMMARY | 2022-05-08 23:30 | XMS_ITS | Encounter Summary ---
:2001 Author [facility] Address [address], [place] [address] Care Team Providers Name Role Phone Bart Salomon MD Primary Care Provider Reason for Visit Reason Comments Other Encounter Details Date Type Department Care Team Description 10/20/2005 Telephone [facility] Bart Salomon MD Other [address] [address] [place] [address] [place] [phone] (Wo rk) Social History Tobacco Use Types Packs/Day Years Used Date Smoking Tobacco: Never Assessed Sex Assigned at Date Recorded Not on file documented as of this encounter Progress Notes Bryan Blankenship - 10/20/2005 10:40 AM CST Phone Note filed by Bryan Blankenship RN at 11/11/10215 Author: rByan Blankenship RN Service: (none) Author Type: Registered Nurse Filed: 11/11/10215 Note Time: 10/20/05 1040 Status: Signed Certified Nurse Midwife: Bryan Blankenship RN (Registered Nurse) Care Without Wait Appt. Request: Primary Sales Supervisor:Aime Caller name/relationship:shwetha-Mom Phone # pt./caller over next hr.:[phone] OK to leave detailed messsage on voicemail? Appt. reason/specific request:Mya has been incontinent of urine 2 times today. Did say that it hurt the 2nd time. Mom denies fever or abd. pain. Concerned about a UTI. Use e-code (/pncwowr) to respond to this request. Created on 20Oct2005 10:40am by BRYAN BLANKENSHIP On 20Oct2005 11:05am BART SALOMON wrote: spoke with mom. will bring her in to see Dr. Hurtado at 2:45 Acknowledged by BART SALOMON on 11:05am ERABILITY RESEARCHER documented in this encounter Plan of Treatment Not on filedocumented as of this encounter Visit Diagnoses Not on filedocumented in this encounter Care Teams Physical Education Professor Relationship Specialty Start Date End Date Bart Salomon MD PCP - General 10/27/10 documented as of this encounter
--- OUTSIDE RECORDS SUMMARY | 2022-05-08 23:30 | XMS_ITS | Encounter Summary ---
:2001 [facility] Address [address], [place] [address] Care Team Providers Name Role Phone Bart Lowe MD Primary Care Provider Reason for Visit Reason Comments Other Encounter Details Date Type Department Care Team Description 06/06/2004 Telephone [facility] Bart Lowe MD Other [address] [address] [place] [address] [place] [phone] (Wo rk) Social History Tobacco Use Types Packs/Day Years Used Date Smoking Tobacco: Never Assessed Sex Assigned at Date Recorded Not on file documented as of this encounter Progress Notes Gabi Barlow - 06/06/2004 10:20 AM CST Phone Note filed by Gabi Barlow RN at 11/10/10 0583 Author: Gabi Barlow RN Service: (none) Author Type: Registered Nurse Filed: 11/10/10 1501 Note Time: 06/06/04 1020 Status: Signed Burial Vault Setter: Gabi Barlow RN (Registered Nurse) Celia (mom) is having a problem with Mya's stools this week. She is constipated. She normally has a stool every day. She isn't potty trained yet. She was straining and crying on 06/02 and mom used a fleets suppository with good results (stool was hard). She also started giving her castor oil. She strained to go again am...mom had to use a suppository again with results. She is straining again today and states it hurts. Mom states there has been no change in her diet other than halloween candy.Please advise:[phone]. Created on 06Jun2004 10:20am by GABI BARLOW On 06Jun2004 11:34am BART LOWE wrote: try mineral oil 1-3 ounces per day until good stool output and then decrease to one tablespoon per day. call if need help titrating dose. Acknowledged by BART LOWE on 11:34am documented in this encounter Plan of Treatment Not on filedocumented as of this encounter Visit Diagnoses Not on filedocumented in this encounter Care Teams Core Driller Relationship Specialty Start Date End Date Bart Lowe MD PCP - General 10/27/10 documented as of this encounter
--- OUTSIDE RECORDS SUMMARY | 2022-05-08 23:30 | XMS_ITS | Encounter Summary ---
:2001 Author Organization [facility] Address [address] [place] [address] Care Team Providers Name Role Phone Felicity Salomon MD Primary Care Provider Encounter Details Date Type Department Care Team Description 11/02/2005 Office Visit [facility] [place] [address] [facility] [place] [address] [address] [facility] [phone] [place] [address] Social History Tobacco Use Types Packs/Day Years Used Date Smoking Tobacco: Never Assessed Sex Assigned at Date Recorded Not on file documented as of this encounter Last Filed Vital Signs Vital Sign Reading Time Taken Comments Blood Pressure - - Pulse - - Temperature 36.4 ??C (97.5 ??F) 11/02/2005 3:01 PM AXILLARY C: 36.4 C CDT Respiratory Rate 24 11/02/2005 3:01 PM CDT Oxygen Saturation - - Inhaled Oxygen - - Concentration Weight 17 kg (37 lb 7.7 oz) 11/02/2005 3:01 PM C: 17.0k g CDT Height - - Body Mass Index - - documented in this encounter Progress Notes Kailey Hurtado MD - 11/02/2005 12:01 AM CDT Progress Notes signed by Kailey Hurtado MD at 11/03/05 1926 Author: Kailey Hurtado Md, Service: (none) Author Type: Physician Filed: 11/14/10 1119 Note Time: 11/02/05 0001 Status: Signed Background Investigator: Kailey Hurtado Md, MD (Physician) NAME: QUE ZAMORA MR: [id number] ACCT: [id number] VISIT: [id number] DICTATING CLINICIAN: KAILEY HURTADO MD JOB: [id number] CLINIC PROGRESS NOTE DATE OF VISIT: 11/02/2005 SUBJECTIVE: Que comes in for followup on her urinary tract infection. She was on Septra. Bacteria was sensitive to that, and she responded well. She did not like the taste of the medicine, but took it and her symptoms went away rapidly. She is not having any symptoms now. OBJECTIVE: VS: T: 97.6. R: 24. Wt: 37-1/2 lb. Ears, right and left both clear. Mouth and pharynx normal. LUNGS: Clear. ABDOMEN: Soft. No guarding. No masses. No organomegaly. : Normal. ASSESSMENT: Resolved urinary tract infection. PLAN: Obtained a urinalysis which was normal. Culture is pending. Patient has had ultrasound and voiding cystourethrogram in the past which were normal. Does not need to repeat those. No further follow up if urine culture is also negative. TUBE BUFFER:[id number] C: 11/03/05 13:57 DOCUMENT: [id number] documented in this encounter Plan of Treatment Not on filedocumented as of this encounter Visit Diagnoses Not on filedocumented in this encounter Care Teams Cattle Inspector Relationship Specialty Start Date End Date Felicity Salomon MD PCP - General 10/27/10 documented as of this encounter
--- OUTSIDE RECORDS SUMMARY | 2022-05-08 23:30 | XMS_ITS | Encounter Summary ---
:2001 Author Organization [facility] Address [address], [place] [address] Care Team Providers Name Role Phone Felicity Salomon MD Primary Care Provider Reason for Visit Reason Comments Other Encounter Details Date Type Department Care Team Description 05/15/2004 Telephone [facility] [place] [address] [place] [address] Social History Tobacco Use Types Packs/Day Years Used Date Smoking Tobacco: Never Assessed Sex Assigned at Date Recorded Not on file documented as of this encounter Progress Notes Shantell Allen RN - 05/15/2004 7:29 AM CDT Phone Note filed by Shantell Allen RN at 11/10/10 1314 Author: Shantell Allen RN Service: (none) Author Type: (none) Filed: 11/10/10 1440 Note Time: 05/15/04728 Status: Signed Enterostomal Therapy Nurse: [facility] Conversion Phone Care Triage Note IMPRESSION: Urination pain SYMPTOMS: Mom calling due to child c/o pain on urination. Child has a hx of a kidney infection and she would like an appt. No fever and child slept through the night. She had a wet diaper this morning. Mom just wants to be safe. PATIENT INFORMATION: Problem List: reviewed today in [employer] INTERIM/HOME MANAGEMENT: Advised to push fluids. Mom will call primary clinic when it opens to see if work-in can be done. Advised: call back if symptoms worsen or persist, any other questions or concerns. Patient/Caller agrees with plan and denies additional questions. PLAN: SCHEDULE APPOINTMENT WITHIN 12 HOURS Denies emergent, urgent symptoms Call Complete. Created on 15May2004 7:29am by SHATNELL ALLEN documented in this encounter Plan of Treatment Not on filedocumented as of this encounter Visit Diagnoses Not on filedocumented in this encounter Care Teams Career Placement Services Counselor Relationship Specialty Start Date End Date Felicity Salomon MD PCP - General 10/27/10 documented as of this encounter
--- OUTSIDE RECORDS SUMMARY | 2022-05-08 23:30 | XMS_ITS | Encounter Summary ---
:2001 [facility] Address [address] [address] Care Team Providers Name Role Phone Felicity Salomon MD Primary Care Provider Encounter Details Date Type Department Care Team Description 07/01/2006 PN Conversion Only [place] [address] [address] [place] [address] Social History Tobacco Use Types Packs/Day Years Used Date Smoking Tobacco: Never Assessed Sex Assigned at Date Recorded Not on file documented as of this encounter Plan of Treatment Not on filedocumented as of this encounter Visit Diagnoses Not on filedocumented in this encounter Care Teams Business Performance Manager Relationship Specialty Start Date End Date Felicity Salomon MD PCP - General 10/27/10 documented as of this encounter
--- OUTSIDE RECORDS SUMMARY | 2022-05-08 23:30 | XMS_ITS | Encounter Summary ---
:2001 Author [facility] Address [address], [place] [address] Care Team Providers Name Role Phone Bart Lowe MD Primary Care Provider Encounter Details Date Type Department Care Team Description 03/12/2005 Office Visit [facility] [place] [address] [address] [place] [address] [place], [place] [phone] (Wo rk) Social History Tobacco Use Types Packs/Day Years Used Date Smoking Tobacco: Never Assessed Sex Assigned at Date Recorded Not on file documented as of this encounter Last Filed Vital Signs Vital Sign Reading Time Taken Comments Blood Pressure 82/50 03/12/2005 9:31 AM CDT Pulse 100 03/12/2005 9:31 AM CDT Temperature 36.1 ??C (97 ??F) 03/12/2005 9:31 AM EAR C: 36.1 C CDT Respiratory Rate 20 03/12/2005 9:31 AM CDT Oxygen Saturation - - Inhaled Oxygen Concentration - - Weight 15 kg (32 lb 15.7 oz) 03/12/2005 9:31 AM C: 15.0 kg CDT Height 95.3 cm (3' 1.5) 03/12/2005 9:31 AM C: 95.3cm CDT Drlmxn-mrw-Zyaxhf Percentile 72.12 % 03/12/2005 9:31 AM CDT Growth Chart: CDC (Girls, 2-20 Years) Body Mass Index 16.49 03/12/2005 9:31 AM CDT Body Mass Index Percentile 79.34 % 03/12/2005 9:31 AM CD T Growth Chart: [facility] (Girls, 2-20 Years) documented in this encounter Progress Notes Bart Lowe MD - 03/12/2005 12:01 AM CDT H&P signed by Bart Lowe MD at 04/13/05 1215 Author: Bart Lowe MD Service: (none) Author Type: Physician Filed: 11/14/10 0639 Note Time: 03/12/05 0001 Status: Signed Odd Job Laborer: Bart Lowe MD (Physician) NAME: QUE ZAMORA MR: [id number] ACCT: [id number] VISIT: [id number] DICTATING CLINICIAN: BART LOWE MD JOB: [id number] CLINIC PHYSICAL DATE OF VISIT: 03/12/2005 SUBJECTIVE: Bbjpy-hymx-znl here for preop. Scheduled to have a dental cavity filled under sedation. She would not tolerate the procedure in the office. MEDICATIONS: Current medication is fluoride. I increased her dose today to 0.5 mg p.o. q. day. ADR/ALLERGIES: SHE HAS NO KNOWN DRUG ALLERGIES. No family history of bleeding problems or anesthesia reactions. No prior surgeries. She was hospitalized 05/2002 for pyelonephritis. Complete review of systems is negative. OBJECTIVE: Her exam is normal except for the dental caries right lower molar. See preop form for details. ASSESSMENT: Preop for dental work. PLAN: [id number] C: 03/12/05 21:56 DOCUMENT: [id number] documented in this encounter Plan of Treatment Not on filedocumented as of this encounter Visit Diagnoses Not on filedocumented in this encounter Care Teams Furniture Removalist'S Assistant Relationship Specialty Start Date End Date Bart Lowe MD PCP - General 10/27/10 documented as of this encounter
--- OUTSIDE RECORDS SUMMARY | 2022-05-08 23:30 | XMS_ITS | Encounter Summary ---
:2001 [facility] Address [address], [place] [address] Care Team Providers Name Role Phone Felicity Salomon MD Primary Care Provider Reason for Visit Reason Comments Other Encounter Details Date Type Department Care Team Description 06/14/2004 Telephone [facility] Pat[place] Other [address] [place], [place] [phone] Social History Tobacco Use Types Packs/Day Years Used Date Smoking Tobacco: Never Assessed Sex Assigned at Date Recorded Not on file documented as of this encounter Progress Notes Patrica Fitzgerald RN - 06/14/2004 9:38 AM CST Phone Note filed by Patrica Fitzgerald RN at 11/10/10 4635 Author: Patrica Fitzgerald RN Service: (none) Author Type: Registered Nurse Filed: 11/10/104 Note Time: 06/14/04937 Status: Signed Supervisor Nutritional Yeast: Patrica Fitzgerald RN (Registered Nurse) Phone Care Triage Note IMPRESSION: Constipation SYMPTOMS: Dad calling says child constipated with no bm for the past 3 days. Crying and uncomfortable. For the past 1.5 weeks having intermittent problems with constipation. Dad spoke to clinic and child started on mineral oil 2oz daily with good results then back down to one ounce daily but became constipated again.. Last noc gave baby lax with no results. Dr. Mcmullen oncall and advised pediatric suppository this evening 24hours after last baby lax given. May give 2 oz of prune or pear juice. Spoke to Dad and says has been giving child prune juice also. Reinforce constipation guildline and discussed reasons to be evalauted. PATIENT INFORMATION: Problem List: reviewed today in LastWord INTERIM/HOME MANAGEMENT: Home advise given Advised: call back if symptoms worsen or persist, any other questions or concerns. Information given per: Pediatric Telephone Protocols, Wilber Forbes page 1-3. Constipation Patient/Caller agrees with plan and denies additional questions. PLAN: HOME MANAGEMENT Denies emergent, urgent, semi-urgent symptoms Created on 14Jun2004 9:38am by PATRICA FITZGERALD documented in this encounter Plan of Treatment Not on filedocumented as of this encounter Visit Diagnoses Not on filedocumented in this encounter Care Teams Old Coin Dealer Relationship Specialty Start Date End Date Felicity Salomon MD PCP - General 10/27/10 documented as of this encounter
--- OUTSIDE RECORDS SUMMARY | 2022-05-08 23:30 | XMS_ITS | Encounter Summary ---
:2001 Author [facility] Address [address] [place] [address] Care Team Providers Name Role Phone Bart Lowe MD Primary Care Provider Encounter Details Date Type Department Care Team Description 07/02/2006 Office Visit [facility] [place] [address] [place] [address] [place], [place] [phone] (Wo rk) Social History Tobacco Use Types Packs/Day Years Used Date Smoking Tobacco: Never Assessed Sex Assigned at Date Recorded Not on file documented as of this encounter Last Filed Vital Signs Vital Sign Reading Time Taken Comments Blood Pressure 76/50 07/02/2006 7:58 AM LASER TECHNICIAN Pulse - - Temperature - - Respiratory Rate - - Oxygen Saturation - - Inhaled Oxygen Concentration - - Weight 17.7 kg (39 lb) 07/02/2006 7:58 AM LASER TECHNICIAN C: 17.7kg Height 104.1 cm (3' 5) 07/02/2006 7:58 AM LASER TECHNICIAN C: 104.1 cm Spqbjb-ymx-Rviwiq Percentile 74.34 % 07/02/2006 7:58 AM LASER TECHNICIAN Growth Chart: CDC (Girls, 2-20 Years) Body Mass Index 16.31 07/02/2006 7:58 AM LASER TECHNICIAN Body Mass Index Percentile 77.92 % 07/02/2006 7:58 AM CS T Growth Chart: CDC (Girls, 2-20 Years) documented in this encounter Progress Notes Bart Lowe MD - 07/02/2006 12:01 AM CST H&P signed by Bart Lowe MD at 08/15/06 0555 Author: Bart Lowe MD Service: (none) Author Type: Physician Filed: 11/14/10 1603 Note Time: 07/02/06 0001 Status: Signed Core Checker: Bart Lowe MD (Physician) NAME: QUE ZAMORA MR#: [id number] ACCT: [id number] VISIT: [id number] DICTATING CLINICIAN: BART LOWE MD JOB: [id number] LOC: 503 CLINIC PHYSICAL DATE OF VISIT: 07/02/2006 SUBJECTIVE: A 6-year-old here for her well-child visit; however, she has been sick. Yesterday complained that her stomach hurt, then had a hard stool out yesterday, and now has had 2 urinary accidents over night. No definite frequency, or complaints of pain; however, parents are suspicious she may have another bladder infection. Had one recently 12/25/05 diagnosed, and treated in [place], parents believe with Septra. Had a urinary tract infection here in 09/2005 with Proteus which was treated. She also had been hospitalized in 05/2002 with pyelonephritis. Despite this concern she has otherwise done well. Attends preschool. Is a good eater, drinks milk. Usually has daily bowel movements that are easy to pass. Sleeps through the night. No nap during the day. Developmentally, passes the [place] screen. SOCIAL HISTORY: Lives at home with her parents. No siblings. They are using appropriate car seat, and bike helmet. She does attend day care, and preschool. There is second hand tobacco exposure. She had vision, and hearing checked in 11/2005 at the preschool screening, and passed both. Today she passed the stereo Lang. MEDICATIONS: Reviewed in LastWord today. ADR/ALLERGIES: REVIEWED IN LASTWORD TODAY. OBJECTIVE: VS: BP: 76/50. Ht: 41 in., 25th percentile. Wt: 39 lb., 50th percentile. Well appearing child. Pupils equal and reactive to light. Extraocular movements are intact. Conjunctivae are clear. TMs are normal. Nose without discharge. Oropharynx is moist. No erythema, exudate, or lesion. NECK: Supple without adenopathy or masses. LUNGS: Clear to auscultation. HEART: Regular rate, and rhythm without murmur. ABDOMEN: Soft. No organomegaly or masses. Femoral pulses 2+ bilaterally. Nasim 1 female genitalia. EXTREMITIES: Have full range of motion. Normal bulk, and tone. SKIN: Without rash. Urinalysis was obtained today. They did the UA on a unspun specimen which had moderate blood, trace leukocyte esterase. Urine culture is pending. ASSESSMENT: 1. A 6-year-old with normal growth, and development. 2. Recent enuresis. Need to rule out urinary tract infection given her history. PLAN: Given her history, I elected not to do immunizations today, so that we would not complicate the clinical issue should she develop a fever. I did start her on treatment with Septra 2 teaspoons p.o. b.i.d. while waiting urinary culture. If urine culture negative will stop the Septra, and will followup to discuss why she is having enuresis. If urine culture positive will finish the course of Septra for 10 days. Will come back after that for repeat urinalysis, and urine culture, and she can receive her 6 year immunizations at that time. [id number] C: 07/03/06 10:58 DOCUMENT: [id number] R TECHNICIAN documented in this encounter Plan of Treatment Not on filedocumented as of this encounter Visit Diagnoses Not on filedocumented in this encounter Care Teams Developer Evangelist Relationship Specialty Start Date End Date Bart Lowe MD PCP - General 10/27/10 documented as of this encounter
--- OUTSIDE RECORDS SUMMARY | 2022-05-08 23:30 | XMS_ITS | Encounter Summary ---
:2001 [facility] Organization [facility] Address [address] [address] Care Team Providers Name Role Phone Bart Lowe MD Primary Care Provider Reason for Visit Reason Comments Other Encounter Details Date Type Department Care Team Description 05/01/2005 Telephone [facility] Bart Lowe MD Other [address] [address] [place] [address] [place] [phone] (Wo rk) Social History Tobacco Use Types Packs/Day Years Used Date Smoking Tobacco: Never Assessed Sex Assigned at Date Recorded Not on file documented as of this encounter Progress Notes Ashley Chen - 05/01/2005 3:50 PM CDT Phone Note filed by Ashley Chen LPN at 11/10/102113 Author: Ashley Chen LPN Service: (none) Author Type: (none) Filed: 11/10/102113 Note Time: 05/01/05 1550 Status: Signed Manager Parking: Joey Yang the mom is calling because pt is running a 100.7 degree fever axillary and c/o L ear pain and back pain. Mom states that she doesn't have any other sxs. Nurse referrenced Wilber Forbes guidelines and instructed mom to either bring pt to or monitor pt at home and call if any urgent, emergent or semi-urgent sxs. Mom verbalized understanding. Mom was informed she needed to schedule an appt for peds UC after 12 midnight. Created on 01May2005 3:50pm by ASHLEY CHEN Acknowledged by BART LOWE on 3:58pm STERED NURSE PRACTITIONER documented in this encounter Plan of Treatment Not on filedocumented as of this encounter Visit Diagnoses Not on filedocumented in this encounter Care Teams Wax Molder Relationship Specialty Start Date End Date Bart Lowe MD PCP - General 10/27/10 documented as of this encounter
--- OUTSIDE RECORDS SUMMARY | 2022-05-08 23:30 | XMS_ITS | Encounter Summary ---
:2001 Author Organization [facility] Address [address], [place] [address] Care Team Providers Name Role Phone Felicity Salomon MD Primary Care Provider Reason for Visit Reason Comments Other Encounter Details Date Type Department Care Team Description 05/29/2005 Telephone [facility] Domi Wu Other [address] [place], [place] [phone] Social History Tobacco Use Types Packs/Day Years Used Date Smoking Tobacco: Never Assessed Sex Assigned at Date Recorded Not on file documented as of this encounter Progress Notes Domi Wu - 05/29/2005 4:16 PM CST Phone Note filed by Domi Wu RN at 11/10/102200 Author: Domi Wu RN Service: (none) Author Type: (none) Filed: 11/10/102200 Note Time: 05/29/05 1616 Status: Signed Mill And Coal Transport Operator: Joey Montero Mom calling and her daughter woke up from a nap and she noted that her right eye was swollen all around the eye and they noted a small red dot at bottom of eye area. Sclera is not red or pink, no discharge and not itchy. Per eye guidelines per B.Forbes 10th edition that she should bring child to u/c for evaluation. Mom verbalized agreement with plan. Created on 29May2005 4:16pm by DOMI WU ING LEAD documented in this encounter Plan of Treatment Not on filedocumented as of this encounter Visit Diagnoses Not on filedocumented in this encounter Care Teams System Manager Relationship Specialty Start Date End Date Felicity Salomon MD PCP - General 10/27/10 documented as of this encounter
--- OUTSIDE RECORDS SUMMARY | 2022-05-08 23:30 | XMS_ITS | Encounter Summary ---
:2001 Author Organization [employer] Address [address] [place] [address] Care Team Providers Name Role Phone Felicity Salomon MD Primary Care Provider Encounter Details Date Type Department Care Team Description 11/02/2005 PN Conversion Only [place] [address] [place] [address] [facility], [facility] Social History Tobacco Use Types Packs/Day Years Used Date Smoking Tobacco: Never Assessed Sex Assigned at Date Recorded Not on file documented as of this encounter Plan of Treatment Not on filedocumented as of this encounter Procedures Procedure Name Priority Date/Time Associated Comments Diagnosis URINALYSIS Routine 11/02/2005 3:07 PM Results f or this ROUTINE(MICRO IF CDT procedure a re in POS) the results section. URINE CULTURE Routine 11/02/2005 3:07 PM Results for this CDT procedure are i n the results section. documented in this encounter Results Urine Culture (11/02/2005 3:07 PM CDT) Analysis Performed At Patho logist Time Signature Urine Culture SEE TEXT HP CONVERSION Comment: Patient: QUE ZAMORA Culture, Urine @ ?Collected: ??[id number] ??1507 Source: Clean Ca ?Processed: ??[id number] ??1507 ? SENS Final Report ------ ?[id number] ??1025 No growth @ = URINE CULTURE Performed at ??[address] [facility], [place], [place] ?[address] Specimen (Source) Anatomical Collection Method Collection Time Re ceived Time Location / / Volume Laterality 11/02/2005 3:07 PM CDT Conor Hurtado MD LAB_1 Performing Organization Address City/[facility] Phon e Number HP CONVERSION Urinalysis Routine(Micro If Pos) (11/02/2005 3:07 PM CDT) [facility] gist Method Time Signature Turbidity Clear No normal HP CONVERSION range pH Urine 7.0 4.5 - 7.5 HP CONVERSION Protein Urine Negative Neg-Trac HP CONVERSION Glucose, Negative Neg-Trac HP CONVERSION Qualitative U Ketones Negative Negative HP CONVERSION U BILI Negative Negative HP CONVERSION Blood Urine Negative Negative HP CONVERSION Nitrite Urine Negative Negative HP CONVERSION Leukocyte Negative Negative HP CONVERSION Esterase Urine Urobilinogen Negative 0.2 - 1.0 HP CONVERSION Urine U Specific 1.025 1.005 - 25 HP CONVERSION [place] Specimen (Source) Anatomical Collection Method Collection Time Re ceived Time Location / / Volume Laterality 11/02/2005 3:07 PM CDT Conor Hurtado MD LAB_1 Performing Organization Address City/State/[facility] Code Phon e Number HP CONVERSION documented in this encounter Visit Diagnoses Not on filedocumented in this encounter Care Teams Loader Operator/Ground Leader Relationship Specialty Start Date End Date Felicity Salomon MD PCP - General 10/27/10 documented as of this encounter
--- OUTSIDE RECORDS SUMMARY | 2022-05-08 23:30 | XMS_ITS | Encounter Summary ---
:2001 Author Organization [employer] Address [address] [place] [address] Care Team Providers Name Role Phone Felicity Salomon MD Primary Care Provider Encounter Details Date Type Department Care Team Description 10/20/2005 PN Conversion Only [place] [address] [place] [address] [address] [place] [address] Social History Tobacco Use Types Packs/Day Years Used Date Smoking Tobacco: Never Assessed Sex Assigned at Date Recorded Not on file documented as of this encounter Plan of Treatment Not on filedocumented as of this encounter Procedures Procedure Name Priority Date/Time Associated Comments Diagnosis URINALYSIS COMPLETE Routine 10/20/2005 2:55 PM Re sults for this QUICK SERVICE TECHNICIAN procedure are i n the results section. URINE CULTURE Routine 10/20/2005 2:55 PM Results for this QUICK SERVICE TECHNICIAN procedure are i n the results section. documented in this encounter Results (ABNORMAL) Urine Culture (10/20/2005 2:55 PM QUICK SERVICE TECHNICIAN) [facility] Method Time Signature Urine Culture SEE TEXT HP CONVERSION (A) Comment: Patient: QUE ZAMORA Culture, Urine @ ?Collected: ??[id number] ??145 Source: Clean Ca ?Processed: ??[id number] ??145 ? SENS Final Report ------ ?[id number] ??1433 >100,000 CFU/mL Proteus mirabilis Susceptibility Testing P AVIVA ??ARTIE INTERP: ?S ??AMPICILLIN , AMOX/CLAV ACID, CEFACLOR, AMP/SULBACTAM, ?LEVO FLOXACIN, CIPROFLOXACIN, CEFTRIAXONE, CEFTAZIDIME, ?CEPH ALOTHIN, GENTAMICIN, TRIMETH-SULFA, TICAR/CLAVULAN ?TOBR AMYCIN ? R ??NITRO FURANTOIN @ = URINE CULTURE Performed at ??[address] [facility], [place] ?[address] Specimen (Source) Anatomical Collection Method Collection Time Re ceived Time Location / / Volume Laterality 10/20/2005 2:55 PM QUICK SERVICE TECHNICIAN Conor Hurtado MD LAB_1 Performing Organization Address [facility] Phon e Number HP CONVERSION (ABNORMAL) Urinalysis Complete (10/20/2005 2:55 PM QUICK SERVICE TECHNICIAN) [facility] Method Time Signature Glucose, Negative Neg-Trac HP CONVERSION Qualitative U Protein Urine 30 mg/dL Neg-Trac HP CONVERSION (A) Ketones Negative Negative HP CONVERSION U BILI Negative Negative HP CONVERSION U Specific 1.010 1.005 - 25 HP CONVERSION [place] Blood Urine Negative Negative HP CONVERSION pH Urine 8.5 4.5 - 7.5 HP CONVERSION Urobilinogen Negative 0.2 - 1.0 HP CONVERSION Urine Nitrite Urine Negative Negative HP CONVERSION Leukocyte Negative Negative HP CONVERSION Esterase Urine White Blood 10-24/HP 0 - 3 HP CONVERSION Cells Urine (A) Red Blood Cells 0-2/HPF 0 - 2 HP CONVERSION Urine Epithelial Cells Few Few /HPF HP CONVERSION Crystals Amorph None HP CONVERSION Specimen (Source) Anatomical Collection Method Collection Time Re ceived Time Location / / Volume Laterality 10/20/2005 2:55 PM QUICK SERVICE TECHNICIAN Conor Mee Hurtado MD LAB_1 Performing Organization Address [facility] Phon e Number HP CONVERSION documented in this encounter Visit Diagnoses Not on filedocumented in this encounter Care Teams Clerical Administrative Assistant Relationship Specialty Start Date End Date Felicity Salomon MD PCP - General 10/27/10 documented as of this encounter
--- OUTSIDE RECORDS SUMMARY | 2022-05-08 23:30 | XMS_ITS | Encounter Summary ---
:2001 Author Organization [facility] Address [address], [place] [address] Care Team Providers Name Role Phone Felicity Salomon MD Primary Care Provider Reason for Visit Reason Comments Other Encounter Details Date Type Department Care Team Description 03/30/2006 Telephone [facility], Message Other [address] [place] [address] Social History Tobacco Use Types Packs/Day Years Used Date Smoking Tobacco: Never Assessed Sex Assigned at Date Recorded Not on file documented as of this encounter [facility], Message - 03/30/2006 11:13 AM CDT Phone Note filed by DEUS at 11/11/10811 Author: DEUS Service: (none) Author Type: (none) Filed: 11/11/10811 Note Time: 03/30/061112 Status: Signed Laborer Pie Bakery: DEUS MESSAGE TO CARE TEAM NAME OF CALLER:Celia Hyatt NAME OF CLINICIAN:Dr Salomon MESSAGE:Please fax immunization record to Mom's work [phone]. PHARMACY NAME:[facility] PHONE #:na CALL BACK PHONE #:[phone] work BEST TIME TO CALL BACK:7 - 3:30 Is it OK to leave detailed message on voicemail?yes Created on 30Mar2006 11:13am by HUGH MENESES On [id number] 11:28am EMORY BORRERO wrote: faxed to mom's work number OR QUALITY METHODS SPECIALIST documented in this encounter Plan of Treatment Not on filedocumented as of this encounter Visit Diagnoses Not on filedocumented in this encounter Care Teams Black Leather Buffer Relationship Specialty Start Date End Date Felicity Salomon MD PCP - General 10/27/10 documented as of this encounter
--- OUTSIDE RECORDS SUMMARY | 2022-05-08 23:30 | XMS_ITS | Encounter Summary ---
:2001 Author Organization [facility] Address [address], [place] [address] Care Team Providers Name Role Phone Bart Lowe MD Primary Care Provider Encounter Details Date Type Department Care Team Description 07/15/[address] [facility] [place] [address] [address] [place] [address] [place], [place] [phone] (Wo rk) Social History Tobacco Use Types Packs/Day Years Used Date Smoking Tobacco: Never Assessed Sex Assigned at Date Recorded Not on file documented as of this encounter Progress Notes Bart Lowe MD - 07/15/2006 12:01 AM CST Progress Notes signed by Bart Lowe MD at 08/16/06 0947 Author: Bart Lowe MD Service: (none) Author Type: Physician Filed: 11/14/10 1620 Note Time: 07/15/06 0001 Status: Signed Grassroots Organizer: Bart Lowe MD (Physician) NAME: QUE ZAMORA MR#: [id number] ACCT: [id number] VISIT: [id number] DICTATING CLINICIAN: BART LOWE MD JOB: [id number] LOC: 503 CLINIC PROGRESS NOTE DATE OF VISIT: 07/15/2006 SUBJECTIVE: A 6-year-old here for followup of urinary tract infection. Was seen on 07/02 for her well-child visit. Had some urinary accidents. Urine culture grew out 10-50,000 proteus. Unsure if it was a contaminant or a true infection, but since she was having symptoms I did treat her with Septra for 10 days. The parents said that she was doing well. There has been no fevers. No abdominal pain. No back pain. No dysuria. Had 1 accident yesterday, but she was watching a movie, and did not want to get up and go, which was mom's report. OBJECTIVE: No exam was done today. Urinalysis and urine culture were obtained. ASSESSMENT: Urinary tract infection followup. PLAN: Await urine culture. Would only treat if still bacteria present. She received her kindergarten immunizations today of DTaP, IPV, and MMR. SJJ:[id number] C: 07/15/06 14:14 DOCUMENT: [id number] NER FIXER documented in this encounter Plan of Treatment Not on filedocumented as of this encounter Visit Diagnoses Not on filedocumented in this encounter Care Teams Anesthesia Resident Relationship Specialty Start Date End Date Bart Lowe MD PCP - General 10/27/10 documented as of this encounter
--- OUTSIDE RECORDS SUMMARY | 2022-05-08 23:30 | XMS_ITS | Encounter Summary ---
:[address] [facility] Address [address] [place] [address] Care Team Providers Name Role Phone Felicity Salomon MD Primary Care Provider Encounter Details Date Type Department Care Team Description 07/15/2006 PN Conversion Only [place] [facility] N Felicity Salomon, [address] [address] [facility] [place] [phone] (Wo rk) Social History Tobacco Use Types Packs/Day Years Used Date Smoking Tobacco: Never Assessed Sex Assigned at Date Recorded Not on file documented as of this encounter Plan of Treatment Not on filedocumented as of this encounter Procedures Procedure Name Priority Date/Time Associated Comments Diagnosis URINALYSIS Routine 07/15/2006 8:27 AM Results f or this ROUTINE(MICRO IF POS) ELECTRONIC WARFARE TECHNICIAN proced ure are in the results section. URINALYSIS Routine 07/15/2006 8:27 AM Results f or this MICROSCOPIC ELECTRONIC WARFARE TECHNICIAN procedure are i n the results section. URINE CULTURE Routine 07/15/2006 8:27 AM Results for this ELECTRONIC WARFARE TECHNICIAN procedure are i n the results section. documented in this encounter Results Urine Culture (07/15/2006 8:27 AM ELECTRONIC WARFARE TECHNICIAN) Analysis Performed At Patho logist Time Signature Urine Culture SEE TEXT HP CONVERSION Comment: Patient: QUE ZAMORA Culture, Urine @ ?Collected: ??[id number] ??[id number] Source: Clean Ca ?Processed: ??[id number] ??826 ? SENS Final Report ------ ?[id number] ??[id number] No growth @ = URINE CULTURE Performed at ??[address] [place], [place] ?[address] Specimen (Source) Anatomical Collection Method Collection Time Re ceived Time Location / / Volume Laterality 07/15/2006 8:27 AM ELECTRONIC WARFARE TECHNICIAN Felicity Salomon MD LAB_1 Performing Organization Address City/State/ZIP Code Phon e Number HP CONVERSION Urinalysis Routine(Micro If Pos) (07/15/2006 8:27 AM ELECTRONIC WARFARE TECHNICIAN) [facility] gist Method Time Signature Turbidity Clear [...] Specific 1.025 1.005 - 25 HP CONVERSION [place] Specimen (Source) Anatomical Collection Method Collection Time Re ceived Time Location / / Volume Laterality 07/15/2006 8:27 AM ELECTRONIC WARFARE TECHNICIAN Felicity Salomon MD LAB_1 Performing Organization Address City/State/ZIP Code Phon e Number HP CONVERSION (ABNORMAL) Urinalysis Microscopic (07/15/2006 8:27 AM ELECTRONIC WARFARE TECHNICIAN) [facility] Method Time Signature White Blood 0-2/HPF 0 - 3 HP CONVERSION Cells Urine Red Blood 0-2/HPF 0 - 2 HP CONVERSION Cells Urine Bacteria Urine Occassnl (A) None [facility] CONVERSIO N Epithelial Few Few /HPF HP CONVERSION Cells Specimen (Source) Anatomical Collection Method Collection Time Re ceived Time Location / / Volume Laterality 07/15/2006 8:27 AM ELECTRONIC WARFARE TECHNICIAN Felicity Salomon MD LAB_1 Performing Organization Address City/[facility]/ZIP Code Phon e Number HP CONVERSION documented in this encounter Visit Diagnoses Not on filedocumented in this encounter Care Teams Multimedia Project Manager Relationship Specialty Start Date End Date Felicity Salomon MD PCP - General 10/27/10 documented as of this encounter
--- OUTSIDE RECORDS SUMMARY | 2022-05-08 23:30 | XMS_ITS | Encounter Summary ---
:2001 Author Organization [facility] Address [address], [place] [address] Care Team Providers Name Role Phone Felicity Salomon MD Primary Care Provider Encounter Details Date Type Department Care Team Description 11/17/2004 PN Conversion Only [facility] [facility] [address] [address] [place] [address] Social History Tobacco Use Types Packs/Day Years Used Date Smoking Tobacco: Never Assessed Sex Assigned at Date Recorded Not on file documented as of this encounter Plan of Treatment Not on filedocumented as of this encounter Visit Diagnoses Not on filedocumented in this encounter Care Teams Wood Milling Machine Tender Relationship Specialty Start Date End Date Felicity Salomon MD PCP - General 10/27/10 documented as of this encounter
--- OUTSIDE RECORDS SUMMARY | 2022-05-08 23:30 | XMS_ITS | Encounter Summary ---
:2001 [facility] Address [address] [place] [address] Care Team Providers Name Role Phone Felicity Salomon MD Primary Care Provider Encounter Details Date Type Department Care Team Description 10/20/2005 Office Visit [facility] [place] [address] [facility] [place] [address] [address] [facility] [phone] [place] [address] Social History Tobacco Use Types Packs/Day Years Used Date Smoking Tobacco: Never Assessed Sex Assigned at Date Recorded Not on file documented as of this encounter Progress Notes Kailey Hurtado MD - 10/20/2005 12:01 AM CST Progress Notes signed by Kailey Hurtado MD at 10/21/05 0936 Author: Kailey Hurtado Md, MD Service: (none) Author Type: Physician Filed: 11/14/10 1103 Note Time: 10/20/05 0001 Status: Signed Spring Internship: Kailey Hurtado Md, MD (Physician) NAME: QUE ZAMORA MR: [id number] ACCT: [id number] VISIT: [id number] DICTATING CLINICIAN: KAILEY HURTADO MD JOB: [id number] CLINIC PROGRESS NOTE DATE OF VISIT: 10/20/2005 SUBJECTIVE: Que comes in because she had a couple of accidents today with urination. She has not had problems with that in the past. She did have a urinary tract infection when she was about [age] year old with normal renal ultrasound and voiding cystoureterogram with no reflux. Patient is otherwise doing well. ADR/ALLERGIES: NO KNOWN ALLERGIES TO MEDICINES. OBJECTIVE: VS: T: 97.0 degrees. P: 108. Wt: 37 lb. Head is normal. Mouth and pharynx are normal. LUNGS: Clear. ABDOMEN: Soft. No guarding. No masses. No organomegaly. : Normal. SKIN: Normal. Obtained a clean catch urinalysis which shows 10 to 24 white blood cells per high-powered field, nitrites are negative. ASSESSMENT: Dysuria, possible UTI. PLAN: Will start patient on Septra 9 mL twice a day times 10 days while awaiting urine culture results. IMPRESSION: Dysuria, possible UTI. PERFUMER:[id number] C: 10/21/05 08:11 DOCUMENT: [id number] S NOTES DEVELOPER documented in this encounter Plan of Treatment Not on filedocumented as of this encounter Visit Diagnoses Not on filedocumented in this encounter Care Teams Heating And Refrigeration Inspector Relationship Specialty Start Date End Date Felicity Salomon MD PCP - General 10/27/10 documented as of this encounter
--- OUTSIDE RECORDS SUMMARY | 2022-05-08 23:30 | XMS_ITS | Encounter Summary ---
:2001 [facility] Address [address], [place] [address] Care Team Providers Name Role Phone Felicity Salomon MD Primary Care Provider Reason for Visit Reason Comments Other Encounter Details Date Type Department Care Team Description 07/01/2006 Telephone [facility] Mahnaz Sommers RN Other [address] [place], [place] [phone] Social History Tobacco Use Types Packs/Day Years Used Date Smoking Tobacco: Never Assessed Sex Assigned at Date Recorded Not on file documented as of this encounter Progress Notes Mahnaz Sommers RN - 07/01/2006 12:31 PM CST Phone Note filed by Mahnaz Sommers RN at 11/11/10 1327 Author: Mahnaz Sommers RN Service: (none) Author Type: Registered Nurse Filed: 11/11/10 9762 Note Time: 07/01/06 1231 Status: Signed Platinum Smith: Mahnaz Sommers RN (Registered Nurse) CLINICIAN FOLLOW-UP: FYI (note is complete) IMPRESSION: Constipation. SYMPTOMS: Mom calling that 6 yr old daughter was noted by preschool teachers to be using bathroom a lot. Mom states she is constipated, no fever, no urinary pain, no abdominal pain. Has appt tomorrow am for well check. Denies emergent symptoms PATIENT INFORMATION: Problem List: reviewed in Last[employer] CARE ADVICE: HOME CARE ADVICE FOR CONSTIPATION-has tomorrow am well check. Mom will try home care including glycerin suppositories. If any urgent sx , she will callback. Reassure the caller: It sounds like the kind of constipation we can treat with diet changes. Most constipation is from a recent change in the diet or waiting too long to use the bathroom. Diet for children > 1 year old: Increase fruit juice (apple, pear, hernández, grape, prune) (Note: citrus fruit juices are not helpful). Add fruits and vegetables high in fiber content tid (peas, beans, broccoli,bananas, apricots, peaches, pears, figs, prunes, dates). Increase whole grain foods (bran flakes, bran muffins, acro crackers,oatmeal, brown rice, and whole wheat bread. Popcorn can be used if > 3 years old. Decrease mild products (milk, ice cream, cheese, yogurt) to 3 servings per day. Warm water: Warmth helps many children relax the anal sphincter and release a BM. For prolonged straining, have your child sit in warm water or apply a warm wet cotton ball to the anus. Sitting on the toilet (if toilet trained): Establish a regular bowel pattern by sitting on the toilet for 10 minutes after meals, especially breakfast. If your child is resisting toilet training by holding back, temporarily stop training and put him back in diapers. CALL BACK IF: Acute rectal pain or abdominal pain persists after treatment, days between BMs continue > 3 after eating a nonconstipating diet > 1 week, your child becomes worse. Advised to call back if any of the following occur: symptoms worsen or persist, any other questions or concerns. PLAN: HOME CARE Patient/Caller agrees with plan and denies additional questions. Reference(s) Used: Pediatric Telephone Protocols-- Constipation. Call Complete. *SH~PNNL~PEDSCHOLAR~ Created on 01Jul2006 12:31pm by MAHNAZ SOMMERS WARE TEST ENGINEER documented in this encounter Plan of Treatment Not on filedocumented as of this encounter Visit Diagnoses Not on filedocumented in this encounter Care Teams Mason Foreman/Superintendant Relationship Specialty Start Date End Date Felicity Salomon MD PCP - General 10/27/10 documented as of this encounter
--- OUTSIDE RECORDS SUMMARY | 2022-05-08 23:30 | XMS_ITS | Encounter Summary ---
:2001 Author Organization [facility] Address [address] [place] [address] Care Team Providers Name Role Phone Felicity Salomon MD Primary Care Provider Encounter Details Date Type Department Care Team Description 11/17/2004 Office Visit [facility] [place] [address] [place] [address] [place], [place] [phone] (Wo rk) Social History Tobacco Use Types Packs/Day Years Used Date Smoking Tobacco: Never Assessed Sex Assigned at Date Recorded Not on file documented as of this encounter Last Filed Vital Signs Vital Sign Reading Time Taken Comments Blood Pressure 86/40 11/17/2004 12:05 PM CDT Pulse - - Temperature - - Respiratory Rate - - Oxygen Saturation - - Inhaled Oxygen Concentration - - Weight 15 kg (32 lb 15.7 oz) 11/17/2004 12:05 PM CDT C: 15.0kg Height 92.7 cm (3' 0.5) 11/17/2004 12:05 PM CDT C: 92. 7cm Orczdx-fka-Shemxu Percentile 86.51 % 11/17/2004 12:05 PM CDT Growth Chart: CDC (Girls, 2-20 Years) Body Mass Index 17.41 11/17/2004 12:05 PM CDT Body Mass Index Percentile 90.33 % 11/17/2004 12:05 PM C DT Growth Chart: CDC (Girls, 2-20 Years) documented in this encounter Progress Notes Felicity Salomon MD - 11/17/2004 12:01 AM CDT H&P signed by Felicity Salomon MD at 11/17/04 3958 Author: Felicity Salomon MD Service: (none) Author Type: Physician Filed: 11/14/10 0433 Note Time: 11/17/04 0001 Status: Signed Mines Safety Engineer: Felicity Salomon MD (Physician) Well Child Visit: [age] and a Half Year Form IMPRESSION: 3.5 Year Well Child Visit. Sleeping difficulties. Child accompanied to clinic by parents, Interval History: No specific parental concerns Eating varied diet. Drinks milk. Normal elimination. Dry during day. Sleeping with parents. Developmental History: No concerns about vision or hearing. Developmental screening form responses are normal. Developmental history form was reviewed, found to be normal for age, and filed in paper chart. Hops on one foot. Balances on each foot one to three seconds. Throws ball overhand. Stacks 8-10 blocks. Copies [place] and cross. Names four pictures. Names one to two colors. Names friend. Past History: Patient's Adverse Drug Reactions were reviewed and updated today on the Health Profile screen of [facility] Medications: Fluoride 0.5 mg daily. Social and Family History: Well water. Tobacco smoke exposure. Attends daycare. No siblings. Using bicycle helmets consistently. Physical Exam: (See growth charts for percentile graphs) Height: 15 %ile Weight: 50 %ile Current Weight: 33 lbs. / 15.0kg. Current Height: 36.5 inches Current BMI: 17.5 Kg/meters squared Blood Pressure: 86/40 Gen: reactive, comfortable. HEENT: canals/TM normal, conjunctivae non-injected, sclera anicteric, no strabismus, mucosa moist without lesions. 4 Neck: supple, no mass or goiter. Chest: clear with normal effort. CV: 5regular rate w/o murmur, pulses normal to palpation. Abdomen: soft, no 6hepatosplenomegaly or masses. : normal genitalia, no hernia. Extremities: full range of motion without abnormality Neuro: normal tone 8and symmetric reflexes. Skin: no abnormal rash Visual screen normal. 20/30 or better bilaterally. ASSESSMENT: 3.5 Year Well Child Visit. Sleeping difficulties. PLAN: Continue fluoride 0.5 mg daily. Anticipatory Guidance Handout given and discussed where appropriate. Anticipatory Reminders: Avoid food conflicts. Toddlers will have a variable appetite. Continue car seat until 40 pounds, booster until around 80 pounds. Keep shaded and in long clothing to avoid sun injury. Use SPF 15 or greater on exposed skin. Set limits and enforce them consistently. Respond appropriately to tantrums. Toilet training clues to readiness. [place] teeth with soft brush Next visit in one year for yearly height check. Sleeping Difficulties: Discussed elements of good sleep hygiene Schedule dental appt. for routine screening. *SH~PC~WBYR3.5 ~ Shorthand Note completed on: 11/17/2004 10:30 PM documented in this encounter Plan of Treatment Not on filedocumented as of this encounter Visit Diagnoses Not on filedocumented in this encounter Care Teams Burner Machine Operator Relationship Specialty Start Date End Date Felicity Salomon MD PCP - General 10/27/10 documented as of this encounter
--- OUTSIDE RECORDS SUMMARY | 2022-05-08 23:30 | XMS_ITS | Encounter Summary ---
:2001 [facility] Address [address], [place] [address] Care Team Providers Name Role Phone Felicity Salomon MD Primary Care Provider Reason for Visit Reason Comments Other Encounter Details Date Type Department Care Team Description 03/16/2006 Telephone [facility] Estephanie Espinal RN Other [address] [place], [place] [phone] Social History Tobacco Use Types Packs/Day Years Used Date Smoking Tobacco: Never Assessed Sex Assigned at Date Recorded Not on file documented as of this encounter Progress Notes Estephanie Espinal RN - 03/16/2006 8:23 PM CDT Phone Note filed by Estephanie Espinal RN at 11/11/10745 Author: Estephanie Espinal RN Service: (none) Author Type: Registered Nurse Filed: 11/11/10745 Note Time: 03/16/062022 Status: Signed Outsole Handler: Estephanie Espinal RN (Registered Nurse) CLINICIAN FOLLOW-UP: FYI (note is complete) IMPRESSION: Trauma, Head. SYMPTOMS: Mom calling, pt. was running near pool, fell, hit back of head on cement, cried for 3-4 minutes. No open or bleeding areas. Has quarter sized lump to back of head. Pt. c/o RANDHAWA after fall, has vomited x1, RANDHAWA now resolved. Pt. remains active and playful, is slightly irritable, mom states it is her bedtime now. Denies urgent sx. Has not used any homecare. Denies emergent symptoms PATIENT INFORMATION: Problem List: reviewed in Last[facility] CARE ADVICE: per reference Advised to call back if any of the following occur: symptoms worsen or persist, any other questions or concerns. PLAN: HOME CARE Patient/Caller agrees with plan and denies additional questions. Reference(s) Used: Pediatric Telephone Protocols-- Trauma, Head. Call Complete. *SH~PNNL~PEDSCHOLAR~ Created on [id number] 8:23pm by ESTEPHANIE ESPINAL GENERATION REPRESENTATIVE documented in this encounter Plan of Treatment Not on filedocumented as of this encounter Visit Diagnoses Not on filedocumented in this encounter Care Teams Cytogeneticist Relationship Specialty Start Date End Date Felicity Salomon MD PCP - General 10/27/10 documented as of this encounter
--- OUTSIDE RECORDS SUMMARY | 2022-05-08 23:30 | XMS_ITS | Encounter Summary ---
:2001 [facility] Address [address] [address] Care Team Providers Name Role Phone Felicity Salomon MD Primary Care Provider Reason for Visit Reason Comments Other Encounter Details Date Type Department Care Team Description 06/13/2004 Telephone [facility] Nathalie Gotti Other [address] [place] [address] Social History Tobacco Use Types Packs/Day Years Used Date Smoking Tobacco: Never Assessed Sex Assigned at Date Recorded Not on file documented as of this encounter Progress Notes Nathalie Gotti - 06/13/2004 3:57 PM CST Phone Note filed by Nathalie Gotti RN at 11/10/10 8748 Author: Nathalie Gotti RN Service: (none) Author Type: (none) Filed: 11/10/10 8902 Note Time: 06/13/04 1624 Status: Signed Optical Mechanic: Joey Montero Mom calling and she is still having problems with constipation. She has not hard a stool now since Wednesday. She had begun decreasing the amt of mineral oil she was giving her because she was going but she has now increased it to 2 oz last evening and again 2 oz this morning. She gave her a supp last evening and had no results last night or this morning. She is wondering what she can do to help her out. Per Dr. Salomon note on 06/06/04 instructed to increase her mineral to 3 oz today and try a suppository again this evening and if she has no results she should be seen in the [facility] on Wednesday morning. Mom verbalizes understanding of the above. Created on 13Jun2004 3:57pm by NATHALIE GOTTI documented in this encounter Plan of Treatment Not on filedocumented as of this encounter Visit Diagnoses Not on filedocumented in this encounter Care Teams Relationship Banker Relationship Specialty Start Date End Date Felicity Salomon MD PCP - General 10/27/10 documented as of this encounter
--- OUTSIDE RECORDS SUMMARY | 2022-05-08 23:30 | XMS_ITS | Encounter Summary ---
:2001 [facility] Address [address] [address] Care Team Providers Name Role Phone Bart Salomon MD Primary Care Provider Reason for Visit Reason Comments Other Encounter Details Date Type Department Care Team Description 10/26/2005 Telephone [facility] Bryan Blankenship Other [address] [place], [place] [address] Social History Tobacco Use Types Packs/Day Years Used Date Smoking Tobacco: Never Assessed Sex Assigned at Date Recorded Not on file documented as of this encounter Progress Notes Center, Message - 10/26/2005 9:50 AM CDT Phone Note filed by Gamerius at 11/11/10227 Author: Gamerius Service: (none) Author Type: (none) Filed: 11/11/10227 Note Time: 10/26/05 0950 Status: Signed Senior Integration Developer: Gamerius I did call and left a message to call us back. Mya needs to make an f/u appt. with Dr. Salomon. Appt. needs to be made 48hrs after Mya is off the Septra. Appt. would be a recheck on UTI. Created on 26Oct2005 9:50am by SRINI FERREIRA Acknowledged by BART SALOMON on 9:53am On [id number] 8:23am BRYAN BLANKENSHIP wrote: Mom called back. Given above message and transferred to call center to schedule appt. TIONS MANAGER documented in this encounter Plan of Treatment Not on filedocumented as of this encounter Visit Diagnoses Not on filedocumented in this encounter Care Teams Supply Controller Relationship Specialty Start Date End Date Bart Salomon MD PCP - General 10/27/10 documented as of this encounter
--- OUTSIDE RECORDS SUMMARY | 2022-05-08 23:31 | XMS_ITS | Encounter Summary ---
:2001 Author Organization formerly [facility] Address [address] [address] Care Team Providers Name Role Phone Bart Salomon MD Primary Care Provider Encounter Details Date Type Department Care Team Description 05/25/2003 PN Conversion Only [facility] Bart Salomon, [address] [place] [address] [id number] [phone] [place] [phone] (Wo rk) Social History Tobacco Use Types Packs/Day Years Used Date Smoking Tobacco: Never Assessed Sex Assigned at Date Recorded Not on file documented as of this encounter Progress Notes Phone Note, Clinician - 01/08/2004 12:01 AM CDT Phone Note filed by Clinician Phone Note at 11/11/101420 Author: Clinician Phone Note Service: (none) Author Type: Resource Filed: 11/11/10 142 Note Time: 01/08/04 0001 Status: Signed Aboriginal [employer] Member: Clinician Phone Note (Resource) SUBJECTIVE: ALLERGIES/SENSITIVITIES... NKDA * HOME PHONE:[phone] * CURRENT MEDICATIONS... Motrin PRN PERTINENT PAST HISTORY... Pyelonephritis ASSESSMENT: QUESTIONS ABOUT CHICKEN POX DISPOSITION: NO DISPOSITION GIVEN PLAN: [facility] [place]... Mom calling...having questions about chicken pox...those questions wer e answered using guidelines pg 66 Wilber Sanford. CALL BY JORGE SOLITARIO LPN 01/08/2004 02:42PM [phone] ADDENDUM: OLOGY AIDE Phone Note, Clinician - 09/25/2003 12:01 AM CST Phone Note filed by Clinician Phone Note at 11/11/10 9428 Author: Clinician Phone Note Service: (none) Author Type: Resource Filed: 11/11/10 1322 Note Time: 09/25/03 0001 Status: Signed Aboriginal Community [employer] Member: Clinician Phone Note (Resource) SUBJECTIVE: PATIENT COMPLAINS OF... * HOME PHONE:[phone] * Constipation, -Less than 5 days between bowel movements in older child ALLERGIES/SENSITIVITIES... NKDA CURRENT MEDICATIONS... Motrin PRN PERTINENT PAST HISTORY... Pyelonephritis ASSESSMENT: Constipation-(child > 4 months)-triage guideline DISPOSITION: HOME CARE PLAN: RECOMMENDED THE FOLLOWING... Referenced guideline Constipation-(child > 4 months)-triage guideline. -Give 2-4 ounces of fruit juice once or twice a day or one ounce of prune juice in 4 ounces of formula or water daily -Decrease intake of constipating foods -Insert glycerin suppository rectally if constipation is acute and the child has the sensation of needing a BM -Increase fluids -Mix prune juice 1:1 with 7-Up and give daily until stools become softer -Increase roughage -Decrease milk to 10 ounces/day Patient information given per Constipation nurse guidelines. Normal grunting, hard BM's or BM's every 2-3 days can be a part of a normal defecation pattern and does not indicate constipation. Laxatives are not recommended as the bowel can become dependent on them. Encourage children with a history of constipation to sit on the toilet after meals or at regular times. Have the child bend forward Verbalizes understanding and agrees with phone care recommendation INFORMED PATIENT TO CALLBACK IF... Reasons to call back reviewed- caller verbalizes understanding of the need to call back for the following reasons: -Symptoms persist or worsen -No improvement with home management -Any other questions or concerns CALL BY BRYAN VIRAMONTES RN 09/25/2003 02:05PM [phone] ADDENDUM: OLOGY AIDE Phone Note, Clinician - 09/12/2003 12:01 AM CST Phone Note filed by Clinician Phone Note at 11/11/10 9241 Author: Clinician Phone Note Service: (none) Author Type: Resource Filed: 11/11/10 1321 Note Time: 09/12/03 0001 Status: Signed Aboriginal Community [employer] Member: Clinician Phone Note (Resource) SUBJECTIVE: ALLERGIES/SENSITIVITIES... NKDA * HOME PHONE:[phone] * CURRENT MEDICATIONS... Motrin PRN * CONTACT PHONE:[phone] * PERTINENT PAST HISTORY... Pyelonephritis ASSESSMENT: Growing pains DISPOSITION: NO DISPOSITION GIVEN PLAN: [facility] [place]... Mom calling and daughter has been waking up in the morning and complai sue of pain in her knees. She is wondering if this is possible growi ng pains. SHe gets up and limps a little and then it disappears and s he plays like normal the rest of the time. Explained to her that they can have growing pains during growing times. The difference that nee ds to be watched that most of the time it should not bother her and sh e can do her noraml activities without complaining. They notice the d iscomfort mainly at night or nap time and first time in the morning. Suggested Motrin can be used vs Tylenol. Pt agreeable with advise and will call back with further qts or concerns. CALL BY YANDY LOVE RN 09/12/2003 09:10AM [phone] ADDENDUM: OLOGY AIDE Bart Salomon MD - 05/25/2003 12:01 AM CST H&P signed by Bart Salomon MD at 04/18/04 9897 Author: Bart Salomon MD Service: (none) Author Type: Physician Filed: 11/13/10 1649 Note Time: 05/25/03 0001 Status: Signed Aboriginal [employer] Member: Bart Salomon MD (Physician) NAME: QUE ZAMORA MR: [id number] ACCT: [id number] VISIT: [id number] DICTATING CLINICIAN: BART SALOMON MD JOB: [id number] CLINIC PHYSICAL DATE OF VISIT: 05/25/2003 SUBJECTIVE: Que is a 3-year-old here for her well-child visit. The parents have no concerns. She is a good eater, has been drinking whole milk, has daily bowel movements which are generally easy to pass. Occasionally, she will have a hard one. Sleeps through the night, one nap during the day. Developmentally, passes the [place] screen. Please refer to the form in the chart. SOCIAL HISTORY: Lives at home with her parents. They are using appropriate carseat. No tobacco exposure. MEDICATIONS: She is on no medications. ADR/ALLERGIES: NO KNOWN DRUG ALLERGIES. OBJECTIVE: VS: Ht: 33-3/4 in, 50th percentile. Wt: 29 lb, 75th percentile. The remainder of the exam is normal, see well-child shingle. ASSESSMENT: Healthy 3-year-old. PLAN: Routine anticipatory guidance given. Can switch to skim milk. Parents have a new house with well water, so will send it to the [facility] for testing to see if she needs additional fluoride. Received Prevnar immunization today. Next visit at . IMPRESSION: Healthy 3-year-old. TT: CT: [id number] C: 05/28/03 05:42 DOCUMENT: [id number] Bart Salomon MD - 05/16/2003 12:01 AM CDT Progress Notes signed by Bart Salomon MD at 04/18/04 2132 Author: Bart Salomon MD Service: (none) Author Type: Physician Filed: 11/13/10 1638 Note Time: 05/16/03 0001 Status: Signed Aboriginal Community Council Member: Bart Salomon MD (Physician) NAME: QUE ZAMORA MR: [id number] ACCT: [id number] VISIT: [id number] DICTATING CLINICIAN: BART SALOMON MD JOB: [id number] CLINIC PROGRESS NOTE DATE OF VISIT: 05/16/2003 SUBJECTIVE: A 62-phkrq-xhv here for a red eye with mattering for one day. There was an exposure at day care to pinkeye. She has had a cough and runny nose for 10 to 14 days and been waking up at night and more fussy. She has had no fevers, no vomiting, no diarrhea. Drinking okay. MEDICATIONS: She is on no medications. ADR/ALLERGIES: HAS NO KNOWN DRUG ALLERGIES. OBJECTIVE: VS: T: 99 rectally. P: 120. Wt: 29-1/2 lb. Well appearing. CONJUNCTIVAE: Injected bilaterally, right greater than left. Pupils equal and reactive to light. Extraocular movements are intact. There is no erythema around the eye. Both TMs are normal. NOSE: Has crusted rhinorrhea. OROPHARYNX: Moist. No lesions. NECK: Supple without adenopathy or masses. LUNGS: Clear to auscultation. ASSESSMENT: 1. Viral URI with cough. 2. Conjunctivitis. PLAN: Polytrim one to two drops each eye three times a day until redness resolves. Follow up if any redness or swelling around the eye. FINAL IMPRESSION: Conjunctivitis. TT: CT: [id number] C: 05/16/03 09:29 DOCUMENT: [id number] Woodrow Skaggs MD - 12/12/2002 12:01 AM CDT Progress Notes signed by Woodrow Skaggs MD at 12/15/02 1049 Author: Woodrow Skaggs MD Service: (none) Author Type: Physician Filed: 11/13/10 1412 Note Time: 12/12/02 0001 Status: Signed Aboriginal Community Council Member: Woodrow Skaggs MD (Physician) NAME: QUE ZAMORA MR: [id number] ACCT: [id number] VISIT: [id number] DICTATING CLINICIAN: WOODROW SKAGGS MD JOB: [id number] CLINIC PROGRESS NOTE DATE OF VISIT: 12/12/2002 SUBJECTIVE: This 80-sxdms-klp girl was injured today, approximately an hour prior to this evening's urgent care visit. She was jumping down one step, when she seemed to fall. Since that time, has been unable to bear weight on her right foot. This prompts mom and grandma to bring her here to urgent care. She has otherwise been healthy. Has no chronic medical problems or known allergies. Once she arrives here in urgent care, though, she is able to walk with a slight limp with the right leg. She does araseli grandma down the hallway quite dexterously. She has been walking since the age of 12 months. ADR/ALLERGIES: NONE. OBJECTIVE: VS: T: 97. P: 120. R: 22. There is no visible swelling or deformity of either leg or foot. There is scattered healing ecchymosis along both anterior tibial regions. Hip range of motion is symmetric and pain free in internal and external rotation, flexion and extension. There is no palpable swelling or tenderness by the knee. No lateral or medial instability. Negative drawer sign. No effusions. There is some questionable tenderness over the right mid anterior tibial region when compared to the left. No ankle, foot or toe swelling, tenderness or deformity. The feet are warm with less than 1 second capillary filling time. X-ray from the right knee to the right ankle appears to be completely unremarkable to my interpretation. ASSESSMENT: Right leg contusion. PLAN: I noted to mom and grandma that since she returned from urgent care, she appears to be walking normally now with a barely perceptible limp. I did note if the radiologist sees something on x-ray that I did not, that they would be informed. Likewise, should they notice that her limp worsens or if there should be further problems or concerns, that they be rechecked. TT: CT: [id number] C: 12/13/02 15:20 DOCUMENT: [id number] Bart Salomon MD - 11/20/2002 12:01 AM CDT Progress Notes signed by Bart Salomon MD at 09/28/03 1451 Author: Bart Salomon MD Service: (none) Author Type: Physician Filed: 11/13/10 1350 Note Time: 11/20/02 0001 Status: Signed Aboriginal Community Council Member: Bart Salomon MD (Physician) NAME: QUE ZAMORA MR: [id number] ACCT: [id number] VISIT: [id number] DICTATING CLINICIAN: BART SALOMON MD JOB: [id number] CLINIC PROGRESS NOTE DATE OF VISIT: 11/20/2002 SUBJECTIVE: An 14-jmcqd-yrv here for poor sleep. Wakes up at night, wants to crawl into her parent's bed and then when she is there, she sleeps fine. Was seen in the emergency room two weeks ago with a runny nose and cough and mouth sores. That has resolved. Occasionally mom will see her digging in her ears. Her appetite is somewhat decreased. Her energy level is fine. She no longer has any fever or cough. She is on no medications. ADR/ALLERGIES: HAD NO KNOWN DRUG ALLERGIES. OBJECTIVE: VS: T: 97.4 Well-appearing toddler. Conjunctivae are clear. TMs are normal. Nose without discharge. Oropharynx is moist. NECK: Supple without adenopathy or masses. ASSESSMENT: Trained night wakening, most likely as a result of her recent illness. Normal ears. PLAN: Discussed night wakening again and letting her cry herself to sleep. Follow up if any worsening symptoms. TT: CT: [id number] C: 11/21/02 11:11 DOCUMENT: [id number] OLOGY AIDE Phone Note, Clinician - 10/22/2002 12:01 AM CST Phone Note filed by Clinician Phone Note at 11/11/10 1059 Author: Clinician Phone Note Service: (none) Author Type: Resource Filed: 11/11/10 1059 Note Time: 10/22/02 0001 Status: Signed Aboriginal Community Council Member: Clinician Phone Note (Resource) - REFERRED PATIENT TO EMERGENCY ROOM * HOME PHONE:[phone] * SUBJECTIVE: PATIENT COMPLAINS OF... -Shaking chills this evening with fever of 104. 3 day history of cough, congestion and fever. Restless sleep. Willing to look at a book, wanting to be held. Motrin 3 hours ago, fever now 104. Decreased fluid intake and diapers not as wet. Tears are present. Breathing is deeper. 911 sx are not present. ALLERGIES/SENSITIVITIES... NKDA 10/22/02 CURRENT MEDICATIONS... Motrin dose at 3 pm today. 10/22/02 PERTINENT PAST HISTORY... Pyelonephritis. 10/22/02 ASSESSMENT: VURI-(child 3 months to 3 years old)-triage guideline DISPOSITION: EMERGENCY PLAN: RECOMMENDED THE FOLLOWING... Referenced guideline VURI-(child 3 months to 3 years old)-triage guideline. Schedule stat appointment with provider : recommended evaluation at [facility] ER. Assure patient safety : father is able to bring child to ER. Patient information given [place] nurse guidelines. Verbalizes understanding and agrees with phone care recommendation INFORMED PATIENT TO CALLBACK IF... Reasons to call back reviewed- caller verbalizes understanding of the need to call back for the following reasons: -Any other questions or concerns CALL BY EMANUEL MEI SIMONA 10/22/2002 06:38PM ADDENDUM: Bart Cervantes MD - 08/25/2002 12:01 AM CST Progress Notes signed by Bart Salomon MD at 12/29/02 0810 Author: Bart Salomon MD Service: (none) Author Type: Physician Filed: 11/13/10 1214 Note Time: 08/25/02 0001 Status: Signed Aboriginal Community Council Member: Bart Salomon MD (Physician) IMPRESSION: Healthy 95-kqeho-zqv. SUBJECTIVE: This 19-abfmt-iwu is here for a well child visit. Parents have no concerns except for when she is in her car seat or high chair she will make these wiggling movements. They do not seem rhythmic, no postictal phase. It does not seem like she is in pain. Unsure what the movements are, may just be a movement she likes to do or does not like being confined. We will continue to follow it. She is drinking from a sippy cup. She is eating all table foods. She has daily bowel movements but they are easy to pass. She sleeps through the night. Developmentally, she passes the [place] Screening. Please refer to the form in the chart. SOCIAL HISTORY: She lives at home with her parents. They are using the appropriate car seat. No tobacco exposure. MEDICATIONS: She is on no medications. ADR/ALLERGIES: SHE HAS NO KNOWN DRUG ALLERGIES. PAST MEDICAL HISTORY: Significant for hospitalization at [facility], May 2002, for pyelonephritis. She had a VCUG and renal ultrasound which were normal. OBJECTIVE: VS: Ht: 29-1/2 in., 40th percentile. Wt: 23 lb. 14 oz., 50th percentile. OFC: 48 cm., 95th percentile. Well-appearing child. Anterior fontanelle is soft and flat. Head shape is normal. Pupils equal and reactive to light. Extraocular movements are intact. Red reflex present bilaterally. Both TMs are normal. Nose without discharge. Oropharynx is moist, no erythema, exudate or lesion. NECK: Supple without adenopathy or masses. LUNGS: Clear. HEART: Regular rate and rhythm without murmur. ABDOMEN: Soft. No organomegaly or masses. Femoral pulse is 2+ bilaterally. HIPS: Normal without clicks. Symmetric leg length. Nasim 1 female genitalia. EXTREMITIES: Have full range of motion, normal bulk and tone. SKIN: Without rash. ASSESSMENT: Healthy 15-zuyyf-jwq. PLAN: Routine anticipatory guidance given. Received DTaP/HIB immunization today. Discussed appetite fluctuations, temper tantrums and language development. Next visit at 3 years of age. TT: CT: [id number] C: 08/26/02 06:21 DOCUMENT: [id number] Conversion, [facility] - 06/28/2002 12:01 AM CST Phone Note signed by at 06/28/02 0935 Author: [facility] Conversion Service: (none) Author Type: (none) Filed: 11/13/10 1055 Note Time: 06/28/02 0001 Status: Signed Aboriginal Community Council Member: Joey Conversion IMPRESSION: RASH TO: BART SALOMON FROM: LYNDA PEPPER LPN [phone] * PROVIDER MESSAGE: ROUTINE * 06/28/02 09:35AM * *WITHIN 4 HOURS * MESSAGE: On Sulfatrim qd...this AM * HOME PHONE:[phone] * noted raised bumps on abdomen and * CONTACT PHONE:[phone] * legs, not blistery or red. Does not * mom at work * seem to be itchy or bothersome. MMR and Varicella given on 06/08. Renal US and VCUG scheduled to tomorrow. SUBJECTIVE: ALLERGIES/SENSITIVITIES... NKA 05/26/02 CURRENT MEDICATIONS... Motrin at 12 noon; tylenol at 5:00PM 05/26/02 PERTINENT PAST HISTORY... 05/26/02 WEIGHT: ASSESSMENT: RASH PLAN: DISPOSITION: NO DISPOSITION GIVEN CALL BY LYNDA PEPPER LPN 06/28/2002 09:31AM [phone] ADDENDUM: <> 06/28/2002 02:11PM by LYNDA PEPPER LPN: Per , Around varicella injection site it is red too, there- fore think it is a reaction to varicella vaccine, not the sulfa. Will not give sullfa tomorrow and she will have VCUG, if VCUG normal then can skip sulfa anyway. OLOGY AIDE Bart Salomon MD - 06/08/2002 12:01 AM CST Progress Notes signed by at 09/16/022041 Author: Bart Salomon MD Service: (none) Author Type: Physician Filed: 11/13/10 1027 Note Time: 06/08/022041 Status: Signed Aboriginal Community Council Member: Bart Salomon MD (Physician) IMPRESSION: Pyelonephritis, improved. Night wakening. SUBJECTIVE: A 2-year-old here for followup of pyelonephritis. She was hospitalized from May 27 to May 30 for pyelonephritis. Urine culture had greater than 100,000 E. coli. Received Rocephin throughout her hospitalization. She was sent home on Augmentin. She has been doing well during the day. The fever broke within 24 hours of leaving the hospital. Her appetite is increasing. She is happy and playful during the day, has had good urine output. The only problem is, she has had hard time adjusting to sleeping. Want her parents there to rock her to sleep. She has had some runny stools because of the Augmentin, and a little diaper rash, but no other complaints. She finished her Augmentin therapy yesterday. ADR/ALLERGIES: HAS NO KNOWN DRUG ALLERGIES. OBJECTIVE: On exam, well-appearing child. Conjunctivae are clear. TMs are normal. Nose without discharge. Oropharynx is moist. No erythema, exudate or lesion. NECK: Supple without adenopathy or masses. LUNGS: Clear. ABDOMEN: Soft. No organomegaly or masses. Normal active bowel sounds. There was a bag over her diaper area to collect urine at the time of my exam. We we unable to get a bag specimen, so resorted to cathed urine specimen which was negative on UA. Urine culture is pending. ASSESSMENT: 1. Cjo-xlzm-dix with pyelonephritis, resolving. Still awaiting urine culture for confirmation of complete treatment. Need to rule out vesicoureteral reflux. Also had asymmetric kidney size on the renal ultrasound in the hospital and needs followup of that. Therefore, a VCUG and renal ultrasound were scheduled for June 29. While awaiting that study, she will be on prophylactic Bactrim 40 mg/5 ml, 1 tsp p.o. q.d. 2. Night wakening. If urine culture is negative, would start to let Que cry herself back to sleep. 3. Que received her MMR and varicella vaccines today because she did not get them at her 2-year checkup because of fever at that time. PLAN: See above. TT: CT: [id number] C: 06/09/02 11:24 DOCUMENT: [id number] OLOGY AIDE Conversion, [facility] - 05/26/2002 12:01 AM CST Phone Note signed by at 05/26/02 2488 Author: [facility] Conversion Service: (none) Author Type: (none) Filed: 11/13/10 1009 Note Time: 05/26/022041 Status: Signed Aboriginal Community Council Member: Joey Conversion IMPRESSION: Fever-(3months to 3 years)-triage guideline SUBJECTIVE: PATIENT COMPLAINS OF... Fever, * HOME PHONE:[phone] * 104.5 rectal,had been sleeping and then sitting on dad's lap. Had temp today when in for 2 yr well ck Everything checked out negative, but urine specime n sent to lab for rule out UTI. ALLERGIES/SENSITIVITIES... NKA 05/26/02 CURRENT MEDICATIONS... Motrin at 12 noon; tylenol at 5:00PM 05/26/02 PERTINENT PAST HISTORY... 05/26/02 ASSESSMENT: Fever-(3months to 3 years)-triage guideline DISPOSITION: HOME CARE PLAN: RECOMMENDED THE FOLLOWING... Referenced guideline Fever-(3months to 3 years)-triage guideline. -Dress lightly -Encourage increased intake of clear liquids -Give acetaminophen as directed for discomfort told dad they can alternate motrin and acetaminoph en q 3 hrs. States he understands. Caregiver to observe appearance and behavior and call back if child remains uncomfortable or if symptoms worsen. Patient information given per Fever nurse guideline. Verbalizes understanding and agrees with phone care recommendation INFORMED PATIENT TO CALLBACK IF... Reasons to call back reviewed- caller verbalizes understanding of the need to call back for the following reasons: -Serious symptoms develop -Any other questions or concerns CALL BY JILLIAN ALLISON RN 05/26/2002 06:56PM [phone] ADDENDUM: Bart Cervantes MD - 05/26/2002 12:01 AM CST Progress Notes signed by at 08/12/02 0446 Author: Bart Salomon MD Service: (none) Author Type: Physician Filed: 11/13/10 1008 Note Time: 05/26/02 0001 Status: Signed Aboriginal Community Council Member: Bart Salomon MD (Physician) IMPRESSION: A 2-year-old checkup, febrile illness. SUBJECTIVE: A 2-year-old here for a well-child visit, however, she has been sick. She has had a fever of 103.5 since yesterday. A little sneeze, a little cough, but nothing significant. No rash, no vomiting, no diarrhea. She is on formula and eats all table foods. Has daily bowel movements which are easy to pass. Recently, she has been up at night since she has been having a fever and sick. Developmentally, passes the [place] screen, please refer to the form in the chart. SOCIAL HISTORY: Lives at home with her parents. They are using appropriate car seat. No tobacco exposure. MEDICATIONS: She is on no medications. ADR/ALLERGIES: HAS NO KNOWN DRUG ALLERGIES. OBJECTIVE: VS: T: 101.5 rectally. Ht: 29-1/4 in, 50th percentile. Wt: 21 lb 10 oz, 65th percentile. OFC: 48 cm, 95th percentile. Alert, tired appearing toddler, but is able to smile and interact. Anterior fontanel is soft and flat. Conjunctivae are clear. Both TMs are normal. Pupils equal and reactive to light. Extraocular movements are intact. Nose is without discharge. Oropharynx is moist, no erythema, exudate or lesion. NECK: Supple without adenopathy or masses. LUNGS: Clear to auscultation, no wheezes or crackles. HEART: Has a regular rate and rhythm without murmur. ABDOMEN: Soft, no organomegaly or masses. Femoral pulses 2+ bilaterally. HIPS: Normal with symmetric leg lengths. Nasim I female genitalia. Anus is patent. SPINE: Straight. EXTREMITIES: Full range of motion, normal bulk and tone. SKIN: Without rash. Parents say that the cough, although intermittent, has been present for two to three weeks, so I did do a chest x-ray which was negative, no infiltrate. Given the fever without an apparent viral source at this point, I did do a cath urinalysis. Specific gravity 1.015, pH 7.5, negative nitrites, small leukocyte esterase, 0 white cells, 0 red cells. There was 100 mg per dl of protein. Perhaps because of her fever. Specimen was sent for urine culture. ASSESSMENT: 1. A 2-year-old with normal growth and development. 2. Febrile illness, most likely viral, but need to await urine culture to completely rule out urinary tract infection. PLAN: Routine anticipatory guidance was given, one-year handout given. Symptomatic treatment for the fever, Tylenol or Motrin as needed. We will await 24-hour urine culture and treat if positive. If urine culture negative, we will continue to watch her closely over the weekend. Follow up if any persistence of fever beyond five days or any worsening cough or any other signs of illness. Once she is well, she will come back in for her one-year immunizations to include MMR and varicella and we will get a bag UA to insure resolution of the proteinuria. TT: CT: [id number] C: DOCUMENT: [id number] OLOGY AIDE Gissel Cisneros MD - 05/16/2002 12:01 AM CDT Progress Notes signed by Gissel Cisneros MD at 05/17/02 0958 Author: Gissel Cisneros MD Service: (none) Author Type: Physician Filed: 11/13/10 0953 Note Time: 05/16/02 0001 Status: Signed Aboriginal Community Council Member: Gissel Cisneros MD (Physician) IMPRESSION: URI, new fever. SUBJECTIVE: Que is a 2-year-old who comes in having had a cold for the last week with some cough. Her cough has not been croupy, but she started getting a little more fussy, was up a lot last night. She had a 100.7 temperature yesterday. Appetite has been off. She has been drinking a lot. She is having wet diapers. ADR/ALLERGIES: NONE. OBJECTIVE: VS: Wt: 22 lb. In general, she is an alert 2-year-old in no acute distress. Conjunctivae clear. TMS: Clear. OROPHARYNX: Clear. NECK: Supple without adenopathy. LUNGS: Clear to auscultation. ASSESSMENT: URI, new fever. PLAN: I would observe for now. Certainly if her fever persists or other concerns or questions arise, they should let us know. TT: CT: [id number] C: DOCUMENT: [id number] Bart Salomon MD - 03/17/2002 12:01 AM CDT Progress Notes signed by Bart Salomon MD at 04/18/02 0925 Author: Bart Salomon MD Service: (none) Author Type: Physician Filed: 11/13/10 0831 Note Time: 03/17/02 0001 Status: Signed Aboriginal Community Council Member: Bart Salomon MD (Physician) IMPRESSION: Fever, probable viral illness. SUBJECTIVE: Que is a 71-xsurw-mjz who parents bring in for fever. The fever started three nights ago. Last night it was as high as 103.3. It seems to go down with Tylenol or Motrin but then spikes up again. The last Motrin was at noon today. The other thing is that she seems to be throwing up. The parents say that she throws up more when her temp is up high and they have tried to give her Motrin and then she will throw that up as well as the formula. Threw up this morning. There has been no blood or bile in the emesis. She has also had frequent loose stools throughout the week as well which parents describe as blow outs. However, she has had no stools today. She has had decreased urine output. But still drooling. Parents have offered her formula, juice and some water. She has been a little more fussy. Now that her temp is down, currently in clinic, she has been more playful and interactive and actually smiling. She has had no real cold symptoms or cough. No known sick exposures . She has never had a bladder or kidney infection before. MEDICATIONS: Her only medication is Motrin. ADR/ALLERGIES: SHE HAS NO KNOWN DRUG ALLERGIES. OBJECTIVE: VS: T: 100.4 rectally. Wt: 20 lb, 10 oz, naked. Alert, smiley, interactive . Anterior fontanel is soft and flat. Conjunctivae are clear. Both TMs are pearly gardner with ??normal landmarks and light reflex.?? Nose is without discharge. Oropharynx is moist, there is drool present, there are no lesions or exudate. Neck is supple without adenopathy. Lungs have good air exchange and they are clear to auscultation. Heart has a regular rate and rhythm. Heart rate was 150. Capillary refill less than 2 seconds. Femoral pulses 2+ bilaterally. Abdomen was soft, nontender, nondistended, with normoactive bowel sounds, no organomegaly or masses. Nasim 1 female genitalia. Extremities have full range of motion, normal bulk and tone. There was this faint erythematous, maculopapular rash seen mostly on her cheeks, some on her lower extremities and abdomen. It blanches. There were no pustules or petechiae. Looks as if it is a viral exanthem. ASSESSMENT: A 93-ptigx-kqs with fever, vomiting, and diarrhea. Most likely viral illness. Now favor that especially with the rash. The temp now is the lowest it has been all week so perhaps now that the rash is showing up today the fever has broken. Has had decreased number of wet diapers and is at risk for dehydration but currently has a normal heart rate and good capillary refill and plenty of drool. PLAN: Careful observation. Frequent small sips of fluids, could try formula or Pedialyte or juice, which ever she will take and tolerate. Work on keeping the fever down and keep her comfortable. Did discuss with parents how there is a small chance that this may be urinary tract infection with fever and vomiting in a child, however, urinary tract infection would not cause this rash which looks viral. Therefore, will observe carefully over the next 24 to 48 hours. If still has persistent fever or shows signs of dehydration should come back in for evaluation. TT: CT: [id number] C: DOCUMENT: [id number] Bart Salomon MD - 02/08/2002 12:01 AM CDT Progress Notes signed by at 08/12/02 1839 Author: Bart Salomon MD Service: (none) Author Type: Physician Filed: 11/13/10 0739 Note Time: 02/08/02 0001 Status: Signed Aboriginal Community Council Member: Bart Salomon MD (Physician) IMPRESSION: Healthy 9-month-old. SUBJECTIVE: A 9-month-old here for her well child visit. Parents have no real concerns, needs an ear recheck. Is finishing her last dose of Augmentin today. She is doing well. She is on Similac with iron, eating baby foods and table foods, having daily bowel movements which are easy to pass. Occasionally, they will be hard and parents will manipulate diet, increase prune juice and give her more fruits, which seems to help. Sleeps through the night, two naps during the day. Developmentally, passes the [place] screen, please refer to this on the chart. SOCIAL HISTORY: Lives at home with her parents. She attends daycare. There is an appropriate car seat, no tobacco exposure. She is on no medications. ADR/ALLERGIES: HAS NO KNOWN DRUG ALLERGIES. PAST MEDICAL HISTORY: Unremarkable. OBJECTIVE: VS/GEN: Ht: 27-1/2 in, 50th percentile. Wt: 19 lb 14 oz, 75th percentile. OFC: 47 cm, 97th percentile. Well appearing child. HEENT: Anterior fontanel is soft and flat. Head shape is normal, but large. Pupils equally reactive to light. Extraocular movements are intact. Red reflex present bilaterally. Eyes appear normal alignment with light reflex test. Both TMs are normal. Nose is without discharge. Oropharynx moist, no erythema, exudate or lesion. NECK: Supple without adenopathy or masses. LUNGS: Clear. CV: Regular rate and rhythm without murmur. ABD: Soft, no organomegaly or masses. Femoral pulses 2+ bilaterally. : Nasim I female genitalia. Anus patent. SPINE: Straight. SKIN: Without rash. EXTREMITIES: Hips normal without clicks, symmetric skin folds. Full range of motion. Normal bulk and tone. ASSESSMENT: 1. A 9-month-old with normal growth and development. 2. Resolved otitis. 3. Macrocephaly. In looking at the father and per his report, there is a family history of large heads in both the father and the paternal grandfather. 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 We will continue to follow this closely. PLAN: Routine anticipatory guidance given. Received IPV, hepatitis B. Discussed further advancement to table foods. We will check hemoglobin today. Next well visit at [age] year of age. TT: CT: [id number] C: DOCUMENT: [id number] Henrry Pemberton MD - 01/30/2002 12:01 AM CDT Progress Notes signed by at 09/16/02 0001 Author: Henrry Adamson MD Service: (none) Author Type: Physician Filed: 11/13/10 0725 Note Time: 01/30/02 0001 Status: Signed Aboriginal Community Council Member: Henrry Adamson MD (Physician) IMPRESSION: Conjunctivitis, ceruminosis, rule out otitis media. SUBJECTIVE: Here with runny nose and cough for three weeks. Her eyes have become mattery the past 48 hours and mom did not clean her up so that I could appreciate her pink eye. She is in a daycare environment but has not had any ear infections in the last month. She has been up at night the past few nights also, although she has been afebrile. ADR/ALLERGIES: HAS NO KNOWN ALLERGIES. OBJECTIVE: VS/GEN: T: 99.6 rectally. Wt: 19 pounds 4 ounces. She appears alert, in no acute distress and even cooperative with her exam. HEENT: Eyes are 3-4+ mattery and injected with a little bit of erythema 1+ of the lower lid left worse than right, but no significant swelling or narrowing of the palpebral fissures. Extraocular eye movements normal. Pupils equal and reactive. Ears full of cerumen bilaterally. Nose is 2+ congested. Throat normal. NECK: No cervical adenopathy. LUNGS: Clear without crackles or wheezes. CV: Heart normal. ABD: Normal. ASSESSMENT: Conjunctivitis, ceruminosis, rule out otitis media. PLAN: I was able to partially curette out most of the wax revealing a dull eardrum on the right. Plan will be because of the combination of otitis and conjunctivitis, Augmentin 600 ES 1/2 tsp. b.i.d. for ten days with ear recheck at her next well child exam due in about a month, sooner p.r.n. concerns. TT: CT: [id number] C: DOCUMENT: [id number] Woodrow Landin MD - 01/20/2002 12:01 AM CDT Progress Notes signed by at 09/16/02 0001 Author: Woodrow Skaggs MD Service: (none) Author Type: Physician Filed: 11/13/10 0714 Note Time: 01/20/02 0001 Status: Signed Aboriginal Community Council Member: Woodrow Skaggs MD (Physician) IMPRESSION: Oral thrush. Croup. SUBJECTIVE: This 8-month-old girl is brought in by her father because of a cough. She has had some chest congestion over the past three days. Today had a very barky cough for the first time, and he brings her in to have this checked. She has not had a fever with this. She has been a bit fussy, has had a runny nose. Is eating and drinking just a little bit less than usual. Is at the end of a two-week course of nystatin for oral thrush. Had otitis several weeks prior to this. She is otherwise healthy without other chronic medical problems. ADR/ALLERGIES: NONE. OBJECTIVE: VS/GEN: T: 97.9. P: 128. R: 28. O2 saturation: 97% on room air. On exam, she appears to be comfortable, cheerful, in no acute distress, sitting comfortable in dad's lap. She is not using any accessory muscles of respiration. There is no stridor present. HEENT: Nares and oropharynx are both moderately injected. There are a few patches of thrush on her tongue, small pinhead-sized areas, but the remainder of the oropharynx is without patches of Adri that I am able to see. Both tympanic membranes are pearly torres. NECK: There is some minimal anterior and posterior cervical adenopathy. LUNGS: Lung farias are clear to auscultation with excellent air entry. SKIN: Turgor is excellent. ASSESSMENT: Oral thrush. Croup. PLAN: She did cough several times here in urgent care, and it does sound like a slightly croupy cough. I suggested that should this be continuing at home, to use a change in humidity, either turning the hot water on in the shower to steam up the bathroom or taking her outside in the cooler evening air. Should it pose a problem where she has any trouble breathing though, any discoloration of her skin, blueness, etc., or unusual breathing, to be immediately reevaluated in urgent care or in emergency department. Since the oral thrush seems not to have completely cleared despite being at the end of the prescription, I suggest using it for another week rather than changing to another medication, as it seems to have mostly resolved it. Should there be problems at any point, to be rechecked back in urgent care. Otherwise, to follow up in primary care for their scheduled followups. TT: CT: [id number] C: DOCUMENT: [id number] OLOGY AIDE Conversion, [facility] - 01/12/2002 12:01 AM CDT Phone Note signed by at 01/12/022041 Author: Imr Conversion Service: (none) Author Type: (none) Filed: 11/13/1003 Note Time: 01/12/022041 Status: Signed Aboriginal Community Council Member: Joey Conversion IMPRESSION: Fever-(3months to 3 years)-triage guideline SUBJECTIVE: PATIENT COMPLAINS OF... Fever, * HOME PHONE: [phone] * -> 6 months of age, child remains uncomfortable after trial of home management ;pt has a temp of 102.9 ear and has been tired all day; no cold sx; did wake up last noc which is not normal for pt; is drinking and wetting, in smaller amts however; no other sx at this time ; ; -Denies urgent or semi-urgent symptoms ALLERGIES/SENSITIVITIES... CURRENT MEDICATIONS... PERTINENT PAST HISTORY... ASSESSMENT: Fever-(3months to 3 years)-triage guideline DISPOSITION: HOME CARE PLAN: RECOMMENDED THE FOLLOWING... Referenced guideline Fever-(3months to 3 years)-triage guideline. -Give ibuprofen as directed -Dress lightly -Encourage increased intake of clear liquids -Spongebaths with lukewarm water may offer some comfort Caregiver to observe appearance and behavior and call back if child remains uncomfortable or if symptoms worsen. Patient information given per Fever nurse guideline. INFORMED PATIENT TO CALLBACK IF... Reasons to call back reviewed- caller verbalizes understanding of the need to call back for the following reasons: -Serious symptoms develop -Fever continues without other symptoms of illness for > 72 hours -Any other questions or concerns Call taken by OSWALDO MONROY, YAMILEX [phone] 01/12/2002 08:33 PM ADDENDUM: Bart Cervantes MD - 01/04/2002 12:01 AM CDT Progress Notes signed by at 09/16/02 0001 Author: Bart Salomon MD Service: (none) Author Type: Physician Filed: 11/13/10 0652 Note Time: 01/04/022041 Status: Signed Aboriginal Community Council Member: Bart Salomon MD (Physician) IMPRESSION: URI with cough. Thrush. SUBJECTIVE: Fqiwq-pqeaq-zln here for runny nose and cough. It has been present for a week. Her voice sounds kind of hoarse when she cries. She has had no fever. Has had decreased appetite. Yesterday at daycare they noticed that when she was sitting she would topple over. However, Mom has not noticed that today or last night. She is sitting well and playful. This morning they noticed that she had dry lips. There are cold sores in the family. Both mom and Dad get them, but they have not had them recently. She is on no medications but recently finished antibiotics for an otitis. ADR/ALLERGIES: She has no known drug allergies. OBJECTIVE: VS/GEN: T: 99.2 rectally. Wt: 19 lb 8 oz. Well-appearing infant. HEENT: Anterior fontanelle is soft and flat. Conjunctivae are clear. TMs are normal. Nose has crusted rhinorrhea. Oropharynx is moist. There are white plaques adherent to the inner surface of the upper lip and lower lip bilaterally. There is a little on the left buccal mucosa and some on the posterior soft palate. NECK: Supple without adenopathy. LUNGS: Have good air entry and are clear to auscultation. No wheezes or crackles. She is sitting well. ASSESSMENT: 1. Viral URI with cough. 2. Thrush. PLAN: 1. Symptomatic treatment for the cold and cough. Follow up if any worsening cough or any fever. 2. Nystatin suspension, 1 cc to each side of the mouth four times a day for 10-14 days. If no improvement of thrush in this period, come back for re-evaluation. Could consider fluconazole at that time. TT: CT: JOHN:[id number] C: DOCUMENT: [id number] OLOGY AIDE Bart Salomon MD - 2001 12:01 AM CDT Progress Notes signed by at 09/16/022041 Author: Bart Salomon MD Service: (none) Author Type: Physician Filed: 11/13/10 0625 Note Time: 12/15/012041 Status: Signed Aboriginal Community Council Member: Bart Salomon MD (Physician) IMPRESSION: Resolved otitis. SUBJECTIVE: Que is a 7-month-old here for an ear recheck. Was diagnosed with a otitis media, by Dr. Mcmullen, on December 03. At that time, had left otitis media and right serous otitis. Was put on amoxicillin. Mom said, after being on the medicine for three days, Que started feeling much better. She has had no cold symptoms, no cough. Has been active and playful and eating well. She is on no medications. ADR/ALLERGIES: HAS NO KNOWN DRUG ALLERGIES. OBJECTIVE: VS/GEN: Well-appearing child. HEENT: Anterior fontanel is soft and flat. Conjunctivae are clear. Both TMs are pearly torres with normal landmarks and light reflex. Nose is without discharge. Oropharynx is moist. No erythema, exudate, or lesion. NECK: Supple without adenopathy or masses. LUNGS: Clear. ASSESSMENT: Resolved otitis. PLAN: Follow up at next well-child visit. TT: CT: JOHN:[id number] C: DOCUMENT: [id number] Brian Chacko MD - 2001 12:01 AM CDT Progress Notes signed by Brian Mcmullen MD at 09/18/02 1736 Author: Brian Mcmullen MD Service: (none) Author Type: Physician Filed: 11/13/10 0608 Note Time: 01 0001 Status: Signed Aboriginal Community Council Member: Brian Mcmullen MD (Physician) IMPRESSION: Left otitis media and right serous otitis. SUBJECTIVE: Que comes in today for possible ear infection. She has had congestion and cough for the last couple of weeks. Was seen a few days ago and negative chest x-ray. No fever but now getting worse, more up at night, decreased appetite today and more fussy. ADR/ALLERGIES: NO ALLERGIES. OBJECTIVE: VS/GEN: T: 99.7, rectally. Wt: 18 lb 7 oz. She is alert, well hydrated, no distress. HEENT: Left TM is dull and reddened. Right TM is dull. Pharynx normal. LUNGS: Clear. ABD: Soft, nontender. ASSESSMENT: Left otitis media and right serous otitis. PLAN: Amoxicillin ??250?? per teaspoon, one teaspoon b.i.d. times 10 days. Recheck three weeks or p.r.n. TT: CT: [facility]:[id number] C: DOCUMENT: [id number] OLOGY AIDE Bart Salomon MD - 2001 12:01 AM CDT Progress Notes signed by at 09/16/02 0001 Author: Bart Salomon MD Service: (none) Author Type: Physician Filed: 11/13/10 0604 Note Time: 01 0001 Status: Signed Aboriginal Community Council Member: Bart Salomon MD (Physician) IMPRESSION: URI with cough. SUBJECTIVE: A 6-1/2-month-old here for cough. Was initially seen for the cough November 14. Seemed more like a viral illness. Dad is concerned because the cough is not going away. Que is here both with mom and dad today. Cough was really bad this morning. Seems to always be worse at night and skip tracer but then throughout the day she is fine, no coughing. She has had no fevers. Does still have congested nose. No vomiting. Appetite is okay. Is waking up a little bit more at night but is not fussy. MEDICATIONS: Is on no medications. ADR/ALLERGIES: HAS NO KNOWN DRUG ALLERGIES. OBJECTIVE: VS/GEN: T: 99.4 rectally. Wt: 18 lb. 9 oz. with diaper. OFC: Que has always had a large head; I measured it today. Depending on which spot I measured it, it was either 44-45.5 cm which is 95th percentile, where she has always been. Alert, smily, well-appearing . No coughing heard during the exam. A HEENT: Anterior fontanel is soft and flat. Conjunctivae are clear. TMs are normal. Nose has crusted rhinorrhea. Oropharynx is moist. No erythema, exudate, or lesions. NECK: Supple without adenopathy. LUNGS: No retractions. Good air entry. There are transmitted upper airway noises. No definite fine crackles or wheezes heard. Did do a chest x-ray today which had normal heart side and pulmonary vasculature and clear lung farias. ASSESSMENT: Viral URI with cough. PLAN: Continue with humidifier, keep the head of her bed elevated, bulb syringe the nose. Follow up if any fever, any respiratory distress, or any worsening of the cough. TT: CT: JOHN:[id number] C: DOCUMENT: [id number] OLOGY AIDE Bart Salomon MD - 2001 12:01 AM CDT Progress Notes signed by at 09/16/02 0001 Author: Bart Salomon MD Service: (none) Author Type: Physician Filed: 11/13/10 0539 Note Time: 01 0001 Status: Signed Aboriginal Community Council Member: Bart Salomon MD (Physician) IMPRESSION: URI. SUBJECTIVE: A 6-month-old here for noisy breathing, rattly and wheezing. Started two days ago. Was worse yesterday. Not so bad today. Has been a little more fussy. Refused to take her bottle at daycare but when mom picked her up she readily took the bottle at home. There has been some cough. No significant nasal congestion but she had some sneezing. No fever. Received her 6- month immunizations last week. MEDICATIONS: She is on no medications. ADR/ALLERGIES: HAS NO KNOWN DRUG ALLERGIES. OBJECTIVE: VS/GEN: T: 98.9 rectally. Wt: 18 lb. 6 oz. Alert, smiley, well appearing infant. HEENT: Anterior fontanel is soft and flat. Conjunctivae are clear. Both TMs were difficult to see due to wax but the wax was removed and the portions visualized looked normal. Nose had some congestion. Oropharynx is moist. No erythema, exudate or lesions. NECK: Supple without adenopathy or mass. LUNGS: Have good air entry and clear to auscultation. No wheezes or crackles. No retractions. ASSESSMENT: Probable viral illness with upper airway noises that mom attributes to wheezing. No evidence of ear infection or pneumonia at this time. PLAN: Careful observation. Bulb syringe if nasal congestion develops. Follow up if any fast breathing or any retractions. TT: CT: [facility]:[id number] C: DOCUMENT: [id number] OLOGY AIDE Bart Salomon MD - 2001 12:01 AM CDT Progress Notes signed by Bart Salomon MD at 04/18/02 1025 Author: Bart Salomon MD Service: (none) Author Type: Physician Filed: 11/13/10 0533 Note Time: 01 0001 Status: Signed Aboriginal Community Council Member: Bart Salomon MD (Physician) IMPRESSION: Health 6-month-old. Intermittent constipation. SUBJECTIVE: A 6-month-old here for her well child visit. Parents have no concerns. She is still breast fed. Gets breast milk in a bottle. Takes 6 ounces approximately every three hours. Has started some rice cereal and some peaches. Has bowel movements every other day, thick and pasty, somewhat difficult to pass. Gets 2 ounces of pear juice a day to help with the hard stools. Sleeps through the night. Developmentally passes the [place] screen. Please refer to the form in the chart. SOCIAL HISTORY: Lives at home with her parents. They are using appropriate carseat. No tobacco exposure. She is in daycare. FAMILY HISTORY: Unchanged from that dictated in my note dated 2001. Complete review of systems is negative other than the constipation. Past medical history is unremarkable. OBJECTIVE: VS/GEN: Ht: 25-1/2 in, 50th percentile. Wt: 18 lb 6 oz, 90th percentile. OFC: 17-1/2 in, 95th percentile. Well-appearing infant. HEENT: Anterior fontanel is soft and flat. Sutures are normal. Pupils equal and reactive to light. Extraocular movements are intact. Red reflex present bilaterally. Both TMs are normal. Nose without discharge. Oropharynx is moist. No erythema, exudate, or lesions. NECK: Supple without adenopathy or masses. LUNGS: Clear. CV: Regular rate and rhythm without murmur. ABD: Soft. No organomegaly or masses. Femoral pulses 2+ bilaterally. Hips are normal without click, symmetric. : Nasim I female genitalia. Anus is patent. SPINE: Straight. SKIN: Without rash. EXTREMITIES: Full range of motion. Normal bulk and tone. ASSESSMENT: 1. A 6-month-old with normal growth and development. 2. Intermittent constipation. PLAN: Routine anticipatory guidance given. Discussed advancing to solid foods and its effect on constipation. Can continue to give pear juice, prune juice as needed to help with the stools. Follow up if hard daily stools that are difficult to pass. Received DTaP, HIB, hepatitis B, and Prevnar immunizations today. Carseat booklet given and reviewed. Discussed babyproofing the house. Next visit at nine months. TT: CT: JOHN:[id number] C: DOCUMENT: [id number] Henrry Adamson MD - 2001 12:01 AM CST Progress Notes signed by at 09/16/02 0001 Author: Henrry Adamson MD Service: (none) Author Type: Physician Filed: 11/13/10 0431 Note Time: 09/26/012041 Status: Signed Aboriginal Community Council Member: Henrry Adamson MD (Physician) IMPRESSION: URI. Bronchitis. SUBJECTIVE: Here at age 4 months for three weeks of cough and congestion. The cough and cold have gotten somewhat worse, mainly the cold, and he is in a daycare environment. His eyes were mattery this morning, and he had a fussy period at daycare this afternoon. His appetite is down a little bit, but he is taking in liquids okay. He has had no fevers. MEDICATIONS: He is on no medications. Has had no ear infections. ADR/ALLERGIES: NO KNOWN ALLERGIES. There is no tobacco exposure in the home. OBJECTIVE: VS/Gen: T: 99.1, rectally. Wt: 16 lb. 9 oz. Que appears alert and responsive, does occasionally smile a couple of times. HEENT: Eyes are minimally injected without swelling or mattering, except a little bit of dried tear on the left lateral eye area. Ears: Both clear. Nose mildly congested. No distress noted. Fontanel flat. LUNGS: Clear without crackles or wheezes, no distress. CV: Normal. ABD: Normal. MUSCULOSKELETAL: Normal. ASSESSMENT: URI. Bronchitis. PLAN: Gave mom a prescription for gentamicin ophthalmic drops should the eyes become more mattery, but if not responding or more fussy, would want to recheck the ears and general exam in two to three days. Otherwise, symptomatic care, elevation and nasal suctioning recommended for now. TT: CT: [id number] C: DOCUMENT: [id number] OLOGY AIDE Bart Salomon MD - 2001 12:01 AM CST Progress Notes signed by Bart Salomon MD at 01/10/02 1116 Author: Bart Salomon MD Service: (none) Author Type: Physician Filed: 11/13/10 0411 Note Time: 01 0001 Status: Signed Aboriginal Community Council Member: Bart Salomon MD (Physician) IMPRESSION: A 4-month old checkup. Constipation. SUBJECTIVE: Que is a 4-month-old here for a well-child visit. The parents only concern is that of constipation. This is a new problem. Her last bowel movement was on the which was five days ago. They have tried using prune juice intermittently over the weekend a total of three ounces but still no bowel movement. They have been mixing the prune juice with breast milk. She is almost exclusively breast fed via a bottle. She did have a little formula and rice cereal last week prior to this constipation. Her usual pattern before this was every other day. She does not seem uncomfortable, she is not straining, there has been no abdominal distention. She is feeding well, sleeping through the night. Developmentally: Passes the [place] screen. Please refer to the form in the chart. SOCIAL HISTORY: Is unchanged. Lives with her parents. They are using an appropriate carseat. No tobacco exposure. She attends daycare. MEDICATIONS: She is on no medications. ADR/ALLERGIES: NO KNOWN DRUG ALLERGIES. FAMILY HISTORY: Unchanged from that dictated in my note dated 2001. Complete review of systems is negative other than the constipation. OBJECTIVE: VS/Gen: Ht: 24-1/2 in, 65th percentile. Wt: 15 lb 13 oz, 90th percentile. OFC: 43 cm, 95th percentile. Alert, vigorous, well-appearing . HEENT: Anterior fontanel is soft and flat. Sutures are normal and not split. Pupils equal and reactive to light. Extraocular movements are intact. Red reflex present bilaterally. Eyes appear normal alignment with light reflex test. Both TMs are normal. Nose without discharge. Oropharynx is moist. No lesions. NECK: Supple without adenopathy or masses. LUNGS: Clear. CV: Heart: Regular rate and rhythm without murmur. ABD: Soft, no organomegaly or masses. Femoral pulses 2+ bilaterally. GI: Rectal: Anus is patent. : Genitalia: Nasim I female genitalia. MUSCULOSKELETAL: Hips are normal without clicks. Symmetric skin folds. Spine is straight. SKIN: Without rash. EXTREMITIES: Full range of motion. Normal bulk and tone. ASSESSMENT: 1. A 4-month-old with normal growth and development. 2. Constipation. Most likely triggered by change in diet. 3. Large OFC. There is a family history of large head size. Que's father and his family members have large heads. I did re-plot her OFC's on the old growth curve and she has been tracking normally along the 95th percentile. This was reassuring. PLAN: 1. Routine anticipatory guidance given. Received DTaP, Hib, IPV and Prevnar immunizations today. 2. Discussed advancement of solid foods. 3. Discussed constipation. Would offer her plain prune juice and/or pear juice two to three ounces a day to see if we can get her to stool. Also suggested rectal stimulation. Follow up if no improvement with these recommendations. 4. Safety issues discussed. Next well-child visit will be at six months of age. TT: CT: [id number] C: DOCUMENT: [id number] Henrry Adamson MD - 2001 12:01 AM CST Progress Notes signed by at 09/16/02 0001 Author: Henrry Adamson MD Service: (none) Author Type: Physician Filed: 11/13/10 0348 Note Time: 01 0001 Status: Signed Aboriginal Community Council Member: Henrry Adamson MD (Physician) IMPRESSION: Left conjunctivitis, mild. SUBJECTIVE: Here with dad for concerns about persistent greenish, crusty discharge from the left eye which is occurring significantly enough that they have to wipe it out fairly frequently every couple of hours. She has been exposed at her daycare to pink eye but the eye has not been pink and she has otherwise been well except for a runny nose for two weeks but without cough or fever. MEDICATIONS: She is on no medications. ADR/ALLERGIES: HAS NO KNOWN ALLERGIES. OBJECTIVE: VS/Gen: BP: T: 96.2 by axillary. Wt: 14 lbs., 10 oz. Appears alert and happy, well nourished. Skin is clear. HEENT: Her left eye is 1-2+ crusty but there is no redness or swelling of the lids or sclerae at all. Nose was slightly congested. Ears and throat normal. LUNGS: Clear. CV: No murmur. ABD: Normal. ASSESSMENT: Left conjunctivitis, mild. PLAN: Recommended gentamycin ophthalmic drops t.i.d. up to five days and hygiene of the eye to avoid persistent mattering with followup if worsens, fails to respond. Suggested saline nose drops for nasal congestion and elevation of head of mattress. TT: CT: [id number] C: DOCUMENT: [id number] OLOGY AIDE Bart Salomon MD - 2001 12:01 AM CST Progress Notes signed by Bart Salomon MD at 01/06/02 1803 Author: Bart Salomon MD Service: (none) Author Type: Physician Filed: 11/13/10 0244 Note Time: 01 0001 Status: Signed Aboriginal Community Council Member: Bart Salomon MD (Physician) IMPRESSION: Healthy 2-month-old. SUBJECTIVE: Que is a 2-month-old here for her well child visit. Parents have no real concerns. Her viral URI, for which I saw her on June 24, resolved. She is still drinking breast milk from a bottle 4-6 ounces per feeding. Has daily bowel movements which are easy to pass. Sleeping five hours at night. Developmentally passes the [place] screen. Please refer to the form in the chart. SH: Lives at home with her parents. She will began daycare July 28. They are using appropriate carseat. No tobacco exposure. She is on no medications. HAS NO KNOWN DRUG ALLERGIES. FH: Unchanged from that dictated in my note 2001. Complete review of systems is negative. OBJECTIVE: VS/Gen: Ht: 23-3/4 inches, 90th percentile. Wt: 12 pounds 11 ounces, 75th percentile. OFC: 40 cm, 75th percentile. Well-appearing . HENT: Anterior fontanel is soft and flat. Sutures are normal. Both TMs are normal. Nose is without discharge. Oropharynx is moist. No erythema, exudate, or lesions. EYES: Pupils equal and reactive to light. Extraocular movements are intact. Red reflex present bilaterally. NECK: Supple without adenopathy or thyromegaly. LUNGS: Good air entry and are clear to auscultation. CV: Regular rate and rhythm without murmur. ABD: Soft. No organomegaly or masses. Femoral pulses 2+ bilaterally. MUSCULOSKELETAL: Hips are normal without clicks. Symmetric skin folds. Spine is straight. Extremities have full range of motion, normal bulk and tone. : Nasim I female genitalia. Anus is patent. SKIN: Without rash. ASSESSMENT: Healthy 2-month-old. PLAN: Routine anticipatory guidance given. Received DTaP, HIB, IPV, and Prevnar immunizations today. Two month handout given and reviewed. Safety issues discussed. Next visit at 4 months of age. SJJ:[id number] C: DOCUMENT: [id number] Bart Salomon MD - 2001 12:01 AM CST Progress Notes signed by at 09/16/02 0001 Author: Bart Salomon MD Service: (none) Author Type: Physician Filed: 11/13/10 0223 Note Time: 06/24/012041 Status: Signed Aboriginal Community Council Member: Bart Salomon MD (Physician) IMPRESSION: Viral URI. SUBJECTIVE: Que is a five week old here for fussiness for the past 3-4 days. She also has had runny nose and more sneezing. Tends to be clearing her throat a lot as well. No retractions. Is taking breast milk from a bottle, two ounces every two hours. No vomiting or diarrhea, spitting up a little bit more than usual. No fevers. She is still smiling. MEDS: None. ALLERGIES: NO KNOWN DRUG ALLERGIES. PMH: Unremarkable. OBJECTIVE: VS: T: 99.6 rectally. Wt: 11 lb 3 1/2 oz. GEN: Alert, smiling . HENT: Anterior fontanelle is soft and flat. Both TMs are normal. Nose has crusted rhinorrhea. Oropharynx is moist, no erythema, exudate or lesions. EYES: Conjunctiva are clear. NECK: Supple without adenopathy. LUNGS: Have good air entry and are clear to auscultation, no wheezes or crackles noted, no retractions. ASSESSMENT: Viral URI. PLAN: Will observe carefully, given her young age. Encouraged mom to bring her back if there is any poor feeding, fevers, or evidence of increasing cough or respiratory distress. SJJ:[id number] C: DOCUMENT: [id number] OLOGY AIDE Bart Salomon MD - 2001 12:01 AM CST Progress Notes signed by at 09/16/02 0001 Author: Bart Salomon MD Service: (none) Author Type: Physician Filed: 11/13/10 0205 Note Time: 06/09/012041 Status: Signed Aboriginal Community Council Member: Bart Salomon MD (Physician) IMPRESSION: [id number] with nasolacrimal duct stenosis. SUBJECTIVE: Que is a 3-week-old here for right eye mattering for the past few days. The whites of the eyes have not looked particularly red, maybe a slight bit. She has had no fever. She has been a little more fussy. She is eating well. Having normal stools and voids. Maybe a little stuffy nose. She is on no medications. HAS NO KNOWN DRUG ALLERGIES. OBJECTIVE: T: 98.9 rectally. Wt: 9 pounds 10 ounces, which is fabulous weight gain. Alert, vigorous, well-appearing infant. Anterior fontanelle is soft and flat. Conjunctivae are clear. There is excessive tearing and some mattering of the right eye. TMs are normal. Nose is without discharge. Oropharynx is moist. No lesions. NECK: Supple without adenopathy or masses. HEART: Has a regular rate and rhythm without murmur. ABDOMEN: Mildly distended, soft, nontender. Unable to adequately palpate liver and spleen. Femoral pulses 2+ bilaterally. Nasim I female genitalia. Because of the protuberant stomach, I did do an abdominal flat plate and cross-table lateral which were normal. Just air-filled loops of bowel. ASSESSMENT: Ghkuc-unim-igj with right eye drainage. 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 However, given her young age, will treat presumptively for four to five days with erythromycin eye ointment. PLAN: Erythromycin eye ointment, apply thin ribbon to right eye three times a day for five days. Discussed natural history of nasolacrimal duct stenosis. Reassured the parents that her protuberant abdomen was just due to gas, at which time they told me that she always has explosive stools. Encouraged them to do adequate burping, etc. SJJ:[id number] C: DOCUMENT: [id number] OLOGY AIDE Bart Salomon MD - 2001 12:01 AM CST Progress Notes signed by Bart Salomon MD at 01/06/02 1248 Author: Bart Salomon MD Service: (none) Author Type: Physician Filed: 11/13/10 0150 Note Time: 01 0001 Status: Signed Aboriginal Community Council Member: Bart Salomon MD (Physician) IMPRESSION: Healthy . SUBJECTIVE: Que is a 12-day-old here for check. Parents have no concerns. Was born at 38 weeks gestation at [facility]. was complicated by gestational diabetes, but was diet- controlled. weight 8 lb 3 oz. Discharge weight 7 lbs 13 oz. Mom is feeding breast milk from a bottle because Que never established a good latch. Now having yellow seedy stools, frequent voids. Sleeps three to four hours and then mom wakes to feed her. Has equal movements, regards her parent's face. SOCIAL HISTORY: First baby, lives at home with her parents. They are using appropriate carseat. No tobacco exposure. She will start daycare July 28. MEDICATIONS: On no medications. ALLERGIES: Has no known drug allergies. FAMILY HISTORY: Positive for type II diabetes in maternal grandmother and some relatives on the father's side. Dad has seasonal allergic rhinitis. OBJECTIVE: On exam, OFC is 37 cm, 75th percentile, height 21-1/4 inches, 85 percentile, weight 8 lbs 9 oz, 75th percentile. Anterior fontanel is soft and flat. Sutures are normal. There is a healing bruise on her occiput from the vacuum. Conjunctivae are clear. Pupils are equal and reactive to light. Extraocular muscles are intact. Red reflex present bilaterally. Both TMs are normal. Nose is without discharge. Oropharynx is moist, palate is intact, no lesions. Neck is supple without adenopathy or masses. Clavicles are intact. Lungs are clear. Heart has a regular rate and rhythm without murmur. Abdomen is soft, no organomegaly or masses. Femoral pulses 2+ bilaterally. Hips are normal without clicks. Nasim I female genitalia. Anus is patent. Spine is straight. Extremities have full range of motion, normal bulk and tone. Skin is without rash. Strong suck, cry, grasp and symmetric desmond. ASSESSMENT: N/A PLAN: Routine anticipatory guidance given. [place] handout given. Received Hepatitis B immunization today. Next visit will be at 2 months of age. [id number] C: DOCUMENT: [id number] documented in this encounter Plan of Treatment Not on filedocumented as of this encounter Procedures Procedure Name Priority Date/Time Associated Comments Diagnosis XR FOOT RT 2 VIEWS Routine 12/12/2002 7:37 Result s for this PM CDT procedure are i n the results section. XR TIBIA FIBULA RT 2 Routine 12/12/2002 7:36 Resu lts for this VIEWS PM CDT procedure are i n the results section. FL VOIDING Routine 06/29/2002 9:40 Results for this CYSTOURETHROGRAM AM RADIOLOGY AIDE procedure a re in the results section. US RENAL ONLY Routine 06/29/2002 8:30 Results for this AM RADIOLOGY AIDE procedure are i n the results section. RED SUB URINE Routine 06/08/2002 2:46 Results for this PM RADIOLOGY AIDE procedure are i n the results section. URINALYSIS COMPLETE Routine 06/08/2002 2:46 Resul ts for this PM RADIOLOGY AIDE procedure are i n the results section. URINE CULTURE Routine 06/08/2002 2:46 Results for this PM RADIOLOGY AIDE procedure are i n the results section. RED SUB URINE Routine 05/26/2002 2:03 Results for this PM RADIOLOGY AIDE procedure are i n the results section. URINALYSIS COMPLETE Routine 05/26/2002 2:03 Resul ts for this PM RADIOLOGY AIDE procedure are i n the results section. URINE CULTURE Routine 05/26/2002 2:03 Results for this PM RADIOLOGY AIDE procedure are i n the results section. XR CHEST PA WITH LATERAL Routine 05/26/2002 1:29 Results for this PM RADIOLOGY AIDE procedure are i n the results section. HEMOGLOBIN, BLOOD Routine 02/08/2002 4:15 Results for this PM CDT procedure are i n the results section. XR CHEST PA WITH LATERAL Routine 2001 12:02 Results for this PM CDT procedure are i n the results section. XR ABD FLAT AND UPRIGHT Routine 2001 4:51 R esults for this PM RADIOLOGY AIDE procedure are i n the results section. documented in this encounter Results XR Foot Rt 2 Views (12/12/2002 7:37 PM CDT) Anatomical Region Laterality Modality Lower Extremity, Foot, Foot & Ankle Othe r Specimen (Source) Anatomical Location Collection Method / Collectio n Time Received Time / Laterality Volume Narrative 12/12/2002 7:37 PM CDT Negative. MT(183)/car [id number] Dictating ENDER THOMPSON MD Procedure Note Ender Vallejo - 10/01/2016 Negative. MT(183)/car [id number] Dictating ENDER THOMPSON MD Woodrow Skaggs MD RAD GD XR Tibia Fibula Rt 2 Views (12/12/2002 7:36 PM CDT) Anatomical Region Laterality Modality Lower Extremity, Knee, Leg, Foot & Ankle Other Specimen (Source) Anatomical Location Collection Method / Collectio n Time Received Time / Laterality Volume Narrative 12/12/2002 7:36 PM CDT Negative. MT(183)/car [id number] Dictating ENDER THOMPSON MD Procedure Note Ender Vallejo - 10/01/2016 Negative. MT(183)/car [id number] Dictating ENDER THOMPSON MD Woodrow Skaggs MD RAD GD FL Voiding Cystourethrogram (06/29/2002 9:40 AM RADIOLOGY AIDE) Anatomical Region Laterality Modality Pelvis, Abdomen Other Specimen (Source) Anatomical Location Collection Method / Collectio n Time Received Time / Laterality Volume Impressions 06/29/2002 9:40 AM RADIOLOGY AIDE : ?NORMAL VCUG. FINDINGS: ?NON CATEGORICAL PRESCHOOL TEACHER: LARGE VOLUME OF STOOL SCATT ERED THROUGHOUT THE COLON ?DOWN TO RECTUM. OTHERWISE, NEGATIV E. ?THE PATIENT WAS CATHETERIZED WITH STERILE 8 AL[place]IAN FEEDING ?TUBE WITHOUT DIFFICULTY AND TOLERA DOUGLAS THE EXAM WELL. THE ?URINARY BLADDER WAS FILLED TO [place] WITH SLIGHTLY GREATER ?THAN 100 CC CYSTO-CONRAY. URINARY BLADDER APPEARS NORMAL. NO ?ABNORMALITY OF THE URINARY BLADDER IS SEEN. NO REFLUX WAS ?VISUALIZED. THE PATIENT VOIDED SPO NTANEOUSLY AND THE URETHRA ?IS NORMAL WITHIN ESSENTIALLY COMPL ETE EMPTYING OF THE ?URINARY BLADDER. ?[address] [place] [address] TECH-ID : ? 25 TRANS-ID: ? EDR Narrative 06/29/2002 9:40 AM RADIOLOGY AIDE CLINICAL DATA: ?PEDS VCUG. UTI. 599.0 Procedure Note Rommel Asencio - 10/01/2016Formatting o f this note might be different from the original. CLINICAL DATA: PEDS VCUG. UTI. 599.0 IMPRESSION : NORMAL VCUG. FINDINGS: NON CATEGORICAL PRESCHOOL TEACHER: LARGE VOLUME OF STOOL SCATTERED THROUGHOUT THE COLON DOWN TO RECTUM. OTHERWISE, NEGATIVE. THE PATIENT WAS CATHETERIZED WITH STERI LE 8 AL[place] FEEDING TUBE WITHOUT DIFFICULTY AND TOLERATED T HE EXAM WELL. THE URINARY BLADDER WAS FILLED TO [place] WITH SLIGHTLY GREATER THAN 100 CC CYSTO-CONRAY. URINARY BLADD ER APPEARS NORMAL. NO ABNORMALITY OF THE URINARY BLADDER IS S EEN. NO REFLUX WAS VISUALIZED. THE PATIENT VOIDED SPONTANE OUSLY AND THE URETHRA IS NORMAL WITHIN ESSENTIALLY COMPLETE E MPTYING OF THE URINARY BLADDER. [address] [place] [address] TECH-ID : 25 TRANS-ID: EDR Bart Salomon MD RAD FL US Renal Only (06/29/2002 8:30 AM RADIOLOGY AIDE) Anatomical Region Laterality Modality Abdomen Other Specimen (Source) Anatomical Location Collection Method / Collectio n Time Received Time / Laterality Volume Impressions 06/29/2002 8:30 AM RADIOLOGY AIDE : ?NORMAL ULTRASOUND. FINDINGS: ?NO MASSES OR HYDRONEPHROSIS. KIDNE YS HAVE A NORMAL ?APPEARANCE AND BOTH MEASURE 6.7 CM IN LENGTH WHICH IS ?APPROXIMATELY 50TH PERCENTILE. URI NARY BLADDER IS MILDLY ?DISTENDED AND APPEARS NORMAL. ?[id number] TECH-ID : ? [place] TRANS-ID: ? EDR Narrative 06/29/2002 8:30 AM RADIOLOGY AIDE CLINICAL DATA: ?PEDS RENAL ??UTI. 599.0 Procedure Note Rommel Asencio - 10/01/2016Formatting o f this note might be different from the original. CLINICAL DATA: PEDS RENAL UTI. 599.0 IMPRESSION : NORMAL ULTRASOUND. FINDINGS: NO MASSES OR HYDRONEPHROSIS. KIDNEYS RANDHAWA VE A NORMAL APPEARANCE AND BOTH MEASURE 6.7 CM IN L ENGTH WHICH IS APPROXIMATELY 50TH PERCENTILE. URINARY BLADDER IS MILDLY DISTENDED AND APPEARS NORMAL. [id number] TECH-ID : [place] TRANS-ID: EDR Bart Salomon MD RAD US (ABNORMAL) Urinalysis Complete (06/08/2002 2:46 PM RADIOLOGY AIDE) [facility] Method Time Signature Glucose, Negative Neg-Trac HP CONVERSION Qualitative U Protein Urine Negative Neg-Trac HP CONVERSION Ketones Negative Negative HP CONVERSION U BILI Negative Negative HP CONVERSION U Specific 1.015 1.005 - 25 HP CONVERSION [place] Blood Urine Negative Negative HP CONVERSION pH Urine 7.0 4.5 - 7.5 HP CONVERSION Urobilinogen Negative 0.2 - 1.0 HP CONVERSION Urine Nitrite Urine Negative Negative HP CONVERSION Leukocyte Negative Negative HP CONVERSION Esterase Urine White Blood Negative 0 - 3 HP CONVERSION Cells Urine Red Blood Cells Negative 0 - 2 HP CONVERSION Urine Bacteria Urine Rare (A) None HP CONVERSION Epithelial Cells Few Few /HPF HP CONVERSION Specimen (Source) Anatomical Collection Method Collection Time Re ceived Time Location / / Volume Laterality 06/08/2002 2:46 PM RADIOLOGY AIDE Bart Salomon MD LAB_1 Performing Organization Address City/State/ZIP Code Phon e Number HP CONVERSION Urine Culture (06/08/2002 2:46 PM RADIOLOGY AIDE) Analysis Performed At Patho logist Time Signature Urine Culture SEE TEXT HP CONVERSION Comment: Patient: QUE ZAMORA Culture, Urine @ ?Collected: ??[id number] ??[id number] Source: Catheter ?Processed: ??[id number] ??[id number] ? SENS Final Report ------ ?[id number] ??[id number] No growth @ = URINE CULTURE Performed at ??[address] [place], [place] ?[address] URINE CULTURE ([id number] -- Current) Specimen (Source) Anatomical Collection Method Collection Time Re ceived Time Location / / Volume Laterality 06/08/2002 2:46 PM RADIOLOGY AIDE Bart Salomon MD LAB_1 Performing Organization Address City/[facility] Phon e Number HP CONVERSION Red Sub Urine (06/08/2002 2:46 PM RADIOLOGY AIDE) [facility] gist Method Time Signature Red Sub Urine Negative Negative % HP CONVERSION Specimen (Source) Anatomical Collection Method Collection Time Re ceived Time Location / / Volume Laterality 06/08/2002 2:46 PM RADIOLOGY AIDE Bart Salomon MD LAB_1 Performing Organization Address City/State/ZIP Code Phon e Number HP CONVERSION (ABNORMAL) Urinalysis Complete (05/26/2002 2:03 PM RADIOLOGY AIDE) [facility] [place] Method Time Signature Glucose, Negative Neg-Trac HP CONVERSION Qualitative U Protein Urine 100mg/dL Neg-Trac HP CONVERSION (A) Ketones Negative Negative HP CONVERSION U BILI Negative Negative HP CONVERSION U Specific 1.015 1.005 - 25 HP CONVERSION [place] Blood Urine Negative Negative HP CONVERSION pH Urine 7.5 4.5 - 7.5 HP CONVERSION Urobilinogen Negative 0.2 - 1.0 HP CONVERSION Urine Nitrite Urine Negative Negative HP CONVERSION Leukocyte Small (A) Negative HP CONVERSION Esterase Urine White Blood Negative 0 - 3 HP CONVERSION Cells Urine Comment: MICRO DONE WITH UNSPUN URINE, Q NS Red Blood Cells Urine Negative 0 - 2 HP CONVE RSION Bacteria Urine Rare (A) None HP CONVERSION Epithelial Cells Few Few /HPF HP CONVERSION Specimen (Source) Anatomical Collection Method Collection Time Re ceived Time Location / / Volume Laterality 05/26/2002 2:03 PM RADIOLOGY AIDE Bart Salomon MD LAB_1 Performing Organization Address City/[facility] Phon e Number HP CONVERSION (ABNORMAL) Urine Culture (05/26/2002 2:03 PM RADIOLOGY AIDE) [facility] Method Time Signature Urine Culture SEE TEXT HP CONVERSION (A) Comment: Patient: QUE ZAMORA Culture, Urine @ ?Collected: ??[id number] ??[id number] Source: Clean Ca ?Processed: ?1403 ? 1V SENS Final Report ------ ?[id number] ??[id number] >100,000 CFU/mL Escherichia coli Susceptibility Testing E COL ??ARTIE INTERP: ?S ??AMPICILLIN , AMC (AUGMENTIN), CARBENICILLIN, ?CIPR OFLOXACIN, CEFTRIAXONE, CEPHALOTHIN, GENTAMICIN, ?NITR OFURANTOIN, NORFLOXACIN, TRIMETH-SULFA @ = URINE CULTURE Performed at ??[address] [place], [place] ?[address] URINE CULTURE ([id number] -- Current) Specimen (Source) Anatomical Collection Method Collection Time Re ceived Time Location / / Volume Laterality 05/26/2002 2:03 PM RADIOLOGY AIDE Bart Salomon MD LAB_1 Performing Organization Address City/[facility] Phon e Number HP CONVERSION Red Sub Urine (05/26/2002 2:03 PM RADIOLOGY AIDE) [facility] gist Method Time Signature Red Sub Urine Negative Negative % HP CONVERSION Comment: NOT ABLE TO PERFORM RED. SUB. T EST, QNS Specimen (Source) Anatomical Collection Method Collection Time Re ceived Time Location / / Volume Laterality 05/26/2002 2:03 PM RADIOLOGY AIDE Bart Salomon MD LAB_1 Performing Organization Address City/[facility] Code Phon e Number HP CONVERSION XR Chest PA With Lateral (05/26/2002 1:29 PM RADIOLOGY AIDE) Anatomical Region Laterality Modality Other Specimen (Source) Anatomical Location Collection Method / Collectio n Time Received Time / Laterality Volume Impressions 05/26/2002 1:29 PM RADIOLOGY AIDE : ?NORMAL CHEST. FINDINGS: ?CH1 ?THE CARDIOVASCULAR STRUCTURES APPE AR NORMAL. ?NO EVIDENCE OF ACTIVE PULMONARY DI SEASE. TECH-ID : ? 46 TRANS-ID: Narrative 05/26/2002 1:29 PM RADIOLOGY AIDE CLINICAL DATA: ?CHRONIC COUGH X3 WEEKS. FEVER. ?786.2 Procedure Note Gilmar Campbell L - 10/01/2016Formatting of t his note might be different from the original. CLINICAL DATA: CHRONIC COUGH X3 WEEKS. FEVER. 786.2 IMPRESSION : NORMAL CHEST. FINDINGS: CH1 THE CARDIOVASCULAR STRUCTURES APPEAR NO RMAL. NO EVIDENCE OF ACTIVE PULMONARY DISEASE . TECH-ID : 46 TRANS-ID: Bart Salomon MD RAD GD Hemoglobin, Blood (02/08/2002 4:15 PM CDT) P athologist Signature Hemoglobin 11.9 10.5 - 13.5 HP CONVERSION gm/dL Specimen (Source) Anatomical Collection Method Collection Time Re ceived Time Location / / Volume Laterality 02/08/2002 4:15 PM CDT Bart Salomon MD LAB_1 Performing Organization Address City/State/ZIP Code Phon e Number HP CONVERSION XR Chest PA With Lateral (2001 12:02 PM CDT) Anatomical Region Laterality Modality Other Specimen (Source) Anatomical Location Collection Method / Collectio n Time Received Time / Laterality Volume Narrative 2001 12:02 PM CDT CLINICAL DATA: ?COUGH WROSENING X 11/14 FINDINGS: ?NORMAL. ?[id number] TECH-ID : ? [facility] TRANS-ID: ? EDR Procedure Note Brian Badillo L - 10/01/2016Formattin g of this note might be different from the original. CLINICAL DATA: COUGH WROSENING X 11/14 FINDINGS: NORMAL. [id number] TECH-ID : [facility] TRANS-ID: EDR Bart Salomon MD RAD GD XR Abd Flat And Upright (2001 4:51 PM RADIOLOGY AIDE) Anatomical Region Laterality Modality Abdomen Other Specimen (Source) Anatomical Location Collection Method / Collectio n Time Received Time / Laterality Volume Narrative 2001 4:51 PM RADIOLOGY AIDE CLINICAL DATA: ?MILD ABDOMINAL DISTENSION. ?780.9 FINDINGS: ?NONSPECIFIC ABDOMINAL GAS PATTERN WITH NO EVIDENCE FOR FREE ?AIR. ??THERE ARE SEVERAL AIR-FLUID LEVELS IN THE COLON. ??THE ?FINDINGS COULD REPRESENT COLONIC I LEUS. ?MT/CAR TECH-ID : ? 46 TRANS-ID: ? EDR Procedure Note Ender Vallejo - 10/01/2016 CLINICAL DATA: MILD ABDOMINAL DISTENSION. 780.9 FINDINGS: NONSPECIFIC ABDOMINAL GAS PATTERN WITH NO EVIDENCE FOR FREE AIR. THERE ARE SEVERAL AIR-FLUID LEVELS IN THE COLON. THE FINDINGS COULD REPRESENT COLONIC ILEUS. MT/CAR TECH-ID : 46 TRANS-ID: EDR Bart Salomon MD RAD GD documented in this encounter Visit Diagnoses Not on filedocumented in this encounter Care Teams Operator Coating Furnace Relationship Specialty Start Date End Date Bart Salomon MD PCP - General 10/27/10 documented as of this encounter
--- OUTSIDE RECORDS SUMMARY | 2022-05-08 23:31 | XMS_ITS | Encounter Summary ---
:2001 [facility] Address [address], [place] [address] Care Team Providers Name Role Phone Felicity Salomon MD Primary Care Provider Encounter Details Date Type Department Care Team Description 05/15/2004 Office Visit [facility], [address] [facility] [place] [address] Social History Tobacco Use Types Packs/Day Years Used Date Smoking Tobacco: Never Assessed Sex Assigned at Date Recorded Not on file documented as of this encounter Progress Notes [facility] MBBS - 05/15/2004 12:01 AM CDT Progress Notes signed by at 05/17/04 1616 Author: HALEY Hughes Service: (none) Author Type: (none) Filed: 11/14/10 0103 Note Time: 05/15/04 0001 Status: Signed Scale Mechanic: Joey DINH [facility] Acute Clinic Visit IMPRESSION: Dysuria Diaper rash Chief Complaint: Pain when passing urine SUBJECTIVE: History of Present Illness: Pt. was accompanied by mother History given by the patient's mother This illness began yesterday No fever during this illness. No abdominal pain No emesis Had one loose stool yesterday. Has a diaper rash for 2 days. has been complaining of backache since yesterday. She is not toilet trained. Does not take bubble baths. Meds This Illness: No acute medications being used Past History: Had a kidney infection at 2 yr of age. VCUG was negative per mom. Adverse Drug Reactions & Chronic Medications: No Adverse Drug Reactions Chronic medications: Flouride supplement OBJECTIVE: Temperature: 96.5 ax degrees F. Pulse: 80 Weight: 32 lb General: well appearing; alert and appropriate. Eyes: no injection or drainage. Ears: canals and tympanic membranes normal bilaterally. Nose: normal nares without drainage. Oropharynx: moist mucus membranes without ulcerations; tonsils symmetric without erythema or exudate. Neck: supple without adenopathy or goiter. Chest: clear to auscultation; normal effort Cardiac: regular rate without murmur. Abdomen: soft, nontender; no masses. hard to tell if child had CVA tenderness because child did not like to be examined and would try to push my hand away. Had a faint red papular diaper rash most in the perianal region. No perivaginal redness. No vaginal discharge Lab & X-Ray: Ordered a UA and UCx. Child was not able to urinate in a cup here. A urine bag was applied but no sample was obtained even after waiting for an hour or so. Mom was given a urine specimen cup and asked to bring a urine specimen from home the following day. If still not able for some reason then will have to RTC for urinary catheterization. ASSESSMENT: Dysuria Diaper rash PLAN: Await UA/ UCx RTC if fever, vomiting, abdo pain. Use barrier cream for diaper rash. RTC PRN if not gradually improving *SH~PC~WALTER ~[place] Note completed on: 05/17/2004 4:14 PM documented in this encounter Plan of Treatment Not on filedocumented as of this encounter Visit Diagnoses Not on filedocumented in this encounter Care Teams Welder Pipe Making Relationship Specialty Start Date End Date Felicity Salomon MD PCP - General 10/27/10 documented as of this encounter
[2022-05-08 23:33] LABS: Slide Review Reflex No
[2022-05-08 23:45] LABS: Chloride* 103 mmol/L (96-114); Potassium* 3.7 mmol/L (3.6-5.1); Sodium* 135 mmol/L (135-149)
[2022-05-08 23:46] LABS: Albumin* 4.2 g/dL (3.3-5.0)
[2022-05-08 23:47] LABS: Creatinine* 0.5 mg/dL (0.5-1.5); Est. Creatinine Clearance* 143.94; Estimated Glomerular Filt Rate 138 ml/min; Lipase* 100 U/L (23-300)
[2022-05-08 23:48] LABS: Blood Urea Nitrogen* 21 mg/dL (5-24); Carbon Dioxide* 23 mmol/L (20-32); Glucose* 132 mg/dL (60-115)
[2022-05-08 23:49] LABS: Alanine Aminotransferase* 10 U/L (4-35); Alkaline Phosphatase* 67 U/L (40-150); Aspartate Amino Transferase* 23 U/L (12-35); Bilirubin Total* 0.2 mg/dL (0.1-1.5); Total Protein* 7.1 g/dL (6.0-8.3)
--- NOTE | 2022-05-08 23:50 | ED.NURSE ---
pt ambulated to restroom. no complaints.
[2022-05-09 00:14] LABS: Appearance Urine Clear (Clear); Bilirubin Urine 1+ (Negative); Blood Urine Negative (Negative); Color Urine Yellow (Yellow); Glucose Urine Negative (Negative); Ketones Urine 3+ (Negative); Leukocyte Esterase Urine Negative (Negative); Nitrite Urine Negative (Negative); Protein Urine 1+ (Negative); Specific Gravity Urine 1.025 (1.000-1.030)
[2022-05-09 00:18] LABS: Ur HCG Qualitative* Negative (Negative)
[2022-05-09 00:26] LABS: RBC Urine 0-2 (0-2); Squamous Epithelial Cell Urine Many (None-Few)
[2022-05-09 00:47] VITALS: BP 126/62; PULSE 82; RESP 18; TEMP 36.8; O2SAT 99
== END 2022-05-09 00:49 | disposition home or self-care (01) ==
PROVIDERS: Emergency Provider Emergency Medicine
DX: R11.10 Vomiting, unspecified (principal)
CPT/HCPCS: 36415; 80048; 80076; 81001; 81025; 83605; 83690; 85025; 86140; 96374; 96375; 99284; J1885; J2405; J7030

== ENCOUNTER 2024-06-24 10:59 | Emergency (ER) | payer BC, SELFPAY ==
[2024-06-24 11:08] VITALS: BP 123/78; PULSE 88; RESP 18; TEMP 36.8; O2SAT 100; BMI 21.3
--- NOTE | 2024-06-24 11:16 | ED.GENADULT ---
HPI - General Adult General Chief complaint: Nausea/Vomiting Stated complaint: throwing up last 2 days, 21 weeks Time Seen by Provider: 06/24/24 11:05 History of Present Illness HPI narrative: Patient reports inability to keep any fluids down for the past two days. Also complains of achiness along spine. Had induced hyperemesis during first part of but that did resolve after about 9 weeks. Has tried taking Zofran but is still throwing up. [age] year old woman presenting to the emergency department vomiting for couple of days. She is 21 weeks . Is not having any pain or cramping. No vaginal bleeding. No fever. She has also been rather congested. Not really with cough. Does have sore throat. Vomiting is the primary symptom without hematemesis over the last couple of days. She did try initially some Zofran but ended seem to help and is just not able to keep anything down. She has water with her. Very much feeling baby move. Related Data Home Medications ?Medication ?Instructions ?Recorded ?Confirmed Cold Medicine 05/08/22 Zofran 05/08/22 ibuprofen 05/08/22 Allergies Allergy/AdvReac Type Severity Reaction Status Date / Time Penicillins Allergy hives Verified 05/08/22 22:22 Review of Systems Status of ROS: Reports: 6 or more systems reviewed and unremarkable except as noted in History and below [facility] Social History Smoking Status: Never smoker How often do you have a drink containing alcohol: never AUDIT-C Alcohol total score: 0 Non-prescribed substance use: denies use Exam Narrative: Exam Narrative: Looks like she feels uncomfortable. She is breathing easily. Congested nasopharynx without facial swelling or tenderness. Little red at the tip of the nose. Oropharynx with trace erythema but no cervical lymphadenopathy. Lungs are clear. Heart is in a regular rate and rhythm. Abdomen is appropriately gravid. Soft and nontender. She is well-perfused peripherally. No excessive edema. Const: Vital Signs, click to edit/add: Vital Signs - 24 hr 06/24/24 11:08 Temperature 98.3 F Pulse Rate [Pulse Oximeter] 88 Respiratory Rate 18 Blood Pressure [Ri ght Upper Arm] 123/78 Pulse Oximetry 100 Oxygen Delivery Me thod Room Air Documenting provider has reviewed patient's vital signs: yes Course Vital Signs Vital signs: Initial Vital Signs Temperature 98.3 F 06/24/24 11:08 Temperature Source Temporal Artery Scan 06/24/24 11:08 Pulse Rate 88 06/24/24 11:08 Respiratory Rate 18 06/24/24 11:08 Blood Pressure 123/78 06/24/24 11:08 Blood Pressure Mean 93 06/24/24 11:08 Pulse Oximetry 100 06/24/24 11:08 Oxygen Delivery Method Room Air 06/24/24 11:08 Vital Signs Temperature 98.3 F 06/24/24 11:08 Pulse Rate 88 06/24/24 11:08 Respiratory Rate 18 06/24/24 11:08 Blood Pressure 123/78 06/24/24 11:08 Pulse Oximetry 100 06/24/24 11:08 Oxygen Delivery Method Room Air 06/24/24 11:08 Temperature 98.3 F 06/24/24 11:08 Pulse Rate 96 06/24/24 12:10 Respiratory Rate 16 06/24/24 12:10 Blood Pressure 123/78 06/24/24 11:08 Pulse Oximetry 100 06/24/24 12:10 Oxygen Delivery Method Room Air 06/24/24 12:10 Medications Administered Medications: Discontinued Medications Generic Name Dose Route Start Last Admin Trade Name Freq PRN Reason Stop Dose Admin Sodium Chloride 500 mls @ 1,000 mls/hr 06/24/24 11:25 06/24/24 12:30 0.9 % Sodium Chloride 500 Ml IV 06/24/24 11:54 Infused .Q30M ONE Infusion Metoclopramide HCl 10 mg/ 102 mls @ 306 mls/hr 06/24/24 11:25 06/24/24 12:16 Sodium Chloride IVPB 06/24/24 11:26 Infused ONCE ONE Infusion Sodium Chloride 500 mls @ 1,000 mls/hr 06/24/24 12:17 06/24/24 13:10 0.9 % Sodium Chloride 500 Ml IV 06/24/24 12:46 Infused .Q30M ONE Infusion Ondansetron HCl 4 mg 06/24/24 12:17 06/24/24 12:36 Ondansetron 2 Mg/Ml Inj IVP 06/24/24 12:18 4 mg ONCE ONE Administration Medical Decision Making MDM Narrative Medical decision making narrative: This may be a viral process contributing or this is associated vomiting. Does not appear to have other worrisome symptoms with regard to the . Certainly can offer IV hydration and antiemetics. Would screen also for COVID and influenza. Pending assessment of treatment. Initiated Reglan and normal saline bolus. On reassessment is still with some nausea. Given Zofran and another normal saline bolus. Overall improved on reassessment. Negative for COVID and influenza. Urinalysis, while with some findings, I would not consider this positive in . Would await culture here. Medical Records Medical records reviewed: Yes I reviewed the patient's medical records Lab Data Lab results reviewed: Yes I reviewed the patient's lab results Labs: Lab Results 06/24/24 06/24/24 Range/Units 11:41 12:20 Urine Color Yellow (Yellow) Urine Appearance Clear (Clear) Urine pH 7.0 (5.0-8.5) Ur Specific [place] 1.025 (1.000-1.030) Urine Protein Trace A (Negative) Urine Glucose (UA) Negative (Negative) Urine Ketones 2+ A (Negative) Urine Blood Negative (Negative) Urine Nitrite Negative (Negative) Urine Bilirubin Negative (Negative) Urine Urobilinogen 0.2 (0.2-1.0) Ur Leukocyte Esterase 1+ A (Negative) Urine RBC 0-2 (0-2) Urine WBC 2-5 (0-5) Ur Squamous Epith Cells Few (None-Few) Urine Bacteria Moderate A (None) SARS-CoV-2 (PCR) Negative SARS-CoV-2 (Negative) Influenza Type A (PCR) Negative PCR FLU A (Negative) Influenza Type B (PCR) Negative PCR FLU B (Negative) Discharge Plan Discharge Clinical Impression: Vomiting during , Head congestion Patient Disposition: Home w/ Parent or Adult Condition: Improved Additional Instructions: I am not sure how much of this is a new bug or vomiting in . Try to take small amounts of food or drink regularly. Staci chews/lozenges might be helpful. I would take Zofran regardless of how you feel in 2-3 hours. Prescriptions: No Action ibuprofen Zofran Cold Medicine Follow Up/Referrals: Provider,Not a Local [Primary Care Provider] - Stand Alone Forms: v2 Ratings Info Instructions
--- OUTSIDE RECORDS SUMMARY | 2024-06-24 11:42 | XMS_ITS | Encounter Summary ---
Author Organization [facility] Address [address] [place] [address] Care Team Providers Care Product Safety Officer Name Role Phone No Ref-Primary, Physician Primary Care Provider Meliton Tavarez MD Unavailable [phone] Meliton Tavarez MD Unavailable [phone] Encounter Details Date Type Department Care Team (Latest Contact Info) Description 06/12/2024 Travel Social History Tobacco Use Types Packs/Day Years Used Date Smoking Tobacco: Former Vaping Device Smokeless Tobacco: Never Alcohol Use Standard Drinks/Week Comments Not Currently 0 (1 standard drink = 0.6 oz pur e alcohol) PHQ-2 Answer Date Recorded PHQ-2 Score 0 03/17/2024 Adolescent Education Answer Date Record ed Getting School Help Needed Not on file 03/03 Estimated Date of Delivery Comme nts Yes 11/04/2024 Based on Ultraso und Sex and Gender Information Value Date Recorded Sex Assigned at Not on file Legal Sex Female 4:19 AM COMMUNITY SUPPORT WORKER Gender Identity Not on file Sexual Orientation Not on file 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 Not on file Not on file Not on file documented as of this encounter Plan of Treatment Upcoming Encounters Date Type Department Care Team (Late st Contact Info) Description 07/05/2024 11:45 AM COMMUNITY SUPPORT WORKER Office Visit [facility] [address] [place] [phone] Meliton Tavarez MD [address] [place], [place] [phone] 08/01/2024 4:15 PM COMMUNITY SUPPORT WORKER Office Visit [facility] [address] [place] [phone] Meliton Tavarez MD [address] [address] 08/24/2024 9:45 AM COMMUNITY SUPPORT WORKER Office Visit [facility] [address] [phone] Meliton Tavarez MD [address] [address] documented as of this encounter Visit Diagnoses Not on filedocumented in this encounter Care Teams Product Safety Officer Relationship Specialty Start Date End Date No Ref-Primary, Physician PCP - General 03/01/24 Meliton Tavarez MD [address] [address] Physician bonded structures repairer 03/01/24 Meliton Tavarez MD [address] [address] Assigned OBGYN Provider 04/17/24 documented as of this encounter
--- OUTSIDE RECORDS SUMMARY | 2024-06-24 11:42 | XMS_ITS | Encounter Summary ---
Author Organization [facility] Address [address] [place] [address] Care Team Providers Care Senior Peoplesoft Developer Name Role Phone No Ref-Primary, Physician Primary Care Provider Meliton Tavarez MD Unavailable [phone] Meliton Tavarez MD Unavailable [phone] Reason for Visit * Reason Comments Cough [facility]all y [facility] Encounter Details Date Type Department Care Team (Late st Contact Info) Description 05/09/2024 9:35 AM CDT E-Visit [facility] [address] [place] [phone] Shayne Ruelas MD [address] [place] [phone] Cough (Entered automatically based on barrington... 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 Not on file Not on file documented as of this encounter Miscellaneous Notes * Telephone Encounter - Shayne Ruelas MD - 05/09/2024 9:35 AM CDT Provider E-Visit time total (minutes): 3 documented in this encounter Plan of Treatment Upcoming Encounters Date Type Department Care Team (Late st Contact Info) Description 07/05/2024 11:45 AM LOCK PLATER Office Visit [facility] [address] [place] [phone] Meliton Tavarez MD [address] [place] [phone] 08/01/2024 4:15 PM LOCK PLATER Office Visit [facility] [address] [place] [phone] Meliton Tavarez MD [address] [place] [address] 08/24/2024 9:45 AM LOCK PLATER Office Visit [facility] [address] [place] [phone] Meliton Tavarez MD [address] [place] [phone] documented as of this encounter Visit Diagnoses Diagnosis Nausea and vomiting, unspecified vomiting type- Primary documented in this encounter Care Teams Senior Peoplesoft Developer Relationship Specialty Start Date End Date No Ref-Primary, Physician PCP - General 03/01/24 Meliton Tavarez MD [address] [place] [phone] Physician public works inspector 03/01/24 Meliton Tavarez MD [address] [address] Assigned OBGYN Provider 04/17/24 documented as of this encounter
--- OUTSIDE RECORDS SUMMARY | 2024-06-24 11:42 | XMS_ITS | Clinical Summary ---
Author Organization [facility] Address [address] [place] [address] Care Team Providers Care Vocational Training Teacher Name Role Phone No Ref-Primary, Physician Primary Care Provider Meliton Tavarez MD Unavailable [phone] Meliton Tavarez MD Unavailable [phone] Allergies Active Allergy Reactions Criticality Noted Date Comments Penicillins Rash Medium 03/03/2017 Acetaminophen Rash Low 03/03/2024 Medications Vit-Fe Fumarate-FA ( MULTIVITAMIN PLUS IRON) 27-1 MG TABS Take by mouth daily. Active ondansetron (ZOFRAN ODT) 4 MG ODT tabIndications:No rmal , first trimester Take 1 tablet (4 mg) by mouth every 8 hours as needed for nausea. 15 tablet 3 04/10/2024 Active ondansetron (ZOFRAN ODT) 4 MG ODT tabIndications:No rmal , first trimester Take 1 tablet (4 mg) by mouth every 8 hours as needed for nausea. 15 tablet 3 04/19/2024 Active doxylamine (UNISOM) 25 MG TABS tabletIndications :Normal , second trimester Take 1 tablet (25 mg) by mouth at bedtime. 30 tablet 1 05/10/2024 Active Active Problems Estimated Date of Delivery Comme nts Yes 11/04/2024 Based on Ultraso und No known active problems Encounters Date Type Department Care Team Description 06/12/2024 3:00 PM ANGLE SHEAR SET UP OPERATOR Ancillary Procedure [address] [phone] Meliton Tavarez MD Normal , second trimester 06/12/2024 Travel 06/08/2024 1:30 PM ANGLE SHEAR SET UP OPERATOR Office Visit [facility] [address] [place] [address] Meliton Tavarez MD Normal , second trimester (Primary Dx) 06/07/2024 Travel 05/30/2024 Telephone [facility] [address] [place] [address] Meliton Tavarez MD Care 05/10/2024 11:30 AM CDT Office Visit [facility] [address] [place] [address] Meliton Tavarez MD Pre-procedure lab exam (Primary Dx); Normal , second trimester 05/10/2024 Travel 05/09/2024 9:35 AM CDT E-Visit [facility] [address] [phone] Shayne Ruelas MD Cough (Entered automatically based on barrington... 05/09/2024 Travel 05/09/2024 MyC Medical Advice [facility] [address] [place] [phone] Meliton Tavarez MD Care 04/22/2024 MyC Refill [facility] [address] [place] [address] Meliton Tavarez MD Refill Request 04/19/2024 11:45 AM CDT Office Visit [facility] [address] [place] [address] Meliton Tavarez MD Normal , first trimester (Primary Dx) 04/18/2024 Travel 04/09/2024 MyC Refill [facility] [place] [address] [place] [address] Meliton Tavarez MD Refill Request from Last 3 Months Immunizations Name Administration Dates Next Due COVID-19 Monovalent 18+ (Moderna) 06/13/2021 DTAP (<7y) 07/15/2006, 2,2001, 1 HEPATITIS A (PEDS 12M-18Y) 09/10/2014,01/22/2014 HIB (PRP-T) 2001,2001 HPV9 04/24/2019,02/20/2019 HepB, Unspecified 02/08/2002,2001,05/30/20 01 MMR 07/15/2006,06/08/2002 Meningococcal ACWY (Menveo ) 12/07/2017,01/22/2014 Pneumococcal (PCV 7) 05/25/2003,11/09/19 02,2001, 1 Poliovirus, inactivated (IPV) 07/15/2006 ,02/08/2002,2001, 1 TDAP (Adacel,Boostrix) 01/22/2014 TRIHIBIT (DTAP/HIB, <7y) 08/25/2002 Varicella 07/29/2012,06/08/2002 Family History Medical History Relation Comments No Known Problems Father Breast Cancer Maternal Aunt 1 Breast Cancer Maternal Aunt 2 No Known Problems Mother Relation Status Comments Father Alive Maternal Aunt 1 Alive Maternal Aunt 2 Alive Mother Alive Social History Tobacco Use Types Packs/Day Years Used Date Smoking Tobacco: Former Vaping Device Smokeless Tobacco: Never Tobacco Cessation:Counseling Given: No Alcohol Use Standard Drinks/Week Comments Not Currently [...] on file Legal Sex Female 4:19 AM ANGLE SHEAR SET UP OPERATOR Gender Identity Not on file Sexual Orientation Not on file 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 on file Not on file Not on file Last Filed Vital Signs Vital Sign Reading Time Taken Comments Blood Pressure 110/60 06/08/2024 1:33 PM ANGLE SHEAR SET UP OPERATOR Pulse - - Temperature - - Respiratory Rate - - Oxygen Saturation - - Inhaled Oxygen Concentration - - Weight 59.4 kg (131 lb) 06/08/2024 1:33 PM ANGLE SHEAR SET UP OPERATOR Height - - Body Mass Index - - Plan of Treatment Upcoming Encounters Date Type Department Care Team (Late st Contact Info) Description 07/05/2024 11:45 AM ANGLE SHEAR SET UP OPERATOR Office Visit [facility] [address] [place] [phone] Meliton Tavarez MD [address] [place] [address] [place] [address] 08/01/2024 4:15 PM ANGLE SHEAR SET UP OPERATOR Office Visit [facility] [address] [place] [phone] Meliton Tavarez MD [address] [place] [address] [place] [address] 08/24/2024 9:45 AM ANGLE SHEAR SET UP OPERATOR Office Visit [facility] [address] [place] [phone] Meliton Tavarez MD [address] [place] [address] [place] [phone] Health Maintenance Due Date Last Done Comments ADVANCE CARE PLANNING 2001 ANNUAL REVIEW OF HM ORDERS 2001 HPV IMMUNIZATION (3 - 3-dose series) 08/23/2019 04/24/2019, 02/20/2019 YEARLY PREVENTIVE VISIT 02/21/2020 02/20/2019, 12/07 DTAP/TDAP/TD IMMUNIZATION (7 - Td or Tdap) 01/23/2024 01/22/2014, 07/15/2006, 08/25/2002, Additional history exists COVID-19 Vaccine ( season) 2024 07/11/2021, 06/13/2021 INFLUENZA VACCINE (#1) 2024 OBGCT (OB) 07/15/2024 CHLAMYDIA SCREENING 03/17/2025 03/17/2024 PAP 03/17/2027 03/17/2024 HEPATITIS B IMMUNIZATION Completed 002, 2001, 2001 Pneumococcal Vaccine: Pediatrics (0 to 5 Years) and At-Risk Patients (6 to 64 Years) Aged Out 05/25/2003, 2001, 2001, Additional history exists No longer eligible based on patient's age to complete this topic MENINGITIS IMMUNIZATION Completed 12/07/2017, 01/22 HEPATITIS C SCREENING Completed 03/13/2024 HIV SCREENING Completed 03/13/2024 PHQ-2 (once per calendar year) Completed 03/17/2024 MATERNAL SCREENING DISCUSSION Completed 04/19/2024 RSV MONOCLONAL ANTIBODY Aged Out No l onger eligible based on patient's age to complete this topic RSV VACCINE (No Doses Required) Completed Procedures Procedure Name Priority Date/Time Associated Diagnosis Comments US OB > 14 WEEKS Routine 06/12/2024 3:50 PM ANGLE SHEAR SET UP OPERATOR Normal , second trimester URINE MICROSCOPIC EXAM STAT 05/10/2024 11:55 AM CDT Pre-procedure lab exam ROUTINE UA WITH MICROSCOPIC STAT 05/10/2024 11:55 AM CDT Pre-procedure lab exam [place] NON-INVASIVE SCREENING PREQUEL Routine 04/19/2024 12:38 PM CDT Normal , first trimester CHLAMYDIA TRACHOMATIS PCR Routine 03/17/2024 10:33 AM CDT Normal , first trimester GYNECOLOGIC CYTOLOGY Routine 03/17/2024 10:31 AM CDT Normal , first trimester HIV ANTIGEN ANTIBODY COMBO Routine 03/13/2024 11:25 AM CDT Supervision of normal first HEPATITIS C SCREEN REFLEX TO HCV RNA QUANT AND GENOTYPE Routine 03/13/2024 11:25 AM CDT Supervision of normal first from Last 3 Months or Most Recently Relevant to Health Maintenance Results * US OB > 14 Weeks (06/12/2024 3:50 PM ANGLE SHEAR SET UP OPERATOR) Anatomical Region Laterality Modality Abdomen/Pelvis Ultrasound Narrative 06/12/2024 4:09 PM ANGLE SHEAR SET UP OPERATOR Table formatting from the original result was not included. [facility] ULTRASOUND - OB > 14 Weeks Complete - Transabdominal Referring Provider: Meliton Tavarez MD INDICATIONS FOR ULTRASOUND: OB History: Present Conditions: Initial Survey (18-26 weeks) CLINICAL INFORMATION LMP: sure EDC: 11/04/2024 EGA: 19w 2d Mcguire Gestation. presentation: Breech Placenta location: Posterior, no previa, > 2 cm from internal os Grade: I Cord: 3 Vessel Cord BPD 4.67 cm 20w1d 82.5 % HC 16.76 cm 19w3d 49.3 % AC 13.86 cm 19w2d 44.7 % FL 2.96 cm 19w1d 36.9 % HL 2.93 cm 19w4d 61.8 % Cerebellum 1.97 cm 19w0d CM 4.54 mm Lat Vent 8.55 mm Amniotic Fluid 3.2 cm MVP Cardiac Activity 149 bpm EFW (lbs/oz) [id number] EFW (g) 282 g 42.1 % EDC: 11/03/2024 EGA:19w3d correspond SURVEY Visualized with normal appearance: Lateral Ventricle, Choroid Plexus, Cisterna Magna, Cerebellum, Midline Falx, Cavum Septum Pellucidum, Face, Nose/Lips , Profile, 4 Chamber Heart, RVOT, LVOT, Spine, Kidneys, Stomach, Diaphragm, Abdominal Cord Insertion, Bladder, Arms, Legs, and Gender: Not disclosed Not visualized on today s ultrasound: Abnormal appearance: MATERNAL ANATOMY Cervix: The cervix appears long and closed. Cervical Length: 6.90cm Right Ovary: Not visualized Left Ovary: Not visualized *Other Findings: Technique:Transabdominal Imaging performed Impression: Complete obstetrical ultrasound using realtime transabdominal scanning. Mcguire live intrauterine . No gross anomalies observed. anomalies may be present but not detected. Corresponding menstrual and sonographic dates. Normal amniotic fluid. Placenta with normal appearance. Maternal Uterus appears normal. Maternal ovaries were non-visualized. Cachorro Ramirez MD Obstetrics & Gynecology [facility] Note: Federal law requires the release of results to patients even prior to the ordering provider viewing the result. Your provider will notify you, generally within the next business day, of any critical results. If follow up is necessary, you will be notified at that time. Normal results, and abnormal but non-urgent results, will generally be addressed within 2-3 business days. Meliton Tavarez MD [facility] ORDERABLES Final Re sult * (ABNORMAL) UA with Microscopic - lab collect (05/10/2024 11:55 AM CDT) Color Urine Yellow Colorless, Straw, Light Yellow, Yellow 05/10/2024 11:59 AM CDT [facility] Appearance Urine Clear Clear 05/10/20 24 11:59 AM CDT [facility] Glucose Urine Negative Negative mg/dL 05/10/2024 11:59 AM CDT [facility] Bilirubin Urine Negative Negative 11:59 AM CDT [facility] Ketones Urine Negative Negative mg/dL 05/10/2024 11:59 AM CDT [facility] Specific [place] Urine >=1.030 1.003 - 1.035 05/10/2024 11:59 AM CDT [facility] Blood Urine Negative Negative 05/10/2024 11:59 AM CDT [facility] pH Urine 6.5 5.0 - 7.0 05/10/2024 11:59 AM CDT [facility] Protein Albumin Urine Negative Negative mg/dL 05/10/2024 11:59 AM CDT [facility] Urobilinogen Urine 0.2 0.2, 1.0 E.U./dL 05/10/2024 11:59 AM CDT [facility] Nitrite Urine Negative Negative 05/10/2024 11:59 AM CDT [facility] Leukocyte Esterase Urine Small(A) Negative 05/10/2024 11:59 AM CDT [facility] Urine MID-STREAM URINE SPECIMEN / Unknown Non-blood Collection / Unknown 05/10/2024 11:55 AM CDT 05/10/2024 11:56 AM CDT Meliton Tavarez MD LAB - URINE ORDERABLES Fin al Result Performing Organization Address City/[facility]/ZIP Co de Phone Number [facility] [address] [place] [address] * (ABNORMAL) Urine Microscopic Exam (05/10/2024 11:55 AM CDT) Bacteria Urine Moderate( A) None Seen /HPF ARTIE 05/10/2024 12:03 PM CDT [facility] RBC Urine 0-2 0-2 /HPF /HPF ARTIE 05/10/2024 12:03 PM CDT [facility] WBC Urine 5-10(A) 0-5 /HPF /HPF ARTIE 05/10/2024 12:03 PM CDT [facility] Squamous Epithelials Urine Moderate( A) None Seen /LPF ARTIE 05/10/2024 12:03 PM CDT [facility] Mucus Urine Present(A ) None Seen /LPF ARTIE 05/10/2024 12:03 PM CDT [facility] Urine MID-STREAM URINE SPECIMEN / Unknown Non-blood Collection / Unknown 05/10/2024 11:55 AM CDT 05/10/2024 11:56 AM CDT Meliton Tavarez MD LAB - URINE ORDERABLES Fin al Result [facility] [address] [place] [address] * Myriad Non-Invasive Screening???Prequel (04/19/2024 12:38 PM CDT) See Scanned Result [place] NON-INVASIVE SCREENING PREQUEL-Scann ed 04/26/2024 11:48 AM CDT [employer] Blood BLOOD SPECIMEN / Unknown Venipuncture / Unknown 04/19/2024 12:38 PM CDT 04/19/2024 12:38 PM CDT Meliton Tavarez MD LAB - BLOOD ORDERABLES Fin al Result [employer] [address] [place], [place] [id number] [place] [address] * CHLAMYDIA TRACHOMATIS PCR (03/17/2024 10:33 AM CDT) Chlamydia trachomatis Negative Negative 03/18/2024 12:02 PM CDT [facility] Comment:A negative result by reel stripper mediated amplification does not preclude the presence of C. trachomatis infection because results are dependent on proper and adequate collection, absence of inhibitors and sufficient rRNA to be detected. Swab CERVIX UTERI STRUCTURE / Unknown Non-blood Collection / Unknown 03/17/2024 10:33 AM CDT 03/17/2024 10:50 AM CDT Meliton Tavarez MD LAB - MICRO GENERAL ORDERA BLES Final Result [facility]. [facility]. Lab [address] [place] [address] * Pap Screen Only - Recommended Age 21 - 24 Years (03/17/2024 10:31 AM CDT) Interpretation Negative for Intraepithelial Lesion or Malignancy (NILM) 03/23/2024 8:17 AM CDT [facility] Comment Papanicolaou Test Limitations: Cervical cytology is a screening test with limited sensitivity, and regular screening is critical for cancer prevention. Pap tests are primarily effective for the diagnosis/prevent ion of squamous cell carcinoma, not adenocarcinoma or other cancers. 03/23/2024 8:17 AM CDT [facility] Specimen Adequacy Satisfactory for evaluation, endocervical/garvey sformation zone component absent 03/23/2024 8:17 AM CDT [facility] Clinical Information none 03/23/2024 8:17 AM CDT [facility] Reflex Testing No 03/23/2024 8:17 AM CDT [facility] Previous Abnormal? No 03/23/2024 8:17 AM CDT [facility] Performing Labs The technical component of this testing was completed at [facility]. Stain controls for all stains resulted within this report have been reviewed and show appropriate reactivity. 03/23/2024 8:17 AM CDT [facility] Brushing ENDOCERVICAL STRUCTURE / Unknown Non-blood Collection / Unknown 03/17/2024 10:31 AM CDT 03/17/2024 10:50 AM CDT Meliton Tavarez MD LAB - BEAKER AP Final Resu lt [facility] Specialty Lab [address] [facility], [address] [place] [phone] * HIV Antigen Antibody Combo (03/13/2024 11:25 AM CDT) HIV Antigen Antibody Combo Nonreactive Nonreactive 03/13/2024 9:03 PM CDT [facility] Comment:Negative HIV-1 p24 a ntigen and HIV-1/2 antibody screening test results usually indicate the absence of HIV-1 and HIV-2 infection. However, such negative results do not rule-out acute HIV infection. If acute HIV-1 or HIV-2 infection is suspected, detection of HIV-1 or HIV-2 RNA is recommended. Blood BLOOD SPECIMEN / Unknown Venipuncture / Unknown 03/13/2024 11:25 AM CDT 03/13/2024 11:25 AM CDT Meliton Tavarez MD LAB - BLOOD ORDERABLES Fin al Result [facility]ORY [facility] [address] [facility], [address] [phone] * Hepatitis C Screen Reflex to HCV RNA Quant and Genotype (03/13/2024 11:25 AM CDT) Hepatitis C Antibody Nonreactive Nonreactive 03/13/2024 8:47 PM CDT [facility] Comment:A nonreactive screen ing test result does not exclude the possibility of exposure to or infection with HCV. Nonreactive screening test results in individuals with prior exposure to HCV may be due to antibody levels below the limit of detection of this assay or lack of reactivity to the HCV antigens used in this assay. Patients with recent HCV infections (<3 months from time of exposure) may have false- negative HCV antibody results due to the time needed for seroconversion (average of 8 to 9 weeks). Blood BLOOD SPECIMEN / Unknown Venipuncture / Unknown 03/13/2024 11:25 AM CDT 03/13/2024 11:25 AM CDT Meliton Tavarez MD LAB - BLOOD ORDERABLES Fin al Result Performing Organization Address [facility] Co de Phone Number [facility]ATORY [facility] [address] [facility], [address] [phone] from Last 3 Months or Most Recently Relevant to Health Maintenance Insurance [facility] OUT OF STATE BC OUT OF STATE Care Teams Vocational Training Teacher Relationship Specialty Start Date End Date No Ref-Primary, Physician PCP - General 03/01/24 Meliton Tavarez MD [address] [place] [address] [place] [address] Physician customs opener verifier packer 03/01/24 Meliton Tavarez MD [address] [place] [address] [place] [address] Assigned OBGYN Provider 04/17/24
--- OUTSIDE RECORDS SUMMARY | 2024-06-24 11:42 | XMS_ITS | Encounter Summary ---
Author Organization [facility] Address [address] [place] [address] Care Team Providers Care Senior Associate Name Role Phone No Ref-Primary, Physician Primary Care Provider Meliton Tavarez MD Unavailable [phone] Meliton Tavarez MD Unavailable [phone] Reason for Visit * Reason Onset Date Comments Refill Request 04/22/2024 Encounter Details Date Type Department Care Team (Late st Contact Info) Description 04/22/2024 MyC Refill [facility] [address] [place] [address] Meliton Tavarez MD [address] [place], [place] [phone] Refill Request Social History Tobacco Use Types Packs/Day Years [...] on file Legal Sex Female 4:19 AM CLIENT ADVOCATE Gender Identity Not on file Sexual Orientation Not on file 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 Not on file Not on file documented as of this encounter Plan of Treatment Upcoming Encounters Date Type Department Care Team (Late st Contact Info) Description 07/05/2024 11:45 AM CLIENT ADVOCATE Office Visit [facility] [address] [place] [phone] Meliton Tavarez MD [address] [place] [address] [place] [address] 08/01/2024 4:15 PM CLIENT ADVOCATE Office Visit [facility] [address] [place] [phone] Meliton Tavarez MD [address] [place] [address] [place] [address] 08/24/2024 9:45 AM CLIENT ADVOCATE Office Visit [facility] [address] [phone] Meliton Tavarez MD [address] [place] [address] [place] [phone] documented as of this encounter Visit Diagnoses Diagnosis Normal , first trimester documented in this encounter Care Teams Senior Associate Relationship Specialty Start Date End Date No Ref-Primary, Physician PCP - General 03/01/24 Meliton Tavarez MD [address] [place] [address] [place] [address] Physician master craftsman 03/01/24 Meliton Tavarez MD [address] [place] [address] [place] [address] Assigned OBGYN Provider 04/17/24 documented as of this encounter
--- OUTSIDE RECORDS SUMMARY | 2024-06-24 11:42 | XMS_ITS | Encounter Summary ---
Author Organization [place] Address [address] [place] [address] Care Team Providers Care Cable Systems Installer Name Role Phone No Ref-Primary, Physician Primary Care Provider Meliton Tavarez MD Unavailable [phone] Meliton Tavarez MD Unavailable [phone] Reason for Visit * Reason Comments Nausea Care 14w 3d Encounter Details Date Type Department Care Team (Late st Contact Info) Description 05/10/2024 11:30 AM CDT Office Visit [facility] [address] [place] [address] Meliton Tavarez MD [address] [place] [address] Pre-procedure lab exam (Primary Dx); Normal , second trimester Social History Tobacco Use Types Packs/Day Years [...] on file Legal Sex Female 4:19 AM ROLL WINDER Gender Identity Not on file Sexual Orientation Not on file 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 Issues related to care include: Continued use of Zofran for nausea, will add doxylamine. NIPT negative/boy Couple are both hunters ROS neg for concerns RTC one month documented in this encounter Nursing Notes * Radha Mcmillan LPN - 05/10/2024 11:30 AM CDT Chief Complaint Patient presents with Nausea Care 14w 3d Initial BP 110/62 Wt 56.7 kg (125 lb) LMP 01/01/2024 (Within Days) There is no height or weighton file to calculate BMI. BP completed using cuff size: regular Questioned patient about current smoking habits. Pt. has never smoked. Here today for nausea and vomiting in . The following HM Due: NONE Radha Mcmillan LPN on 05/10/2024 at 11:39 AM documented in this encounter Plan of Treatment Upcoming Encounters Date Type Department Care Team (Late st Contact Info) Description 07/05/2024 11:45 AM ROLL WINDER Office Visit [facility] [address] [place] [phone] Meliton Tavarez MD [address] [place] [address] 08/01/2024 4:15 PM ROLL WINDER Office Visit [facility] [address] [place] [phone] Meliton Tavarez MD [address] [address] 08/24/2024 9:45 AM ROLL WINDER Office Visit [facility] [address] [place] [phone] Meliton Tavarez MD [address] [address] documented as of this encounter Procedures Procedure Name Priority Date/Time Associated Diagnosis Comments ROUTINE UA WITH MICROSCOPIC STAT 05/10/2024 11:55 AM CDT Pre-procedure lab exam URINE MICROSCOPIC EXAM STAT 05/10/2024 11:55 AM CDT Pre-procedure lab exam documented in this encounter Results * (ABNORMAL) Urine Microscopic Exam (05/10/2024 11:55 [...] URINE ORDERABLES Fin al Result [facility] [address] [place] [address] * (ABNORMAL) UA with Microscopic - lab collect (05/10/2024 11:55 AM CDT) Color Urine Yellow Colorless, Straw, Light Yellow, Yellow 05/10/2024 11:59 AM CDT [facility] Appearance Urine Clear Clear 05/10/20 11:59 AM CDT [facility] Glucose Urine Negative Negative mg/dL 05/10/2024 11:59 AM CDT [facility] Bilirubin Urine Negative Negative 11:59 AM CDT [facility] Ketones Urine Negative Negative mg/dL 05/10/2024 11:59 AM CDT [facility] Specific [place] Urine >=1.030 1.003 - 1.035 05/10/2024 11:59 [...] URINE ORDERABLES Fin al Result [facility] [address] [place] [address], [facility] documented in this encounter Visit Diagnoses Diagnosis Pre-procedure lab exam- Primary Pre-procedural laboratory examination Normal , second trimester documented in this encounter Care Teams Cable Systems Installer Relationship Specialty Start Date End Date No Ref-Primary, Physician PCP - General 03/01/24 Meliton Tavarez MD [address] [facility] [address] [place] [address] Physician tariff counsel 03/01/24 Meliton Tavarez MD [address] [facility] [address] [place] [address] Assigned OBGYN Provider 04/17/24 documented as of this encounter
--- OUTSIDE RECORDS SUMMARY | 2024-06-24 11:42 | XMS_ITS | Encounter Summary ---
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 Not on file Not on file documented as of this encounter Plan of Treatment Upcoming Encounters Date Type Department Care Team (Late st Contact Info) Description 07/05/2024 11:45 AM RADIOLOGY TECHNOLOGIST Office Visit [facility] [address] [place] [phone] Meliton Tavarez MD [address] [place], [place] [phone] 08/01/2024 4:15 PM RADIOLOGY TECHNOLOGIST Office Visit [facility] [address] [place] [phone] Meliton Tavarez MD [address] [address] 08/24/2024 9:45 AM RADIOLOGY TECHNOLOGIST Office Visit [facility] [address] [phone] Meliton Tavarez MD [address] [address] documented as of this encounter Visit Diagnoses Not on filedocumented in this encounter Care Teams Pier Runner Relationship Specialty Start Date End Date No Ref-Primary, Physician PCP - General 03/01/24 Meliton Tavarez MD [address] [address] Physician rear admiral 03/01/24 Meliton Tavarez MD [address] [address] Assigned OBGYN Provider 04/17/24 documented as of this encounter
--- OUTSIDE RECORDS SUMMARY | 2024-06-24 11:42 | XMS_ITS | Encounter Summary ---
Author Organization [place] Address [address] [place] [address] Care Team Providers Care Funeral Greeter Name Role Phone No Ref-Primary, Physician Primary Care Provider Meliton Tavarez MD Unavailable [phone] Meliton Tavarez MD Unavailable [phone] Reason for Referral * Diagnostic Imaging Ultrasound (Routine) - Pending Review Specialty Diagnoses / Procedures Referred By Contac t Referred To Contact Radiology. Diagnoses Normal , second trimester Procedures US OB > 14 Weeks Meliton Tavarez MD [address] [place] [address] Phone: tel: fax: Referral ID Status Reason Start Date Expiration Date V isits Requested Visits Authorized [id number] Pending Review 06/08/2024 06/08/2025 1 1 TER COACH DRIVER Reason for Visit * Reason Comments Care 18w 5d Encounter Details Date Type Department Care Team (Late st Contact Info) Description 06/08/2024 1:30 PM CHARTER COACH DRIVER Office Visit [facility] [address] [place] [phone] Meliton Tavarez MD [address] [place] [address] Normal , second trimester (Primary Dx) Social History Tobacco Use Types Packs/Day Years [...] on file Legal Sex Female 4:19 AM CHARTER COACH DRIVER Gender Identity Not on file Sexual Orientation Not on file 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 Issues related to care include: Feeling very good now. NIPT negative Couple are both hunters ROS neg for concerns RTC one month TER COACH DRIVER documented in this encounter Nursing Notes * Radha Mcmillan LPN - 06/08/2024 1:30 PM CST Chief Complaint Patient presents with Care 18w 5d Initial BP 110/60 Wt 59.4 kg (131 lb) LMP 01/01/2024 (Within Days) There is no height or weighton file to calculate BMI. BP completed using cuff size: regular Questioned patient about current smoking habits. Pt. has never smoked. The following HM Due: NONE Radha Mcmillan LPN on 06/08/2024 at 1:33 PM TER COACH DRIVER documented in this encounter Plan of Treatment Upcoming Encounters Date Type Department Care Team (Late st Contact Info) Description 07/05/2024 11:45 AM CHARTER COACH DRIVER Office Visit [facility] [address] [place] [phone] Meliton Tavarez MD [address] [place] [address] 08/01/2024 4:15 PM CHARTER COACH DRIVER Office Visit [facility] [address] [place] [phone] Meliton Tavarez MD [address] [place] [address] 08/24/2024 9:45 AM CHARTER COACH DRIVER Office Visit [facility] [address] [place] [phone] Meliton Tavarez MD [address] [place] [address] documented as of this encounter Results * US OB > 14 Weeks (06/12/2024 3:50 PM CHARTER COACH DRIVER) Anatomical Region Laterality Modality Abdomen/Pelvis Ultrasound Narrative 06/12/2024 4:09 PM CHARTER COACH DRIVER Table formatting from the original result was not included. [facility] ULTRASOUND - OB > 14 Weeks Complete [...] MVP Cardiac Activity 149 bpm EFW (lbs/oz) [id number] EFW (g) 282 g 42.1 % EDC: [...] non-visualized. Cachorro Ramirez MD Obstetrics & Gynecology [facility] Note: Federal law requires the release [...] within 2-3 business days. Meliton Tavarez MD IMG US ORDERABLES Final Re sult documented in this encounter Visit Diagnoses Diagnosis Normal , second trimester- Primary Normal , second trimester documented in this encounter Care Teams Funeral Greeter Relationship Specialty Start Date End Date No Ref-Primary, Physician PCP - General 03/01/24 Meliton Tavarez MD [address] [address] Physician log stacker operator 03/01/24 Meliton Tavarez MD [address] [address] Assigned OBGYN Provider 04/17/24 documented as of this encounter
--- OUTSIDE RECORDS SUMMARY | 2024-06-24 11:42 | XMS_ITS | Encounter Summary ---
Author Organization [place] Address [address] [place] [address] Care Team Providers Care Sustainable Design Consultant Name Role Phone No Ref-Primary, Physician Primary Care Provider Meliton Tavarez MD Unavailable Meliton Tavarez MD Unavailable Reason for Visit * Diagnostic Imaging Ultrasound (Routine) - Pending Review Specialty Diagnoses / Procedures Referred By Contac t Referred To Contact Radiology. Diagnoses Normal , second trimester Procedures US OB > 14 Weeks Meliton Tavarez MD [address] [address] Phone: tel: fax: Referral ID Status Reason Start Date Expiration Date V isits Requested Visits Authorized [id number] Pending Review 06/08/2024 06/08/2025 1 1 Encounter Details Date Type Department Care Team (Latest Contact Info) Description 06/12/2024 3:00 PM TRAINING PROFESSIONAL Ancillary Procedure [address] [phone] Meliton Tavarez MD [address] [address] Normal , second trimester Social History Tobacco [...] on file Legal Sex Female 4:19 AM TRAINING PROFESSIONAL Gender Identity Not on file Sexual Orientation Not on file 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 file Not on file Not on file documented as of this encounter Plan of Treatment Upcoming Encounters Date Type Department Care Team (Late st Contact Info) Description 07/05/2024 11:45 AM TRAINING PROFESSIONAL Office Visit [facility] [address] [place] [phone] Meliton Tavarez MD [address] [place] [address] 08/01/2024 4:15 PM TRAINING PROFESSIONAL Office Visit [facility] [address] [place] [phone] Meliton Tavarez MD [address] [place] [address] 08/24/2024 9:45 AM TRAINING PROFESSIONAL Office Visit [facility] [address] [place] [phone] Meliton Tavarez MD [address] [place] [address] documented as of this encounter Procedures Procedure Name Priority Date/Time Associated Diagnosis Comments US OB > 14 WEEKS Routine 06/12/2024 3:50 PM TRAINING PROFESSIONAL Normal , second trimester documented in this encounter Results * US OB > 14 Weeks (06/12/2024 3:50 PM TRAINING PROFESSIONAL) Anatomical Region Laterality Modality Abdomen/Pelvis Ultrasound Narrative 06/12/2024 4:09 PM TRAINING PROFESSIONAL Table formatting from the original result was not included. [facility] ULTRASOUND - OB > 14 Weeks [...] MVP Cardiac Activity 149 bpm EFW (lbs/oz) [id number] EFW (g) 282 g 42.1 % EDC: [...] non-visualized. Cachorro Ramirez MD Obstetrics & Gynecology [facility] Note: Federal law requires the release of results to patients even prior to the ordering provider viewing the result. Your provider will notify you, generally within the next business day, of any critical results. If follow up is necessary, you will be notified at that time. Normal results, and abnormal but non-urgent results, will generally be addressed within 2-3 business days. us Meliton Tavarez MD [facility] ORDERABLES Final Re sult documented in this encounter Visit Diagnoses Diagnosis Normal , second trimester documented in this encounter Care Teams Sustainable Design Consultant Relationship Specialty Start Date End Date No Ref-Primary, Physician PCP - General 03/01/24 Meliton Tavarez MD [address] [address] Physician engineering technologist 03/01/24 Meliton Tavarez MD [address] [address] Assigned OBGYN Provider 04/17/24 documented as of this encounter
--- OUTSIDE RECORDS SUMMARY | 2024-06-24 11:42 | XMS_ITS | Encounter Summary ---
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 Not on file Not on file Not on file documented as of this encounter Plan of Treatment Upcoming Encounters Date Type Department Care Team (Late st Contact Info) Description 07/05/2024 11:45 AM SUPERVISOR RECLAMATION Office Visit [facility] [address] [place] [phone] Meliton Tavarez MD [address] [place], [place] [phone] 08/01/2024 4:15 PM SUPERVISOR RECLAMATION Office Visit [facility] [address] [place] [phone] Meliton Tavarez MD [address] [address] 08/24/2024 9:45 AM SUPERVISOR RECLAMATION Office Visit [facility] [address] [phone] Meliton Tavarez MD [address] [address] documented as of this encounter Visit Diagnoses Not on filedocumented in this encounter Care Teams Claim Review Medical Director Relationship Specialty Start Date End Date No Ref-Primary, Physician PCP - General 03/01/24 Meliton Tavarez MD [address] [address] Physician meter tester 03/01/24 Meliton Tavarez MD [address] [address] Assigned OBGYN Provider 04/17/24 documented as of this encounter
--- OUTSIDE RECORDS SUMMARY | 2024-06-24 11:42 | XMS_ITS | Encounter Summary ---
Author Organization [place] Address [address] [place] [address] Care Team Providers Care Composition Tile Layer Name Role Phone No Ref-Primary, Physician Primary Care Provider Meliton Tavarez MD Unavailable [phone] Meliton Tavarez MD Unavailable [phone] Reason for Visit * Reason Onset Date Comments Care 05/09/2024 Encounter Details Date Type Department Care Team (Late st Contact Info) Description 05/09/2024 MyC Medical Advice [facility] [address] [place] [address] Meliton Tavarez MD [address] [place], [place] [address] Care Social History Tobacco Use Types Packs/Day Years [...] on file Legal Sex Female 4:19 AM ORE TESTER Gender Identity Not on file Sexual Orientation Not on file 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 She has had a hard time keeping fluids down too. Tried zofran and it helped for awhile but now it is not helping as much. No lightheadedness or dizziness. Agreed for appt tomorrow to discuss management. Estrella Aguero HAND ASSEMBLER FOR PULLER OVER [place] italian tutor documented in this encounter Plan of Treatment Upcoming Encounters Date Type Department Care Team (Late st Contact Info) Description 07/05/2024 11:45 AM ORE TESTER Office Visit [place] [address] [place] [phone] Meliton Tavarez MD [address] [address] 08/01/2024 4:15 PM ORE TESTER Office Visit [facility] [address] [place] [phone] Meliton Tavarez MD [address] [place] [address] 08/24/2024 9:45 AM ORE TESTER Office Visit [facility] [address] [place] [phone] Meliton Tavarez MD [address] [place] [address] documented as of this encounter Visit Diagnoses Not on filedocumented in this encounter Care Teams Composition Tile Layer Relationship Specialty Start Date End Date No Ref-Primary, Physician PCP - General 03/01/24 Meliton Tavarez MD [address] [address] Physician clinical practice consultant 03/01/24 Meliton Tavarez MD [address] [address] Assigned OBGYN Provider 04/17/24 documented as of this encounter
--- OUTSIDE RECORDS SUMMARY | 2024-06-24 11:42 | XMS_ITS | Encounter Summary ---
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 Not on file Not on file documented as of this encounter Plan of Treatment Upcoming Encounters Date Type Department Care Team (Late st Contact Info) Description 07/05/2024 11:45 AM CLINICAL LABORATORY SERVICE TEACHER Office Visit [facility] [address] [place] [phone] Meliton Tavarez MD [address] [place], [place] [address] 08/01/2024 4:15 PM CLINICAL LABORATORY SERVICE TEACHER Office Visit [facility] [address] [place] [phone] Meliton Tavarez MD [address] [address] 08/24/2024 9:45 AM CLINICAL LABORATORY SERVICE TEACHER Office Visit [facility] [address] [phone] Meliton Tavarez MD [address] [address] documented as of this encounter Visit Diagnoses Not on filedocumented in this encounter Care Teams Weatherization Administrator Relationship Specialty Start Date End Date No Ref-Primary, Physician PCP - General 03/01/24 Meliton Tavarez MD [address] [address] Physician partnership manager 03/01/24 Meliton Tavarez MD [address] [address] Assigned OBGYN Provider 04/17/24 documented as of this encounter
--- OUTSIDE RECORDS SUMMARY | 2024-06-24 11:42 | XMS_ITS | Referral Summary ---
Author Organization [facility] Address [address] [place] [address] Care Team Providers Care Scratcher Name Role Phone No Ref-Primary, Physician Primary Care Provider Meliton Tavarez MD Unavailable [phone] Meliton Tavarez MD Unavailable [phone] Encounters Date Type Department Care Team Description 06/12/2024 Travel 06/12/2024 3:00 PM THERAPEUTIC CONSULTANT Ancillary Procedure [address] [phone] Meliton Tavarez MD Normal , second trimester 06/08/2024 1:30 PM THERAPEUTIC CONSULTANT Office Visit [facility] [address] [place] [phone] Meliton Tavarez MD Normal , second trimester (Primary Dx) 06/07/2024 Travel 05/30/2024 Telephone [facility] [address] [place] [address] Meliton Tavarez MD Care 05/10/2024 Travel 05/10/2024 11:30 AM CDT Office Visit [facility] [address] [place] [phone] Meliton Tavarez MD Pre-procedure lab exam (Primary Dx); Normal , second trimester 05/09/2024 Travel 05/09/2024 MyC Medical Advice [facility] [address] [place] [address] Meliton Tavarez MD Care 05/09/2024 9:35 AM CDT E-Visit [facility] [address] [place] [phone] Shayne Ruelas MD Cough (Entered automatically based on barrington... 04/22/2024 MyC Refill [facility] [address] [place] [address] Meliton Tavarez MD Refill Request 04/19/2024 11:45 AM CDT Office Visit [address] [place] [address] Meliton Tavarez MD Normal , first trimester (Primary Dx) 04/18/2024 Travel 04/09/2024 MyC Refill [address] [place] [phone] Meliton Tavarez MD Refill Request from Last 3 Months Allergies Active Allergy Reactions Criticality Noted Date [...] on Ultraso und No known active problems Immunizations Name Administration Dates Next Due COVID-19 Monovalent 18+ (Moderna) 06/13/2021 DTAP (<7y) 07/15/2006, 2,2001, 1 HEPATITIS A (PEDS 12M-18Y) 09/10/2014,01/22/2014 HIB (PRP-T) 2001,2001 HPV9 04/24/2019,02/20/2019 HepB, Unspecified 02/08/2002,2001,05/30/20 01 MMR 07/15/2006,06/08/2002 Meningococcal ACWY (Menveo ) 12/07/2017,01/22/2014 Pneumococcal (PCV 7) 05/25/2003,11/09/19 02,2001, 1 Poliovirus, inactivated (IPV) 07/15/2006 ,02/08/2002,2001, 1 TDAP (Adacel,Boostrix) 01/22/2014 TRIHIBIT (DTAP/HIB, <7y) 08/25/2002 Varicella 07/29/2012,06/08/2002 Social History Tobacco Use Types Packs/Day Years [...] on file Legal Sex Female 4:19 AM THERAPEUTIC CONSULTANT Gender Identity Not on file Sexual Orientation Not on file 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 Not on file Not on file Last Filed Vital Signs Vital Sign Reading Time Taken Comments Blood Pressure 110/60 06/08/2024 1:33 PM THERAPEUTIC CONSULTANT Pulse - - Temperature - - Respiratory Rate - - Oxygen Saturation - - Inhaled Oxygen Concentration - - Weight 59.4 kg (131 lb) 06/08/2024 1:33 PM THERAPEUTIC CONSULTANT Height - - Body Mass Index - - Plan of Treatment Upcoming Encounters Date Type Department Care Team (Late st Contact Info) Description 07/05/2024 11:45 AM THERAPEUTIC CONSULTANT Office Visit [facility] [address] [place] [phone] Meliton Tavarez MD [address] [place] [address] [place] [address] 08/01/2024 4:15 PM THERAPEUTIC CONSULTANT Office Visit [facility] [address] [place] [phone] Meliton Tavarez MD [address] [place] [address] [place] [address] 08/24/2024 9:45 AM THERAPEUTIC CONSULTANT Office Visit [facility] [address] [place] [phone] Meliton Tavarez MD [address] [address] Procedures Procedure Name Priority Date/Time Associated Diagnosis Comments US OB > 14 WEEKS Routine 06/12/2024 3:50 PM THERAPEUTIC CONSULTANT Normal , second trimester URINE MICROSCOPIC EXAM [...] OB > 14 Weeks (06/12/2024 3:50 PM THERAPEUTIC CONSULTANT) Anatomical Region Laterality Modality Abdomen/Pelvis Ultrasound Narrative 06/12/2024 4:09 PM THERAPEUTIC CONSULTANT Table formatting from the original result was not included. [facility] ULTRASOUND - OB > 14 Weeks [...] MVP Cardiac Activity 149 bpm EFW (lbs/oz) [id number] EFW (g) 282 g 42.1 % EDC: [...] non-visualized. Cachorro Ramirez MD Obstetrics & Gynecology [facility] Note: Federal law requires the release of [...] within 2-3 business days. Meliton Tavarez MD [facility] US ORDERABLES Final Re sult * (ABNORMAL) UA with Microscopic - lab collect (05/10/2024 11:55 AM CDT) Color Urine Yellow Colorless, Straw, Light Yellow, Yellow 05/10/2024 11:59 AM CDT [facility] Appearance Urine Clear Clear 05/10/20 24 11:59 AM CDT [facility] Glucose Urine Negative Negative mg/dL 05/10/2024 11:59 AM CDT [facility] Bilirubin Urine Negative Negative 4 11:59 AM CDT [facility] Ketones Urine Negative Negative mg/dL 05/10/2024 11:59 AM CDT [facility] Specific [place] Urine >=1.030 1.003 - 1.035 05/10/2024 11:59 [...] URINE ORDERABLES Fin al Result [facility] [place] [facility] [address] [place] [address] * (ABNORMAL) Urine Microscopic Exam (05/10/2024 11:55 [...] URINE ORDERABLES Fin al Result [facility] [place] [facility] [address], [address] [place] [address], [facility] * Myriad Non-Invasive Screening???Prequel (04/19/2024 12:38 PM CDT) Pathologist [facility] See Scanned Result [facility]RIAD NON-INVASIVE SCREENING PREQUEL-Scann ed 04/26/2024 11:48 AM CDT [facility] Blood BLOOD SPECIMEN / Unknown Venipuncture / Unknown 04/19/2024 12:38 PM CDT 04/19/2024 12:38 PM CDT Meliton Tavarez MD LAB - BLOOD ORDERABLES Fin al Result [facility] [address] [place], [place] [id number] [place] [address] * CHLAMYDIA TRACHOMATIS PCR (03/17/2024 10:33 AM CDT) Pathologist [facility] Chlamydia trachomatis Negative Negative 03/18/2024 12:02 PM CDT [facility] Comment:A negative result by station helper mediated amplification does not preclude the presence of C. trachomatis infection because results are dependent on proper and adequate collection, absence of inhibitors and sufficient rRNA to be detected. Swab CERVIX UTERI STRUCTURE / Unknown Non-blood Collection / Unknown 03/17/2024 10:33 AM CDT 03/17/2024 10:50 AM CDT Meliton Tavarez MD LAB - MICRO GENERAL ORDERA BLES Final Result [facility] Inf. Diseases Diag. Lab [address] [facility], [address] [place] [address], [facility] * Pap Screen Only - Recommended Age 21 - 24 Years (03/17/2024 10:31 AM CDT) Interpretation Negative for Intraepithelial Lesion or Malignancy (NILM) 03/23/2024 8:17 AM CDT [facility] Comment Papanicolaou Test Limitations: Cervical cytology [...] component of this testing was completed at [facility]. Stain controls for all stains resulted within this report have been reviewed and show appropriate reactivity. 03/23/2024 8:17 AM CDT [facility] Brushing ENDOCERVICAL STRUCTURE / Unknown Non-blood Collection / Unknown 03/17/2024 10:31 AM CDT 03/17/2024 10:50 AM CDT Meliton CORTÉS - ATIYA AP Final Resu lt [facility] Specialty Lab [address] [facility], [address] [place] [address], [facility] * HIV Antigen Antibody Combo (03/13/2024 11:25 [...] ORDERABLES Fin al Result Performing Organization Address City/[facility] Co de Phone Number LABORATORY [facility] [place] [facility] [address] [facility], [address] [phone] * Hepatitis C Screen Reflex to HCV RNA Quant and Genotype (03/13/2024 11:25 AM CDT) [facility] Hepatitis C Antibody Nonreactive Nonreactive 03/13/2024 8:47 PM CDT LABORATORY Comment:A nonreactive screen ing test result [...] ORDERABLES Fin al Result Performing Organization Address City/[facility] Co de Phone Number LABORATORY [facility] [place] [facility] [address] [facility], [address] [phone] from Last 3 Months or Most Recently Relevant to Health Maintenance Insurance BCBS OUT OF STATE BCBS OUT OF STATE Care Teams Scratcher Relationship Specialty Start Date End Date No Ref-Primary, Physician PCP - General 03/01/24 Meliton Tavarez MD [address] [address] Physician framing mill operator 03/01/24 Meliton Tavarez MD [address] [address] Assigned OBGYN Provider 04/17/24
--- OUTSIDE RECORDS SUMMARY | 2024-06-24 11:42 | XMS_ITS | Encounter Summary ---
Author Organization [facility] Address [address] [place] [address] Care Team Providers Care Account Adjuster Name Role Phone No Ref-Primary, Physician Primary Care Provider Meliton Tavarez MD Unavailable [phone] Meliton Tavarez MD Unavailable [phone] Reason for Visit * Reason Onset Date Comments Care 05/30/2024 Encounter Details Date Type Department Care Team (Late st Contact Info) Description 05/30/2024 Telephone [facility] [address] [place] [address] Meliton Tavarez MD [address] [place], [place] [address] Care Social History Tobacco Use Types Packs/Day [...] on file Legal Sex Female 4:19 AM WAREHOUSE SHIPPING RECEIVING CLERK Gender Identity Not on file Sexual Orientation Not on file 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 Not period cramping, but more of a sharp pain. No vaginal sx. Has had constipation, last BM was a couple days ago. Advised to try gas x, drink large glass of water. Walk around then rest on sides alternating. Okay to use warm pack. pile driving supervisor stool softener as well. Call back with new sx, increase, or none of the above helps. Estrella Aguero STEAMBOAT CAPTAIN [place] auto damage estimator HOUSE SHIPPING RECEIVING CLERK documented in this encounter Plan of Treatment Upcoming Encounters Date Type Department Care Team (Late st Contact Info) Description 07/05/2024 11:45 AM WAREHOUSE SHIPPING RECEIVING CLERK Office Visit [place] [address] [place] [address] [phone] Meliton Tavarez MD [address] [address] 08/01/2024 4:15 PM WAREHOUSE SHIPPING RECEIVING CLERK Office Visit [place] [address] [place] [address] [phone] Meliton Tavarez MD [address] [address] 08/24/2024 9:45 AM WAREHOUSE SHIPPING RECEIVING CLERK Office Visit [place] [address] [place] [address] [phone] Meliton Tavarez MD [address] [place] [address] [place] [address] documented as of this encounter Visit Diagnoses Not on filedocumented in this encounter Care Teams Account Adjuster Relationship Specialty Start Date End Date No Ref-Primary, Physician PCP - General 03/01/24 Meliton Tavarez MD [address] [address] Physician tour coordinator 03/01/24 Meliton Tavarez MD [address] [address] Assigned OBGYN Provider 04/17/24 documented as of this encounter
--- OUTSIDE RECORDS SUMMARY | 2024-06-24 11:43 | XMS_ITS | Clinical Summary ---
Author Organization [facility] Address [address] [place] [address] Care Team Providers Care Rural Route Mail Carrier Name Role Phone None Reported, Pcp Primary Care Provider Unavail able Source Comments Patient records contain information from all sites at [facility]. For routine questions regarding patient records, call [phone] during business hours, M-F 8:00 AM - 5:00 PM Central Time. Record requests for emergency care only can be directed to [phone] at any time.[facility] Allergies Active Allergy Reactions Criticality Noted Date Comments Penicillins Rash High 03/03/2017 Medications No known medications Active Problems No known active problems Social History Tobacco Use Types Packs/Day Years Used Date Smoking Tobacco: Never Smokeless Tobacco: Never Tobacco Cessation:Counseling Given: Not Answered Alcohol Use Standard Drinks/Week Comments Yes 0 (1 standard drink = 0.6 oz pur e alcohol) occasional Nutrition Answer Date Recorded Nutrition: EVOO Fat Source Unknown 11/15 Nutrition: Servings of Fruits/Vegetables per Day Not on file 11/15/2022 Dental Answer Date Recorded Dental: Regular Dentist Unknown 11/16/19 Comments No Sex and Gender Information Value Date Recorded Sex Assigned at Not on file Legal Sex Female 8:22 PM CDT Gender Identity Not on file Sexual Orientation Not on file Last Filed Vital Signs Vital Sign Reading Time Taken Comments Blood Pressure 128/86 11/15/2022 9:45 PM CDT Pulse 79 11/15/2022 9:45 PM CDT Temperature 36.5 C (97.7 F) 11/15/2022 8:31 PM CDT Respiratory Rate 16 11/15/2022 8:31 PM CDT Oxygen Saturation 99% 11/15/2022 9:45 PM CDT Inhaled Oxygen Concentration - - Weight 53.9 kg (118 lb 13.3 oz) 11/15/2022 8:33 PM CDT Height 167.6 cm (5' 6) 11/15/2022 8:33 PM CDT Body Mass Index 19.18 11/15/2022 8:33 PM CDT Plan of Treatment Not on file Care Teams Rural Route Mail Carrier Relationship Specialty Start Date End Date None Reported, Pcp PCP - General Family Medicine 11/15/22
--- OUTSIDE RECORDS SUMMARY | 2024-06-24 11:43 | XMS_ITS | Encounter Summary ---
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 file Not on file Not on file documented as of this encounter Plan of Treatment Upcoming Encounters Date Type Department Care Team (Late st Contact Info) Description 07/05/2024 11:45 AM ACCOUNTS CLERK Office Visit [facility] [address] [place] [phone] Meliton Tavarez MD [address] [place] [address] 08/01/2024 4:15 PM ACCOUNTS CLERK Office Visit [facility] [address] [place] [phone] Meliton Tavarez MD [address] [address] 08/24/2024 9:45 AM ACCOUNTS CLERK Office Visit [facility] [address] [phone] Meliton Tavarez MD [address] [address] documented as of this encounter Visit Diagnoses Not on filedocumented in this encounter Care Teams Water Filtration Technician Relationship Specialty Start Date End Date No Ref-Primary, Physician PCP - General 03/01/24 Meliton Tavarez MD [address] [address] Physician tile mechanic helper 03/01/24 documented as of this encounter
--- OUTSIDE RECORDS SUMMARY | 2024-06-24 11:43 | XMS_ITS | Encounter Summary ---
Author Organization [facility] Address [address] [place] [address] Care Team Providers Care Web Services Architect Name Role Phone No Ref-Primary, Physician Primary Care Provider Meliton Tavarez MD Unavailable [phone] Reason for Visit * Reason Onset Date Comments Refill Request 04/09/2024 Encounter Details Date Type Department Care Team (Late st Contact Info) Description 04/09/2024 MyC Refill 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 Antivertigo/Antiemetic Agents Passed - 04/09/2024 1:28 PM Passed - Medication is active on med list Passed - Medication indicated for associated diagnosis The medication is prescribed for one or more of the following conditions: Motion sickness Nausea Vomiting Vertigo Chemotherapy-induced nausea and vomiting Radiation-induced nausea and vomiting, Nausea and vomiting prophylaxis, migraine Passed - Recent (12 mo) or future (90 days) visit with authorizing provider's specialty The patient must have completed an in-person or virtual visit within the past 12 months or has a future visit scheduled within the next 90 days with the authorizing provider???s specialty. Urgent care and e-visits do not quality as an office visit for this protocol. Passed - Patient is 18 years of age or older Filled. Estrella Aguero FILTER SCREEN CLEANER Leon sampling theory teacher documented in this encounter Plan of Treatment Upcoming Encounters Date Type Department Care Team (Late st Contact Info) Description 07/05/2024 11:45 AM STACK MATCHER Office Visit [address] [phone] Meliton Tavarez MD [address] [address] 08/01/2024 4:15 PM STACK MATCHER Office Visit [facility] [address] [phone] Meliton Tavarez MD [address] [address] 08/24/2024 9:45 AM STACK MATCHER Office Visit [facility] [address] [place] [address] Meliton Tavarez MD [address] [place] [address] documented as of this encounter Visit Diagnoses Diagnosis Normal , first trimester documented in this encounter Care Teams Web Services Architect Relationship Specialty Start Date End Date No Ref-Primary, Physician PCP - General 03/01/24 Meliton Tavarez MD [address] [place] [address] Physician disc pad knockout worker 03/01/24 documented as of this encounter
--- OUTSIDE RECORDS SUMMARY | 2024-06-24 11:43 | XMS_ITS | Encounter Summary ---
Author Organization [facility] Address [address] [place] [address] Care Team Providers Care Core Driller Name Role Phone No Ref-Primary, Physician Primary Care Provider Meliton Tavarez MD Unavailable [phone] Meliton Tavarez MD Unavailable [phone] Encounter Details Date Type Department Care Team (Late Contact Info) Description 03/03/2024 MyC Medical Advice [facility] [address] [place] [address] Estrella Myers RN Social History Tobacco Use Types Packs/Day Years Used Date Smoking Tobacco: Former Vaping Device Smokeless Tobacco: Never Alcohol Use Standard Drinks/Week Comments Not Currently 0 (1 standard drink = 0.6 oz pur e alcohol) Adolescent Education Answer Date Record ed Getting School Help Needed Not on file 03/03 Estimated Date of Delivery Comme nts Yes 11/04/2024 Based on Ultraso und Sex and Gender Information Value Date Recorded Sex Assigned at Not on file Legal Sex Female 4:19 AM INFORMATICS APPLICATION ANALYST Gender Identity Not on file Sexual Orientation Not on file 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 Not on file Not on file documented as of this encounter Plan of Treatment Upcoming Encounters Date Type Department Care Team (Late st Contact Info) Description 07/05/2024 11:45 AM INFORMATICS APPLICATION ANALYST Office Visit [facility] [address] [place] [phone] Meliton Tavarez MD [address] [place] [address] [place] [address] 08/01/2024 4:15 PM INFORMATICS APPLICATION ANALYST Office Visit [facility] [address] [place] [phone] Meliton Tavarez MD [address] [address] 08/24/2024 9:45 AM INFORMATICS APPLICATION ANALYST Office Visit [facility] [address] [phone] Meliton Tavarez MD [address] [address] documented as of this encounter Visit Diagnoses Not on filedocumented in this encounter Care Teams Core Driller Relationship Specialty Start Date End Date No Ref-Primary, Physician PCP - General 03/01/24 Meliton Tavarez MD [address] [address] Physician hotel night auditor 03/01/24 Meliton Tavarez MD [address] [address] Assigned OBGYN Provider 04/17/24 documented as of this encounter
--- OUTSIDE RECORDS SUMMARY | 2024-06-24 11:43 | XMS_ITS | Encounter Summary ---
Author Organization [place] Address [address] [place] [address] Care Team Providers Care Content Manager Name Role Phone No Ref-Primary, Physician Primary Care Provider Meliton Tavarez MD Unavailable [phone] Meliton Tavarez MD Unavailable [phone] Reason for Visit * Reason Comments Care 11w4d Encounter Details Date Type Department Care Team (Late st Contact Info) Description 04/19/2024 11:45 AM CDT Office Visit [facility] [address] [place] [address] Meliton Tavarez MD [address] [place], [place] [phone] Normal , first trimester (Primary Dx) Social History Tobacco Use [...] on file Legal Sex Female 4:19 AM EMR TRAINER Gender Identity Not on file Sexual Orientation Not on file 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 Issues related to care include: Continued use of Zofran for nausea NIPT pending from today Couple are both hunters ROS neg for concerns RTC one month documented in this encounter Nursing Notes * Radha Mcmillan LPN - 04/19/2024 11:45 AM CDT Chief Complaint Patient presents with Care 11w4d Initial BP 112/72 Wt 56.2 kg (124 lb) LMP 01/01/2024 (Within Days) There is no height or weighton file to calculate BMI. BP completed using cuff size: regular Questioned patient about current smoking habits. Pt. has never smoked. The following HM Due: NONE Radha Mcimllan LPN on 04/19/2024 at 11:50 AM documented in this encounter Plan of Treatment Upcoming Encounters Date Type Department Care Team (Late st Contact Info) Description 07/05/2024 11:45 AM EMR TRAINER Office Visit [facility] [address] [place] [phone] Meliton Tavarez MD [address] [place] [address] 08/01/2024 4:15 PM EMR TRAINER Office Visit [facility] [address] [place] [phone] Meliton Tavarez MD [address] [place] [address] 08/24/2024 9:45 AM EMR TRAINER Office Visit [facility] [address] [place] [phone] Meliton Tavarez MD [address] [address] documented as of this encounter Procedures Procedure Name Priority Date/Time Associated Diagnosis Comments MYRIAD NON-INVASIVE SCREENING PREQUEL Routine 04/19/2024 12:38 PM CDT Normal , first trimester documented in this encounter Results * Myriad Non-Invasive Screening???Prequel (04/19/2024 12:38 PM CDT) See Scanned Result MYRIAD NON-INVASIVE SCREENING PREQUEL-Scann ed 04/26/2024 11:48 AM CDT [facility] Blood BLOOD SPECIMEN / Unknown Venipuncture / Unknown 04/19/2024 12:38 PM CDT 04/19/2024 12:38 PM CDT us Meliton Tavarez MD LAB - BLOOD ORDERABLES Fin al Result [facility] [address] [place] [address], [facility] [phone] documented in this encounter Visit Diagnoses Diagnosis Normal , first trimester- Primary documented in this encounter Care Teams Content Manager Relationship Specialty Start Date End Date No Ref-Primary, Physician PCP - General 03/01/24 Meliton Tavarez MD [address] [address] Physician actuarial internship 03/01/24 Meliton Tavarez MD [address] [address] Assigned OBGYN Provider 04/17/24 documented as of this encounter
--- OUTSIDE RECORDS SUMMARY | 2024-06-24 11:43 | XMS_ITS | Encounter Summary ---
Author Organization [place] Address [address] [place] [address] Care Team Providers Care Power Nut Runner Operator Name Role Phone No Ref-Primary, Physician Primary Care Provider Meliton Tavarez MD Unavailable [phone] Meliton Tavarez MD Unavailable [phone] Encounter Details Date Type Department Care Team (Late Contact Info) Description 03/03/2024 MyC Medical Advice [facility] [address] [place] [address] Estrella Myers RN Social History [...] on file Legal Sex Female 4:19 AM MEXICAN FOOD MAKER HAND Gender Identity Not on file Sexual Orientation Not on file 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 Not on file Not on file documented as of this encounter Plan of Treatment Upcoming Encounters Date Type Department Care Team (Late st Contact Info) Description 07/05/2024 11:45 AM MEXICAN FOOD MAKER HAND Office Visit [facility] [address] [place] [phone] Meliton Tavarez MD [address] [place] [address] 08/01/2024 4:15 PM MEXICAN FOOD MAKER HAND Office Visit [facility] [address] [place] [phone] eMliton Tavarez MD [address] [address] 08/24/2024 9:45 AM MEXICAN FOOD MAKER HAND Office Visit [facility] [address] [phone] Meliton Tavarez MD [address] [address] documented as of this encounter Visit Diagnoses Not on filedocumented in this encounter Care Teams Power Nut Runner Operator Relationship Specialty Start Date End Date No Ref-Primary, Physician PCP - General 03/01/24 Meliton Tavarez MD [address] [address] Physician ergonomics engineer 03/01/24 Meliton Tavarez MD [address] [address] Assigned OBGYN Provider 04/17/24 documented as of this encounter
--- OUTSIDE RECORDS SUMMARY | 2024-06-24 11:43 | XMS_ITS | Encounter Summary ---
Author Organization [place] Address [address] [place] [address] Care Team Providers Care Car Rental Sales Assistant Name Role Phone No Ref-Primary, Physician Primary Care Provider Meliton Tavarez MD Unavailable [phone] Reason for Visit * Reason Onset Date Comments Medication Request 03/17/2024 Encounter Details Date Type Department Care Team (Late st Contact Info) Description 03/17/2024 MyC Medical Advice [facility] [address] [place] [address] Meliton Tavarez MD [address] [facility] [address] [place] [address] Medication Request Social History Tobacco Use Types Packs/Day [...] on file Legal Sex Female 4:19 AM RUBBER CUTTER Gender Identity Not on file Sexual Orientation Not on file 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 6w6d Re: rx for zofran and letter for work. Brittney Le RN documented in this encounter Plan of Treatment Upcoming Encounters Date Type Department Care Team (Late st Contact Info) Description 07/05/2024 11:45 AM RUBBER CUTTER Office Visit [facility] [address] [place] [phone] Meliton Tavarez MD [address] [place] [address] 08/01/2024 4:15 PM RUBBER CUTTER Office Visit [facility] [address] [place] [phone] Meliton Tavarez MD [address] [place] [address] 08/24/2024 9:45 AM RUBBER CUTTER Office Visit [facility] [address] [place] [phone] Meliton Tavarez MD [address] [place] [address] documented as of this encounter Visit Diagnoses Not on filedocumented in this encounter Care Teams Car Rental Sales Assistant Relationship Specialty Start Date End Date No Ref-Primary, Physician PCP - General 03/01/24 Meliton Tavarez MD [address] [place] [address] Physician counsel 03/01/24 documented as of this encounter
--- OUTSIDE RECORDS SUMMARY | 2024-06-24 11:43 | XMS_ITS | Clinical Summary ---
[facility] Address [address] [place] [address] Care Team Providers Care Cafeteria Director Name Role Phone Felicity Salomon MD Primary Care Provider [phone] Source Comments You are receiving this document as you are listed as the primary care provider,follow-up provider, or the patient has been referred to you for consultation.This is in compliance with the Medicare and[facility] EHR Incentive Program,which states Providers who transition their patient to another setting of careor provider of care or refers their patient to another provider of care shouldprovide summary care record for each transition of care or referral. Semadic Allergies Active Allergy Reactions Criticality Noted Date Comments Penicillins Rash High 03/03/2017 Medications Medication Sig Dispensed Refills Start Date End Date Status FLUoxetine (PROZAC) 20 MG capsule Take 1 Capsule by mouth daily. Will call when needs filled. 30 Capsule 2 09/28/2018 Active methylphenidate (METADATE CD) 10 MG controlled release capsule Take 1 Capsule by mouth daily. 30 Capsule 11/10/2018 Active etonogestrel (NEXPLANON) 68 MG implantIndications: Insertion of implantable subdermal contraceptive Inject 68 mg subcutaneously . 1 Each 03/16/2019 Active Active Problems Problem Noted Date Diagnosed Date Nexplanon in place 03/16/2019 Overview (03/16/2019): Inserted right arm 03/16/19 right arm. Needs removal 03/16/2022. 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 05/05/2018 Immunizations Name Administration Dates Next Due 9vHPV (Gardasil 9) 04/24/2019,02/20/2019 DTaP 07/15/2006,2001,2001 ,2001 DTaP/Hib 08/25/2002 HepA Ped/Adol (1-18 yrs) 09/10/2014,01/22/2014 HepB, Unspecified Formulation 02/08/2002, 002,2001 Hib (ActHIB) 2001,2001,2001 IPV (Polio) 07/15/2006,02/08/2002,2001 ,2001 MCV4 (Menactra) 01/22/2014 MCV4 Menveo 2m.+ (two vial) 12/07/2017 MMR 07/15/2006,06/08/2002 Pneumococcal 7, PED 05/25/2003,2001,2001,2001 TDAP (BOOSTRIX) 01/22/2014 Varicella 07/29/2012,06/08/2002 Family History Medical History Relation Name Comments ADHD Father Anxiety Father Depression Father Anxiety Mother Depression Mother Diabetes, Type II Maternal Grandmother Depression Other MGGM Relation Name Status Comments Father Alive Mother Alive Maternal Grandmother Other MGGM Social History Tobacco Use Types Packs/Day Years Used Date Smoking Tobacco: Passive Smo ke Exposure - Never Smoker Smokeless Tobacco: Never Alcohol Use Standard Drinks/Week Comments No 0 (1 standard drink = 0.6 oz pur e alcohol) Sex and Gender Information Value Date Recorded Sex Assigned at Not on file Gender Identity Not on file Sexual Orientation Not on file Last Filed Vital Signs Vital Sign Reading Time Taken Comments Blood Pressure 120/74 03/16/2019 2:37 PM CDT Pulse 88 03/16/2019 2:37 PM CDT Temperature 36.8 C (98.2 F) 03/03/2017 1:17 PM CDT Respiratory Rate 20 03/03/2017 1:17 PM CDT Oxygen Saturation - - Inhaled Oxygen Concentration - - Weight 48.5 kg (107 lb) 03/16/2019 2:37 PM CDT Height 165.1 cm (5' 5) 02/20/2019 2:52 PM CDT Body Mass Index - - Plan of Treatment Health Maintenance Due Date Last Done Comments Cervical Cancer Screening Due 2001 Hep C Screening (Preventive Services) 2001 HIV Screening (Preventive Services) 2017 Adult Preventive Visit 2019 02/20/2019, 2017 HPV Vaccine (3 - 3-dose series) 08/23/2019 04/24/2019, 02/20/2019 Chlamydia 02/21/2020 02/20/2019 DTaP/Tdap/Td (7 - Tdap) 01/23/2024 01/23/20 14, 07/15/2006, 08/25/2002, Additional history exists COVID-19 Vaccine (2023- season) 2024 07/11/2021, 06/13/2021 Influenza (#1) 2024 Zoster/Shingles (1 of 2) 2051 HepB Completed 02/08/2002, 10/24, 2001 Hib Completed 08/25/2002, 08/26, 2001, Additional history exists Pneumococcal Aged Out 05/25/2003, 10/24, 2001, Additional history exists No longer eligible based on patient's age to complete this topic IPV (Polio) Completed 07/15/2006, 01/23, 2001, Additional history exists Varicella Completed 07/29/2012, 06/08/2002 HepA Completed 09/10/2014, 01/22/2014 MCV4 Completed 12/07/2017, 01/22/2014 RSV Aged Out No longer eligi ble based on patient's age to complete this topic Procedures Procedure Name Priority Date/Time Associated Diagnosis Comments CHLAMYDIA & GC, URINE (14 YEARS AND OLDER) Routine 02/20/2019 4:05 PM CDT Encounter for screening for infections with a predominantly sexual mode of transmission from Last 3 Months or Most Recently Relevant to Health Maintenance Results * Chlamydia and GC, Urine STD (02/20/2019 4:05 PM CDT) Chlamydia Trachomatis STD Not Detected Not Detected 02/21/2019 12:44 PM CDT [facility] N. gonorrhoeae STD Not Detected Not Detected 02/21/2019 12:44 PM CDT [facility] Urine Non-blood Collection / Unknown 02/20/2019 4:05 PM CDT 02/20/2019 4:17 PM CDT Narrative [facility] - 02/21/2019 12:44 PM CDT Test performed by Molecular Detection Carrie Maxwell MD LAB_1 Performing Organization Address City/State/[facility] Co de Phone Number [facility] [address] [phone] from Last 3 Months or Most Recently Relevant to Health Maintenance Care Teams Cafeteria Director Relationship Specialty [place] [address] [place] [phone] PCP - General 10/27/10
--- OUTSIDE RECORDS SUMMARY | 2024-06-24 11:43 | XMS_ITS | Encounter Summary ---
Author Organization [place] Address [address] [place] [address] Care Team Providers Care Fruit Bar Maker Name Role Phone No Ref-Primary, Physician Primary Care Provider Meliton Tavarez MD Unavailable [phone] Meliton Tavarez MD Unavailable [phone] Reason for Visit * Reason Onset Date Comments Appointment 03/01/2024 Encounter Details Date Type Department Care Team (Late st Contact Info) Description 03/01/[address] [facility] [facility] [address] [place] [address] Meliton Tavarez MD [address] [place] [address] Appointment Social History Tobacco Use Types Packs/Day Years Used Date Smoking Tobacco: Never Assessed Adolescent Education Answer Date Record ed Getting School Help Needed Not on file 03/03 Comments Unknown Sex and Gender Information Value Date Recorded Sex Assigned at Not on file Legal Sex Female 4:19 AM TEST DEVELOPMENT ENGINEER Gender Identity Not on file Sexual Orientation Not on file documented as of this encounter Miscellaneous Notes * Telephone Encounter - Karina Jones - 03/01/2024 1:11 PM CDT [facility] Phone Message May a detailed message be left on voicemail: yes Reason for Call: Other: . Pt is 8w4d and commercial real estate underwriter scheduled all appropriate visits, pt is wondering if she can be seen sooner for any other them due to her already being 8w4d- there was nothing sooner on writers end, please reach out to Mya, thank you Action Taken: Message routed to: Other: obgyn Travel Screening: Not Applicable Date of Service: documented in this encounter Plan of Treatment Upcoming Encounters Date Type Department Care Team (Late st Contact Info) Description 07/05/2024 11:45 AM TEST DEVELOPMENT ENGINEER Office Visit [facility] [address] [place] [phone] Meliton Tavarez MD [address] [place] [address] 08/01/2024 4:15 PM TEST DEVELOPMENT ENGINEER Office Visit [facility] [address] [place] [phone] Meliton Tavarez MD [address] [place] [address] 08/24/2024 9:45 AM TEST DEVELOPMENT ENGINEER Office Visit [facility] [address] [place] [phone] Meliton Tavarez MD [address] [place] [address] documented as of this encounter Visit Diagnoses Not on filedocumented in this encounter Care Teams Fruit Bar Maker Relationship Specialty Start Date End Date No Ref-Primary, Physician PCP - General 03/01/24 Meliton Tavarez MD [address] [place] [address] Physician design consultant 03/01/24 Meliton Tavarez MD [address] [facility] [address] [place] [address] Assigned OBGYN Provider 04/17/24 documented as of this encounter
--- OUTSIDE RECORDS SUMMARY | 2024-06-24 11:43 | XMS_ITS | Encounter Summary ---
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 Not on file Not on file documented as of this encounter Plan of Treatment Upcoming Encounters Date Type Department Care Team (Late st Contact Info) Description 07/05/2024 11:45 AM NAVAL AIRCREWMAN OPERATOR Office Visit [facility] [address] [place] [phone] Meliton Tavarez MD [address] [place], [place] [address] 08/01/2024 4:15 PM NAVAL AIRCREWMAN OPERATOR Office Visit [facility] [address] [place] [phone] Meliton Tavarez MD [address] [address] 08/24/2024 9:45 AM NAVAL AIRCREWMAN OPERATOR Office Visit [facility] [address] [phone] Meliton Tavarez MD [address] [address] documented as of this encounter Visit Diagnoses Not on filedocumented in this encounter Care Teams Content Writer Relationship Specialty Start Date End Date No Ref-Primary, Physician PCP - General 03/01/24 Meliton Tavarez MD [address] [address] Physician marketing consultant 03/01/24 Meliton Tavarez MD [address] [address] Assigned OBGYN Provider 04/17/24 documented as of this encounter
--- OUTSIDE RECORDS SUMMARY | 2024-06-24 11:43 | XMS_ITS | Referral Summary ---
Author Organization [facility] Address [address] [place] [address] Care Team Providers Care Coal Bagger Name Role Phone None Reported, Pcp Primary Care Provider Unavail able Source Comments Patient records contain information from all sites at [facility]. For routine questions regarding patient records, call [phone] during business hours, M-F 8:00 AM - 5:00 PM Central Time. Record requests for emergency care only can be directed to [phone] at any time.[facility] Allergies Active Allergy Reactions Criticality Noted Date [...] of Treatment Not on file Care Teams Coal Bagger Relationship Specialty Start Date End Date None Reported, Pcp PCP - General Family Medicine 11/15/22
--- OUTSIDE RECORDS SUMMARY | 2024-06-24 11:43 | XMS_ITS | Encounter Summary ---
Author Organization [facility] Address [address] [place] [address] Care Team Providers Care Vice President Of Product Marketing Name Role Phone No Ref-Primary, Physician Primary Care Provider Meliton Tavarez MD Unavailable [phone] Reason for Referral * Diagnostic Imaging Ultrasound (Routine) - Pending Review Specialty Diagnoses / Procedures Referred By Fiorella t Referred To Contact Radiology. Diagnoses Supervision of normal first Procedures US OB <14 Weeks w Transvaginal Single ([id number]) Meliton Tavarez MD [address] [place] [address] Phone: tel: fax: Referral ID Status Reason Start Date Expiration Date V isits Requested Visits Authorized [id number] Pending Review 03/03/2024 03/03/2025 1 1 Reason for Visit * Reason Comments Care Encounter Details Date Type Department Care Team (Late st Contact Info) Description 03/03/2024 10:00 AM CDT Virtual Visit [facility] [address] [place] [address] Supervision of normal first (Primary Dx) Social History Tobacco Use Types [...] on file Legal 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 Pt will be given NPN folder and book at her upcoming appt. Discussed optional screening available to assess chromosomal anomalies. Questions answered. Informed pt of the clinic structure (on-call does deliveries for the day, may be male or female doctor). Ptadvised to call the clinic if she has any questions or concerns related to her . labs will be obtained at her upcoming appt. New visit scheduled on 03/17/[address] Mee Tavarez. 8w6d Menstrual cycles: regular, every 28 days Date of positive test: 02/26/24 x3 Medications stopped upon pos HPT: none, quit smoking Last pap: has not had one, aware she will get one Patient supplied answers from flow sheet for: OB Questionnaire. Past Medical History Have you ever recieved care for your mental health? : (!) Yes Have you ever been in a major accident or suffered serious trauma?: No Within the last year, has anyone hit, slapped, kicked or otherwise hurt you?: No In the last year, has anyone forced you to have sex when you didn't want to?: No Past Medical History 2 Have you ever received a blood transfusion?: No Would you accept a blood transfusion if was medically recommended?: Yes Does anyone in your home smoke?: No Is your blood type Rh negative?: Unknown Have you ever breastfed?: No Have you been hospitalized for a nonsurgical reason excluding normal delivery?: No Have you ever had an abnormal pap smear?: No Past Medical History (Continued) Do you have a history of abnormalities of the uterus?: No Did your mother take IRENE or any other hormones when she was with you?: No Do you have any other problems we have not asked about which you feel may be important to this ?: No documented in this encounter Plan of Treatment Upcoming Encounters Date Type Department Care Team (Late st Contact Info) Description 07/05/2024 11:45 AM DEPUTY COUNTY COUNSEL Office Visit [facility] [address] [place] [phone] Meliton Tavarez MD [address] [place] [address] 08/01/2024 4:15 PM DEPUTY COUNTY COUNSEL Office Visit [facility] [address] [phone] Meliton Tavarez MD [address] [place] [phone] 08/24/2024 9:45 AM DEPUTY COUNTY COUNSEL Office Visit [facility] [address] [phone] Meliton Tavarez MD [address] [address] documented as of this encounter Results * Urine Culture Aerobic Bacterial (03/13/2024 11:31 AM CDT) Culture <10,000 CFU/mL Mixture of Urogenital Kathy 03/14/2024 10:18 AM CDT [facility] Urine URINE SPECIMEN / Unknown Non-blood Collection / Unknown 03/13/2024 11:31 AM CDT 03/13/2024 11:31 AM CDT us Meliton Tavarez MD LAB - MICRO GENERAL ORDERA BLES Final Result ID[facility] Inf. Diseases Diag. Lab [address] [facility], [address] [place] [phone] * Hepatitis C Screen Reflex to HCV [...] ORDERABLES Fin al Result Performing Organization Address City/[facility]/ZIP Co de Phone Number LABORATORY [facility] [address] [facility], [address] [place] [phone] * Treponema Abs w Reflex to RPR and Titer (03/13/2024 11:25 AM CDT) Treponema Antibody Total Nonreactive Nonreactive 03/14/2024 11:00 AM CDT SPECIALTY CORE/PROT/EN DO Blood BLOOD SPECIMEN / Unknown Venipuncture / Unknown 03/13/2024 11:25 AM CDT 03/13/2024 11:25 AM CDT Meliton Tavarez MD LAB - BLOOD ORDERABLES Fin al Result [facility] CORE/PROT/ENDO [facility] Specialty Core/Prot/Endo [address] [facility], [address] * Rubella Antibody IgG (03/13/2024 11:25 AM CDT) Rubella Jade IgG Instrument Value 1.32 <0.90 Index 03/14/2024 11:03 AM CDT SPECIALTY CORE/PROT/END O Rubella Antibody IgG Positive 03/14/2024 11:03 AM CDT SPECIALTY CORE/PROT/END O Comment:Suggests previous ex posure or immunization and probable immunity. Blood BLOOD SPECIMEN / Unknown Venipuncture / Unknown 03/13/2024 11:25 AM CDT 03/13/2024 11:25 AM CDT Meliton Tavarez MD LAB - BLOOD ORDERABLES Fin al Result Performing Organization Address City/[facility]/ZIP Co de Phone Number SPECIALTY CORE/PROT/ENDO Specialty Core/Prot/Endo [address] [place] [address], [address] * HIV Antigen Antibody Combo (03/13/2024 11:25 [...] LAB - BLOOD ORDERABLES Fin al Result U LABORATORY [facility] [address] [facility], [address] * CBC with platelets (03/13/2024 11:25 AM CDT) WBC Count 7.3 4.0 - 11.0 10e3/uL 03/13/2024 11:27 AM CDT [facility] RBC Count 3.92 3.80 - 5.20 10e6/uL 03/13/2024 11:27 AM CDT [facility] Hemoglobin 12.5 11.7 - 15.7 g/dL 03/13/2024 11:27 AM CDT [facility] Hematocrit 36.6 35.0 - 47.0 % 03/13/2024 11:27 AM CDT [facility] MCV 93 78 - 100 fL 03/13/2024 11:27 AM CDT [facility] MCH 31.9 26.5 - 33.0 pg 03/13/2024 11:27 AM CDT [facility] MCHC 34.2 31.5 - 36.5 g/dL 03/13/2024 11:27 AM CDT [facility] RDW 11.6 10.0 - 15.0 % 03/13/2024 11:27 AM CDT [facility] Platelet Count 228 150 - 450 10e3/uL 03/13/2024 11:27 AM CDT [facility] Blood BLOOD SPECIMEN / Unknown Venipuncture / Unknown 03/13/2024 11:25 AM CDT 03/13/2024 11:25 AM CDT Meliton Tavarez MD LAB - BLOOD ORDERABLES Fin al Result [facility] LABORATORY [facility] [address] [place] [phone] * Hepatitis B surface antigen (03/13/2024 11:25 AM CDT) Hepatitis B Surface Antigen Nonreactive Nonreactive 03/13/2024 9:48 PM CDT [facility] Blood BLOOD SPECIMEN / Unknown Venipuncture / Unknown 03/13/2024 11:25 AM CDT 03/13/2024 11:25 AM CDT Meliton Tavarez MD LAB - BLOOD ORDERABLES Fin al Result [facility] [address] [facility], [address] [place] [phone] * US OB <14 Weeks w Transvaginal Single ([id number]) (03/13/2024 11:19 AM CDT) Anatomical Region Laterality Modality Abdomen/Pelvis Ultrasound Impressions 03/13/2024 2:54 PM CDT LMP: 01/01/2024 - sure EDC: 10/07/2024 EGA: 10 w 2 d MEASUREMENTS Gest Sac: vis MSD: 1.21cm Position:nl Contour:smooth/regular. Yolk sac: 3.6 mm wnl CRL: 0.55 cm. EGA: 6w 2d U/S EDC: 11/04/2024 discrepancy Cardiac Activity:Yes FHR: 125 bpm reg Endo stripe(if no IUP) Rt Ov L: 2.16 x 1.89 x 2.74 cm Wnl Lt Ov L: 2.62 x 3.29 x 1.09 cm Wnl Cul de sac: free fluid - 1.47 x 1.32 cm *Other Findings: Technique: Transvaginal Imaging performed Transabdominal Imaging performed Impression: Early obstetric transabdominal and transvaginal ultrasound. Mcguire live intrauterine . Note: discrepancy between sonographic and menstrual EGA and EDC. Recommend revised EDC of 11/04/2024. anomalies may be present but not detected. Normal amniotic fluid seen. Gestational sac is Normal. Placenta is not seen as is appropriate for early gestational age. Uterus is retroverted and normal. Right ovary Normal. Left ovary Normal. Trace cul-de-sac fluid. Cachorro Ramirez MD Obstetrics & Gynecology [facility] Note: Federal law requires the release of results to patients even prior to the ordering provider viewing the result. Your provider will notify you, generally within the next business day, of any critical results. If follow up is necessary, you will be notified at that time. Normal results, and abnormal but non-urgent results, will generally be addressed within 2-3 business days. Narrative 03/13/2024 2:54 PM CDT [facility] Obstetrics and Gynecology ULTRASOUND - OB < 14 Weeks- Transabdominal and Transvaginal Referring Provider: Meliton Tavarez MD INDICATIONS FOR ULTRASOUND: OB History: Present Conditions: Initial S&D (0-17 weeks) CLINICAL INFORMATION us Meliton Tavarez MD IMG US ORDERABLES Final Re sult documented in this encounter Visit Diagnoses Diagnosis Supervision of normal first - Primary Supervision of normal first documented in this encounter Care Teams Vice President Of Product Marketing Relationship Specialty Start Date End Date No Ref-Primary, Physician PCP - General 03/01/24 Meliton Tavarez MD [address] [address] Physician medical technician assistant 03/01/24 documented as of this encounter
--- OUTSIDE RECORDS SUMMARY | 2024-06-24 11:43 | XMS_ITS ---
Author Organization [facility] Address [address] [place] [address] Care Team Providers Care Estate Agent Name Role Phone Unavailable Unavailable Unavailable Surgery Details Not on file Complications Check Surgery Details section. Procedure Estimated Blood Loss Check Surgery Details section. Procedure Findings Check Surgery Details section. Procedure Specimens Taken Check Surgery Details section.
--- OUTSIDE RECORDS SUMMARY | 2024-06-24 11:43 | XMS_ITS | Encounter Summary ---
Author Organization [facility] Address [address] [place] [address] Care Team Providers Care Environmental Services Coordinator Name Role Phone No Ref-Primary, Physician Primary Care Provider Shantell Tavarez MD Unavailable [phone] Reason for Visit * Reason Comments Care 6w 6d Encounter Details Date Type Department Care Team (Late st Contact Info) Description 03/17/2024 10:00 AM CDT Office Visit [facility] [place] [address] [place] [address] Shantell Tavarez MD [address] [facility] [address] [place] [address] Normal , first trimester (Primary Dx) Social [...] on file 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 Gender Identity Not on file Sexual Orientation Not on file 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 LUIS: 10/07/2024, by Last Menstrual Period. She is 10w5d weeks. Her cycles are regular. Her last menstrual period was normal. Since her LMP, she has had no complaints). She denies nausea and vaginal bleeding. Additional History: Have you travelled during the ?No Have your sexual partner(s) travelled during the ?No HISTORY: Planned : No Marital Status: Single Occupation: Living in Household: Significant Other Past History: Her past medical history is non-contributory. She has a history of no previous pregnancies Since her last LMP she denies use of alcohol, tobacco and street drugs. Past medical, surgical, social and family history were reviewed and updated in [employer]. No current outpatient medications on file. No current facility-administered medications for this visit. ROS: 12 point review of systems negative other than symptoms noted below or in the HPI. OBJECTIVE: EXAM: LMP 01/01/2024 (Within Days) There is no height or weight on file to calculate BMI. GENERAL: alert and no distress ABDOMEN: soft, nontender, no hepatosplenomegaly, no masses and bowel sounds normal MS: no gross musculoskeletal defects noted, no edema SKIN: no suspicious lesions or rashes NEURO: Normal strength and tone, mentation intact and speech normal PSYCH: mentation appears normal, affect normal/bright Normal pelvic exam, normal external genitalia, vaginal mucosa, cx without lesion, cx deviated to patients left side, mid plain ASSESSMENT/PLAN: Early at 6 weeks 23 year old , 6+5 weeks of with LUIS of 10/07/2024, by Last Menstrual Period Discussed as follows:redating based on US. Genetic testing next month Counseling given: - Follow up in 4-6 weeks for return OB visit. - Recommended weight gain for : 25-35 lbs. PLAN/PATIENT INSTRUCTIONS: Pap smear, GC Chlam. Shantell Tavarez MD documented in this encounter Nursing Notes * Radha Mcmillan LPN - 03/17/2024 10:00 AM CDT Chief Complaint Patient presents with Care 6w 6d Initial BP 116/72 Wt 54.4 kg (120 lb) LMP 01/01/2024 (Within Days) There is no height or weighton file to calculate BMI. BP completed using cuff size: regular Questioned patient about current smoking habits. Pt. has never smoked. The following HM Due: pap smear Radha Mcmillan LPN on 03/17/2024 at 10:00 AM documented in this encounter Miscellaneous Notes * Addendum Note - Shantell Tavarez MD - 03/17/2024 10:00 AM CDTAddended by: SHANTELL TAVAREZ on: 03/19/2024 07:11 AM Modules accepted: Orders documented in this encounter Plan of Treatment Upcoming Encounters Date Type Department Care Team (Late st Contact Info) Description 07/05/2024 11:45 AM DUMPLING MACHINE OPERATOR Office Visit [facility] [address] [place] [phone] Shantell Tavarez MD [address] [address] 08/01/2024 4:15 PM DUMPLING MACHINE OPERATOR Office Visit [facility] [address] [place] [phone] Shantell Tavarez MD [address] [place] [address] 08/24/2024 9:45 AM DUMPLING MACHINE OPERATOR Office Visit [facility] [address] [place] [phone] Shantell Tavarez MD [address] [place] [address] documented as of this encounter Procedures Procedure Name Priority Date/Time Associated Diagnosis Comments NEISSERIA GONORRHOEAE PCR Routine 03/17/2024 10:33 AM CDT Normal , first trimester CHLAMYDIA TRACHOMATIS PCR Routine 03/17/2024 10:33 AM CDT Normal , first trimester GYNECOLOGIC CYTOLOGY Routine 03/17/2024 10:31 AM CDT Normal , first trimester documented in this encounter Results * CHLAMYDIA TRACHOMATIS PCR (03/17/2024 10:33 AM CDT) Chlamydia trachomatis Negative Negative 03/18/2024 12:02 PM CDT [facility] Comment:A negative result by service car driver mediated amplification does not preclude the presence of C. trachomatis infection because results are dependent on proper and adequate collection, absence of inhibitors and sufficient rRNA to be detected. Swab CERVIX UTERI STRUCTURE / Unknown Non-blood Collection / Unknown 03/17/2024 10:33 AM CDT 03/17/2024 10:50 AM CDT us Shantell Tavarez MD LAB - MICRO GENERAL ORDERA BLES Final Result [facility] Inf. Diseases Diag. Lab [address] [facility], [address] [place] [address], [facility] * NEISSERIA GONORRHOEA PCR (03/17/2024 10:33 AM CDT) Neisseria gonorrhoeae Negative Negative 03/18/2024 12:02 PM CDT [facility] Comment:Negative for N. gono rrhoeae rRNA by service car driver mediated amplification. A negative result by service car driver mediated amplification does not preclude the presence of C. trachomatis infection because results are dependent on proper and adequate collection, absence of inhibitors and sufficient rRNA to be detected. Swab CERVIX UTERI STRUCTURE / Unknown Non-blood Collection / Unknown 03/17/2024 10:33 AM CDT 03/17/2024 10:50 AM CDT us Shantell Tavarez MD LAB - MICRO GENERAL ORDERA BLES Final Result [facility] Inf. Diseases Diag. Lab [address] [facility], [address] [place] [phone] * Pap Screen Only - Recommended Age [...] component of this testing was completed at [facility]. Stain controls for all stains resulted within this report have been reviewed and show appropriate reactivity. 03/23/2024 8:17 AM CDT SPECIALTY LABS Brushing ENDOCERVICAL STRUCTURE / Unknown Non-blood Collection / Unknown 03/17/2024 10:31 AM CDT 03/17/2024 10:50 AM CDT Shantell CORTÉS - ATIYA RUTH Final Resu lt [facility] [address] [facility] [address] [facility], [address] [place] [phone], [facility] documented in this encounter Visit Diagnoses Diagnosis Normal , first trimester- Primary documented in this encounter Care Teams Environmental Services Coordinator Relationship Specialty Start Date End Date No Ref-Primary, Physician PCP - General 03/01/24 Shantell Tavarez MD [address] [place] [address] Physician burner operator 03/01/24 documented as of this encounter
[2024-06-24] MEDS: METOCLOPRAMIDE HCL 10 MG in 0.9 % SODIUM CHLORIDE 100 ml 100 ML 306 MG IVPB (11:56)
[2024-06-24] MEDS: 0.9 % SODIUM CHLORIDE 500 ML 500 ML 1000 ML IV ×2 (11:58→12:37)
[2024-06-24 12:10] VITALS: PULSE 96; RESP 16; O2SAT 100
[2024-06-24 12:23] LABS: PCR FLU A Negative PCR FLU A (Negative); PCR FLU B Negative PCR FLU B (Negative); SARS PCR* Negative SARS-CoV-2 (Negative)
[2024-06-24] MEDS: ONDANSETRON 2 MG/ML inj 4 MG IVP (12:36)
[2024-06-24 12:45] LABS: Appearance Urine Clear (Clear); Bilirubin Urine Negative (Negative); Blood Urine Negative (Negative); Color Urine Yellow (Yellow); Glucose Urine Negative (Negative); Ketones Urine 2+ (Negative); Leukocyte Esterase Urine 1+ (Negative); Nitrite Urine Negative (Negative); Protein Urine Trace (Negative); Specific Gravity Urine 1.025 (1.000-1.030); Urobilinogen Urine 0.2 (0.2-1.0)
[2024-06-24 13:01] LABS: Bacteria Urine Moderate; RBC Urine 0-2 (0-2); Squamous Epithelial Cell Urine Few (None-Few)
== END 2024-06-24 13:36 | disposition home or self-care (01) ==
PROVIDERS: Emergency Provider Family Medicine
DX: R09.81 Nasal congestion (principal); Z3A.21 21 weeks gestation of pregnancy
CPT/HCPCS: 81001; 87086; 87631; 96365; 96375; 99284; J2405; J2765; J7030